=== PATIENT | female | born 1970 | race Caucasian/White ===

== ENCOUNTER 2023-01-29 12:54 | Outpatient (OUT) | payer OTHER, SELFPAY ==
--- NOTE | 2023-01-29 13:02 | XR_ITS ---
[place] [id number] Patient Name: AMALIA SHARMA MRN: [id number] date: 1970 Sex: F Assigned Patient Location: [facility] Current Patient Location: [facility] Accession/Order Number: [id number] Exam Date: 01/29/2023 13:08 Report Date: 01/29/2023 15:15 At the request of: RODOLFO REDDING Procedure: XR DEXA axial skeleton EXAMINATION: XR DEXA axial skeleton HISTORY: Osteoporosis COMPARISON: No relevant comparison available. TECHNIQUE: Dual-energy X-ray absorptiometry (DXA) was performed. FINDINGS: SPINE ANALYSIS: Average bone mineral density is 1.065 g/cm2. T-score (standard deviation relative to young adult mean): -1.0 . HIP ANALYSIS: Lowest bone mineral density is within the femoral neck, 0.938 g/cm2. T-score (standard deviation relative to young adult mean): -0.7 . IMPRESSION: [employer] Classification: Normal - Low Fracture Risk Electronically authenticated by: CANDACE LÓPEZ Date: 01/29/2023 15:15
== END 2023-01-29 12:55 ==
PROVIDERS: PCP Family Medicine; Visit Provider Obstetrics & Gynecology
DX: Z01.419 Encounter for gynecological examination (general) (routine) without abnormal findings (principal)
CPT/HCPCS: 77080

== ENCOUNTER 2023-02-06 15:47 | Outpatient (OUT) | payer OTHER, SELFPAY ==
[2023-02-06 17:23] LABS: Thyroid Stimulating Hormone 0.007 uIU/mL (0.358-3.740)
[2023-02-06 18:25] LABS: Free T4 1.16 ng/dL (0.76-1.46)
== END 2023-02-06 15:48 ==
PROVIDERS: PCP Family Medicine; Visit Provider Family Medicine
DX: K90.0 Celiac disease (principal); E03.9 Hypothyroidism, unspecified
CPT/HCPCS: 36415; 82784; 84439; 84443; 86231; 86258; 86364

== ENCOUNTER 2023-02-12 14:51 | Outpatient (OUT) | payer OTHER, SELFPAY ==
--- NOTE | 2023-02-12 14:59 | US_ITS ---
The [address] [address] Patient Name: AMALIA SHARMA MRN: [id number] date: 1970 Sex: F Assigned Patient Location: [place] Current Patient Location: [place] Accession/Order Number: [id number] Exam Date: 02/12/2023 15:10 Report Date: 02/12/2023 17:18 At the request of: ROJELIO LOYA Procedure: US thyroid EXAM: US thyroid HISTORY: Hypothyroidism E03.9 . Follow-up study. COMPARISON: 09/30/2019 TECHNIQUE: Multiple sonographic images of the thyroid gland were obtained, supplemented with Doppler. FINDINGS: The right lobe measures 4.5 x 1.7 x 1.4 cm. Heterogeneous echoes are noted throughout. A solid hypoechoic nodule is seen in the superior aspect of the right lobe measuring 1.1 x 0.9 x 0.4 cm. Additional very small nodules are suggested. The left lobe measures 3.8 x 1.3 x 1.2 cm. Heterogeneous echoes are noted throughout. In the inferior aspect of the left lobe is a solid hypoechoic nodule measuring 1.3 x 0.9 x 0.6 cm. In the mid aspect there is a solid hypoechoic nodule measuring 1.0 x 0.6 x 0.5 cm. Additional very small nodules are suggested. The isthmus measures 4 mm in thickness. No focal mass or abnormal fluid collection is seen surrounding the gland. IMPRESSION: The thyroid gland is not enlarged. There are multiple nodules present, with no significant interval change. The larger identified nodules described above are all TI RADS 4. Biopsy is not recommended at this time. A follow-up study in 12 months is recommended. Electronically authenticated by: TONY ALVAREZ Date: 02/12/2023 17:18
== END 2023-02-12 14:52 | disposition home or self-care (01) ==
LOC: US 14:52
PROVIDERS: PCP Family Medicine; Visit Provider Family Medicine
DX: E03.9 Hypothyroidism, unspecified (principal)
CPT/HCPCS: 76536

== ENCOUNTER 2023-02-16 11:32 | Outpatient (OUT) | payer OTHER, SELFPAY | END 2023-02-16 11:33 | disposition home or self-care (01) | LOC: LAB 11:33 | PROVIDERS: PCP Family Medicine; Visit Provider Family Medicine | DX: K90.0 Celiac disease (principal); E03.9 Hypothyroidism, unspecified | CPT/HCPCS: 36415; 81377; 82784; 86258; 86364 ==

== ENCOUNTER 2023-03-29 11:18 | Outpatient (OUT) | payer OTHER, SELFPAY ==
[2023-03-29 13:31] LABS: Free T4 0.85 ng/dL (0.76-1.46)
[2023-03-29 13:39] LABS: Thyroid Stimulating Hormone 1.451 uIU/mL (0.358-3.740)
== END 2023-03-29 11:19 | disposition home or self-care (01) ==
LOC: LAB 11:21
PROVIDERS: PCP Family Medicine; Visit Provider Family Medicine
DX: E06.9 Thyroiditis, unspecified (principal)
CPT/HCPCS: 36415; 84439; 84443

== ENCOUNTER 2023-07-27 13:26 | Outpatient (OUT) | payer OTHER, SELFPAY ==
[2023-07-27 14:34] LABS: Basophils Absolute Auto 0.1 10^3/uL (0.0-0.1); Basophils Percent Auto 0.7 % (0.2-2.0); Eosinophils Absolute Auto 0.1 10^3/uL (0.0-0.7); Eosinophils Percent Auto 1.9 % (0.9-7.0); Hemoglobin 13.8 g/dL (12.0-16.0); Immature Granulocytes Abs Auto 0.02 10^3/uL (0.00-0.03); Immature Granulocytes Pct Auto 0.3 % (0.0-0.5); Lymphocytes Absolute Auto 2.3 10^3/uL (1.2-3.8); Lymphocytes Percent Auto 31.6 % (20.5-60.0); Mean Corpuscular HGB Conc 33.7 g/dL (29.9-35.2); Mean Corpuscular Hemoglobin 29.2 pg (26.7-34.0); Mean Corpuscular Volume 86.9 fL (81.0-99.0); Mean Platelet Volume 8.9 fL (9.5-13.5); Monocytes Absolute Auto 0.5 10^3/uL (0.3-0.8); Monocytes Percent Auto 7.4 % (1.7-12.0); Neutrophils Absolute Auto 4.2 10^3/uL (1.4-6.5); Neutrophils Percent Auto 58.1 % (43.0-75.0); Platelet Count 323 10^3/uL (150-450); Red Blood Count 4.72 10^6/uL (4.20-5.40); Red Cell Distribution Width 12.1 % (11.0-15.0); White Blood Count 7.3 10^3/uL (4.0-11.0)
== END 2023-07-27 13:27 | disposition home or self-care (01) ==
LOC: PST 13:26
PROVIDERS: PCP Family Medicine; Visit Provider Otolaryngology
DX: Z01.812 Encounter for preprocedural laboratory examination (principal); H69.93 Unspecified Eustachian tube disorder, bilateral; J39.2 Other diseases of pharynx
CPT/HCPCS: 85025

== ENCOUNTER 2023-07-31 07:47 | Day surgery (SDC) | payer OTHER, SELFPAY ==
[2023-07-27 14:09] VITALS: BP 155/87; PULSE 75; RESP 18; TEMP 36.3; O2SAT 97; BMI 37.5
[2023-07-31] VITALS (9 sets, daily range): BP systolic 134–173; BP diastolic 75–102; PULSE 62–80; RESP 13–19; TEMP 36–36.4; O2SAT 90–96; BMI 37.1
--- NOTE | 2023-07-31 | OP_ITS ---
OPERATION DATE: 07/31/2023 PRIMARY CARE PHYSICIAN: Bev Woods M.D. SURGEON: Nicole Kaufman M.D. PREOPERATIVE DIAGNOSIS: Right eustachian tube dysfunction, recurrent right epistaxis and nasopharyngeal mass POSTOPERATIVE DIAGNOSIS: Right eustachian tube dysfunction, recurrent right epistaxis and nasopharyngeal mass PROCEDURE: Right myringotomy and tube with microdissection, placement of a modified [place]?s T-tube; right nasal endoscopy and cautery, and biopsy of the nasopharynx. ANESTHESIA: General endotracheal. COMPLICATIONS: None. FINDINGS: Right serous effusion, active right anterior septal bleeding and midline nasopharyngeal mass. INDICATIONS: This 53-year-old woman presented with a right otitis medial with effusion, unresponsive to aggressive medical management. 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 The morning of the patient?s procedure, she also reported that she had been having recurrent right side epistaxis and requested cautery be done if a bleeding site was identified. PROCEDURE: Patient identified in the holding area and taken back to the OR where she was placed in the supine position. After induction of general endotracheal anesthesia, the right ear was approached with the otomicroscope. An anterior radial myringotomy was performed and a modified [place]?s T-tube was folded, inserted through the myringotomy and opened in the middle ear using microdissection. Then, the right nose was approached with the 30 degree nasal endoscope. The bleeding site was identified. Bleeding was controlled with suction Bovie under direct endoscopic guidance. Then, Afrin soaked patties were placed in each side of the nose, and after waiting adequate time for decongestion, the left nose was approached with the nasal endoscope and an upbiting, 45 degree, ethmoid forcep was used to obtain a biopsy of a midline superior nasopharyngeal mass. Bleeding was controlled with suction Bovie. The patient was then awakened and taken to the recovery room in good condition. JUSTUS
[2023-07-31] MEDS: LACTATED RINGER'S SOLUTION 1,000 ML 50 ML IV (08:14)
[2023-07-31] MEDS: OXYMETAZOLINE HCL 0.05% NASAL SPRAY 30 SPRAY NS (09:31)
== END 2023-07-31 11:15 | disposition home or self-care (01) ==
PROVIDERS: PCP Family Medicine; Visit Provider Otolaryngology
PROC: (CPT 126; principal; 2023-07-31 08:50)
PROC: (CPT 126; 2023-07-31 08:50)
DX: H69.81 Other specified disorders of Eustachian tube, right ear (principal); J39.2 Other diseases of pharynx; R04.0 Epistaxis; H90.2 Conductive hearing loss, unspecified; E11.9 Type 2 diabetes mellitus without complications; I10 Essential (primary) hypertension; E66.9 Obesity, unspecified; Z87.442 Personal history of urinary calculi; Z68.37 Body mass index [BMI] 37.0-37.9, adult
CPT/HCPCS: 31237; 31238; 69436; 36415; 88305; 88312; 88341; 88342; J2704

== ENCOUNTER 2023-08-24 08:51 | Outpatient (OUT) | payer OTHER, SELFPAY ==
[2023-08-24 12:10] LABS: Cholesterol 219 mg/dL (<=200); Glucose 138 mg/dL (74-106); HDL Cholesterol 72 mg/dL (40-60); Triglycerides 83 mg/dL (<=150); VLDL CHOLESTEROL 16.6 mg/dL
== END 2023-08-24 08:52 | disposition home or self-care (01) ==
LOC: LAB 08:52
PROVIDERS: PCP Family Medicine; Visit Provider Family Medicine
DX: Z00.00 Encounter for general adult medical examination without abnormal findings (principal)
CPT/HCPCS: 36415; 80061; 82947

== ENCOUNTER 2024-09-02 07:35 | Outpatient (OUT) | payer OTHER, SELFPAY ==
--- OUTSIDE RECORDS SUMMARY | 2024-09-02 07:40 | XMS_ITS | CCD ---
Author Organization [facility] Care Team Providers Care Bulwark Carpenter Name Role Phone Bev Loya Unavailable Amina Thomas Unavailable MD Bev Loya Primary Care Provider Roby Nevarez Attending Provider [phone] SHALINI, DR BEV Aquino Primary Care Unavailable MILADIS ., DR REYNOLDS Admitting Unavailable MILADIS ., DR REYNOLDS Consulting Unavailable MILADIS ., DR REYNOLDS Attending Unavailable SHALINI, DR BEV Aquino Primary Care Unavailable SHALINI, DR BEV Aquino Consulting Unavailable SHALINI, DR BEV Aquino Attending Unavailable SHALINI, DR BEV Aquino Admitting Unavailable SHALINI, DR BEV Aquino Primary Care Unavailable SHALINI, DR BEV Aquino Consulting Unavailable SHALINI, DR BEV Aquino Attending Unavailable SHALINI, DR BEV Aquino Admitting Unavailable BEV LOYA Primary Care Physician Timmis, Nicole H Referring Unavailable Timmis, Nicole H Attending Unavailable Timmis, Nicole H Admitting Unavailable Timmis, Nicole H Referring Unavailable Timmis, Nicole H Attending Unavailable Timmis, Nicole H Admitting Unavailable Asaad, Imad Unavailable MD Bev Loya Primary Care Provider [phone] MD Johnathan More Attending Provider MD Bev Loya Primary Care Provider [phone] Self, Referral Attending Provider Unavailable Bev Loya Primary Care Unavailable Asaad, Imad Admitting Unavailable Asaad, Imad Attending Unavailable Bev Loya Primary Care Unavailable Self, Referral Admitting Unavailable Self, Referral Attending Unavailable Bev Loya MD Primary Care Provider TIMMIS, NICOLE H Attending Unavailable TIMMIS, NICOLE H Attending Unavailable NICOLE BLUM Attending Unavailable BEV LOYA Referring Unavailable NICOLE BLUM Attending Unavailable NICOLE BLUM Attending Unavailable Bev Loya MD Primary Care Provider Self, Referral Attending Provider Unavailable Allergies Allergy Classification Reported Allergen(s) Allergy Type Date of Onset Reaction(s) Facility (1 source) patient allergy list reviewed by nurse or physicia Propensity to adverse reactions 8 Comment:Done [place] Other (1 source) Allergies Reconciled Propensity to adverse reactions Unknown [place] Other Medications Current Medications Medication Drug Class(es) Dates Sig (Normalized) Sig (Original) acetylcysteine 500 mg oral capsule (7 sources) Antidote, Mucolytic, Antidote for Acetaminophen Overdose NAC 500 MG as directed Orally Active Calcium (13 sources) Phosphate Binder, Calcium Calcium 150 MG a s directed Orally Active Calcium + D 500-1000-40 MG-UNT-MCG (9 sources) Calcium + D 500-1000-40 MG-UNT-MCG as directed Orally Active calcium carbonate 1250 mg chewable tablet (1 source) Start: 09-01-19 25 take 1 tablet by mouth once daily Calcium Carbonate (Calcium 500) 500 mg calcium (1,250 mg) tablet,chewable Active 500 MG PO Daily September 01, 2024 12:00am calcium carbonate 1250 mg / cholecalciferol 1000 unt / vitamin k 0.4 mg chewable tablet (1 source) Vitamin D Calcium + D 500-1000-40 MG-UNT-MCG as directed Orally Active Zozlscy-Xlinjyeeh-Eftgzd n D (CALCIUM 1200+D3 PO) (6 sources) take 1 tablet by mouth once in the morning Foprrgi-Lifdsyile-Ww tamin D (CALCIUM 1200+D3 PO) Take 1 tablet by mouth in the morning. Active ferrous sulfate (6 sources) take 1 tablet by mouth in the morning Ferrous Sulfate (IRON PO) Take 1 tablet by mouth in the morning. Active fexofenadine hydrochloride 180 mg oral tablet (6 sources) Histamine-1 Receptor Antagonist Start: 09-01-19 25 take 1 tablet by mouth once daily Fexofenadine (Kerri Allergy) 180 mg tablet Active 180 MG PO Daily September 01, 2024 12:00am Start: 06-04-2024 fexofenadine ( Kerri Allergy) 180 MG tablet 06/04/2024 Active Fish Oils (20 sources) Start: 11-08-2020 take 500 mg by mouth once daily Fish Oil 500 mg, Oral, Daily, Refill(s) 0, Prophylaxis Start Date: 11/08/20 Status: Ordered omega-3 (Fish Oi l) 1200 MG capsule 1 capsule 1 (one) time each day at the same time. Active take 1 capsule by mouth once erin ly take 1 capsule by mouth once erin ly Fish Oil 1000 MG 1 capsule with a meal Orally Once a day for 30 day(s) Active Lactobacillus Combination No.9 (Adult 50 Plus Probiotic) 4 billion cell capsule (1 source) Start: 09-01-2024 take 4 capsules by mouth once daily Lactobacillus Combination No.9 (Adult 50 Plus Probiotic) 4 billion cell capsule Active 4000 MMU CELLS PO Daily September 01, 2024 12:00am administer with a meal levothyroxine sodium 0.025 mg oral tablet (20 sources) l-Thyrox ine Start: 02-17-2023 take 1 tablet by mouth once daily Levothyroxine 25 mcg tablet Active 25 MCG PO Daily July 17, 2023 12:00am Start: 02-12-2023 take 1 tablet by kaye th once daily in the morning Levothyroxine Sodium 25 MCG 1 tablet in the morning on an empty stomach Orally Once a day for 90 days Jan, Active Start: 11-30-2022 take 1 tablet by kaye th once daily in the morning Levothyroxine Sodium 75 MCG 1 tablet in the morning on an empty stomach Orally Once a day for 90 days Nov, Active take 1 tablet by kaye th every twenty-four hours Levothyroxine Sodium 88 MCG 1 tablet Orally Once a day Active Magnesium (13 sources) Magnesium Active melatonin 5 mg oral tablet (6 sources) melatonin 5 MG t ablet 1 (one) time each day at the same time. Active multivitamin (Theragran) tablet (6 sources) take 1 tablet by mouth in the morning multivitamin (Theragran) tablet Take 1 tablet by mouth in the morning. Active Multivitamin preparation (2 sources) Start: 07-17-2023 take 1 tablet by mouth once daily Multivitamin Active 1 TAB PO Daily July 17, 2023 1:00am Start: 07-17-2023 take 1 tablet by kaye th once daily Multivitamin Active 1 TAB PO Daily July 17, 2023 12:00am Multivitamin Tablet (1 source) Start: 07-17-2023 take 1 tablet by mouth once daily Multivitamin Tablet Active 1 TAB PO Daily July 17, 2023 12:00am Multivitamins (16 sources) Multivitamins as directed Orally Active ofloxacin 3 mg/ml otic solution (2 sources) Quinolone Antimicrobial Start: 07-08-2024 End: 07-13-2024 ofloxacin (Floxin) 0.3 % otic solution Indications: ETD (Eustachian tube dysfunction), bilateral Administer 4 drops into each ear in the morning and 4 drops before bedtime. Do all this for 5 days. 10 mL 07/08/2024 07/13/2024 Active [place] 2-Fip-Jmm-Fish Oil (Fish Oil) 100-160-1,000 mg capsule (1 source) Start: 09-01-2024 [place] 5-Upc-Rvq-Fish Oil (Fish Oil) 100-160-1,000 mg capsule Active CAP PO September 01, 2024 12:00am One A Day Women 50 Plus (3 sources) Start: 05-29-2011 take 1 tablet by mouth once daily One A Day Women 50 Plus 1 TABLET, Oral, Daily, Refill(s) 0, Prophylaxis Start Date: 05/29/11 Status: Ordered probiotic (16 sources) probiotic as dir ected Active Vitamin C 500 MG (13 sources) take 1 tablet by mouth once raya y take 1 tablet by mouth once raya y Vitamin C 500 MG 1 tablet Orally Once a day Active Completed/Discontinued Medications Medication Drug Class(es) Dates Sig (Normalized) Sig (Original) amLODIPine 5 mg oral tablet (13 sources) Dihydropyridine Calcium Channel [place] Start: 08-21-2023 End: 03-31-2024 take 1 tablet by mouth once daily Amlodipine 5 mg tablet Discontinued 5 MG PO Daily November 15, 2023 12:01pm March 31, 2024 10:32am Berberine Chloride 500 MG capsule (3 sources) End: 07-08-2024 take 1 capsule by mouth in the morning Berberine Chloride 500 MG capsule Take 1 capsule by mouth in the morning. 07/08/2024 Discontinued (Therapy completed) take 1 capsule by mouth in the m orning Berberine Chloride 500 MG capsule Take 1 capsule by mouth in the morning. Active cetirizine hydrochloride 10 mg oral tablet (13 sources) Histamine-1 Receptor Antagonist take 1 tablet by mouth every twenty-four hours Cetirizine HCl 10 MG 1 tablet Orally Once a day Not-Taking fluticasone propionate 0.05 mg/actuat metered dose nasal spray (4 sources) Corticosteroid Start: End: take 1 spray(s) nasal route once daily Fluticasone Propionate (Flonase Allergy Relief) 50 mcg/actuation spray,suspension Discontinued 1 SPRAY INTRANASAL Daily September 01, 2024 12:00am September 01, 2024 11:35am administer into each nostril Flonase Active hydrocortisone 10 mg/ml / neomycin 3.5 mg/ml / polymyxin b 73737 unt/ml otic suspension (16 sources) Aminoglycoside Antibacterial, Polymyxin-class Antibacterial, Corticosteroid Jwuqrdbx-Aclrlixwy-V C 3.5-64765-5 3 drops right ear Three times a day for 7 days Not-Taking/PRN losartan potassium 100 mg oral tablet (20 sources) Angiotensin 2 Receptor [place] Start: 2022 End: 2023 take 1 tablet by mouth at bedtime Losartan 100 mg tablet Discontinued 100 MG PO Bedtime July 17, 2023 12:00am March 31, 2024 10:32am Multivitamin With Iron tablet (1 source) Start: 2024 End: 2024 take 1 tablet by mouth once daily Multivitamin With Iron tablet Discontinued 1 TAB PO Daily September 01, 2024 12:00am September 01, 2024 11:35am Problems Active Problems Problem Classification Problem Date Documented Da te Episodic/Chronic Abdominal pain (8 sources) Abdominal pain; Translations: [Unspecified abdominal pain] Episodic Calculus of urinary tract (16 sources) Kidney stone; Translations: [Calculus of kidney] Episodic Deficiency and other anemia (2 sources) Anemia, unspecified; Translations: [ANEMIA UNSPECIFIED] Onset: 12-03-2022 Episodic Diabetes mellitus without complication (20 sources) Prediabetes; Translations: [Prediabetes] Onset: 02-22-2022 Episodic Disorders of lipid metabolism (18 sources) Hyperlipidemia; Translations: [Hyperlipidemia, unspecified] 09-01-2024 Chronic Essential hypertension (20 sources) Hypertensive disorder; Translations: [Essential (primary) hypertension] Onset: 06-27-2018 Chronic Genitourinary symptoms and ill-defined conditions (7 sources) Genitourinary symptoms; Translations: [Unspecified symptoms and signs involving the genitourinary system] Episodic Joint disorders and dislocations; trauma-related (9 sources) Chronic instability of right knee joint; Translations: [Derangement of right knee] Onset: 01-28-2023 10-28-2020 Chronic Nutritional deficiencies (20 sources) Vitamin D deficiency; Translations: [Vitamin D deficiency, unspecified] Onset: 04-08-2018 Chronic Other circulatory disease (8 sources) Elevated blood-pressure reading without diagnosis of hypertension; Translations: [Elevated blood-pressure reading, without diagnosis of hypertension] Onset: 04-12-2018 Episodic Other ear and sense organ disorders (6 sources) Conductive hearing loss, bilateral; Translations: [Conductive hearing loss, bilateral] Onset: 01-28-2023 01-28-2023 Chronic Other ear and sense organ disorders (6 sources) Left conductive hearing loss; Translations: [Conductive hearing loss, unilateral, left ear, with unrestricted hearing on the contralateral side] Onset: 01-28-2023 01-28-2023 Chronic Other ear and sense organ disorders (6 sources) Chronic left myringitis; Translations: [Chronic myringitis, left ear] Onset: 01-28-2023 03-26-2023 Chronic Other ear and sense organ disorders (1 source) Disorder of external ear; Translations: [Disorder of external ear, unspecified, unspecified ear] Onset: 04-26-2023 Episodic Other female genital disorders (10 sources) Abnormal uterine bleeding; Translations: [Abnormal uterine and vaginal bleeding, unspecified] 10-28-2020 Chronic Other gastrointestinal disorders (11 sources) Celiac disease; Translations: [Celiac disease] Chronic Other gastrointestinal disorders (1 source) Celiac disease Chronic Other non-traumatic joint disorders (6 sources) Derangement of left shoulder joint; Translations: [Other specific joint derangements of left shoulder, not elsewhere classified] Onset: 01-28-2023 01-28-2023 Chronic Other non-traumatic joint disorders (7 sources) Unstable knee; Translations: [Other instability, right knee] Episodic Other non-traumatic joint disorders (10 sources) Joint pain; Translations: [Pain in unspecified joint] 10-28-2020 Episodic Other non-traumatic joint disorders (7 sources) Arthralgia of the upper arm; Translations: [Pain in right elbow] Episodic Other non-traumatic joint disorders (3 sources) Pain in elbow 10-28-2020 Episodic Other nutritional; endocrine; and metabolic disorders (16 sources) Metabolic syndrome X; Translations: [Metabolic syndrome] Chronic Other nutritional; endocrine; and metabolic disorders (20 sources) Obesity; Translations: [Obesity, unspecified] Chronic Other nutritional; endocrine; and metabolic disorders (16 sources) Body mass index 30+ - obesity; Translations: [Body mass index (BMI) 35.0-35.9, adult] Chronic Other nutritional; endocrine; and metabolic disorders (1 source) Obese class I; Translations: [Body mass index 33.0-33.9, adult] Onset: 04-12-2018 Chronic Other nutritional; endocrine; and metabolic disorders (15 sources) Obese class II; Translations: [Body mass index (BMI) 35.0-35.9, adult] Onset: 12-05-2018 Chronic Other screening for suspected conditions (not mental disorders or infectious disease) (7 sources) Encounter for screening for malignant neoplasm of cervix; Translations: [Encounter for screening for malignant neoplasm of colon] Onset: 01-09-2023 Episodic Other upper respiratory infections (7 sources) Acute pharyngitis; Translations: [Acute pharyngitis, unspecified] Episodic Otitis media and related conditions (20 sources) Unspecified perforation of tympanic membrane, right ear; Translations: [Non-suppurative otitis media] Onset: 04-08-2018 Episodic Thyroid disorders (20 sources) Hypothyroidism; Translations: [Hypothyroidism, unspecified] Onset: 04-08-2018 Chronic Comment on above: Problem List clean-u p per request of Phys. EHR Cmte Unclassified (1 source) Encounter for screening for malignant neoplasm of colon; Translations: [Encounter for screening for malignant neoplasm of colon] Onset: 07-17-2023 Past or Other Problems Problem Classification Problem Date Documented Da te Episodic/Chronic Malaise and fatigue (1 source) Malaise and fatigue; Translations: [Other malaise and fatigue] Onset: 04-08-2018 Episodic Other ear and sense organ disorders (6 sources) Lump in ear canal; Translations: [Other specified disorders of right ear] Onset: 03-26-2023 03-26-2023 Episodic Other ear and sense organ disorders (6 sources) Otorrhea; Translations: [Otorrhea, right ear] Onset: 08-08-2023 08-08-2023 Episodic Other skin disorders (7 sources) Alopecia; Translations: [Nonscarring hair loss, unspecified] Onset: 04-08-2018 Episodic Other upper respiratory disease (6 sources) Mass of nasopharynx; Translations: [Other diseases of pharynx] Onset: 07-24-2023 07-24-2023 Episodic Other upper respiratory disease (6 sources) Epistaxis; Translations: [Epistaxis] Onset: 08-08-2023 08-08-2023 Episodic Results Test Name Value Interpretation Reference Range Facility MM screening mammo BI w/CADo n 06-06-2024 MM screening mammo BI w/CAD [facility] [place] [address] Mammography Report Signed Patient: Milana Miller MR#: [id number] 87 : 1970 Acct:[id number] Age/Sex: 54 / F ADM Date: 06/06/24 Loc: MD Room: Type: [facility] Attending Dr: Referral Self Copies to: Bev Loya MD SELF,REFERRAL Ordering Provider: SELF,REFERRAL Date of Service: 06/06/24 MM/MM screening mammo BI w/CAD: SCREENING CLINICAL DATA: Screening for malignancy. BILATERAL SCREENING MAMMOGRAMS - FULL FIELD DIGITAL WITH TOMOSYNTHESIS AND CAD Tomosynthesis craniocaudal and mediolateral oblique views of both breasts were obtained using low- dose digital technique. Comparison is made to prior studies from June 19, 2016 through November 21, 2022. This examination was reviewed with the aid of CAD. There are scattered fibroglandular densities. There are no developing masses, typically malignant calcifications or architectural distortion. There has been no significant interval change. MM/MM screening mammo BI w/CAD IMPRESSION: NO MAMMOGRAPHIC EVIDENCE OF MALIGNANCY. ROUTINE FOLLOW-UP IS RECOMMENDED IN ONE YEAR. RESULT CODE: 1 Negative DENSITY CODE: 2 (approximately 25-50% glandular) FOLLOW UP: 1YR The false-negative rate of mammography is approximately 10-percent. Management of a palpable abnormality must be based on clinical grounds. Patient was entered into a reminder system with a target due date for the next mammogram. Impression dictated by: Sudha Mendoza M.D.06/06/2024 2:22 PM Dictation Location: [facility] Transcribed By: PWS 06/06/24 142 Dictated By: Sudha Mendoza MD 06/06/24 141 Signed By: 06/06/24 142 Normal [facility] HCG ( test) IA.rapi d Ql (U)Ordered By: Johnathan More on 07-17-2023 HCG ( test) Ql (U) Negative [facility] HCG,Urineon 07-17-2023 Beta HCG ( test) Ql (U) Negative Normal [facility] Comment on above: Result Comment: PERF ORMED BY: [place] [address] PATHOLOGIST [employer] ATTENDANT JAY LENTZ M.D. Performed By: #### U HCG #### [address] 07-17-2023 L - -------- Specimen: [id number] Received: 07/17/23 Status: ZHANE Kimballlinda Num: [id number] Spec Type: Surgical Subm Dr: Johnathan More MD Tissues: A Duodenum - Biopsy (DUODENUM BX) B Colon Biopsy (ASC POLYP) C Colon Biopsy (SIGMOID POLYP) Procedures: HE/6, Gross/Micro L4/3 -------- Age/ Patient Sex Location Account Attending Physician -------- Milana Miller 53/F [id number] Johnathan More MD -------- SPEC NUM: [id number] RECD: 07/17/23 STATUS: ZHANE MOSS NUM: [id number] JENNY: 07/17/23- DR: Johnathan More MD ENTERED: 07/17/[address] [facility] [address]: YANIV TYPE: Surgical DEPT: S ORDERED: HE/6, Gross/Micro L4/3 ORDERED: HE/6, Gross/Micro L4/3 Pathological Diagnosis A. Duodenal biopsy: - Duodenal mucosa with some noted villous structures and only mild insignificant chronic inflammation in glandular stroma, and also with only occasional and overall still not significant lymphocytic exocytosis noted, otherwise also without villous blunting, or any overt features of gluten hypersensitivity observed B. Ascending colon polyp biopsy: - Benign serrated polyp without any obvious glandular dysplasia in examination C. Sigmoid polyp biopsy: - Small serrated hyperplastic polyp Clinical Information Screening, celiac Gross Description A. Received in formalin labeled with the patient's name, date of and duodenum biopsy celiac are two chi tissues measuring 0.1 cm and 0.3 x 0.2 x 0.2 cm. Entirely submitted in one cassette labeled A1. B. Received in formalin labeled with the patient's name, date of and ascending colon -------- Specimen: [id number] Received: 07/17/23 Status: ZAHNE Moss Num: [id number] Spec Type: Surgical Subm Dr: Johnathan More MD Tissues: A Duodenum - Biopsy (DUODENUM BX) B Colon Biopsy (ASC POLYP) C Colon Biopsy (SIGMOID POLYP) Procedures: HE/6, Gross/Micro L4/3 -------- Patient: Milana Miller [id number] (Continued) -------- Specimen: [id number] Received: 07/17/23 (Continued) Gross Description (Continued) Signed (signature on file) Renny Jang MD 07/18/23 1415 -------- Specimen: [id number] Received: 07/17/23 Status: ZHANE Moss Num: [id number] Spec Type: Surgical Subm Dr: Johnathan More MD Tissues: A Duodenum - Biopsy (DUODENUM BX) B Colon Biopsy (ASC POLYP) C Colon Biopsy (SIGMOID POLYP) Procedures: HE/6, Gross/Micro L4/3 -------- Patient: Milana Miller [id number] (Continued) -------- Specimen: [id number] Received: 07/17/23 (Continued) Gross Description (Continued) polyp is one chi tissue measuring 0.4 x 0.3 x 0.2 cm admixed with fecal material. Entirely submitted in one cassette labeled B1. C. Received in formalin labeled with the patient's name, date of and sigmoid polyp is one chi tissue measuring 0.2 cm. Entirely submitted in one cassette labeled C1. Microscopic Description A. Two H E slides reviewed. The microscopic examination confirms the diagnosis. B. Two H E slides reviewed. The microscopic examination confirms the diagnosis. C. Two H E slides reviewed. The microscopic examination confirms the diagnosis. CPT Codes 26975j0 -------- -------- Specimen: [id number] Received: 07/17/23 Status: ZHANE Moss Num: [id number] Spec Type: Surgical Subm Dr: Johnathan More MD Tissues: A Duodenum - Biopsy (DUODENUM BX) B Colon Biopsy (ASC POLYP) C Colon Biopsy (SIGMOID POLYP) Procedures: Armen GLASGOW/Víctor L4/3 -------- Patient: Milana Miller [id number] (Continued) -------- Signed (signature on file) Renny Jang MD 07/18/23 1415 [place] Postoperative Documentson Postoperative Documents [id number]# 1.00CD:127 [facility] Progress Note-Physicianon Progress Note-Physician Patient: MILANA MILLER Age: 52 years Sex: Female : 1970 Associated Diagnoses: None Author: MD Concepcion Ahmad F Postoperative Information Postoperative disposition: Postoperative disposition: To PACU. Optimetrix number: Optimetrix number [id number]. Anesthetic utilized: General. Health Status Allergies: Allergic Reactions (Selected) No Known Allergies Physical Examination VS/Measurements Pain Assessment: Controlled. General: Awake, Alert, Appropriate. Respiratory: Adequate air exchange. Cardiovascular: Stable, Normal peripheral perfusion. Neurological: Normal sensory function, Normal motor function. Assessment Anesthetic outcome No anesthetic complications noted. Adequate pain relief. able to void without difficulty, able to ambulate with assist, tolerating PO intake, no N/V. Review / Management Condition: Stable. Plan Transfer/Discharge: Transfer/Discharge Discharge when meets criteria ( To home ). [facility] Comment on above: Result Comment: Elec tronically Signed By: MD Concepcion Ahmad F\.br\Date and Time Signed: 05/01/23 08:40 EDT Progress Note-Physician Patient: MILANA MILLER Age: 52 years Sex: Female : 1970 Associated Diagnoses: None Author: MD Concepcion Ahmad F Preoperative Information Time patient last ate or drank:=== (npo 8 hours) Anesthesia history: Patient history: No prior anesthesia problems. Re-evaluation prior to induction: Completed, Initial evaluation reviewed. Review of Systems Respiratory: No shortness of breath. Cardiovascular: No chest pain. Hematology/Lymphatics : No bruising tendency, No bleeding tendency. Health Status Allergies: Allergic Reactions (All) No Known Allergies Current medications: (Selected) Documented Medications Documented Fish Oil: 500 mg, Oral, Daily, Refill(s) 0, Prophylaxis One A Day Women 50 Plus: 1 TABLET, Oral, Daily, Refill(s) 0, Prophylaxis levothyroxine 25 mcg (0.025 mg) Tab: 25 mcg = 1 tab(s), Oral, Daily, Refills(s) 0, Thyroid losartan 100 mg Tab: 100 mg = 1 tab(s), Oral, Daily, Refills(s) 0, High blood pressure Problem list: All Problems Abnormal uterine bleeding / SNOMED CT 1973106436 / Confirmed Chronic joint pain / SNOMED CT 61423251 / Confirmed Elevated fasting glucose / SNOMED CT 903293614 / Confirmed Benign hypertension / SNOMED CT 58380135 / Confirmed Adult hypothyroidism / SNOMED CT 76961655 / Confirmed Chronic instability of right knee / SNOMED CT 7852995174 / Confirmed Elbow pain, right / SNOMED CT 785878259 / Confirmed Thyroid nodule / SNOMED CT 425886280 / Confirmed Resolved: Chronic otitis media / SNOMED CT 75970026 Histories Past Medical History: Resolved Chronic otitis media (46315898): Resolved. Family History: Breast cancer Aunt Hypertension Father Kidney disease Father Prostate cancer Father Procedure history: Myringotomy and insertion of T tube ([id number]) on 04/26/2023 at 52 Years. Right External Auditory Canal Cyst Removal ([id number]) on 04/26/2023 at 52 Years. Colonoscopy (686299527). Myringotomy and insertion of tympanic ventilation tube ([id number]). Repair, tendon or muscle, upper arm or elbow, each tendon or muscle, primary or secondary (excludes rotator cuff) (23500). Social History Social & Psychosocial Habits Alcohol 12/20/2009 Risk Assessment: Denies Alcohol Use Substance Abuse 12/20/2009 Risk Assessment: Denies Substance Abuse Tobacco 12/20/2009 Risk Assessment: Denies Tobacco Use 05/12/2021 Tobacco Use: Never (less than 100 in l . Physical Examination Please see preop flow sheet Airway: Mallampati classification: II (soft palate, fauces, uvula visible). Respiratory: Lungs are clear to auscultation. Cardiovascular: Normal rate, Regular rhythm. Neurologic: Alert. Review / Management Results review Interpretation of Outside Results Chest x-ray results Radiology results ECG interpretation Condition Plan [place] [employer] (ASA) physical status classification: Class III. Anesthetic Preoperative Plan Anesthesia: General. . Anesthetic plan, risks, benefits, and alternatives discussed with the patient and/or family. Risks discussed: nausea, vomiting, headache, sore throat, dental injury, serious complications. Patient verbalized understanding. Communication: face to face with patient 5 minutes. [facility] Comment on above: Result Comment: Elec tronically Signed By: MD Jamey, Yinka Mahmood\.br\Date and Time Signed: 05/01/23 08:33 EDT Consent for Anesthesiaon Consent for Anesthesia [id number]# 1.00CD:127 [facility] Discharge Instructionson Discharge Instructions [id number]# 1.00CD:127 [facility] IntraOperative Documentson 0 04-27-2023 IntraOperative Documents [id number]# 1.00CD:127 [facility] IntraOperative Documents [id number]# 1.00CD:127 [facility] Main OR Intraoperative Recor don 04-27-2023 Main OR Intraoperative Record IntraOp Document Type FT Summary Primary Physician: Nicole Blum MD Finalized Date/Time: 04/27/23 12:54:47 Pt. Name: MILANA MILLER/Sex: 1970 Female Med Rec #: [id number] Physician: Nicole Blum MD Financial #: [id number] Pt. Type: A Room/Bed: [place] [address] Admit/Disch: 04/26/23 07:30:03 - 04/26/23 11:20:00 Institution: Case Times FT Entry 1 Patient Times In Room 04/26/23 09:22:00 Out Room 04/26/23 09:48:00 Procedure Times Start 04/26/23 09:29:00 Stop 04/26/23 09:41:00 Anesthesia Times Start 04/26/23 09:22:00 Stop 04/26/23 09:48:00 Last Modified By: Charity Gonzalez Ii 04/26/23 09:52:47 General Comments: 04/27/23 Chart opened to review and send charges [facility]FA Case Attendance FT Entry 1 Entry 2 Entry 3 Case Attendee Reggie MODI, Meagan Blum MD, Catalino Holm Role Performed REHABILITATION TECH Surgeon - Primary Loading Unit Operator - Primary Time In 04/26/23 09:22:00 04/26/23 09:28:00 04/26/23 09:22:00 Time Out 04/26/23 09:48:00 04/26/23 09:48:00 04/26/23 09:48:00 Procedure MYRINGOTOMY W/ MYRINGOTOMY W/ MYRINGOTOMY W/ INSERTION OF INSERTION OF INSERTION OF TUBES(Bilateral), CYST TUBES(Bilateral), CYST TUBES(Bilateral), CYST LESION REMOVAL(Right) LESION REMOVAL(Right) LESION REMOVAL(Right) Comments Dr. Concepcion anesthesia press room supervisor Last Modified By: Charity Gonzalez Ii, Alfons Ii F Letrondo, Alfons Ii F 04/26/23 09:53:00 04/26/23 09:53:00 04/26/23 09:53:00 Entry 4 Entry 5 Case Attendee Charity Gonzalez Ii, Adam A Role Performed Loading Unit Operator - Primary Scrub - Primary Time In 04/26/23 09:22:00 04/26/23 09:22:00 Time Out 04/26/23 09:48:00 04/26/23 09:48:00 Procedure MYRINGOTOMY W/ MYRINGOTOMY W/ INSERTION OF INSERTION OF TUBES(Bilateral), CYST TUBES(Bilateral), CYST LESION REMOVAL(Right) LESION REMOVAL(Right) Comments Last Modified By: Charity Gonzalez Ii, Alfons Ii F 04/26/23 09:53:00 04/26/23 09:53:16 Perioperative Protocols FT Pre-Care Text: Implements protective measures prior to operative or invasive procedure, confirms identity before the operative or invasive procedure, verifies operative procedure, surgical site, and laterality Entry 1 Procedure(s) MYRINGOTOMY W/ Patient Identity Birthday, ID Band INSERTION OF Verified (select at Check, Patient TUBES(Bilateral), CYST least 2): Participation LESION REMOVAL(Right) Consents / H and P Anesthesia Consent, Operative Site Present Verified HandP, Surgery/Procedure Marking Verified Consent Surgical Site Yes Laterality Verified Yes Verified Procedure Verified Yes Correct Patient Yes Position Verified Availability Equipment, Medication Prep Dry n/a Verified (If Applicable) PreOp Antibiotic No Time Out Meagan Paredes CRNA, Given Participants Shae JAVED, Ankit Aaron Terry T Time Out Complete 04/26/23 09:28:00 Outcomes Met? Yes Last Modified By: Charity Gonzalez Ii 04/26/23 11:08:43 Post-Care Text: The patient is free from signs and symptoms of injury caused by extraneous objects Allergy Information FT Pre-Care Text: Verifies allergies Entry 1 Allergies Reviewed? Yes Allergies Reviewed Self/Patient With Outcomes Met? Yes Last Modified By: Charity Gonzalez Ii 04/26/23 09:14:01 Post-Care Text: The patient received appropriate medication(s) safely administered during the perioperative period Surgical Procedures FT Entry 1 Entry 2 Procedure Description Procedure MYRINGOTOMY W/ CYST LESION REMOVAL INSERTION OF TUBES Modifiers Bilateral Right Surgeon Description LEFT MYRINGTOMY WITH T LEFT MYRINGTOMY WITH T TUBE AND RIGHT EXTERNAL TUBE AND RIGHT EXTERNAL AUDITORY CANAL LESION AUDITORY CANAL LESION REMOVAL REMOVAL Primary Procedure Yes No Primary Surgeon Nicole Blum MD, MD, Hilary H Start 04/26/23 09:29:00 04/26/23 09:29:00 Stop 04/26/23 09:41:00 04/26/23 09:41:00 Anesthesia Type General General Surgical Service ENT ENT Wound Class 2 - Clean-Contaminated 2 - Clean-Contaminated Last Modified By: Charity Gonzalez Ii, Alfons Ii F 04/26/23 09:53:40 04/26/23 09:54:17 General Case Data FT Pre-Care Text: Classifies surgical wound, implements aseptic technique, initiates traffic control Entry 1 Case Information OR OR 2 FT Case Level Level 2 Wound Class 2 - Clean-Contaminated Specialty ENT ASA Class 3 Preop Diagnosis EUSTACHIAN TUBE Postop Same As Preop Yes DYSFUNCTION Postop Diagnosis EUSTACHIAN TUBE Outcomes Met? Yes DYSFUNCTION Last Modified By: Bebe Fletcher CST 04/27/23 12:54:35 Post-Care Text: The patient is free from signs and symptoms of infection Skin Assessment (Pre Procedure) FT Pre-Care Text: Implements protective measures to prevent skin/ tissue injury due to thermal or mechanical sources Evaluates for signs and symptoms of physical injury to skin and tissue Entry 1 Skin Integrity Intact, [place], Warm, and Skin Abnormality (more content not included)... [facility] Physician Orderon 04-27-2023 Physician Order [id number]# 1.00CD:127 [facility] Preoperative Documentson Preoperative Documents [id number]# 1.00CD:127 [facility] B hCG Qualon 04-26-2023 Beta hCG Ql Negative [facility] Comment on above: Performed By: #### 2 [id number] ####[facility] [address] [place] [address] Consent for Treatmenton Consent for Treatment [id number]#1 .00CD:127 [facility] Discharge Instructionson Discharge Instructions MILANA MILLER :1970 Visit Date:04/26/2023 Inpatient Discharge Instructions Your Care Team Admitting Physician - Nicole Blum MD Referring Physician - Nicole Blum MD Reason for Your Visit EUSTACHIAN TUBE DYSFUNCTION Your Diagnosis ETD (eustachian tube dysfunction) Lesion of external ear canal Tests Performed Pathology Tissue Exam -- Results Pending -- Serum Qual Please visit your patient portal for your results or contact your primary care physician. This Is Your Medications List levothyroxine (levothyroxine 25 mcg (0.025 mg) Tab) losartan (losartan 100 mg Tab) multivitamin with minerals (One A Day Women 50 Plus) omega-3 polyunsaturated fatty acids (Fish Oil) Procedure History Colonoscopy, Myringotomy and insertion of tympanic ventilation tube, Repair, tendon or muscle, upper arm or elbow, each tendon or muscle, primary or secondary (excludes rotator cuff). What to do next Instructions From Your Doctor Event Name Event Result Discharge Instructions Freetext Keep ears dry Discharge Activity Expect mild pain, Expect minimal amount of drainage and/or bleeding, Activity as tolerated Discharge Diet(s) Regular Discharge Instructions Discharge Instructions New Follow Up Appointments after Discharge Follow Up with Nicole Blum When: Comments: One month Medications What How Much When Instructions Next Dose Unchanged levothyroxine (levothyroxine 25 mcg (0.025 mg) Tab) 1 Tablets By Mouth Every day Unchanged losartan (losartan 100 mg Tab) 1 Tablets By Mouth Every day Unchanged multivitamin with minerals (One A Day Women 50 Plus) 1 TABLET By Mouth Every day Unchanged omega-3 polyunsaturated fatty acids (Fish Oil) 500 Milligram By Mouth Every day Test Results No qualifying data available. Allergies No Known Allergies Problems Ongoing - Any problem that you are currently receiving treatment for. Abnormal uterine bleeding Adult hypothyroidism Benign hypertension Chronic instability of right knee Chronic joint pain Elbow pain, right Elevated fasting glucose Thyroid nodule Historical - Any problem that you are no longer receiving treatment for. Chronic otitis media Education Materials PE Tube Surgery, Adult, Care After The following information offers guidance on how to care for yourself after your procedure. Your health care provider may also give you more specific instructions. If you have problems or questions, contact your health care provider. What can I expect after the procedure? After the procedure, it is common to have: ? Slight discomfort or ear pain. ? A small amount of blood-tinged drainage from the ear. Follow these instructions at home: Medicines ? Take elxi-czq-bxgklgf and prescription medicines only as told by your health care provider. Finish all antibiotic medicine even if you start to feel better. ? Use your antibiotic drops as told by your health care provider. Do not stop using the antibiotic even if your condition improves. Activity ? Rest at home on the day of surgery. ? Ask your health care provider if you should use earplugs or another type of water protection when bathing or swimming. Some health care providers recommend keeping water out of the ears after this surgery. ? Return to your normal activities as told by your health care provider. Ask your health care provider what activities are safe for you. General instructions ? Most PE ear tubes fall out within 6 to 9 months, and the holes heal on their own. Ask your health care provider if your tubes need to be removed or if they will fall out on their own. ? Keep all follow-up visits. This is important. During follow-up visits, your health care provider will make sure that: ? The tubes are working. ? The tubes have not fallen out too soon. ? The tubes do not stay in longer than needed. Contact a health care provider if: ? You have a fever. ? You have fluid, pus, or blood coming from your ear. ? Your pain worsens. ? You have discharge that is yellow or green from your ear. ? You have a foul smell coming from the ear. ? You ear tubes fall out sooner than expected. Get help right away if: ? You have trouble breathing. ? You have bright red blood coming from your ear. Summary ? After this procedure, it is common to have ear pain. ? Take nouk-aae-ttsdque and prescription medicines only as told by your health care provider. ? Follow your health care provider's instructions for home care. Ask your health care provider if you should use earplugs or another type of water protection when bathing or swimming. ? Keep all follow-up visits. Your health care provider will need to make sure that the tubes are working, have not fallen out too soon, and do not stay in longer than needed. This information is not intended to replace advice g (more content not included)... [facility] Comment on above: Result Comment: Elec tronically Signed By: Danelle Moran I\.br\Date and Time Signed: 04/26/23 10:37 EDT H&P Updateon 04-26-2023 H&P Update [id number]# 1.00CD:127 [facility] Inpatient Patient Summaryon 04-26-2023 Inpatient Patient Summary [place] [id number] [facility] Clinical Discharge Instructions PERSON INFORMATION Name: MILANA MILLER [facility]#:[id number] PHYSICIANS Admitting Physician: Nicole Blum MD Attending Physician: Nicole Blum MD PCP: BEV LOYA MD Discharge Diagnosis: ETD (eustachian tube dysfunction); Lesion of external ear canal Comment: PATIENT EDUCATION INFORMATION Instructions: Medication Leaflets: Follow up: With: Address: When: Nicole Blum Comments: One month MEDICATION LIST Medications to Continue with No Changes Other Medications levothyroxine (levothyroxine 25 mcg (0.025 mg) Tab) 1 Tablets By Mouth every day. losartan (losartan 100 mg Tab) 1 Tablets By Mouth every day. multivitamin with minerals (One A Day Women 50 Plus) 1 TABLET By Mouth every day. omega-3 polyunsaturated fatty acids (Fish Oil) 500 Milligram By Mouth every day. Comment: [facility] Main OR PACU I [facility] Main OR PACU I Record PACU Phase I Docum ent Type FT Summary Primary Physician: Nicole Blum MD Finalized Date/Time: 04/26/23 10:25:21 Pt. Name: MILANA MILLER/Sex: 1970 Female Med Rec #: [id number] Physician: Nicole Blum MD Financial #: [id number] Pt. Type: A Room/Bed: [place] [address] Admit/Disch: 04/26/23 07:30:03 - Institution: Case Times PACU I FT Pre-Care Text: Identifies barriers to communication and implements measures to provide psychological support Develops individualized plan of care, and ensures continuity of care Maintains patient's dignity and privacy, and maintains patient confidentiality Identifies and reports philosophical, cultural, and spiritual beliefs and values Identifies individual values and wishes concerning care Implements aseptic technique, and administers prescribed antibiotic therapy and immunizing agents as ordered Evaluates postoperative tissue perfusion Implements thermoregulation measures, and monitors body temperature Evaluates postoperative respiratory status Evaluates postoperative cardiac status Evaluates postoperative neurological status Assesses pain control, collaborated in initiating patient-controlled analgesia and implements alternative methods of pain control Verifies allergies, administers prescribed medications and solutions, evaluates response to medications Entry 1 In PACU I 04/26/23 09:50:00 Discharge from PACU 04/26/23 10:20:00 I Outcomes Met? Yes Last Modified By: SITA BAUER RN 04/26/23 10:24:35 Post-Care Text: The patient demonstrates knowledge of the expected response to the operative or invasive procedure The patient's care is consistent with the individualized perioperative plan of care The patient's right to privacy is maintained The patient's value system, lifestyle, ethnicity, and culture are considered, respected, and incorporated into the perioperative plan of care The patient participates in decisions affecting his or her perioperative plan of care The patient is free from signs and symptoms of infection The patient has wound/tissue perfusion consistent with or improved from baseline levels established preoperatively The patient is at or returning to normothermia at the conclusion of the immediate postoperative period The patient's respiratory function is consistent with or improved from baseline levels established preoperatively The patient's cardiovascular status is consistent with or improved from baseline levels established preoperatively The patient's cardiovascular status is consistent with or improved from baseline levels established preoperatively The patient demonstrates and/or reports adequate pain control throughout the perioperative period The patient received appropriate medication(s), safely administered during the perioperative period Acuity Level PACU I FT Entry 1 Start Time 04/26/23 09:50:00 Stop Time 04/26/23 10:20:00 Acuity Level Acuity Level I Last Modified By: SITA BAUER RN 04/26/23 10:24:46 Finalized By: SITA BAUER RN Document Signatures Signed By: SITA BAUER RN 04/26/23 10:25 [facility] Main OR PACU II [facility] Main OR PACU II Record PACU Phase II Document Type FT Summary Primary Physician: Nicole Blum MD Finalized Date/Time: 04/26/23 11:28:53 Pt. Name: MILANA MILLER/Sex: 1970 Female Med Rec #: [id number] Physician: Nicole Blum MD Financial #: [id number] Pt. Type: A Room/Bed: [facility]/ Admit/Disch: 04/26/23 07:30:03 - Institution: Case Times PACU II FT Pre-Care Text: Identifies barriers to communication and implements measures to provide psychological support and determines knowledge level Develops individualized plan of care, and ensures continuity of care Maintains patient's dignity and privacy, and maintains patient confidentiality Identifies and reports philosophical, cultural, and spiritual beliefs and values Identifies individual values and wishes concerning care administers prescribed antibiotic therapy and immunizing agents as ordered, Evaluates postoperative tissue perfusion Implements thermoregulation measures, and monitors body temperature Evaluates postoperative respiratory status Evaluates postoperative cardiac status Evaluates postoperative neurological status Assesses pain control, collaborated in initiating patient-controlled analgesia and implements alternative methods of pain control Verifies allergies, administers prescribed medications and solutions, evaluates response to medications Entry 1 In PACU II 04/26/23 10:20:00 Discharge from PACU 04/26/23 11:20:00 II Outcomes Met? Yes Last Modified By: Danelle Moran I 04/26/23 11:28:47 Post-Care Text: The patient demonstrates knowledge of the expected response to the operative or invasive procedure The patient's care is consistent with the individualized perioperative plan of care The patient's right to privacy is maintained The patient's value system, lifestyle, ethnicity, and culture are considered, respected, and incorporated into the perioperative plan of care The patient participates in decisions affecting his or her perioperative plan of care. The patient is free from signs and symptoms of infection The patient has wound/tissue perfusion consistent with or improved from baseline levels established preoperatively The patient is at or returning to normothermia at the conclusion of the immediate postoperative period The patient's respiratory function is consistent with or improved from baseline levels established preoperatively The patient's cardiovascular status is consistent with or improved from baseline levels established preoperatively The patient's neurological status is consistent with or improved from baseline levels established preoperatively The patient demonstrates and/or reports adequate pain control throughout the perioperative period The patient received appropriate medication(s), safely administered during the perioperative period Finalized By: Danelle Moran I Document Signatures Signed By: Danelle Moran I 04/26/23 11:28 [facility] Main OR Preoperative Recordo n 04-26-2023 Main OR Preoperative Record PreOp Document Type FT Summary Primary Physician: Nicole Blum MD Finalized Date/Time: 04/26/23 09:27:27 Pt. Name: MILANA MILLER/Sex: 1970 Female Med Rec #: [id number] Physician: Nicole Blum MD Financial #: [id number] Pt. Type: A Room/Bed: Admit/Disch: 04/26/23 07:30:03 - Institution: Case Times PreOp FT Pre-Care Text: Verifies consent for planned procedure, identifies individual values and wishes concerning care, includes family members in perioperative teaching Entry 1 Patient Times. In Pre Surgery 04/26/23 07:35:00 Out Pre Surgery 04/26/23 09:20:00 Outcomes Met? Yes Last Modified By: Charity Gonzalez Ii 04/26/23 09:27:24 Post-Care Text: The patient participates in decisions affecting his or her perioperative plan of care Finalized By: Charity Gonzalez Ii Document Signatures Signed By: Charity Gonzalez Ii 04/26/23 09:27 [facility] Monitor [facility] 04-26-2023 Monitor Record [id number]# 1.00CD:127 [facility] Monitor Record [id number]# 1.00CD:127 [facility] Operative Reporton Operative Report SURGERY DATE: 04/26/2023 PREOPERATIVE DIAGNOSIS: Left eustachian tube dysfunction and right external auditory canal lesion POSTOPERATIVE DIAGNOSIS: Left eustachian tube dysfunction and right external auditory canal lesion OPERATION: Removal of right external auditory canal lesion and left myringotomy and tube with microdissection placement of a T tube ANESTHESIA: General LMA COMPLICATIONS: None FINDINGS: Cyst of the posterolateral external auditory canal consistent with a dermoid versus sebaceous cyst and left serous effusion. INDICATIONS: This 52-year-old woman has a lifelong history of chronic eustachian tube dysfunction and dependence on middle ear ventilation. She also was recently noted in the office to have a cyst of the posterolateral external auditory canal. PROCEDURE: The patient identified in the Holding Area and taken back to the Operating Room where she was placed in a supine position. After the induction of general anesthesia, the right ear was approached with the otomicroscope. A flap knife and weapon were used to marsupialize the superior and posterior portions of the patient's cyst and then a Bellucci Scissor was used to remove the remainder of the cyst. The cyst contents were cleaned and antibiotic ointment was placed in the excision site. Attention was then turned to the left ear. The ear was approached with the otomicroscope. An anterior radial myringotomy was performed and a modified Costa T tube was folded and inserted in the middle ear using microdissection. The patient was then awakened and taken to the Recovery Room in good condition. Nicole Blum Jr., M.D. Dictated: 04/26/2023 [id number] Transcribed: 04/26/2023 cc:Bev Loya M.D. [facility] Comment on above: Result Comment: Elec tronically Signed By: Shae JAVED, Nicole Mendez\.br\Date and Time Signed: 04/26/23 14:58 EDT Outpatient Surgery Discharge Instructionon 04-26-2023 Outpatient Surgery Discharge Instruction [place] [id number] Patient Discharge Instructions PERSON INFORMATION Name: MILANA MILLER Date of : 1970 Current Date: 04/26/2023 10:05:45 PHYSICIANS Admitting Physician: Nicole Blum MD Discharge Diagnosis: ETD (eustachian tube dysfunction); Lesion of external ear canal MILANA MILLER has been given the following list of follow-up instructions, prescriptions, and patient education materials: PATIENT FOLLOW-UP INFORMATION Diet: Regular Discharge Activity: Expect mild pain, Expect minimal amount of drainage and/or bleeding, Activity as tolerated Additional Instructions: Keep ears dry IF UNABLE TO CONTACT YOUR PHYSICIAN AND YOU FEEL IT IS AN EMERGENCY, GO TO THE NEAREST EMERGENCY ROOM OR CALL 911 I, MILANA MILLER, have received the attached patient education materials/instruction s and have verbalized understanding: May we do a follow up call? Yes No I was present when discharge instructions were given Patient Signature Date Clinican/Nurse Signature Date Follow up: With: Address: When: Nicole Blum Comments: One month Pharmacy Information: You may receive a survey from Maddie Landrum asking you to rate your care experience. Your feedback is important and will help us understand what we do well and how we can improve the quality of care we provide to you, your loved ones and our community. It?s an honor to serve you. Thank you for choosing [facility] HERE ARE THE MEDICATION CHANGES THAT OCCURRED DURING YOUR HOSPITAL STAY Medications to Continue with No Changes Other Medications levothyroxine (levothyroxine 25 mcg (0.025 mg) Tab) 1 Tablets By Mouth every day. losartan (losartan 100 mg Tab) 1 Tablets By Mouth every day. multivitamin with minerals (One A Day Women 50 Plus) 1 TABLET By Mouth every day. omega-3 polyunsaturated fatty acids (Fish Oil) 500 Milligram By Mouth every day. PATIENT EDUCATION INFORMATION Instructions: Medication Leaflets: [facility] Patient Education - Texton 0 04-26-2023 Patient Education - Text ENT PE Tube Surgery, Adult, Care After The following information offers guidance on how to care for yourself after your procedure. Your health care provider may also give you more specific instructions. If you have problems or questions, contact your health care provider. What can I expect after the procedure? After the procedure, it is common to have: ? Slight discomfort or ear pain. ? A small amount of blood-tinged drainage from the ear. Follow these instructions at home: Medicines ? Take jlop-dpv-zdmenop and prescription medicines only as told by your health care provider. Finish all antibiotic medicine even if you start to feel better. ? Use your antibiotic drops as told by your health care provider. Do not stop using the antibiotic even if your condition improves. Activity ? Rest at home on the day of surgery. ? Ask your health care provider if you should use earplugs or another type of water protection when bathing or swimming. Some health care providers recommend keeping water out of the ears after this surgery. ? Return to your normal activities as told by your health care provider. Ask your health care provider what activities are safe for you. General instructions ? Most PE ear tubes fall out within 6 to 9 months, and the holes heal on their own. Ask your health care provider if your tubes need to be removed or if they will fall out on their own. ? Keep all follow-up visits. This is important. During follow-up visits, your health care provider will make sure that: ? The tubes are working. ? The tubes have not fallen out too soon. ? The tubes do not stay in longer than needed. Contact a health care provider if: ? You have a fever. ? You have fluid, pus, or blood coming from your ear. ? Your pain worsens. ? You have discharge that is yellow or green from your ear. ? You have a foul smell coming from the ear. ? You ear tubes fall out sooner than expected. Get help right away if: ? You have trouble breathing. ? You have bright red blood coming from your ear. Summary ? After this procedure, it is common to have ear pain. ? Take ednr-mnu-lyqosdr and prescription medicines only as told by your health care provider. ? Follow your health care provider's instructions for home care. Ask your health care provider if you should use earplugs or another type of water protection when bathing or swimming. ? Keep all follow-up visits. Your health care provider will need to make sure that the tubes are working, have not fallen out too soon, and do not stay in longer than needed. This information is not intended to replace advice given to you by your health care provider. Make sure you discuss any questions you have with your health care provider. Document Revised: 04/03/2022 Document Reviewed: 04/03/2022 [employer] Patient Education ? 2022 [employer] Normal [facility] SEROLOGYOrdered By: Yudi Hernandez on 04-26-2023 Beta hCG Ql Negative (04/26/23 8:06 AM) Normal [facility] Man Sero Consent for Procedure/Surger yon 04-20-2023 Consent for Procedure/Surgery [id number]:127 Normal [facility] Auto Diffon 04-19-2023 Basophils/100 WBC (Bld) 0.6 % Normal 0.0-2.0 [facility] Comment on above: Order Comment: Order Added by Discern Expert. Performed By: #### 2 [id number], [id number] ####[address] [address] Basophils/Leukocytes Auto (Bld) [Pure # fraction] 0.0 E9/L Normal 0.0-0.2 [facility] Comment on above: Order Comment: Order Added by Discern Expert. Performed By: #### 2 [id number], [id number] ####[address] [address] Eosinophils/100 WBC (Bld) 2.0 % Normal 0.0-8.0 [facility] Comment on above: Order Comment: Order Added by Discern Expert. Performed By: #### 2 138537, [id number] ####[address] [address] Eosinophils/Leukocyte s Auto (Bld) [Pure # fraction] 0.2 E9/L Normal 0.0-0.5 [facility] Comment on above: Order Comment: Order Added by Discern Expert. Performed By: #### 2 140057, [id number] ####[address] [address] Lymphocytes/100 WBC (Bld) 26.9 % Normal 14.0-50.0 [facility] Comment on above: Order Comment: Order Added by Discern Expert. Performed By: #### 2 817157, [id number] ####[address] [address] Lymphocytes/Leukocyte s Auto (Bld) [Pure # fraction] 2.1 E9/L Normal 1.0-4.0 [facility] Comment on above: Order Comment: Order Added by Discern Expert. Performed By: #### 2 152401, [id number] ####[address] [address] Monocytes/100 WBC (Bld) 6.9 % Normal 4.0-14.0 [facility] Comment on above: Order Comment: Order Added by Discern Expert. Performed By: #### 2 960977, [id number] ####[address] [address] Monocytes/Leukocytes Auto (Bld) [Pure # fraction] 0.5 E9/L Normal 0.2-1.0 [facility] Comment on above: Order Comment: Order Added by Discern Expert. Performed By: #### 2 367639, [id number] ####[address] [address] Neutrophils/100 WBC (Bld) 63.6 % Normal 36.0-75.0 [facility] Comment on above: Order Comment: Order Added by Discern Expert. Performed By: #### 2 315662, [id number] ####[address] [address] Neutrophils/Leukocyte s Auto (Bld) [Pure # fraction] 5.1 E9/L Normal 2.0-7.5 [facility] Comment on above: Order Comment: Order Added by Discern Expert. Performed By: #### 2 112231, [id number] ####[address] [address] BUNon 04-19-2023 Urea nitrogen [Mass/Vol] 18 mg/dL Normal 5-21 [facility] Comment on above: Performed By: #### 2 549961, 1150337, 6665345, [id number], [id number] ####[address] [address] CBC w/ Auto Diffon Erythrocyte distribution width (RBC) [Ratio] 13.7 % Normal 10.9-14.2 [facility] Comment on above: Performed By: #### 2 875929, 8505370 ####[address] [address] [place] [address] Hematocrit (Bld) [Volume fraction] 39.7 % Normal 34.0-46.0 [facility] Comment on above: Performed By: #### 2 600288, [id number] ####[address] [address] Hemoglobin (Bld) [Mass/Vol] 13.7 g/dL Normal 12.0-16.0 [facility] Comment on above: Performed By: #### 2 120367, 4977208 ####[address] [address] MCH (RBC) [Entitic mass] 29.4 pg Normal 27.0-34.0 [facility] Comment on above: Performed By: #### 2 428205, 9171001 ####[address] [address] MCHC (RBC) [Mass/Vol] 34.4 g/dL Normal 31.4-36.0 [facility] Comment on above: Performed By: #### 2 456034, 8148015 ####[address] [address] MCV (RBC) [Entitic vol] 85.5 fL Normal 80.0-100.0 [facility] Comment on above: Performed By: #### 2 064333, 1787663 ####[address] [address] Platelet mean volume (Bld) [Entitic vol] 7.2 fL Normal 6.4-10.8 [facility] Comment on above: Performed By: #### 2 776671, 6760436 ####[address] [address] Platelets (Bld) [#/Vol] 354.0 E9/L Normal 150.0-500.0 [facility] Comment on above: Performed By: #### 2 987307, 7023484 ####[address] [address] RBC (Bld) [#/Vol] 4.6 E12/L Normal 4.3-5.9 [facility] Comment on above: Performed By: #### 2 902459, 5407895 ####[facility] [address] [place] [address] WBC corrected for nucl RBC Auto (Bld) [#/Vol] 8.0 E9/L Normal 4.0-11.0 [facility] Comment on above: Performed By: #### 2 508391, 7652405 ####[facility] [address] [place] [address] CHEMISTRYOrdered By: SYSTEM SYSTEM on 04-19-2023 Anion gap [Moles/Vol] 9 mmol/L Normal 6 - 16 mEq/L [facility] Remisol Chloride [Moles/Vol] 107 mmol/L Normal 101 - 1 11 mmol/L [facility] Remisol CO2 [Moles/Vol] 29 mmol/L Normal 21 - 31 mmol/L [facility] Remisol Creatinine [Mass/Vol] 0.8 mg/dL Normal 0.5 - 1.3 mg/dL [facility] Remisol GFR/1.73 sq M.predicted among non-blacks MDRD (S/P/Bld) [Vol rate/Area] 89 mL/min/1.73 m2 Normal >=59mL/min/1. 73 m2 [facility] Chem S Glucose [Mass/Vol] 93 mg/dL Normal 55 - 199 mg/dL [facility] Remisol Potassium [Moles/Vol] 3.8 mmol/L Normal 3.5 - 5.3 mmol/L [facility] Remisol Sodium [Moles/Vol] 141 mmol/L Normal 135 - 145 mmol/L [facility] Remisol Urea nitrogen [Mass/Vol] 18 mg/dL Normal 5 - 21 mg/dL [facility] Remisol Consent for Treatmenton 03-22 Consent for Treatment [id number] .[id number]:127 Normal [facility] Creatinineon 04-19-2023 Creatinine [Mass/Vol] 0.8 mg/dL Normal 0.5-1.3 [facility] Comment on above: Performed By: #### 2 482996, 8690107, 3952563, [id number], 9805474 ####[facility] [address] [place] [address] Glucoseon 04-19-2023 Glucose [Mass/Vol] 93 mg/dL Normal 55-199 [facility] Comment on above: Performed By: #### 2 765279, 4214248, 3953543, [id number], 6159819 ####[facility] [address] [place] [address] HEMATOLOGYOrdered By: SYSTEM SYSTEM on 04-19-2023 Basophils/100 WBC (Bld) 0.6 % Normal 0.0 - 2.0 % [facility] Basophils/Leukocytes Auto (Bld) [Pure # fraction] 0.0 E9/L Normal 0.0 - 0.2 E9/L [facility] Eosinophils/100 WBC (Bld) 2.0 % Normal 0.0 - 8.0 % [facility] Eosinophils/Leukocyte s Auto (Bld) [Pure # fraction] 0.2 E9/L Normal 0.0 - 0.5 E9/L [facility] Lymphocytes/100 WBC (Bld) 26.9 % Normal 14.0 - 50.0 % [facility] Lymphocytes/Leukocyte s Auto (Bld) [Pure # fraction] 2.1 E9/L Normal 1.0 - 4.0 E9/L [facility] Monocytes/100 WBC (Bld) 6.9 % Normal 4.0 - 14.0 % [facility] Monocytes/Leukocytes Auto (Bld) [Pure # fraction] 0.5 E9/L Normal 0.2 - 1.0 E9/L [facility] Neutrophils/100 WBC (Bld) 63.6 % Normal 36.0 - 75.0 % [facility] Neutrophils/Leukocyte s Auto (Bld) [Pure # fraction] 5.1 E9/L Normal 2.0 - 7.5 E9/L [facility] HEMATOLOGYOrdered By: Thuy Chan on 04-19-2023 Erythrocyte distribution width (RBC) [Ratio] 13.7 % Normal 10.9 - 14.2 % [facility] Hematocrit (Bld) [Volume fraction] 39.7 % Normal 34.0 - 46.0 % [facility] Hemoglobin (Bld) [Mass/Vol] 13.7 g/dL Normal 12.0 - 16.0 gm/dL [facility] MCH (RBC) [Entitic mass] 29.4 pg Normal 27.0 - 34.0 pg [facility] MCHC (RBC) [Mass/Vol] 34.4 g/dL Normal 31.4 - 36.0 gm/dL [facility] MCV (RBC) [Entitic vol] 85.5 fL Normal 80.0 - 100.0 fL [facility] Platelet mean volume (Bld) [Entitic vol] 7.2 fL Normal 6.4 - 10.8 fL [facility] Platelets (Bld) [#/Vol] 354.0 E9/L Normal 150.0 - 500.0 E9/L [facility] RBC (Bld) [#/Vol] 4.6 E12/L Normal 4.3 - 5.9 E12/L [facility] WBC corrected for nucl RBC Auto (Bld) [#/Vol] 8.0 E9/L Normal 4.0 - 11.0 E9/L [facility] Lyteson 04-19-2023 Anion gap [Moles/Vol] 9 mmol/L Normal 6-16 [facility] Comment on above: Performed By: #### 2 421797, 0542414, 9900549, 48735017, 3548855 ####[facility] [address] [place] [address] Chloride [Moles/Vol] 107 mmol/L Normal 101-111 [facility] Comment on above: Performed By: #### 2 016558, 8156827, 1193748, 26596902, 5412167 ####[facility] [address] [place] [address] CO2 [Moles/Vol] 29 mmol/L Normal 21-31 [facility] Comment on above: Performed By: #### 2 945942, 5239343, 1862260, 85743622, 0698074 ####[facility] [address] [place] [address] Potassium [Moles/Vol] 3.8 mmol/L Normal 3.5-5.3 [facility] Comment on above: Performed By: #### 2 374746, 3917643, 9127276, 51266081, 0935297 ####[facility] [address] [place] [address] Sodium [Moles/Vol] 141 mmol/L Normal 135-145 [facility] Comment on above: Performed By: #### 2 928533, 7495307, 4398223, 03872475, 8881628 ####[facility] [address] [place] [address] XR Chest 2 Viewson 3 XR Chest 2 Views Exam Date/Time: 04/19/2023 15:02 EDT Reason for Exam: P.A.T. Report IMPRESSION: NO EVIDENCE OF ACTIVE CHEST DISEASE. CLINICAL HISTORY: P.A.T.. COMMENT: The heart is within normal limits in size. The mediastinum is unremarkable. The lungs appear clear. No infiltration nor pleural effusion is evident. Ordering Provider: Concepcion Ahmad FINAL REPORT Dictated: 04/19/2023 3:50 pm Emmett Aguiar M.D. Signed (Electronic Signature): 04/19/2023 3:50 pm Signed by: Emmett Aguiar M.D. Transcribed by: LALO Technologist: THERON Technical Comments Radiation Dose: Ka,r in mGy = na DAP = na Normal [facility] eGFRon 04-19-2023 GFR/1.73 sq M.predicted among non-blacks MDRD (S/P/Bld) [Vol rate/Area] 89 mL/min/1.73 m2 Normal >=59 [facility] Comment on above: Order Comment: Order added by Discern Expert. Result Comment: Veterans' Counselor enedelia kidney disease could be indicated at eGFR's of less than 60 mL/min/1.73m2. Kidney failure is indicated at less than 15 mL/min/1.73m2. Performed By: #### 2 727699, 2570638, 1763894, [id number], 9397409 ####[facility] [address] [place] [address] PAP ACOG PANEL 2: 30 to 65on 01-17-2023 Age Gdln ACOG Testing 30-65 Normal [facility] Comment on above: Performed By: #### 4 [id number] #### [facility] [address] [address] [address] Jamel Jang CELIAC ANTIBODIES PROFILEon 11-27-2022 Endomysial Antibody IgA Negative Normal Negative [facility] Comment on above: Performed By: #### F T4 #### [facility] [address] [address] [address] Jamel Jang Immunoglobulin A, Qn, Serum 217 mg/dL Normal 87-352 [facility] Comment on above: Performed By: #### F T4 #### [facility] [address] [address] [address] Jamel Jang t-Transglutaminase (tTG) IgG 6 U/mL Critically high 0-5 [facility] Comment on above: Result Comment: Nega tive 0 - 5 Weak Positive 6 - 9 Positive >9 Performed By: #### F T4 #### [facility] [address] [address] [address] Jamel Jang Deamidated Gliadin Abs, IgA 7 units Normal 0-19 [facility] Comment on above: Result Comment: Nega tive 0 - 19 Weak Positive 20 - 30 Moderate to Strong Positive >30 Performed By: #### F T4 #### [facility] [address] [address] [address] Jamel Jang Deamidated Gliadin Abs, IgG 9 units Normal 0-19 [facility] Comment on above: Result Comment: Nega tive 0 - 19 Weak Positive 20 - 30 Moderate to Strong Positive >30 Performed By: #### F T4 #### [facility] [address] [address] [address] Jamel Jang t-Transglutaminase (tTG) IgA <2 Normal 0-3 [facility] Comment on above: Result Comment: Nega tive 0 - 3 Weak Positive 4 - 10 Positive >10 . Tissue Transglutaminase (tTG) has been identified as the endomysial antigen. Studies have demonstr- ated that endomysial IgA antibodies have over 99% specificity for gluten sensitive enteropathy. Performed By: #### F T4 #### [facility] [address] [place] [address] Dr. Jamel Jang THYROID ANTIBODIESon 023 Thyroglobulin Antibody <1.0 Normal 0.0-0.9 [facility] Comment on above: Result Comment: Thyr oglobulin Antibody measured by [facility] Methodology Performed By: #### F T4 #### [facility] [address] [place] [address] Dr. Jamel Jang Thyroid Peroxidase (TPO) Ab 105 IU/mL Critically high 0-34 [facility] Comment on above: Performed By: #### F T4 #### [facility] [address] [place] [address] Dr. Jamel Jang VIT D 1 25 DIHYDROXYon 11-27 Calcitriol(1,25 di-OH Vit D) 77.1 pg/mL Normal 24.8-81.5 [facility] Comment on above: Performed By: #### V [id number] #### [facility] [address] [place] [address] Dr. Jamel Jang CORTISOLon 11-25-2022 Cortisol 14.0 ug/dL Normal [facility] Comment on above: Result Comment: Gil isol AM 6.2 - 19.4 Cortisol PM 2.3 - 11.9 Performed By: #### C ORTISO #### [facility] [address] [place] [address] Dr. Jamel Jang INSULINon 11-25-2022 Insulin 9.4 uIU/mL Normal 2.6-24.9 [facility] Comment on above: Performed By: #### I NSULIN #### [facility] [address] [place] [address] Dr. Jamel Jang CBC AUTO DIFFon 11-24-2022 BASO # 0.0 103/ul Normal 0.0-0.1 [facility] Comment on above: Performed By: #### C BC #### [facility] [address] [place] [address] Dr. Jamel Jang Basophils/100 WBC (Bld) 0.4 % Normal 0.2-2.0 [facility] Comment on above: Performed By: #### C BC #### [facility] [address] [place] [address] Dr. Jamel Jang EO # 0.3 103/ul Normal 0.0-0.7 [facility] Comment on above: Performed By: #### C BC #### [facility] [address] [place] [address] Dr. Jamel Jang Eosinophils/100 WBC (Bld) 5.7 % Normal 0.9-7.0 [facility] Comment on above: Performed By: #### C BC #### [facility] [address] [place] [address] Dr. Jamel Jang Erythrocyte distribution width (RBC) [Ratio] 12.4 % Normal 11.0-15.0 [facility] Comment on above: Performed By: #### C BC #### [facility] [address] [place] [address] Dr. Jamel Jang Hematocrit (Bld) [Volume fraction] 38.6 % Normal 36.0-48.0 [facility] Comment on above: Performed By: #### C BC #### [facility] [address] [place] [address] Dr. Jamel Jang Hemoglobin (Bld) [Mass/Vol] 13.0 g/dL Normal 12.0-16.0 [facility] Comment on above: Performed By: #### C BC #### [facility] [address] [place] [address] Dr. Jamel Jang IG # 0.00 10e3/ul Normal 0.00-0.03 [facility] Comment on above: Performed By: #### C BC #### [facility] [address] [place] [address] Dr. Jamel Jang IG % 0.0 % Normal 0.0-0.5 [facility] Comment on above: Performed By: #### C BC #### [facility] [address] [place] [address] Dr. Jamel Jang LYMPH # 2.0 103/ul Normal 1.2-3.8 [facility] Comment on above: Performed By: #### C BC #### [facility] [address] [place] [address] Dr. Jamel Jang Lymphocytes/100 WBC (Bld) 35.9 % Normal 20.5-60.0 [facility] Comment on above: Performed By: #### C BC #### [facility] [address] [place] [address] Dr. Jamel Jang MANUAL DIFF REQ NO Normal [facility] Comment on above: Performed By: #### C BC #### [facility] [address] [place] [address] Dr. Jamel Jang MCH (RBC) [Entitic mass] 28.1 pg Normal 26.7-34.0 [facility] Comment on above: Performed By: #### C BC #### [facility] [address] [place] [address] Dr. Jamel Jang MCHC (RBC) [Mass/Vol] 33.7 g/dL Normal 29.9-35.2 [facility] Comment on above: Performed By: #### C BC #### [facility] [address] [place] [address] Dr. Jamel Jang MCV (RBC) [Entitic vol] 83.4 fL Normal 81.0-99.0 [facility] Comment on above: Performed By: #### C BC #### [facility] [address] [place] [address] Dr. Jamel Jang MONO # 0.6 103/ul Normal 0.3-0.8 [facility] Comment on above: Performed By: #### C BC #### [facility] [address] [place] [address] Dr. Jamel Jang Monocytes/100 WBC (Bld) 10.2 % Normal 1.7-12.0 [facility] Comment on above: Performed By: #### C BC #### [facility] [address] [place] [address] Dr. Jamel Jang NEUT # 2.7 103/ul Normal 1.4-6.5 [facility] Comment on above: Performed By: #### C BC #### [facility] [address] [place] [address] Dr. Jamel Jang Neutrophils/100 WBC (Bld) 47.8 % Normal 43.0-75.0 [facility] Comment on above: Performed By: #### C BC #### [facility] [address] [place] [address] Dr. Jamel Jang Platelet mean volume (Bld) [Entitic vol] 8.9 fL Critically low 9.5-13.5 [facility] Comment on above: Performed By: #### C BC #### [facility] [address] [place] [address] Dr. Jamel Jang PLT 314 103/ul Normal 150-450 [facility] Comment on above: Performed By: #### C BC #### [facility] [address] [place] [address] Dr. Jamel Jang RBC 4.63 106/ul Normal 4.20-5.40 [facility] Comment on above: Performed By: #### C BC #### [facility] [address] [place] [address] Dr. Jamel Jang WBC 5.6 103/ul Normal 4.0-11.0 [facility] Comment on above: Performed By: #### C BC #### [facility] [address] [place] [address] Dr. Jamel Jang FERRITINon 11-24-2022 Ferritin [Mass/Vol] 39.0 ng/mL Normal 8.0-252.0 [facility] Comment on above: Performed By: #### F T4 #### [facility] [address] [place] [address] Dr. Jamel Jang FREE T3on 11-24-2022 FREE T3 3.76 pg/mlL Normal 2.18-3.98 [facility] Comment on above: Performed By: #### T SH, LIPID, CMP, FT3 #### [facility] [address] [address] [address] Jamel Jang FREE T4on 11-24-2022 Free T4 [Mass/Vol] 1.46 ng/dL Normal 0.76-1.46 [facility] Comment on above: Performed By: #### F T4 #### [facility] [address] [address] [address] Jamel Jang GLYCOHEMOGLOBIN A1Con 2022 ADA RECOMMENDATION SEE BELOW Normal [facility] Comment on above: Result Comment: ADA RECOMMENDED LIMIT 4.0 - 6.0 ADA THERAPEUTIC TARGET < 7.0 ACTION SUGGESTED > 7.0 Performed By: #### F T4 #### [facility] [address] [address] [address] Jamel Jang Glucose [Mass/Vol] 117 mg/dL Normal [facility] Comment on above: Performed By: #### F T4 #### [facility] [address] [address] [address] Jamel Jang HbA1c (Bld) [Mass fraction] 5.7 % Normal 4.5-6.2 [facility] Comment on above: Performed By: #### F T4 #### [facility] [address] [address] [address] Jamel Jang IRON AND TIBCon 11-24-2022 % SATURATION 20.7 % Normal [facility] Comment on above: Performed By: #### F T4 #### [facility] [address] [address] [address] Jamel Jang Iron [Mass/Vol] 57.0 ug/dL Normal 50.0-170.0 [facility] Comment on above: Performed By: #### F T4 #### [facility] [address] [address] [address] Jamel Jang TIBC DIRECT 275.0 ug/dL Normal 250.0-450.0 [facility] Comment on above: Performed By: #### F T4 #### [facility] [address] [place] [address] Dr. Jamel Jang LIPID PROFILEon 11-24-2022 CHOL-HDL RATIO NORM SEE BELOW Normal [facility] Comment on above: Result Comment: 3.3 - 4.4 LOW RISK 4.4 - 7.1 AVERAGE RISK 7.1 - 11.0 MODERATE RISK >11.0 HIGH RISK Performed By: #### T SH, LIPID, CMP, FT3 #### [facility] [address] [address] [address] Jamel Jang Cholesterol [Mass/Vol] 153 mg/dL Normal <=200 [facility] Comment on above: Performed By: #### T SH, LIPID, CMP, FT3 #### [facility] [address] [address] [address] Jamel Jang Cholesterol in HDL [Mass/Vol] 49 mg/dL Normal 40-60 [facility] Comment on above: Performed By: #### T SH, LIPID, CMP, FT3 #### [facility] [address] [address] [address] Jamel Jang Cholesterol in LDL [Mass/Vol] 89.2 mg/dL Normal [facility] Comment on above: Performed By: #### T SH, LIPID, CMP, FT3 #### [facility] [address] [address] [address] Jamel Jang Cholesterol.total/Cho lesterol in HDL [Mass ratio] 3.1 {ratio} Normal [facility] Comment on above: Performed By: #### T SH, LIPID, CMP, FT3 #### [facility] [address] [address] [address] Jamel Jang HDL NORMAL > or = 60 mg/dl - LO W CARDIOVASCULAR RISK <40 mg/dl - HIGH CARDIOVASCULAR RISK Normal [facility] Comment on above: Performed By: #### T SH, LIPID, CMP, FT3 #### [facility] Laboratory [address] [address] [address] Jamel Jang LDL CALC NORMAL SEE BELOW Normal [facility] Comment on above: Result Comment: <100 mg/dl OPTIMAL 100 - 129 mg/dl NEAR OR ABOVE OPTIMAL 130 - 159 mg/dl BORDERLINE HIGH 160 - 189 mg/dl HIGH >190 mg/dl VERY HIGH Performed By: #### T SH, LIPID, CMP, FT3 #### [facility] [address] [address] [address] Jamel Jnag Triglyceride [Mass/Vol] 74 mg/dL Normal <=150 [facility] Comment on above: Performed By: #### T SH, LIPID, CMP, FT3 #### [facility] [address] [address] [address] Jamel Jang VLDL CALC 14.8 mg/dL Normal [facility] Comment on above: Performed By: #### T SH, LIPID, CMP, FT3 #### [facility] [address] [address] [address] Jamel Jang PROF 14(COMP METB)on 023 Albumin [Mass/Vol] 3.5 g/dL Normal 3.4-5.0 [facility] Comment on above: Performed By: #### T SH, LIPID, CMP, FT3 #### [facility] [address] [address] [address] Jamel Jang Albumin/Globulin [Mass ratio] 1.0 {ratio} Normal [facility] Comment on above: Performed By: #### T SH, LIPID, CMP, FT3 #### [facility] [address] [address] [address] Jamel Jang ALP [Catalytic activity/Vol] 85 U/L Normal 46-116 [facility] Comment on above: Performed By: #### T SH, LIPID, CMP, FT3 #### [facility] [address] [address] [address] Jamel Jang ALT [Catalytic activity/Vol] 37 U/L Normal 14-59 [facility] Comment on above: Performed By: #### T SH, LIPID, CMP, FT3 #### [facility] [address] [address] [address] Jamel Jang Anion gap [Moles/Vol] 12.4 mmol/L Normal [facility] Comment on above: Performed By: #### T SH, LIPID, CMP, FT3 #### [facility] [address] [address] [address] Jamel Jang AST [Catalytic activity/Vol] 20 U/L Normal 15-37 [facility] Comment on above: Performed By: #### T SH, LIPID, CMP, FT3 #### [facility] [address] [address] [address] Jamel Jang Bilirubin [Mass/Vol] 0.4 mg/dL Normal 0.2-1.0 [facility] Comment on above: Performed By: #### T SH, LIPID, CMP, FT3 #### [facility] [address] [place] [address] Dr. Jamel Jang Calcium [Mass/Vol] 9.2 mg/dL Normal 8.5-10.1 [facility] Comment on above: Performed By: #### T SH, LIPID, CMP, FT3 #### [facility] [address] [place] [address] Dr. Jamel Jang Chloride [Moles/Vol] 105 mmol/L Normal 98-107 [facility] Comment on above: Performed By: #### T SH, LIPID, CMP, FT3 #### [facility] [address] [place] [address] Dr. Jamel Jang CO2 [Moles/Vol] 28.0 mmol/L Normal 21.0-32.0 [facility] Comment on above: Performed By: #### T SH, LIPID, CMP, FT3 #### [facility] [address] [place] [address] Dr. Jamel Jang Creatinine [Mass/Vol] 0.56 mg/dL Normal 0.55-1.02 [facility] Comment on above: Performed By: #### T SH, LIPID, CMP, FT3 #### [facility] [address] [place] [address] Dr. Jamel Jang EGFR-AF AUSTRIAN >60 Normal >=60 [facility] Comment on above: Performed By: #### T SH, LIPID, CMP, FT3 #### [facility] [address] [place] [address] Dr. Jamel Jang EGFR-NON AF AUSTRIAN >60 Normal >=60 [facility] Comment on above: Performed By: #### T SH, LIPID, CMP, FT3 #### [facility] [address] [place] [address] Dr. Jamel Jang Globulin (S) [Mass/Vol] 3.5 g/dL Normal [facility] Comment on above: Performed By: #### T SH, LIPID, CMP, FT3 #### [facility] [address] [place] [address] Dr. Jamel Jang Glucose [Mass/Vol] 114 mg/dL Critically high 74-106 [facility] Comment on above: Performed By: #### T SH, LIPID, CMP, FT3 #### [facility] [address] [place] [address] Dr. Jamel Jang Potassium [Moles/Vol] 3.4 mmol/L Critically low 3.5-5.1 [facility] Comment on above: Performed By: #### T SH, LIPID, CMP, FT3 #### [facility] [address] [place] [address] Dr. Jamel Jang Protein [Mass/Vol] 7.0 g/dL Normal 6.4-8.2 [facility] Comment on above: Performed By: #### T SH, LIPID, CMP, FT3 #### [facility] [address] [place] [address] Dr. Jamel Jang Sodium [Moles/Vol] 142 mmol/L Normal 136-145 [facility] Comment on above: Performed By: #### T SH, LIPID, CMP, FT3 #### [facility] [address] [place] [address] Dr. Jamel Jang Urea nitrogen [Mass/Vol] 23.0 mg/dL Critically high 7.0-18.0 [facility] Comment on above: Performed By: #### T SH, LIPID, CMP, FT3 #### [facility] [address] [place] [address] Dr. Jamel Jang Urea nitrogen/Creatinine [Mass ratio] 41.1 mg/mg Normal [facility] Comment on above: Performed By: #### T SH, LIPID, CMP, FT3 #### [facility] [address] [place] [address] Dr. Jamel Jang TSHon 11-24-2022 TSH Qn m[IU]/L Critically low 0.358-3.740 [facility] Comment on above: Performed By: #### T SH, LIPID, CMP, FT3 #### [facility] [address] [place] [address] Dr. Jamel Jang VITAMIN B12on 11-24-2022 Cobalamin (Vitamin B12) [Mass/Vol] 132.0 pg/mL Critically low 193.0-986.0 [facility] Comment on above: Performed By: #### F T4 #### [facility] [address] [place] [address] Dr. Jamel Jang FREE T4on 02-22-2022 Free T4 [Mass/Vol] 1.14 ng/dL Normal 0.76-1.46 [facility] Comment on above: Performed By: #### F T4 #### [facility] [address] [place] [address] Dr. Jamel Jang GLYCOHEMOGLOBIN A1Con 2021 ADA RECOMMENDATION SEE BELOW Normal [facility] Comment on above: Result Comment: ADA RECOMMENDED LIMIT 4.0 - 6.0 ADA THERAPEUTIC TARGET < 7.0 ACTION SUGGESTED > 7.0 Performed By: #### F T4 #### [facility] [address] [place] [address] Dr. Jamel Jang Glucose [Mass/Vol] 120 mg/dL Normal [facility] Comment on above: Performed By: #### F T4 #### [facility] [address] [place] [address] Dr. Jamel Jang HbA1c (Bld) [Mass fraction] 5.8 % Normal 4.5-6.2 [facility] Comment on above: Performed By: #### F T4 #### [facility] [address] [place] [address] Dr. Jamel Jang PROF CHEM 8 (BAS METB)on Anion gap [Moles/Vol] 10.8 mmol/L Normal [facility] Comment on above: Performed By: #### F T4 #### [facility] [address] [place] [address] Dr. Jamel Jang Calcium [Mass/Vol] 9.3 mg/dL Normal 8.5-10.1 [facility] Comment on above: Performed By: #### F T4 #### [facility] [address] [place] [address] Dr. Jamel Jang Chloride [Moles/Vol] 106 mmol/L Normal 98-107 [facility] Comment on above: Performed By: #### F T4 #### [facility] [address] [address] [address] Jamel Jang CO2 [Moles/Vol] 30.3 mmol/L Normal 21.0-32.0 [facility] Comment on above: Performed By: #### F T4 #### [facility] [address] [place] [address] Dr. Jamel Jang Creatinine [Mass/Vol] 0.77 mg/dL Normal 0.55-1.02 [facility] Comment on above: Performed By: #### F T4 #### [facility] [address] [place] [address] Dr. Jamel Jang EGFR-AF AUSTRIAN >60 Normal >=60 [facility] Comment on above: Performed By: #### F T4 #### [facility] [address] [place] [address] Dr. Jamel Jang EGFR-NON AF AUSTRIAN >60 Normal >=60 [facility] Comment on above: Performed By: #### F T4 #### [facility] [address] [place] [address] Dr. Jamel Jang Glucose [Mass/Vol] 119 mg/dL Critically high 74-106 [facility] Comment on above: Performed By: #### F T4 #### [facility] [address] [place] [address] Dr. Jamel Jang Potassium [Moles/Vol] 4.1 mmol/L Normal 3.5-5.1 [facility] Comment on above: Performed By: #### F T4 #### [facility] [address] [place] [address] Dr. Jamel Jang Sodium [Moles/Vol] 143 mmol/L Normal 136-145 [facility] Comment on above: Performed By: #### F T4 #### [facility] [address] [address] [address] Jamel Jang Urea nitrogen [Mass/Vol] 19.0 mg/dL Critically high 7.0-18.0 [facility] Comment on above: Performed By: #### F T4 #### [facility] [address] [address] [address] Jamel Jang Urea nitrogen/Creatinine [Mass ratio] 24.7 mg/mg Normal [facility] Comment on above: Performed By: #### F T4 #### [facility] [address] [place] [address] Dr. Jamel Jang TSHon 02-22-2022 TSH 1.391 uIU/mL Normal 0.358-3.740 [facility] Comment on above: Performed By: #### F T4 #### [facility] [address] [place] [address] Dr. Jamel Jang MRI Shoulder w/o Lefton 06-0 MRI Shoulder w/o Left HISTORY: Anterior and posterior left shoulder pain. Limited range of motion. TECHNIQUE: Routine non-contrast MRI of the shoulder , left side COMPARISON: Radiographs 12/21/2021. RESULT: Rotator Cuff Tendons: Mild to moderate tendinosis involving supraspinatus with small areas of interstitial tearing of the distal fibers, without full-thickness tear. Mild tendinosis involving infraspinatus, without tear. Mild tendinosis involving subscapularis, without tear. Teres minor appears intact. Reactive cystic changes at the footplate. Long Head Biceps Tendon: Intact with appropriate location. Muscle: Muscle bulk and signal intensity are within normal limits. Labrum: Fraying/tearing especially superiorly. Bones and Marrow: No evidence of fracture or bone marrow replacing process. Glenohumeral Joint: No distinct full-thickness chondral defect. Small joint effusion. Thickening of the joint capsule with increased signal, associated with adhesive capsulitis. Acromioclavicular Joint: Mild degenerative changes. Other: No other significant abnormality. IMPRESSION: Rotator cuff tendinosis with areas of interstitial tearing involving distal supraspinatus, without full-thickness tear. Findings associated with adhesive capsulitis. Report reported and signed by Kendall Smith on 01/19/2022 1129 Normal [facility] MRI Elbow w/o Righton 2020 MRI Elbow w/o Right HISTORY: Posterior and lateral right elbow pain radiating up and down the arm. Concern for tennis elbow. TECHNIQUE: Routine MRI of the right elbow COMPARISON: None. RESULT: LIGAMENTS: The ulnar collateral ligament and the lateral collateral ligament complex appear to be intact. TENDONS: Mild to moderate tendinosis involving the common extensor tendons without tear. Mild tendinosis involving the common flexor tendons without tear. Biceps tendon, brachialis tendon, and triceps tendons appear intact. CARTILAGE: The articular cartilage of the radiocapitellar compartment, ulnohumeral compartment and proximal radioulnar joint appears to be preserved. MUSCLE: Muscle bulk and signal intensity is within normal limits. JOINT FLUID AND SYNOVIUM: Physiologic quantity of joint fluid. BONE MARROW: No evidence of fracture or bone marrow replacing process. NERVES: The ulnar nerve demonstrates normal position, size and signal intensity. OTHER: Small amount of subcutaneous edema medially and laterally. IMPRESSION: Mild to moderate common extensor tendinosis without tear. Mild common flexor tendinosis without tear. Report reported and signed by Kendall Smith on 08/02/2021 1338 Normal [facility] Vital Signs Date Time Vital Sign Value Performing Clinician Facility 09-01-2024 [id number] Body height 157.48 cm Bev Loya MD Work Phone: [facility] 09-01-2024 11:31-0500 Body mass index (BMI) [Ratio] 39.4 kg/m2 Bev Loya MD Work Phone: [facility] 09-01-2024 11:31-0500 Body weight 97.97 kg Bev Loya MD Work Phone: [facility] 09-01-2024 11:31-0500 Diastolic blood pressure 77 mm[Hg] Bev Loya MD Work Phone: [facility] 09-01-2024 11:31-0500 Heart rate 64 /min Bev Loya MD Work Phone: [facility] 09-01-2024 11:31-0500 Systolic blood pressure 112 mm[Hg] Bev Loya MD Work Phone: [facility] 07-23-2024 14:43-0500 Body height 157.5 cm Nicole Blum MD Work Phone: [facility] 07-23-2024 14:43-0500 Body mass index (BMI) [Ratio] 39.14 kg/m2 Nicole Blum MD Work Phone: [facility] 07-23-2024 14:43-0500 Body weight 97.07 kg Nicole Blum MD Work Phone: [facility] 07-23-2024 14:43-0500 Diastolic blood pressure 82 mm[Hg] Nicole Blum MD Work Phone: [facility] 07-23-2024 14:43-0500 Systolic blood pressure 124 mm[Hg] Nicole Blum MD Work Phone: [facility] 07-08-2024 14:08-0500 Body height 157.5 cm Nicole Blum MD Work Phone: [facility] 07-08-2024 14:08-0500 Body mass index (BMI) [Ratio] 39.14 kg/m2 Nicole Blum MD Work Phone: [facility] 07-08-2024 14:08-0500 Body weight 97.07 kg Nicole Blum MD Work Phone: [facility] 07-08-2024 14:08-0500 Diastolic blood pressure 79 mm[Hg] Nicole Blum MD Work Phone: [facility] 07-08-2024 14:08-0500 Systolic blood pressure 141 mm[Hg] Nicole Blum MD Work Phone: [facility] 08-21-2023 11:00-0500 Body height 157.48 cm Bev Loya Other [facility] Other 08-21-2023 11:00-0500 Body mass index (BMI) [Ratio] 37.49 kg/m2 Bev Loya Other [facility] Other 08-21-2023 11:00-0500 Body weight 92.99 kg Bev Loya Other [facility] Other 08-21-2023 11:00-0500 Diastolic blood pressure 93 mm[Hg] Bev Loya Other [facility] Other 08-21-2023 11:00-0500 Systolic blood pressure 146 mm[Hg] Bev Loya Other [facility] Other 07-17-2023 12:17-0500 Diastolic blood pressure 75 mm[Hg] MD Bev Loya Work Phone: [facility] 07-17-2023 12:17-0500 Heart rate 80 /min MD Bev Loya Work Phone: [facility] 07-17-2023 12:17-0500 Respiratory rate 16 /min MD Bev Loya Work Phone: [facility] 07-17-2023 12:17-0500 SaO2% (BldA) [Mass fraction] 97 % MD Bev Loya Work Phone: [facility] 07-17-2023 12:17-0500 Systolic blood pressure 127 mm[Hg] MD Bev Loya Work Phone: [facility] 07-17-2023 09:52-0500 Body height 157.48 cm MD Bev Loya Work Phone: [facility] 07-17-2023 09:52-0500 Body weight 90.71 kg MD Bev Loya Work Phone: [facility] 06-11-2023 13:00-0400 Body height 157.48 cm Imad Asaad Other [facility] [employer] Other 06-11-2023 13:00-0400 Body mass index (BMI) [Ratio] 36.76 kg/m2 Imad Asaad Other [facility] Other 06-11-2023 13:00-0400 Body weight 91.17 kg Imad Asaad Other [facility] Other 06-11-2023 13:00-0400 Diastolic blood pressure 78 mm[Hg] Imad Asaad Other [facility] Other 06-11-2023 13:00-0400 Systolic blood pressure 123 mm[Hg] Imad Asaad Other [facility] Other 04-26-2023 11:10-0400 Heart rate 51 /min Nicole Timmis [facility] 04-26-2023 11:10-0400 SaO2% (BldA) [Mass fraction] 96 % Nicole Timmis [facility] 04-26-2023 11:10-0400 Diastolic blood pressure 81 mm[Hg] Nicole Timmis [facility] 04-26-2023 11:10-0400 Mean blood pressure 95 mm[Hg] Nicole Timmis [facility] 04-26-2023 11:10-0400 Systolic blood pressure 123 mm[Hg] Nicole Timmis [facility] 04-26-2023 11:10-0400 Body temperature 97.52 [degF] Nicole Timmis [facility] 04-26-2023 10:24-0400 Heart rate 48 /min Nicole Timmis [facility] 04-26-2023 10:24-0400 SaO2% (BldA) [Mass fraction] 98 % Nicole Timmis [facility] 04-26-2023 10:23-0400 Diastolic blood pressure 80 mm[Hg] Nicole Timmis [facility] 04-26-2023 10:23-0400 Mean blood pressure 98 mm[Hg] Nicole Timmis [facility] 04-26-2023 10:23-0400 Systolic blood pressure 132 mm[Hg] Nicole Timmis [facility] 04-26-2023 10:21-0400 Body temperature 97.34 [degF] Nicole Timmis [facility] 04-26-2023 10:15-0400 Body temperature 97.52 [degF] Nicole Timmis [facility] 04-26-2023 10:15-0400 Diastolic blood pressure 71 mm[Hg] Nicole Timmis [facility] 04-26-2023 10:15-0400 Heart rate 56 /min Nicole Timmis [facility] 04-26-2023 10:15-0400 Mean blood pressure 84 mm[Hg] Nicole Timmis [facility] 04-26-2023 10:15-0400 Respiratory rate 16 /min Nicole Timmis [facility] 04-26-2023 10:15-0400 SaO2% (BldA) [Mass fraction] 96 % Nicole Timmis [facility] 04-26-2023 10:15-0400 Systolic blood pressure 111 mm[Hg] Nicole Timmis [facility] 04-26-2023 10:05-0400 Mean blood pressure 83 mm[Hg] Nicole Timmis [facility] 04-26-2023 10:05-0400 Respiratory rate 12 /min Nicole Timmis [facility] 04-26-2023 10:00-0400 Mean blood pressure 88 mm[Hg] Nicole Timmis [facility] 04-26-2023 10:00-0400 Respiratory rate 11 /min Nicole Timmis [facility] 04-26-2023 09:50-0400 Body temperature 98.06 [degF] Nicole Timmis [facility] 04-26-2023 09:45-0400 Respiratory rate 13 /min Nicole Timmis [facility] 04-26-2023 09:40-0400 Respiratory rate 13 /min Nicole Timmis [facility] 04-26-2023 09:35-0400 Respiratory rate 13 /min Nicole Timmis [facility] 04-26-2023 07:45-0400 Blood Pressure Location Nicole Timmis [facility] 04-26-2023 07:45-0400 Mean blood pressure 103 mm[Hg] Nicole Timmis [facility] 04-26-2023 07:43-0400 Blood Pressure Location Nicole Timmis [facility] 04-19-2023 14:39-0400 Diastolic blood pressure 88 mm[Hg] Nicole Timmis [facility] 04-19-2023 14:39-0400 Heart rate 73 /min Nicole Timmis [facility] 04-19-2023 14:39-0400 Mean blood pressure 109 mm[Hg] Nicole Timmis [facility] 04-19-2023 14:39-0400 Systolic blood pressure 152 mm[Hg] Nicole Timmis [facility] 04-19-2023 14:39-0400 Heart rate 71 /min Nicole Timmis [facility] 04-19-2023 14:39-0400 SaO2% (BldA) [Mass fraction] 98 % Nicoel Timmis [facility] 04-19-2023 14:39-0400 Diastolic blood pressure 97 mm[Hg] Nicole Timmis [facility] 04-19-2023 14:39-0400 Mean blood pressure 112 mm[Hg] Nicole Timmis [facility] 04-19-2023 14:39-0400 Systolic blood pressure 141 mm[Hg] Nicole Timmis [facility] 04-19-2023 14:39-0400 Body temperature 97.88 [degF] Nicole Timmis [facility] 04-19-2023 14:39-0400 Respiratory rate 15 /min Nicole Timmis [facility] 04-10-2023 14:15-0400 Body height 157.48 cm Bev Loya Other [facility] Other 04-10-2023 14:15-0400 Body mass index (BMI) [Ratio] 35.66 kg/m2 Bev Loya Other [facility] Other 04-10-2023 14:15-0400 Body weight 88.45 kg Bev Loya Other [facility] Other 04-10-2023 14:15-0400 Diastolic blood pressure 88 mm[Hg] Bev Loya Other [facility] Other 04-10-2023 14:15-0400 Systolic blood pressure 124 mm[Hg] Bev Loya Other [facility] Other 02-12-2023 09:45-0400 Body height 157.48 cm Bev Loya Other [facility] Other 02-12-2023 09:45-0400 Body mass index (BMI) [Ratio] 16.83 kg/m2 Bev Loya Other [facility] Other 02-12-2023 09:45-0400 Body weight 41.73 kg Bev Loya Other [facility] Other 02-12-2023 09:45-0400 Diastolic blood pressure 90 mm[Hg] Bev Loya Other [facility] Other 02-12-2023 09:45-0400 Systolic blood pressure 131 mm[Hg] Bev Loya Other [facility] Other 11-23-2022 10:45-0400 Body height 157.48 cm Bev Loya Other [facility] Other 11-23-2022 10:45-0400 Body mass index (BMI) [Ratio] 34.93 kg/m2 Bev Loya Other [facility] Other 11-23-2022 10:45-0400 Body weight 86.64 kg Bev Loya Other [facility] Other 11-23-2022 10:45-0400 Diastolic blood pressure 88 mm[Hg] Bev Loya Other [facility] Other 11-23-2022 10:45-0400 SaO2% (BldA) [Mass fraction] 99 % Bev Loya Other [facility] Other 11-23-2022 10:45-0400 Systolic blood pressure 142 mm[Hg] Bev Loya Other [facility] Other 10-06-2022 11:15-0500 Body height 157.48 cm Amina Thomas Other [facility] Other 10-06-2022 11:15-0500 Body mass index (BMI) [Ratio] 36.58 kg/m2 Amina Haynesmond Other [facility] Other 10-06-2022 11:15-0500 Body temperature 97.3 [degF] Amina Haynesmond Other [facility] Other 10-06-2022 11:15-0500 Body weight 90.72 kg Amina Haynesmond Other [facility] Other 10-06-2022 11:15-0500 Respiratory rate 18 /min Amina Martha Other [facility] Other 10-06-2022 11:15-0500 SaO2% (BldA) [Mass fraction] 99 % Amina Martha Other [facility] Other Encounters Encounter Date Encounter Type Care Provider Facility Start: 09-01-2024 Patient encounter status Bev Loya MD Work Phone: [facility] Start: 09-01-2024 End: 09-01-2024 ambulatory Bev Loya MD Work Phone: [facility] Work Phone: Start: 09-01-2024 End: 09-01-2024 Encounter for general adult medical examination without abnormal findings Bev Loya MD Work Phone: [facility] Start: 09-01-2024 End: 09-01-2024 Patient encounter procedure Bev Loya MD Work Phone: [facility] Work Phone: Start: 07-23-2024 End: 07-23-2024 Office outpatient visit 15 minutes Nicole Blum MD Work Phone: [facility] Comment on above: ETD (Eustachian tube dysfunction), bilateral (Primary Dx) Start: 07-23-2024 End: 07-23-2024 Bamboo flowsheet Nicole Blum MD Work Phone: [facility] Start: 07-23-2024 End: 07-23-2024 Bamboo flowscheyenne Blum MD Work Phone: [facility] Start: 07-08-2024 End: 07-08-2024 Office outpatient visit 15 minutes Nicole Blum MD Work Phone: [facility] Comment on above: ETD (Eustachian tube dysfunction), bilateral (Primary Dx) Start: 07-08-2024 End: 07-08-2024 ambulatory NICOLE BLUM Not Available Start: 07-08-2024 End: 07-08-2024 Bamboo flowscheyenne Blum MD Work Phone: [facility] Start: 07-08-2024 End: 07-08-2024 Bamboo flowscheyenne Blum MD Work Phone: [facility] Start: 06-06-2024 End: 06-06-2024 Patient encounter procedure MD Bev Loya Work Phone: [facility] Work Phone: Start: 06-06-2024 End: 06-06-2024 ambulatory MD Bev Loya Work Phone: [facility] Work Phone: Start: 09-17-2023 End: 09-17-2023 ambulatory NICOLE H TIMMIS Not Available Start: 08-29-2023 End: 08-29-2023 ambulatory NICOLE H TIMMIS Not Available Start: 08-21-2023 End: 08-21-2023 ambulatory Bev Loya Other [employer] Other Start: 08-21-2023 Encounter for genera l adult medical examination without abnormal findings Bev Loya [facility] Start: 08-21-2023 Office outpatient vi sit 15 minutes Bev Loya [facility] Start: 08-08-2023 End: 08-08-2023 ambulatory NICOLE H TIMMIS Not Available Start: 07-24-2023 End: 07-24-2023 ambulatory NICOLE H TIMMIS Not Available Start: 07-17-2023 End: 07-17-2023 Admission to same day surgery center MD Bev Loya Work Phone: [facility] Work Phone: Start: 07-17-2023 End: 07-17-2023 ambulatory MD Bev Loya Work Phone: [facility] Work Phone: Start: 06-12-2023 End: 06-12-2023 ambulatory Imad Asaad Other [employer] Other Start: 06-12-2023 Telephone encounter Imad Asaad [employer] Start: 06-11-2023 End: 06-11-2023 ambulatory Imad Asaad Other [employer] Other Start: 06-11-2023 Office outpatient ne w 45 minutes Imad Asaad [facility] Start: 05-07-2023 End: 05-07-2023 ambulatory Bev Loya Other [employer] Other Start: 05-07-2023 Telephone encounter Bev Loya [facility] Start: 05-02-2023 End: 05-02-2023 ambulatory Robynmargarita Paigemargarita Other [employer] Other Start: 05-02-2023 Telephone encounter Imad Royalad [employer] Start: 04-26-2023 End: 04-26-2023 ambulatory Nicole Balesmis Facility:[facility] Start: 04-26-2023 End: 04-26-2023 Admission to same day surgery center Nicole Blum [facility] Start: 04-19-2023 End: 04-20-2023 ambulatory Nicole Mendez Timmis Facility:[facility] Start: 04-19-2023 End: 04-19-2023 Patient encounter procedure Nicole Blum [facility] Start: 04-18-2023 End: 04-20-2023 Pre-admission assessment Nicole Moreloss [facility] Start: 04-10-2023 End: 04-10-2023 ambulatory Bev Loya Other [employer] Other Start: 04-10-2023 Office outpatient vi sit 15 minutes Bev Loya [facility] Start: 03-26-2023 End: 03-26-2023 ambulatory Bev Loya Other [employer] Other Start: 03-26-2023 Telephone encounter Bev Loya [facility] Start: 02-22-2023 End: 02-22-2023 ambulatory Bev Loya Other [employer] Other Start: 02-22-2023 Telephone encounter Bev Loya [facility] Start: 02-15-2023 End: 02-15-2023 ambulatory Bev Loya Other [employer] Other Start: 02-15-2023 Telephone encounter Bev Loya [facility] Start: 02-12-2023 End: 02-12-2023 ambulatory Bev Loya Other [employer] Other Start: 02-12-2023 Office outpatient vi sit 15 minutes Bev Loya [facility] Start: 02-08-2023 End: 02-08-2023 ambulatory Bev Loya Other [employer] Other Start: 02-08-2023 Telephone encounter Bev Loya [facility] Start: 01-09-2023 End: 01-09-[address] BEV LOYA Facility:[facility] Start: 12-03-2022 Encounter for genera l adult medical examination without abnormal findings DR BEV LOYA [facility] Start: 11-28-2022 End: 11-28-2022 ambulatory Bev Loya Other [employer] Other Start: 11-28-2022 Telephone encounter Bev Loya [facility] Start: 11-27-2022 End: 11-27-2022 ambulatory Bev Loya Other [employer] Other Start: 11-27-2022 Telephone encounter Bev Loya [facility] Start: 11-24-2022 End: 11-25-[address] BEV LOYA Facility:[facility] Start: 11-24-2022 End: 11-25-2022 Encounter for general adult medical examination without abnormal findings DR BEV LOYA Facility:[facility] Start: 11-23-2022 End: 11-23-2022 ambulatory Bev Loya Other [employer] Other Start: 11-23-2022 Encounter for genera l adult medical examination without abnormal findings Bev Loya [facility] Start: 11-23-2022 Periodic preventive med est patient 40-64yrs Bev Loya [facility] Start: 11-21-2022 End: 11-21-2022 ambulatory MD Bev Loya Work Phone: [facility] Work Phone: Start: 11-21-2022 End: 11-21-2022 Patient encounter procedure MD Bev Loya Work Phone: [facility] Work Phone: Start: 10-06-2022 End: 10-06-2022 ambulatory Amina Thomas Other [employer] Other Start: 10-06-2022 Office outpatient vi sit 15 minutes Amina Thomas [facility] Start: 09-27-2022 End: 09-27-2022 ambulatory Bev Loya Other [employer] Other Start: 09-27-2022 Telephone encounter Bev Loya [facility] Start: 02-28-2022 Gynecological examination normal Bev Loya Other [employer] Other Start: 02-22-2022 End: 02-23-[address] BEV LOYA Facility: Start: 11-30-2021 Adult health examination Bev Loya Other [employer] Other Procedures Date Procedure Procedure Detail Performing Clinician Start: 06-06-2024 Screening mammography of bilateral breasts MD Bev Loya Work Phone: Start: 07-17-2023 Esophagogastroduodenoscopy MD Bev garcia Work Phone: Start: 04-26-2023 Myringotomy and insertion of T tube Anai ry [facility] Start: 04-26-2023 Removal of sebaceous cyst Nicole Timmis Start: 11-21-2022 End: 11-21-2022 Screening mammography of bilateral breasts MD Bev Loya Work Phone: Colonoscopy Nicole Blum Myringotomy and inse rtion of tympanic ventilation tube Nicole Blum Repair tendon/muscle upper arm/elbow ea Nicole Blum Screening for malign ant neoplasm of breast Bev Shalini Other Screening for malign ant neoplasm of breast Bev Loya Other Plan of Treatment Date Care Activity Detail Author Start: 07-23-2024 End: 07-23-2024 Patient encounter procedure [facility] Comment on above: Arrived Start: 07-08-2024 End: 07-08-2024 Patient encounter procedure 07/08/2024 2:20 PM EST Office Visit [facility] [address] [facility] [address] [place] [id number] Nicole Blum MD [address] [facility] [address] [place] [address] Arrived [facility] Comment on above: Arrived Start: 04-20-2024 Influenza vaccination Influenza Vacc ine (#1) [facility] Start: 11-22-2023 Screening for malign ant neoplasm of breast Mammogram [facility] Start: 07-17-2023 [facility] Start: 2000 Screening for malign ant neoplasm of cervix [facility] Start: 1991 Screening for malign ant neoplasm of cervix Pap Smear [facility] Start: 1970 Screening for malign ant neoplasm of colon [facility] Comprehensive metabo lic 2000 panel - Serum or Plasma [facility] Immunizations Immunization Date Immunization Notes Care Provider Fa cility 07-22-2024 influenza virus vaccine, unspecified formulation Nicole Blum MD Work Phone: [facility] 06-22-2023 influenza virus vaccine, unspecified formulation Nicole Blum MD Work Phone: [facility] 11-25-2020 COVID-19 mRNADanis (Pfizer) MD Bev Loya Work Phone: [facility] 11-04-2020 COVID-19 mRNADanis (Pfizer) MD Bev Loya Work Phone: [facility] 05-31-2020 influenza virus vaccine, unspecified formulation Nicole Blum [facility] 06-03-2018 influenza virus vaccine, split virus (incl. purified surface antigen) Bev Loya Other [facility] [employer] Other 06-03-2018 influenza virus vaccine, unspecified formulation MD Bev Loya Work Phone: [facility] 06-05-2017 influenza virus vaccine, split virus (incl. purified surface antigen) Bev Loya Other [employer] [facility] [employer] Other 06-05-2017 influenza virus vaccine, unspecified formulation MD Bev Loya Work Phone: [facility] 06-18-2014 influenza, injectabl e, quadrivalent, contains preservative Bev Loya Other [facility] [employer] Other 06-18-2014 influenza, injectabl e, quadrivalent, preservative free MD Bev Loya Work Phone: [facility] 05-20-2012 influenza virus vaccine, unspecified formulation MD Bev Loya Work Phone: [facility] 05-20-2012 influenza virus vaccine, split virus (incl. purified surface antigen) Bev Loya Other [employer] Other 06-10-1999 pneumococcal polysaccharide vaccine, 23 valent Nicole Blum MD Work Phone: [facility] Work Phone: Payers Date Payer Category Payer [facility] Care O (unspecified) [id number] 2024 Private Health Insurance [id number] 2023 Self-pay [id number] 1970 Unknown [id number]. [id number] 1970 Unknown [id number] [id number]. 2.593 1970 Unknown [id number] [id number]. 2.593 1970 Unknown [id number] [id number]. 2.727 1970 Unknown [id number] [id number]. 2.727 1970 Unknown [id number] 2.16.840.1.371987.3.579. 2.1259 1970 Unknown [id number] [id number]. 2.1259 1970 Unknown [id number] [id number]. 2.1259 1970 Unknown [id number] [id number]. 2.1259 1970 Unknown [id number] [id number]. 2.1259 1959 Unknown [id number] Private Health Insurance [facility] [id number] Unknown [id number] [id number]. 2.531 Unknown [id number] [id number]. 2.531 Social History Date Type Detail Facility Start: 09-17-2023 End: 07-23-2024 Sex Assigned At [facility] Start: 1970 Sex Assigned At Female F [facility] Start: 05-12-2021 End: 07-17-2023 Tobacco smoking status Never smoked tobacco (finding) [facility] Start: 03-26-2023 Tobacco use and exposure Smokeless tobacco non-user [facility] Start: 09-17-2023 End: 07-23-2024 Alcoholic beverage intake Ex-drinker (finding) [facility] Start: 09-17-2023 End: 07-23-2024 History of Social function [facility] Start: 01-04-2023 Alcohol Comment Caffeine intak e: 1-2 cups per day [facility] Start: 05-29-2023 Gender identity Identifies as female gender (finding) [facility] Start: 05-29-2023 Sexual orientation Heterosexual (fin ding) [facility] Start: 09-01-2024 Sex Female (finding) [facility] NEGATED: Highlighted row [facility] Goals Date Patient Goal Desired Activity /State Functional Status Date Assessment Result Facility 04-19-2023 Functional Status No [facility] Clinical Notes 05-20-2013 to 07-23-2024 Nicole Blum MD - 07/23/2024 2:40 PM ESTHibrock Blum MD - 07/08/2024 2:20 PM EST Note Date & Type Note Facility 07-23-2024 History of Presen t illness Narrative Subjective Patient ID: Milana Miller is a 54 y.o. female who presents for Ear Problem (Ear debridement) Family History Problem Relation Name Age of Onset COPD Mother Prostate cancer Father Kaz Torma Hypertension Father Kaz Torma Asthma Sibling Stroke Maternal Grandfather Tom Dankovich Throat cancer Paternal Grandfather Active Ambulatory Problems Diagnosis Date Noted Perforation of right tympanic membrane 01/28/2023 Conductive hearing loss, bilateral 01/28/2023 Conductive hearing loss of left ear 01/28/2023 Chronic myringitis, left 01/28/2023 Internal derangement of left shoulder 01/28/2023 Internal derangement of right knee 01/28/2023 ETD (Eustachian tube dysfunction), left 03/26/2023 Mass of right ear canal 03/26/2023 ETD (Eustachian tube dysfunction), bilateral 07/24/2023 Nasopharyngeal mass 07/24/2023 Chronic otorrhea of right ear 08/08/2023 Recurrent epistaxis 08/08/2023 Resolved Ambulatory Problems Diagnosis Date Noted No Resolved Ambulatory Problems Past Medical History: Diagnosis Date Allergic rhinitis Childhood Arthritis Cholesteatoma of attic of left ear Chronic myringitis of left ear Diabetes ([facility]) Disease of thyroid gland ([facility]) 2016 Hypertension ([facility]) Kidney stone Nosebleed Obesity Past Surgical History: Procedure Laterality Date ADENOIDECTOMY ELBOW DEBRIDEMENT 08/31/2021 release and debridement of the extensor carpi radialis rt elbow Dr. Higuera MYRINGOTOMY W/ TUBES Bilateral multiple times MYRINGOTOMY W/ TUBES 06/26/2017 Left MT MYRINGOTOMY W/ TUBES Left 09/24/2018 [facility] OSSICULAR RECONSTRUCTION Left OTHER SURGICAL HISTORY 04/26/2023 LT MT, RT r/o lesion, [facility] OTHER SURGICAL HISTORY 07/31/2023 bx RT nasal mass, [facility] TYMPANOPLASTY TYMPANOSTOMY TUBE PLACEMENT No Known Allergies Current Outpatient Medications on File Prior to Visit Medication Sig Dispense Refill amLODIPine (Norvasc) 5 MG tablet Take 5 mg by mouth in the morning. Aqugqpd-Qmkajotta-Ahnsyyq D (CALCIUM 1200+D3 PO) Take 1 tablet by mouth in the morning. Ferrous Sulfate (IRON PO) Take 1 tablet by mouth in the morning. fexofenadine (Kerri Allergy) 180 MG tablet levothyroxine (Synthroid, Levoxyl) 25 MCG tablet Take 25 mcg by mouth in the morning. Take before meals. losartan (Cozaar) 100 MG tablet Take 100 mg by mouth in the morning. melatonin 5 MG tablet 1 (one) time each day at the same time. multivitamin (Theragran) tablet Take 1 tablet by mouth in the morning. omega-3 (Fish Oil) 1200 MG capsule 1 capsule 1 (one) time each day at the same time. No current facility-administered medications on file prior to visit. Objective Last Recorded Vitals Vitals: 07/23/24 1443 BP: 124/82 ENT Physical Exam Constitutional Appearance: patient appears well-developed, well-nourished and well-groomed, Communication/Voice: communication appropriate for developmental age; vocal quality normal; Ear Ear comments: Sammy softened crusts debrided. Tubes IP&P Assessment/Plan Diagnoses and all orders for this visit: ETD (Eustachian tube dysfunction), bilateral Tubes debrided and look good documented in this encounter [facility] 07-08-2024 History of Presen t illness Narrative Subjective Patient ID: Milana Miller is a 54 y.o. female who presents for Ear Problem (1 year tube check. BMT 04/26/23) Pt notes some crakling in ears Family History Problem Relation Name Age of Onset COPD Mother Prostate cancer Father Kaz Torma Hypertension Father Kaz Torma Asthma Sibling Stroke Maternal Grandfather Tom Dankovich Throat cancer Paternal Grandfather Active Ambulatory Problems Diagnosis Date Noted Perforation of right tympanic membrane 01/28/2023 Conductive hearing loss, bilateral 01/28/2023 Conductive hearing loss of left ear 01/28/2023 Chronic myringitis, left 01/28/2023 Internal derangement of left shoulder 01/28/2023 Internal derangement of right knee 01/28/2023 ETD (Eustachian tube dysfunction), left 03/26/2023 Mass of right ear canal 03/26/2023 ETD (Eustachian tube dysfunction), bilateral 07/24/2023 Nasopharyngeal mass 07/24/2023 Chronic otorrhea of right ear 08/08/2023 Recurrent epistaxis 08/08/2023 Resolved Ambulatory Problems Diagnosis Date Noted No Resolved Ambulatory Problems Past Medical History: Diagnosis Date Allergic rhinitis Childhood Arthritis Cholesteatoma of attic of left ear Chronic myringitis of left ear Diabetes (CMS/HCC) Disease of thyroid gland (CMS/HCC) 2016 Hypertension (CMS/HCC) Kidney stone Nosebleed Obesity Past Surgical History: Procedure Laterality Date ADENOIDECTOMY ELBOW DEBRIDEMENT 08/31/2021 release and debridement of the extensor carpi radialis rt elbow Dr. Higuera MYRINGOTOMY W/ TUBES Bilateral multiple times MYRINGOTOMY W/ TUBES 06/26/2017 Left MT MYRINGOTOMY W/ TUBES Left 09/24/2018 [facility] OSSICULAR RECONSTRUCTION Left OTHER SURGICAL HISTORY 04/26/2023 LT MT, RT r/o lesion, [facility] OTHER SURGICAL HISTORY 07/31/2023 bx RT nasal mass, [facility] TYMPANOPLASTY TYMPANOSTOMY TUBE PLACEMENT No Known Allergies Current Outpatient Medications on File Prior to Visit Medication Sig Dispense Refill amLODIPine (Norvasc) 5 MG tablet Take 5 mg by mouth in the morning. Ssposay-Iwawsthzc-Stjffnu D (CALCIUM 1200+D3 PO) Take 1 tablet by mouth in the morning. Ferrous Sulfate (IRON PO) Take 1 tablet by mouth in the morning. fexofenadine (Kerri Allergy) 180 MG tablet levothyroxine (Synthroid, Levoxyl) 25 MCG tablet Take 25 mcg by mouth in the morning. Take before meals. losartan (Cozaar) 100 MG tablet Take 100 mg by mouth in the morning. melatonin 5 MG tablet 1 (one) time each day at the same time. multivitamin (Theragran) tablet Take 1 tablet by mouth in the morning. omega-3 (Fish Oil) 1200 MG capsule 1 capsule 1 (one) time each day at the same time. [DISCONTINUED] Berberine Chloride 500 MG capsule Take 1 capsule by mouth in the morning. No current facility-administered medications on file prior to visit. Objective Last Recorded Vitals Vitals: 07/08/24 1408 BP: 141/79 ENT Physical Exam Ear Ear comments: Sammy crusted tubes Assessment/Plan Diagnoses and all orders for this visit: ETD (Eustachian tube dysfunction), bilateral Floxin to soften crusts around tubes and F/U to debride documented in this encounter [facility] 08-21-2023 Evaluation note Encounter Date Diagnosis Assessment Notes Aug, Encounter for wellness examination (ICD-10 - Z00.00) Today was not a wellness, but she needs labs for paperwork for her insurance. Aug, Hypertension (ICD-10 - I10) Continue losartan, add norvasc. Call w bp readings 2-3 weeks. [employer] [facility] Encounter Date Diagnosis Assessment Notes Treatment Notes Treatment Clinical Notes May, Celiac disease (ICD-10 - K90.0) Patient is to have an EGD to test for celiac disease scheduled today, prep instructions given today, Risks and benefits of procedure explained to patient; patient verbalizes understanding. May, Screening for colon cancer (ICD-10 - Z12.11) [employer] Other 09-18-2023 Evaluation note* Encounter Date Diagnosis Assessment Notes Treatment Notes Treatment Clinical Notes Apr, Hypothyroid (ICD-10 - E03.9) [facility] Other 09-07-2023 Hospital Discharge instructions Patient Education 04/26/2023 10:35:43 PE Tube Surgery, Adult, Care After PE Tube Surgery, Adult, Care After The following information offers guidance on how to care for yourself after your procedure. Your health care provider may also give you more specific instructions. If you have problems or questions, contact your health care provider. What can I expect after the procedure? After the procedure, it is common to have: Slight discomfort or ear pain. A small amount of blood-tinged drainage from the ear. Follow these instructions at home: Medicines Take nnop-jsh-tjrgwgx and prescription medicines only as told by your health care provider. Finish all antibiotic medicine even if you start to feel better. Use your antibiotic drops as told by your health care provider. Do not stop using the antibiotic even if your condition improves. Activity Rest at home on the day of surgery. Ask your health care provider if you should use earplugs or another type of water protection when bathing or swimming. Some health care providers recommend keeping water out of the ears after this surgery. Return to your normal activities as told by your health care provider. Ask your health care provider what activities are safe for you. General instructions Most PE ear tubes fall out within 6 to 9 months, and the holes heal on their own. Ask your health care provider if your tubes need to be removed or if they will fall out on their own. Keep all follow-up visits. This is important. During follow-up visits, your health care provider will make sure that: ?The tubes are working. ?The tubes have not fallen out too soon. ?The tubes do not stay in longer than needed. Contact a health care provider if: You have a fever. You have fluid, pus, or blood coming from your ear. Your pain worsens. You have discharge that is yellow or green from your ear. You have a foul smell coming from the ear. You ear tubes fall out sooner than expected. Get help right away if: You have trouble breathing. You have bright red blood coming from your ear. Summary After this procedure, it is common to have ear pain. Take hbrw-zuq-wnheite and prescription medicines only as told by your health care provider. Follow your health care provider's instructions for home care. Ask your health care provider if youshould use earplugs or another type of water protection when bathing or swimming. Keep all follow-up visits. Your health care provider will need to make sure that the tubes are working, have not fallen out too soon, and do not stay in longer than needed. This information is not intended to replace advice given to you by your health care provider. Make sure you discuss any questions you have with your health care provider. Document Revised: 04/03/2022 Document Reviewed: 04/03/2022 [employer] Patient Education 2022 [employer]. 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 She would like to be tested further for celiac. Had intial Ig's checked earlier this year. Referral placed. Mar, Screening for colon cancer (ICD-10 - Z12.11) [employer] Other 08-07-2023 Evaluation note* Encounter Date Diagnosis Assessment Notes Treatment Notes Treatment Clinical Notes Mar, Thyroiditis (ICD-10 - E06.9) [employer] Other 07-06-2023 Evaluation note* Encounter Date Diagnosis Assessment Notes Treatment Notes Treatment Clinical Notes Feb, Hypothyroid (ICD-10 - E03.9) [employer] Other 06-26-2023 Evaluation note* Encounter Date Diagnosis Assessment Notes Treatment Notes Treatment Clinical Notes Jan, Hypothyroid (ICD-10 - E03.9) Decrease dose. Discussed symptoms of hyperthyroidism. Call if no improvment in sx and repeat labs in 6-8 weeks. [employer] Other 04-06-2023 Evaluation note* Encounter Date Diagnosis Assessment Notes Treatment Notes Treatment Clinical Notes Nov, Wellness examination (ICD-10 - Z00.00) Discussed weight loss, diet/exercise and healthy lifestyle. Labs were placed and instructed to be fasting, will need to be completed prior to next apt. Nov, Hypothyroid (ICD-10 - E03.9) Chronic problem - labs indicated decreasing dose. Nov, Vitamin D deficiency (ICD-10 - E55.9) Pt interested in level. Has been on supplements in the past. Nov, Hypertension (ICD-10 - I10) Stable on present dose - chronic problem Nov, Elevated glucose level (ICD-10 - R73.09) Borderline through the past few years. Check level. Nov, Anemia, unspecified type (ICD-10 - D64.9) Borderline low in past - will check CBC presently. [employer] Other 02-17-2023 Evaluation note* Encounter Date Diagnosis Assessment Notes Treatment Notes Treatment Clinical Notes Sep, Perforation of right tympanic membrane (ICD-10 - H72.91) Ruptured eardrum material was printed Drink plenty fluids, get plenty of rest. Use eardrops as prescribed. Follow-up with Dr. Blum as scheduled next week. Avoid getting water in your ear is much as possible. Take Tylenol or Motrin as needed for aches pains or fevers. [employer] Other 10-01-2013 History general Narrative - Reported* Type Description Date Medical History Chickenpox Medical History Mammogram 05/2013 Medical History Pap/Pelvic exam summer francia Nunez Medical History Hypothyroidism Medical History hypertension Medical History kidney stones Surgical History 6-8 sets of tubes pl aced in bilateral ears over the years Surgical History ear surgery Hospitalization History see above [employer] Other 10-01-2013 History general Narrative - Reported* Type Description Date Medical History Chickenpox Medical History Mammogram 05/2013 Medical History Pap/Pelvic exam summer w ith Medical History Hypothyroidism Medical History hypertension Medical History kidney stones Surgical History 6-8 sets of tubes pl aced in bilateral ears over the years Surgical History ear surgery Surgical History COLONOSCOPY 2006 Hospitalization History see above [facility] Other 10-01-2013 History general Narrative - Reported* Type Description Date Medical History Chickenpox Medical History Mammogram 05/2013 Medical History Pap/Pelvic exam summer w ith Medical History Hypothyroidism Medical History hypertension Medical History kidney stones Surgical History 6-[address] aced in bilateral ears over the years Surgical History ear surgery Surgical History COLONOSCOPY 2006 Surgical History Bilateral tubes in ears & 2022 Hospitalization History see above [facility] Other Evaluation + Plan note Future Appointments Appointment Date:04/26/2023 01:30:00 PM Scheduled Provider: Location:[facility] App[facility] Information[facility] [employer] [employer] Other Evaluation noteNo assessment information available [facility] Work Phone: Evaluation note* Diagnosis ETD (Eustachian tube dysfunction), bilateral- [facility] Diagnosis ETD (Eustachian tube dysfunction), bilateral- [facility] Diagnosis Onset Date Resolution Status Admit Date Essential (primary) hypertension acu te September 01, 2024 11:22am Hyperlipidemia acute September 012024 11:22am Hypothyroidism acute September 012024 11:22am Wellness examination acute [place] hari 2024 11:22am [facility] Work Phone: History and physical note Author [facility] July 17, 2023 11:17am Note Date/Time July 17, 2023 11:17am [facility] [address] [place] [address] Gastroenterology H&P Signed Patient: Milana Miller MR#: [id number] : 1970 Acct:[id number] Age/Sex: 53 / F Adm Date: 3 Loc: Room: Type: [facility] Attending Dr: Johnathan More MD Copies to: MD Bev Ziegler MD~ Date of Service: 07/17/2023 HISTORY & PHYSICAL: Patient's history with special attention to the cardiovascular, pulmonary systems and the current problem was reviewed with the patient immediately prior to the procedure. Present medications and doses reviewed in the EMR. Allergies and pertinent laboratory tests were also reviewedat this time in the EMR. The physical examination, as below, was then performed. Indication, assessment and HPI: 53-year-old female with elevated IgM transglutaminase antibodies and dyspepsia here for EGD with duodenal biopsies toassess for celiac disease and for colonoscopy for colon cancer screening Family history of GI malignancy? No PHYSICAL EXAMINATION Mouth and Pharynx : Moist mucus membranes, normal dentition Cardiac: Regular rate, regular rhythm Pulmonary: Clear to auscultation bilaterally, no wheezing Neurological: Alert and oriented x3, no focal deficits noted Abdomen: Abdomen soft, non-tender REVIEW OF SYSTEMS Constitutional: Denies malaise, fevers Cardiovascular: Denies chest pain, palpitations Respiratory: Denies shortness of breath, wheezing Gastrointestinal: Per HPI Genitourinary: Denies dysuria, polyuria Musculoskeletal: Denies joint swelling, joint stiffness Neurological: Denies numbness, tingling Integumentary: Denies rashes, skin lesions Endocrine: Denies fatigue, weight loss Written informed consent obtained from the patient. Risks (including but not limited to perforation, infection, bloating, bleeding, need for emergent surgeryand loss of life), benefits and alternatives explained and questions answered. The patient verbalized understanding. Based on history patient is an appropriate candidate for the procedure. Johnathan More M.D. Documented By: Johnathan More MD 07/17/23 111 Signed By: <Electronically signed by Johnathan More MD> 07/17/23 [facility] Work Phone: [facility] Narrative No data available for this section [facility] Discharge instructions No data available for this section [facility] Discharge instructions Additional Instructions DISCHARGE INSTRUCTIONS FOR UPPER ENDOSCOPY WHAT TO EXPECT: - You may feel full, gassy or cramping after your procedure. In some cases, this may be from a few hours to a day. Walking may help relieve the discomfort. - Your throat may feel sore today from the scope that the doctor passed through your throat to visualize your stomach. Take a throat lozenge or suck on ice to ease the discomfort. - You may notice some streaks of blood in your sputum if the doctor has taken a biopsy. - You should begin to recover from anesthesia within 1 hour of the procedure, however may feel groggy for the next 24 hours. DO's AND DON'Ts: - Call your doctor right away if you have a hard abdomen, severe pain, vomiting or if you cough up large amounts of blood. - Call your doctor if you develop any rashes, hives or difficulty breathing. - If you take 81 mg aspirin for your heart it is safe to resume this medication. - If you take other blood thinner medications your doctor will instruct you when these can safely be resumed. - Do NOT drive for 24 hours. - Do NOT operate machinery such as power tools, lawn mowers, snow blowers, sewing machines, etc. for 24 hours. - Avoid alcoholic beverages and drugs for allergies, nerves, or sleep. - Do NOT stay alone. Do NOT leave your child unattended. - Do NOT make important personal or business decisions or sign any legal documents. - Eat solid foods and drink liquids in smaller amounts than usual until normal appetite returns. If you should experience an upset stomach, liquids high in sugar content (soda, Hao-Aid, non-acid juices) are recommended. - Do NOT smoke. - Do take it easy today. You need not stay in bed, but avoid strenuous activities such as jogging or working out. DISCHARGE INSTRUCTIONS FOR COLONOSCOPY WHAT TO EXPECT: - You may feel full, gassy or cramping after your procedure. In some cases, this may be from a few hours to a day. Walking may help relieve the discomfort. - If you have polyp(s) removed you may note some minor bloody discharge after your first bowel movements. - You should begin to recover from anesthesia within 1 hour of the procedure, however may feel groggy for the next 24 hours. DO's AND DON'Ts: - Call your doctor right away if you have a hard abdomen, sever pain, are passing lots of bright red blood or clots. - Call your doctor if you develop any rashes, hives or difficulty breathing. - Let your doctor know if you have not had a bowel movement by 3 days after your procedure. - If you take 81 mg aspirin for your heart it is safe to resume this medication. - If you take other blood thinner medications your doctor will instruct you when these can safely be resumed. - Do NOT drive for 24 hours. - Do NOT operate machinery such as power tools, [employer] mowers, snow blowers, sewing machines, etc. for 24 hours. - Avoid alcoholic beverages and drugs for allergies, nerves, or sleep. - Do NOT stay alone. Do NOT leave your child unattended. - Do NOT make important personal or business decisions or sign any legal documents. - Eat solid foods and drink liquids in smaller amounts than usual until normal appetite returns. If you should experience an upset stomach, liquids high in sugar content (soda, Hao-Aid, non-acid juices) are recommended. - You can resume normal activities tomorrow. FOLLOW UP & RECOMMENDATIONS: -Notify the doctor if you have any problems. -Repeat colonoscopy based on polyps pathology -Follow up pathology -Follow up in the office as scheduled - Office number [phone]. [facility] Work Phone: Progress note No data available for this section [facility] Summary Purpose Family History Relationship Condition Age at Onset Recorded Date/T moe Not Specified Chronic obstructive pulmonary disease Un known father Hypertension Unknown Malignant neoplasm of prostate Unknown Relationship Condition Age at Onset Recorded Date/T moe mother Chronic obstructive pulmonary disease Unk nown father Hypertension Unknown Malignant neoplasm of prostate Unknown Malignant neoplasm Unknown grandparent Unknown History of stroke Unknown grandparent Malignant neoplasm Unknown Malignant neoplasm of throat Unknown Unknown grandparent History of stroke Unknown mother Unknown Chronic obstructive pulmonary disease Unk nown Advance Directives Advance Directive Response Recorded Date/ Time Advance Directives No April 2:10pm Advance Directive Response Recorded Date/ Time Advance Directives No April 1:10pm Chief Complaint and Reason for Visit Chief Complaint Screening Chief Complaint Screening, Celiac Di sease Chief Complaint Admit Date Screening June 06, 2024 1 0:37am Wellness/Med refill September 01, 2024 1 1:22am Reason for Visit Admit Date Essential (primary) hypertension September 01, 2024 11:22am Hyperlipidemia September 01, 2024 1 1:22am Hypothyroidism September 01, 2024 1 1:22am Wellness examination September 01, 2024 11:22am Reason for Referral Reason ?celiac disease. has never had a colonoscopy for screening. Diagnosis 1 Generalized abdomina l pain (R10.84) Referral Organization [facility] Referring Provider First Name Bev Referring Provider Last Name Shalini Referring Provider Specialty Family Medi cine Referred Organization [facility] Gastroenterolo gy Referred Address [address] [place] [phone] Referred Provider Specialty Gastroentero logy Referral Priority Routine Additional Source Comments INFORMATION SOURCE (unrecogn ized section and content) DATE CREATED AUTHOR 01/20/2022 [facility] dical Specialist DATE CREATED AUTHOR AUTHOR'S ORGANIZ ATION 01/26/2023 [facility] DATE CREATED AUTHOR AUTHOR'S ORGANIZ ATION 05/02/2023 [facility] DATE CREATED AUTHOR AUTHOR'S ORGANIZ ATION 06/12/2024 [facility] DATE CREATED AUTHOR AUTHOR'S ORGANIZ ATION 07/11/2024 [facility] dical Specialists EPIC REASON FOR VISIT (unrecogniz ed section and content) Reason Comments Ear Problem 1 year tube check. B MT 04/26/23 Reason Comments Ear Problem Ear debridement Care Teams (unrecognized sec tion and content) Team Status: Active Member Role Status Dates Bev Loya MD Primary Care Provider Active Team Status: Inactive Member Role Status Dates Bev Loya MD Primary Care Provider Active Roby Nevarez Attending Provider Active Team Status: Inactive Member Role Status Dates Bev Loya MD Primary Care Provider Active Johnathan More MD Attending Provider Active Team Status: Inactive Member Role Status Dates Bev Loya MD Primary Care Provider Active Start: June 06, 2024 End: June 06, 2024 Referral Self Attending Provider Active Start: O ctober 2023 End: June 06, 2024 [facility] Relationship Specialty Start Date End Date Bev Loya MD [address] [facility] [place] [id number] PCP - General Family Medicine 01/09/23 [employer] 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 Relationship Specialty Start Date End Date Bev Loya MD [address] [facility] [place] [phone] PCP - General Family Medicine 01/09/23 [employer]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 Relationship Specialty Start Date End Date Bev Loya MD [address] [facility] [place] [phone] PCP - General Family Medicine 01/09/23 [employer] 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 This clinical summary was aggregated from multiple sources. Caution should be exercised in using it in the provision of clinical care. This summary normalizes information from multiple sources, and as a consequence, information in this document may materially change the coding, format and clinical context of patient data. In addition, data may be omitted in some cases. CLINICAL DECISIONS SHOULD BE BASED ON THE PRIMARY CLINICAL RECORDS. [employer] [facility]. provides no warranty or guarantee of the accuracy or completeness of information in this document.
[2024-09-02 07:59] LABS: Basophils Absolute Auto 0.1 10^3/uL (0.0-0.1); Basophils Percent Auto 0.7 % (0.2-2.0); Eosinophils Absolute Auto 0.3 10^3/uL (0.0-0.7); Eosinophils Percent Auto 3.6 % (0.9-7.0); Hematocrit 42.8 % (36.0-48.0); Hemoglobin 14.5 g/dL (12.0-16.0); Immature Granulocytes Abs Auto 0.01 10^3/uL (0.00-0.03); Immature Granulocytes Pct Auto 0.1 % (0.0-0.5); Lymphocytes Absolute Auto 2.3 10^3/uL (1.2-3.8); Lymphocytes Percent Auto 30.2 % (20.5-60.0); Mean Corpuscular HGB Conc 33.9 g/dL (29.9-35.2); Mean Corpuscular Hemoglobin 29.6 pg (26.7-34.0); Mean Corpuscular Volume 87.3 fL (81.0-99.0); Mean Platelet Volume 8.7 fL (9.5-13.5); Monocytes Absolute Auto 0.5 10^3/uL (0.3-0.8); Monocytes Percent Auto 6.8 % (1.7-12.0); Neutrophils Absolute Auto 4.4 10^3/uL (1.4-6.5); Neutrophils Percent Auto 58.6 % (43.0-75.0); Platelet Count 317 10^3/uL (150-450); Red Cell Distribution Width 11.9 % (11.0-15.0); White Blood Count 7.5 10^3/uL (4.0-11.0)
[2024-09-02 08:11] LABS: Creatinine Urine Random 195.09 mg/dL (20.00-300.00); Microalbumin Urine Random <1.3 mg/dL (<=30.0)
[2024-09-02 08:24] LABS: Alanine Aminotransferase 54 U/L (14-59); Albumin Globulin Ratio 1.1; Albumin Level 3.9 g/dL (3.4-5.0); Alkaline Phosphatase 96 U/L (46-116); Anion Gap 12.4; Aspartate Amino Transferase 19 U/L (15-37); Bilirubin Total 0.5 mg/dL (0.2-1.0); Carbon Dioxide 30.4 mmol/L (21.0-32.0); Chloride 104 mmol/L (98-107); Chol HDL Ratio 2.8; Cholesterol 184 mg/dL (<=200); Estimated GFR (African America >60 (>=60 mL/min/1.73m^2); Estimated GFR (Non-African Ame >60 (>=60 mL/min/1.73m^2); Globulin 3.4 g/dL; Glucose 141 mg/dL (74-106); HDL Cholesterol 65 mg/dL (40-60); Potassium 3.8 mmol/L (3.5-5.1); Sodium 143 mmol/L (136-145); Thyroid Stimulating Hormone 4.828 uIU/mL (0.358-3.740); Total Protein 7.3 g/dL (6.4-8.2); Triglycerides 72 mg/dL (<=150); VLDL CHOLESTEROL 14.4 mg/dL
[2024-09-02 08:45] LABS: Free T4 0.94 ng/dL (0.76-1.46)
== END 2024-09-02 07:36 | disposition home or self-care (01) ==
LOC: LAB 07:37
PROVIDERS: PCP Family Medicine; Visit Provider Family Medicine
DX: Z00.00 Encounter for general adult medical examination without abnormal findings (principal); E03.9 Hypothyroidism, unspecified; I10 Essential (primary) hypertension; E78.5 Hyperlipidemia, unspecified; R73.09 Other abnormal glucose
CPT/HCPCS: 36415; 80053; 80061; 82043; 82570; 83036; 84439; 84443; 85025

== ENCOUNTER 2024-09-16 10:30 | Outpatient (OUT) | payer OTHER, SELFPAY | END 2024-09-16 10:31 | disposition home or self-care (01) | LOC: SLEEP 09-17 10:18 | PROVIDERS: PCP Family Medicine; Visit Provider Family Medicine | DX: G47.33 Obstructive sleep apnea (adult) (pediatric) (principal) | CPT/HCPCS: 95806 ==

== ENCOUNTER 2024-10-20 08:11 | Outpatient (OUT) | payer OTHER, SELFPAY ==
[2024-10-20 08:45] LABS: Estimated Average Glucose 148 mg/dL; Glycohemoglobin A1C 6.8 % (4.5-6.2)
[2024-10-20 09:04] LABS: Alanine Aminotransferase 62 U/L (14-59); Albumin Globulin Ratio 1.2; Albumin Level 3.9 g/dL (3.4-5.0); Alkaline Phosphatase 97 U/L (46-116); Anion Gap 10.1; Aspartate Amino Transferase 22 U/L (15-37); BUN Creatinine Ratio 18.4; Bilirubin Total 0.7 mg/dL (0.2-1.0); Calcium 9.3 mg/dL (8.5-10.1); Carbon Dioxide 30.8 mmol/L (21.0-32.0); Chloride 104 mmol/L (98-107); Chol HDL Ratio 2.8; Cholesterol 191 mg/dL (<=200); Estimated GFR (African America >60 (>=60 mL/min/1.73m^2); Estimated GFR (Non-African Ame >60 (>=60 mL/min/1.73m^2); Globulin 3.3 g/dL; Glucose 152 mg/dL (74-106); HDL Cholesterol 69 mg/dL (40-60); Potassium 3.9 mmol/L (3.5-5.1); Sodium 141 mmol/L (136-145); Thyroid Stimulating Hormone 4.722 uIU/mL (0.358-3.740); Total Protein 7.2 g/dL (6.4-8.2); Triglycerides 86 mg/dL (<=150); VLDL CHOLESTEROL 17.2 mg/dL
== END 2024-10-20 08:12 | disposition home or self-care (01) ==
LOC: LAB 08:14
PROVIDERS: PCP Family Medicine; Visit Provider Family Medicine
DX: Z00.00 Encounter for general adult medical examination without abnormal findings (principal); E03.9 Hypothyroidism, unspecified; I10 Essential (primary) hypertension; E78.5 Hyperlipidemia, unspecified; R73.09 Other abnormal glucose
CPT/HCPCS: 36415; 80053; 80061; 83036; 84443

== ENCOUNTER 2024-12-04 08:39 | Outpatient (OUT) | payer OTHER, SELFPAY ==
--- OUTSIDE RECORDS SUMMARY | 2024-12-04 09:00 | XMS_ITS | CCD ---
Author Organization [facility] Care Team Providers Care Rand Sewer Name Role Phone Rojleio Loya Unavailable Amina Thomas Unavailable MD Rojelio Loya Primary Care Provider Roby Nevarez Attending Provider SHALINI, DR ROJELIO Aquino Primary Care Unavailable MILADIS ., DR REYNOLDS Admitting Unavailable MILADIS ., DR REYNOLDS Consulting Unavailable MILADIS ., DR REYNOLDS Attending Unavailable SHALINI, DR ROJELIO Aquino Primary Care Unavailable SHALINI, DR ROJELIO Aquino Consulting Unavailable SHALINI, DR ROJELIO Aquino Attending Unavailable SHALINI, DR ROJELIO Aquino Admitting Unavailable SHALINI, DR ROJELIO Aquino Primary Care Unavailable SHALINI, DR ROJELIO Aquino Consulting Unavailable SHALINI, DR ROJELIO Aquino Attending Unavailable SHALINI, DR ROJELIO Aquino Admitting Unavailable ROJELIO LOYA Primary Care Physician Timmis, Shameka H Referring Unavailable Timmis, Shameka H Attending Unavailable Timmis, Shameka H Admitting Unavailable Timmis, Shameka H Referring Unavailable Timmis, Shameka H Attending Unavailable Timmis, Shameka H Admitting Unavailable Asaad, Imad Unavailable MD Rojelio Loya Primary Care Provider MD Johnathan More Attending Provider [phone] MD Rojelio Loya Primary Care Provider Self, Referral Attending Provider Unavailable Rojelio Loya Primary Care Unavailable Asaad, Imad Admitting Unavailable Asaad, Imad Attending Unavailable Rojelio Loya Primary Care Unavailable Self, Referral Admitting Unavailable Self, Referral Attending Unavailable Rojelio Loya MD Primary Care Provider [phone] Rojelio Loya MD Primary Care Provider Self, Referral Attending Provider Unavailable Rojelio Loya MD Primary Care Provider SHAMEKA BLUM Attending Unavailable SHAMEKA BLUM Attending Unavailable SHAMEKA BLUM Attending Unavailable SHAMEKA BLUM Attending Unavailable Allergies Allergy Classification Reported Allergen(s) Allergy Type Date of Onset Reaction(s) Facility (1 source) patient allergy list reviewed by nurse or physicia Propensity to adverse reactions 8 Comment:Done [facility] Other (1 source) Allergies Reconciled Propensity to adverse reactions Unknown [facility] Other Medications Current Medications Medication Drug Class(es) [...] Active calcium carbonate 1250 mg chewable tablet (3 sources) Start: 09-01-2024 take 1 tablet by mouth once daily Calcium Carbonate (Calcium 500) 500 mg calcium (1,250 mg) tablet,chewable Active 500 MG PO Daily September 01, 2024 1:00am calcium carbonate 1250 mg / cholecalciferol 1000 unt / vitamin k 0.4 mg chewable tablet (1 source) Vitamin D Calcium + D 500-1000-40 MG-UNT-MCG as directed Orally Active Qicrism-Knlgtwraf-Ousjaif D (CALCIUM 1200+D3 PO) (12 sources) take 1 tablet by mouth once daily Efsdtfy-Cxucrebno-Amz arora D (CALCIUM 1200+D3 PO) Take 1 tablet by mouth Daily Active take 1 tablet by kaye th once in the morning Sbrkisl-Ltwsdracx-Epfhayl D (CALCIUM 120 0+D3 PO) Take 1 tablet by mouth in the morning. Active ciprofloxacin 3 mg/ml / dexamethasone 1 mg/ml otic suspension (4 sources) Corticosteroid, Quinolone Antimicrobial Start: 11-14-2024 End: 12-02-2024 ciprofloxacin-dexAMETHasone (CiproDEX) otic suspension INSTILL 4 DROPS INTO RIGHT EAR TWICE DAILY IN THE MORNING AND BEFORE BEDTIME FOR 10 DAYS 11/14/2024 12/02/2024 Discontinued (Therapy completed) Start: 11-14-2024 End: 11-24-2024 ciprofloxacin-dexAMETHasone (CiproDEX) otic suspension Indications: Chronic otorrhea of right ear Administer 4 drops into the right ear in the morning and 4 drops before bedtime. Do all this for 10 days. 7.5 mL 11/14/2024 11/24/2024 Active ferrous sulfate (12 sources) take 1 tablet by mouth in the morning Ferrous Sulfate (IRON PO) Take 1 tablet by mouth in the morning. Active fexofenadine hydrochloride 180 mg oral tablet (14 sources) Histamine-1 Receptor Antagonist Start: fexofenadine (Kerri Allergy) 180 MG tablet 06/04/2024 Active Fish Oils (20 sources) Start: 1 take 500 mg by mouth once daily Fish Oil 500 mg, Oral, Daily, Refill(s) 0, Prophylaxis Start Date: 11/08/20 Status: Ordered omega-3 (Fish Oi l) 1200 MG capsule 1 capsule 1 (one) time each day at the same time Active omega-3 (Fish Oi l) 1200 MG capsule 1 capsule 1 (one) time each day at the same time. Active take 1 capsule by mouth once erin ly take 1 capsule by mouth once erin ly Fish Oil 1000 MG 1 capsule with a meal Orally Once a day for 30 day(s) Active hemaplex (1 source) Start: 11-24-2024 take 85 mg by mouth once hemaplex Active 0 PO Once November 24, 2024 12:00am 85 mg orally once; Inulin (1 source) Start: 11-24-2024 Inulin (Fiber Gummies) 1.7 gram tablet,chewable Active GM PO November 24, 2024 12:00am Lactobacillus Combination No.9 (Adult 50 Plus Probiotic) 4 billion cell capsule (3 sources) Start: 09-01-2024 take 4 capsules by mouth once daily Lactobacillus Combination No.9 (Adult 50 Plus Probiotic) 4 billion cell capsule Active 4000 MMU CELLS PO Daily September 01, 2024 1:00am administer with a meal Start: 09-01-2024 take 4 capsules by m outh once daily Lactobacillus Combination No.9 (Adult 50 Plus Probiotic) 4 billion cell capsule Active 4000 MMU CELLS PO Daily September 01, 2024 12:00am administer with a meal levoFLOXacin 500 mg oral tablet (2 sources) Quinolone Antimicrobial Start: 11-14-2024 End: 11-24-2024 take 1 tablet by mouth once daily levoFLOXacin (Levaquin) 500 MG tablet Indications: Chronic otorrhea of right ear Take 1 tablet (500 mg) by mouth Daily for 10 days 10 tablet 11/14/2024 11/24/2024 Active levothyroxine sodium 0.075 mg oral tablet (20 sources) l-Thyroxine Start: 10-20-2024 take 1 tablet by mouth once daily Levothyroxine 75 mcg tablet Active 75 MCG PO Daily October 20, 2024 4:23pm Start: 09-05-2024 End: 10-20-2024 take 1 tablet by mouth once daily Levothyroxine 50 mcg tablet Discontinued 50 MCG PO Daily September 05, 2024 2:13pm October 20, 2024 4:23pm Start: 02-17-2023 End: 09-05-2024 take 1 tablet by mouth before mealtime levothyroxine (Synthroid, Levoxyl) 25 MCG tablet Take 25 mcg by mouth in the morning. Take before meals. 02/17/2023 Active Start: 02-12-2023 take 1 tablet by kaye [...] day Active Magnesium (13 sources) Magnesium Active Magnesium Glycinate 100 mg magnesium capsule (1 source) Start: 11-24-2024 take 1 tablet by mouth once daily Magnesium Glycinate 100 mg magnesium capsule Active 0 PO .COMPLEX November 24, 2024 12:00am 500 mg orally; 1 tablet daily melatonin 5 mg oral tablet (12 sources) melatonin 5 MG t ablet 1 (one) time each day at the same time Active Modonaldoro 2.5 MG/0.5ML solution auto-injector (2 sources) Start: 11-25-2024 inject 2.5 mg by subcutaneous injection every week Mounjaro 2.5 MG/0.5ML solution auto-injector INJECT 2.5 MG (0.5 ML) SUBCUTANEOUSLY EVERY WEEK 11/25/2024 Active multivitamin (Theragran) tablet (12 sources) take 1 tablet by mouth once daily multivitamin (Theragran) tablet Take 1 tablet by mouth Daily Active take 1 tablet by mouth in the mo rning multivitamin (Theragran) tablet Take 1 tablet by mouth in the morning. Active Multivitamin preparation (2 sources) Start: 07-17-2023 take 1 tablet by mouth once daily Multivitamin Active 1 TAB PO Daily July 17, 2023 1:00am Start: 07-17-2023 take 1 tablet by kaye th once daily Multivitamin Active 1 TAB PO Daily July 17, 2023 12:00am Multivitamin Tablet (3 sources) Start: 07-17-2023 take 1 tablet by mouth once daily Multivitamin Tablet Active 1 TAB PO Daily July 17, 2023 1:00am Start: 07-17-2023 take 1 tablet by kaye th once daily Multivitamin Tablet Active 1 TAB [...] 5 days. 10 mL 07/08/2024 07/13/2024 Active [place] 3-Paa-Tuc-Fish Oil (Fish Oil) 100-160-1,000 mg capsule (3 sources) Start: 09-01-2024 [place] 3-Dha-Ep a-Fish Oil (Fish Oil) 100-160-1,000 mg capsule Active CAP PO September 01, 2024 1:00am Start: 09-01-2024 [place] 3-Dha-Ep a-Fish Oil (Fish Oil) 100-160-1,000 mg capsule Active CAP PO September 01, 2024 12:00am One A Day Women 50 Plus (3 sources) Start: 05-29-2011 take 1 tablet by mouth once daily One A Day Women 50 Plus 1 TABLET, Oral, Daily, Refill(s) 0, Prophylaxis Start Date: 05/29/11 Status: Ordered probiotic (16 sources) probiotic as dir ected Active Tirzepatide (1 source) Start: 11-24-2024 Tirzepatide (M kasiaalexandrajami) 2.5 mg/0.5 mL pen injector Active 2.5 MG SUBCUT every week 2 November 24, 2024 12:00am Turmeric extract (5 sources) Turmeric 400 MG capsule Take by mouth Active turmeric, shari, black pepper (1 source) Start: 11-24-2024 turmeric, ging er, black pepper Active 0 .ROUTE .COMPLEX November 24, 2024 12:00am 1 tablet/ TID; Vitamin C 500 MG (13 sources) take 1 tablet by mouth once daily take 1 tablet by mouth once raya y Vitamin C 500 MG 1 tablet Orally Once a day Active Completed/Discontinued Medications Medication Drug Class(es) Dates Sig (Normalized) Sig (Original) amLODIPine 5 mg oral tablet (20 sources) Dihydropyridine Calcium Channel Soledad Start: 08-21-2023 End: 09-05-2024 take 1 tablet by mouth once daily Amlodipine 5 mg tablet Discontinued 5 MG PO Daily November 15, 2023 1:01pm March 31, 2024 11:32am Berberine Chloride 500 MG capsule (3 sources) [...] propionate 0.05 mg/actuat metered dose nasal spray (6 sources) Corticosteroid Start: End: take 1 spray(s) nasal route once daily Fluticasone Propionate (Flonase Allergy Relief) 50 mcg/actuation spray,suspension Discontinued 1 SPRAY INTRANASAL Daily September 01, 2024 1:00am September 01, 2024 12:35pm administer into each nostril Flonase Active hydrocortisone 10 mg/ml / neomycin 3.5 mg/ml / polymyxin b [id number] unt/ml otic suspension (16 sources) Aminoglycoside Antibacterial, Polymyxin-class Antibacterial, Corticosteroid Qbgjzlcg-Ikkxxezbe-V C [id number] 3 drops right ear Three times a day for 7 days Not-Taking/PRN losartan potassium 100 mg oral tablet (20 sources) Angiotensin 2 Receptor Soledad Start: 2022 End: 2024 take 1 tablet by mouth at bedtime Losartan 100 mg tablet Discontinued 100 MG PO Bedtime July 17, 2023 1:00am March 31, 2024 11:32am Multivitamin With Iron tablet (3 sources) Start: 2024 End: 2024 take 1 tablet by mouth once daily Multivitamin With Iron tablet Discontinued 1 TAB PO Daily September 01, 2024 1:00am September 01, 2024 12:35pm Start: 09-01-2024 End: 09-01-2024 take 1 tablet by mouth once daily Multivitamin With Iron tablet Discontinued 1 TAB PO Daily September 01, 2024 12:00am September 01, 2024 11:35am Problems Active Problems Problem Classification Problem Date Documented Da te Episodic/Chronic Abdominal pain (8 sources) Abdominal pain; Translations: [Unspecified abdominal pain] Episodic Calculus of urinary tract (16 sources) Kidney stone; Translations: [Calculus of kidney] Episodic Complications of surgical procedures or medical care (1 source) Disorder of tendon repair; Translations: [Other intraoperative and postprocedural complications and disorders of the musculoskeletal system] 11-24-2024 Episodic Deficiency and other anemia (2 sources) Anemia, unspecified; Translations: [ANEMIA UNSPECIFIED] Onset: 12-03-2022 Episodic Diabetes mellitus with complications (2 sources) Hyperglycemia due to type 2 diabetes mellitus; Translations: [Type 2 diabetes mellitus with hyperglycemia] 10-20-2024 Chronic Diabetes mellitus without complication (20 sources) Prediabetes; Translations: [Prediabetes] Onset: 02-22-2022 Episodic Disorders of lipid metabolism (20 sources) Hyperlipidemia; Translations: [Hyperlipidemia, unspecified] 09-01-2024 Chronic Essential hypertension (20 sources) Hypertensive disorder; Translations: [Essential (primary) hypertension] Onset: 06-27-2018 Chronic Genitourinary symptoms and ill-defined conditions (7 sources) Genitourinary symptoms; Translations: [Unspecified symptoms and signs involving the genitourinary system] Episodic Joint disorders and dislocations; trauma-related (20 sources) Chronic instability of right knee joint; Translations: [Derangement of right knee] Onset: 01-28-2023 10-28-2020 Chronic Nutritional deficiencies (20 sources) Vitamin D deficiency; Translations: [Vitamin D deficiency, unspecified] Onset: 04-08-2018 Chronic Other circulatory disease (8 sources) Elevated blood-pressure reading without diagnosis of hypertension; Translations: [Elevated blood-pressure reading, without diagnosis of hypertension] Onset: 04-12-2018 Episodic Other ear and sense organ disorders (12 sources) Conductive hearing loss, bilateral; Translations: [Conductive hearing loss, bilateral] Onset: 01-28-2023 01-28-2023 Chronic Other ear and sense organ disorders (12 sources) Left conductive hearing loss; Translations: [Conductive hearing loss, unilateral, left ear, with unrestricted hearing on the contralateral side] Onset: 01-28-2023 01-28-2023 Chronic Other ear and sense organ disorders (12 sources) Chronic left myringitis; Translations: [Chronic myringitis, left ear] Onset: 01-28-2023 03-26-2023 Chronic Other ear and sense organ disorders (1 source) Disorder of external ear; Translations: [Disorder of external ear, unspecified, unspecified ear] Onset: 04-26-2023 Episodic Other ear and sense organ disorders (16 sources) Otorrhea; Translations: [Otorrhea, right ear] Onset: 08-08-2023 08-08-2023 Episodic Other female genital disorders (15 sources) Abnormal uterine bleeding; Translations: [Abnormal uterine and vaginal bleeding, unspecified] Onset: 11-14-2024 10-28-2020 Chronic Other gastrointestinal disorders (11 sources) Celiac disease; Translations: [Celiac disease] Chronic Other gastrointestinal disorders (1 source) Celiac disease Chronic Other lower respiratory disease (2 sources) Snoring; Translations: [Snoring] 09-01-2024 Episodic Other lower respiratory disease (2 sources) Snoring; Translations: [Other respiratory abnormalities] 09-01-2024 Episodic Other non-traumatic joint disorders (12 sources) Derangement of left shoulder joint; Translations: [Other specific joint derangements of left shoulder, not elsewhere classified] Onset: 01-28-2023 01-28-2023 Chronic Other non-traumatic joint disorders (7 sources) Unstable knee; Translations: [Other instability, right knee] Episodic Other non-traumatic joint disorders (15 sources) Joint pain; Translations: [Pain in unspecified joint] Onset: 11-14-2024 10-28-2020 Episodic Other non-traumatic joint disorders (7 sources) Arthralgia of the upper arm; Translations: [Pain in right elbow] Episodic Other non-traumatic joint disorders (8 sources) Pain in elbow; Translations: [Pain in unspecified elbow] Onset: 11-14-2024 10-28-2020 Episodic Other nutritional; endocrine; and metabolic disorders (16 sources) Metabolic syndrome X; Translations: [Metabolic syndrome] Chronic Other nutritional; endocrine; and metabolic disorders (20 sources) Obesity; Translations: [Obesity, unspecified] 09-01-2024 Chronic Other nutritional; endocrine; and metabolic disorders [...] Translations: [Non-suppurative otitis media] Onset: 04-08-2018 Episodic Residual codes; unclassified (1 source) Obstructive sleep apnea syndrome; Translations: [Obstructive sleep apnea (adult) (pediatric)] 11-24-2024 Chronic Thyroid disorders (20 sources) Hypothyroidism; Translations: [Hypothyroidism, [...] Episodic Other ear and sense organ disorders (12 sources) Lump in ear canal; Translations: [Other specified disorders of right ear] Onset: 03-26-2023 03-26-2023 Episodic Other skin disorders (7 sources) Alopecia; Translations: [Nonscarring hair loss, unspecified] Onset: 04-08-2018 Episodic Other upper respiratory disease (12 sources) Mass of nasopharynx; Translations: [Other diseases of pharynx] Onset: 07-24-2023 07-24-2023 Episodic Other upper respiratory disease (12 sources) Epistaxis; Translations: [Epistaxis] Onset: 08-08-2023 08-08-2023 Episodic Results Test Name Value Interpretation Reference Range Facility Cholesterol in LDL Calc [Mas s/Vol]on 10-20-2024 Cholesterol in LDL [Mass/Vol] Cholesterol in LDL [Mass/volume] in Serum or Plasma by calculation [facility] Comment on above: <100 mg/dl [id number] 0-129 mg/dl NEAR OR ABOVE [id number] mg/dl BORDERLINE [id number] mg/dl HIGH>190 mg/dl VERY HIGH Cholesterol in VLDL Calc [Ma ss/Vol]on 10-20-2024 Cholesterol in VLDL [Mass/Vol] Cholesterol in VLDL [Mass/volume] in Serum or Plasma by calculation [facility] Estimated glomerular filtrat ion rate (GFR) non- Americanon 10-20-2024 GFR/1.73 sq M.predicted among non-blacks MDRD (S/P/Bld) [Vol rate/Area] Estimated glomerular filtration rate (GFR) non- >=60 mL/min/1.73m 2 [facility] Globulin Calc (S) [Mass/Vol] on 10-20-2024 Globulin (S) [Mass/Vol] Serum globulin measurement by calculation (mass/volume) [facility] Glucose mean value [Mass/vol ume] in Blood Estimated from glycated hemoglobinon 10-20-2024 Average glucose Estimated from glycated hemoglobin (Bld) [Mass/Vol] Glucose mean value [Mass/volume] in Blood Estimated from glycated hemoglobin [facility] Hemoglobin A1c percentageon 10-20-2024 HbA1c (Bld) [Mass fraction] Hemoglobin A1c percentage High 4.5-6.2 [facility] Comment on above: ADA RECOMMENDED LIMI T 4.0 - 6.0ADA THERAPEUTIC TARGET < 7.0ACTION SUGGESTED> 7.0 Laboratory - Chemistry and C hemistry - challengeon 10-20-2024 Albumin [Mass/Vol] 3.9 g/dL 3.4-5.0 [facility] ALP [Catalytic activity/Vol] 97 U/L 46-116 [facility] ALT [Catalytic activity/Vol] 62 U/L High 14-59 [facility] AST [Catalytic activity/Vol] 22 U/L 15-37 [facility] Bilirubin [Mass/Vol] 0.7 mg/dL 0.2-1.0 [facility] Calcium [Mass/Vol] 9.3 mg/dL 8.5-10.1 [facility] Chloride [Moles/Vol] 104 mmol/L 98-107 [facility] Cholesterol [Mass/Vol] 191 mg/dL <=200 [facility] Cholesterol in HDL [Mass/Vol] 69 mg/dL High 40-60 [facility] Comment on above: > or =60 mg/dl - LOW CARDIOVASCULAR RISK<40 mg/dl - HIGH CARDIOVASCULAR RISK CO2 [Moles/Vol] 30.8 mmol/L 21.0-32.0 [facility] Creatinine [Mass/Vol] 0.76 mg/dL 0.55-1.02 [facility] GFR/1.73 sq M.predicted MDRD (S/P/Bld) [Vol rate/Area] mL/min/{1.73_m2} >=60 mL/min/1.73m 2 [facility] Glucose [Mass/Vol] 152 mg/dL High 74-106 [facility] Potassium [Moles/Vol] 3.9 mmol/L 3.5-5.1 [facility] Protein [Mass/Vol] 7.2 g/dL 6.4-8.2 [facility] Sodium [Moles/Vol] 141 mmol/L 136-145 [facility] Triglyceride [Mass/Vol] 86 mg/dL <=150 [facility] TSH Qn 4.722 m[IU]/L High 0.358-3.740 [facility] Urea nitrogen [Mass/Vol] 14.0 mg/dL 7.0-18.0 [facility] Urea nitrogen/Creatinine [Mass ratio] 18.4 mg/mg [facility] Serum or plasma albumin/glob ulin mass ratioon 10-20-2024 Albumin/Globulin [Mass ratio] Serum or plasma albumin/globulin mass ratio [facility] Serum or plasma anion gap de terminationon 10-20-2024 Anion gap [Moles/Vol] Serum or plasma an ion gap determination [facility] Serum or plasma total choles terol/high density lipoprotein (HDL) cholesterol mass tho 10-20-2024 Cholesterol.total/Cho lesterol in HDL [Mass ratio] Serum or plasma total cholesterol/high density lipoprotein (HDL) cholesterol mass rat [facility] Comment on above: 3.3 - 4.4 LOW RISK4. 4 - 7.1 AVERAGE RISK7.1 - 11.0 MODERATE RISK>11.0 HIGH RISK Basophils Auto (Bld) [#/Vol] on 09-02-2024 Basophils (Bld) [#/Vol] Automated basophil count 0.0-0.1 [facility] Basophils/100 WBC Auto (Bld) on 09-02-2024 Basophils/100 WBC (Bld) Automated basophil % 0.2-2.0 [facility] Cholesterol in LDL Calc [Mas s/Vol]on 09-02-2024 Cholesterol in LDL [Mass/Vol] Cholesterol in LDL [Mass/volume] in Serum or Plasma by calculation [facility] Comment on above: <100 mg/dl [id number] 0-129 mg/dl NEAR OR ABOVE [id number] mg/dl BORDERLINE [id number] mg/dl HIGH>190 mg/dl VERY HIGH Cholesterol in VLDL Calc [Ma ss/Vol]on 09-02-2024 Cholesterol in VLDL [Mass/Vol] Cholesterol in VLDL [Mass/volume] in Serum or Plasma by calculation [facility] Eosinophils/100 WBC Auto (Bl d)on 09-02-2024 Eosinophils/100 WBC (Bld) Automated eosinophil % 0.9-7.0 [facility] Erythrocyte distribution wid th Auto (RBC) [Ratio]on 09-02-2024 Erythrocyte distribution width (RBC) [Ratio] Erythrocyte distribution width [Ratio] by Automated count 11.0-15.0 [facility] Estimated glomerular filtrat ion rate (GFR) non- Americanon 09-02-2024 GFR/1.73 sq M.predicted among non-blacks MDRD (S/P/Bld) [Vol rate/Area] Estimated glomerular filtration rate (GFR) non- >=60 mL/min/1.73m 2 [facility] Globulin Calc (S) [Mass/Vol] on 09-02-2024 Globulin (S) [Mass/Vol] Serum globulin measurement by calculation (mass/volume) [facility] Hematocrit Auto (Bld) [Volum e fraction]on 09-02-2024 Hematocrit (Bld) [Volume fraction] Hematocrit [Volume Fraction] of Blood by Automated count 36.0-48.0 [facility] Hemoglobin [Mass/volume] in Bloodon 09-02-2024 Hemoglobin (Bld) [Mass/Vol] Hemoglobin [Mass/volume] in Blood 12.0-16.0 [facility] Laboratory - Chemistry and C hemistry - challengeon 09-02-2024 Albumin [Mass/Vol] 3.9 g/dL 3.4-5.0 [facility] ALP [Catalytic activity/Vol] 96 U/L 46-116 [facility] ALT [Catalytic activity/Vol] 54 U/L 14-59 [facility] AST [Catalytic activity/Vol] 19 U/L 15-37 [facility] Bilirubin [Mass/Vol] 0.5 mg/dL 0.2-1.0 [facility] Calcium [Mass/Vol] 9.0 mg/dL 8.5-10.1 [facility] Chloride [Moles/Vol] 104 mmol/L 98-107 [facility] Cholesterol [Mass/Vol] 184 mg/dL <=200 [facility] Cholesterol in HDL [Mass/Vol] 65 mg/dL High 40-60 [facility] Comment on above: > or =60 mg/dl - LOW CARDIOVASCULAR RISK<40 mg/dl - HIGH CARDIOVASCULAR RISK CO2 [Moles/Vol] 30.4 mmol/L 21.0-32.0 [facility] Creatinine [Mass/Vol] 0.75 mg/dL 0.55-1.02 [facility] Free T4 [Mass/Vol] 0.94 ng/dL 0.76-1.46 [facility] GFR/1.73 sq M.predicted MDRD (S/P/Bld) [Vol rate/Area] mL/min/{1.73_m2} >=60 mL/min/1.73m 2 [facility] Glucose [Mass/Vol] 141 mg/dL High 74-106 [facility] Potassium [Moles/Vol] 3.8 mmol/L 3.5-5.1 [facility] Protein [Mass/Vol] 7.3 g/dL 6.4-8.2 [facility] Sodium [Moles/Vol] 143 mmol/L 136-145 [facility] Triglyceride [Mass/Vol] 72 mg/dL <=150 [facility] TSH Qn 4.828 m[IU]/L High 0.358-3.740 [facility] Urea nitrogen [Mass/Vol] 15.0 mg/dL 7.0-18.0 [facility] Urea nitrogen/Creatinine [Mass ratio] 20.0 mg/mg [facility] Laboratory - Hematology and Cell countson 09-02-2024 Immature granulocytes/100 WBC (Bld) 0.1 % 0.0-0.5 [facility] Leukocytes [#/volume] correc didier for nucleated erythrocytes in Blood by Automated counon 09-02-2024 WBC corrected for nucl RBC Auto (Bld) [#/Vol] Leukocytes [#/volume] corrected for nucleated erythrocytes in Blood by Automated coun 4.0-11.0 [facility] Lymphocytes Auto (Bld) [#/Vo l]on 09-02-2024 Lymphocytes (Bld) [#/Vol] Lymphocytes [#/volume] in Blood by Automated count 1.2-3.8 [facility] Lymphocytes/100 WBC Auto (Bl d)on 09-02-2024 Lymphocytes/100 WBC (Bld) Lymphocytes/100 leukocytes in Blood by Automated count 20.5-60.0 [facility] MCH Auto (RBC) [Entitic mass ]on 09-02-2024 MCH (RBC) [Entitic mass] MCH [Entitic mass] by Automated count 26.7-34.0 [facility] MCHC Auto (RBC) [Mass/Vol]on 09-02-2024 MCHC (RBC) [Mass/Vol] MCHC [Mass/volume] by Automated count 29.9-35.2 [facility] MCV Auto (RBC) [Entitic vol] on 09-02-2024 MCV (RBC) [Entitic vol] MCV [Entitic volume] by Automated count 81.0-99.0 [facility] Microalbumin [Mass/volume] i n Urineon 09-02-2024 Albumin DL <= 20 mg/L (U) [Mass/Vol] Microalbumin [Mass/volume] in Urine <=30.0 [facility] Monocytes Auto (Bld) [#/Vol] on 09-02-2024 Monocytes (Bld) [#/Vol] Automated blood monocyte count 0.3-0.8 [facility] Monocytes/100 WBC Auto (Bld) on 09-02-2024 Monocytes/100 WBC (Bld) Automated monocyte % 1.7-12.0 [facility] Neutrophils Auto (Bld) [#/Vo l]on 09-02-2024 Neutrophils (Bld) [#/Vol] Neutrophils [#/volume] in Blood by Automated count 1.4-6.5 [facility] Neutrophils/100 WBC Auto (Bl d)on 09-02-2024 Neutrophils/100 WBC (Bld) Automated neutrophil % 43.0-75.0 [facility] No Panel Informationon 09-02 Eosinophils # (Auto) 0.3 10 3/uL 0.0-0.7 [facility] Immature Granulocyte # (Auto) 0.01 10 3/uL 0.00-0.03 [facility] Urine Random Creatinine 195.09 mg/dL 20.00-300.00 [facility] Platelet mean volume Auto (B ld) [Entitic vol]on 09-02-2024 Platelet mean volume (Bld) [Entitic vol] Platelet mean volume [Entitic volume] in Blood by Automated count Low 9.5-13.5 [facility] Platelets Auto (Bld) [#/Vol] on 09-02-2024 Platelets (Bld) [#/Vol] Platelets [#/volume] in Blood by Automated count 150-450 [facility] RBC Auto (Bld) [#/Vol]on RBC (Bld) [#/Vol] Erythrocytes [#/volume] in Blood by Automated count 4.20-5.40 [facility] Serum or plasma albumin/glob ulin mass ratioon 09-02-2024 Albumin/Globulin [Mass ratio] Serum or plasma albumin/globulin mass ratio [facility] Serum or plasma anion gap de terminationon 09-02-2024 Anion gap [Moles/Vol] Serum or plasma an ion gap determination [facility] Serum or plasma total choles terol/high density lipoprotein (HDL) cholesterol mass tho 09-02-2024 Cholesterol.total/Cho lesterol in HDL [Mass ratio] Serum or plasma total cholesterol/high density lipoprotein (HDL) cholesterol mass rat [facility] Comment on above: 3.3 - 4.4 LOW RISK4. 4 - 7.1 AVERAGE RISK7.1 - 11.0 MODERATE RISK>11.0 HIGH RISK MM screening mammo BI w/CADo n 06-06-2024 MM screening mammo BI w/CAD [facility] [place] [address] Mammography Report Signed Patient: Milana Miller MR#: [id number] : 1970 Acct:[id number] Age/Sex: 54 / F ADM Date: 06/06/24 Loc: [place] [facility]: Referral Self Copies to: Rojelio Loya MD SELF,REFERRAL Ordering Provider: SELF,REFERRAL Date [...] Sudha Mendoza M.D.06/06/2024 2:22 PM Dictation Location: [facility] Transcribed By: [facility] 06/06/24 1422 Dictated By: Sudha Mendoza MD 06/06/24 1419 Signed By: 06/06/24 1422 Normal [facility] HCG ( test) IA.rapi d Ql (U)Ordered By: Johnathan More on 07-17-2023 HCG ( test) Ql (U) Negative [facility] HCG,Urineon 07-17-2023 Beta HCG ( test) Ql (U) Negative Normal [facility] Comment on above: Result Comment: PERF ORMED BY: [place] [address] PATHOLOGIST AIR TRAFFIC SUPERVISOR JAY LENTZ M.D. Performed By: #### U HCG #### [address] [place] 07-17-2023 L - -------- Specimen: [id number] Received: 07/17/23 Status: ZHANE Moss Num: [id number] Spec Type: Surgical Subm Dr: Johnathan More MD Tissues: A Duodenum - Biopsy (DUODENUM BX) B Colon Biopsy (ASC POLYP) C Colon Biopsy (SIGMOID POLYP) Procedures: HE/6, Gross/Micro L4/3 -------- Age/ Patient Sex Location Account Attending Physician -------- Milana Miller 53/F [id number] Johnathan More MD -------- SPEC NUM: [id number] RECD: 07/17/23-1210 STATUS: ZHANE MOSS NUM: [id number] JENNY: 07/17/23- SUBM DR: Johnathan More MD ENTERED: 07/17/[address] [facility] [address]: SPEC TYPE: Surgical DEPT: S ORDERED: HE/6, Gross/Micro [...] date of and ascending colon -------- Specimen: [id number] Received: 07/17/23 Status: ZHANE Moss Num: [id number] Spec Type: Surgical Subm Dr: Johnathan More MD Tissues: A Duodenum - Biopsy (DUODENUM BX) B Colon Biopsy (ASC POLYP) C Colon Biopsy (SIGMOID POLYP) Procedures: HE/6, Gross/Micro L4/3 -------- Patient: Milana Miller [id number] (Continued) -------- Specimen: [id number] Received: 07/17/23 (Continued) Gross Description (Continued) Signed (signature on file) Renny Jang MD 07/18/23 1415 -------- Specimen: [id number] Received: 07/17/23 Status: ZHANE Moss Num: [id number] Spec Type: Surgical Subm Dr: Johnathan More MD Tissues: A Duodenum - Biopsy (DUODENUM BX) B Colon Biopsy (ASC POLYP) C Colon Biopsy (SIGMOID POLYP) Procedures: SEAN/Armen Ferrara/Víctor L4/3 -------- Patient: Milana Miller [id number] (Continued) -------- Specimen: [id number] Received: 07/17/23 (Continued) Gross Description (Continued) polyp [...] microscopic examination confirms the diagnosis. CPT Codes 19955k4 -------- -------- Specimen: [id number] Received: 07/17/23 Status: ZHANE Ias Num: [id number] Spec Type: Surgical Subm Dr: Johnathan More MD Tissues: A Duodenum - Biopsy (DUODENUM BX) B Colon Biopsy (ASC POLYP) C Colon Biopsy (SIGMOID POLYP) Procedures: HE/6, Gross/Micro L4/3 -------- Patient: Milana Miller [id number] (Continued) -------- Signed (signature on file) Nitish-Jorge Jang MD 07/18/23 1415 Normal [facility] Postoperative Documentson Postoperative Documents [id number]# 1.00CD:127 Normal [facility] Progress Note-Physicianon Progress Note-Physician Patient: MILANA MILLER Age: 52 years Sex: Female : 1970 Associated Diagnoses: None Author: MD Jamey, Yinka Mahmood Postoperative Information Postoperative disposition: Postoperative disposition: To PACU. Optimetrix number: Optimetrix number [id number]. Anesthetic utilized: General. Health Status Allergies: Allergic [...] meets criteria ( To home ). Normal [facility] Comment on above: Result Comment: Elec tronically Signed By: MD Concepcion Ahmad F\.br\Date and Time Signed: 05/01/23 08:40 EDT Progress Note-Physician Patient: MILANA MILLER Age: 52 years Sex: Female : 1970 Associated Diagnoses: None Author: MD Jamey, Yinka Mahmood Preoperative Information Time patient last ate or [...] Problems Abnormal uterine bleeding / SNOMED CT 2697664449 / Confirmed Chronic joint pain / SNOMED CT 52054801 / Confirmed Elevated fasting glucose / SNOMED CT 489118866 / Confirmed Benign hypertension / SNOMED CT 25030204 / Confirmed Adult hypothyroidism / SNOMED CT 62619151 / Confirmed Chronic instability of right knee / SNOMED CT 7462189973 / Confirmed Elbow pain, right / SNOMED CT 481915737 / Confirmed Thyroid nodule / SNOMED CT 728851761 / Confirmed Resolved: Chronic otitis media / SNOMED CT 11000082 Histories Past Medical History: Resolved Chronic otitis media (16488154): Resolved. Family History: Breast cancer Aunt Hypertension Father Kidney disease Father Prostate cancer Father Procedure history: Myringotomy and insertion of T tube (466203122) on 04/26/2023 at 52 Years. Right External Auditory Canal Cyst Removal (745244165) on 04/26/2023 at 52 Years. Colonoscopy (731851305). Myringotomy and insertion of tympanic ventilation tube (2523765300). Repair, tendon or muscle, upper arm or elbow, each tendon or muscle, primary or secondary (excludes rotator cuff) (54184). Social History Social & Psychosocial Habits Alcohol [...] results Radiology results ECG interpretation Condition Plan [place] [employer] Anesthesiologists (ASA) physical status classification: Class III. Anesthetic Preoperative Plan Anesthesia: General. . Anesthetic plan, risks, benefits, and alternatives discussed with the patient and/or family. Risks discussed: nausea, vomiting, headache, sore throat, dental injury, serious complications. Patient verbalized understanding. Communication: face to face with patient 5 minutes. [facility] Comment on above: Result Comment: Elec tronically Signed By: MD Jamey, Yinka Mahmood\.br\Date and Time Signed: 05/01/23 08:33 EDT Consent for Anesthesiaon Consent for Anesthesia [id number]# 1.00CD:127 [facility] Discharge Instructionson Discharge Instructions [id number]# 1.00CD:127 [facility] IntraOperative Documentson 0 04-27-2023 IntraOperative Documents [id number]# 1.00CD:127 [facility] IntraOperative Documents [id number]# 1.00CD:127 [facility] Main OR Intraoperative Recor don 04-27-2023 Main OR Intraoperative Record IntraOp Document Type FT Summary Primary Physician: Shameka Blum MD Finalized Date/Time: 04/27/23 12:54:47 Pt. Name: MILANA MILLER Navi Quezada/Sex: 1970 Female Med Rec #: [id number] Physician: Shameka Blum MD Financial #: [id number] Pt. Type: A Room/Bed: [facility] Admit/Disch: 04/26/23 07:30:03 - 04/26/23 11:20:00 Institution: [...] Meagan Blum MD, Catalino Holm Role Performed ANTENNA INSTALLER Surgeon - Primary Sub Plant Manager - Primary Time In 04/26/23 09:22:00 04/26/23 09:28:00 04/26/23 09:22:00 Time Out 04/26/23 09:48:00 04/26/23 09:48:00 04/26/23 09:48:00 Procedure MYRINGOTOMY W/ MYRINGOTOMY W/ MYRINGOTOMY W/ INSERTION OF INSERTION OF INSERTION OF TUBES(Bilateral), CYST TUBES(Bilateral), CYST TUBES(Bilateral), CYST LESION REMOVAL(Right) LESION REMOVAL(Right) LESION REMOVAL(Right) Comments Dr. Concepcion anesthesia motor vehicles supervisor Last Modified By: Charity Gonzalez Ii, Alfons Ii F Letrondo, Alfons Ii F 04/26/23 09:53:00 04/26/23 09:53:00 04/26/23 09:53:00 Entry 4 Entry 5 Case Attendee Charity Gonzalez Ii, Adam A Role Performed Sub Plant Manager - Primary Scrub - Primary Time In [...] Meagan Paredes CRNA, Given Participants Shae JAVED, nAkit Aaron Terry T Time Out Complete 04/26/23 [...] REMOVAL Primary Procedure Yes No Primary Surgeon Shae JAVED, Shameka Cullen MD Start 04/26/23 09:29:00 04/26/23 09:29:00 Stop 04/26/23 [...] and tissue Entry 1 Skin Integrity Intact, [place], Warm, and Skin Abnormality (more content not included)... Normal [facility] Physician Orderon 04-27-2023 Physician Order [id number]# 1.00CD:127 [facility] Preoperative Documentson Preoperative Documents [id number]# 1.00CD:127 [facility] B hCG Qualon 04-26-2023 Beta hCG Ql Negative [facility] Comment on above: Performed By: #### 2 [id number] ####[facility] [address] [place] [address] Consent for Treatmenton Consent for Treatment [id number]#1 .00CD:127 [facility] Discharge Instructionson Discharge Instructions MILANA MILLER :1970 Visit Date:04/26/2023 Inpatient Discharge Instructions Your Care Team Admitting Physician - Shae JAVED, Shameka Mendez Referring Physician - Shameka Blum MD Reason for Your Visit EUSTACHIAN [...] Up Appointments after Discharge Follow Up with Shameka Blum When: Comments: One month Medications What [...] these instructions at home: Medicines ? Take xmvp-gdg-cbjgbkq and prescription medicines only as told by [...] common to have ear pain. ? Take feju-dic-ncklrvh and prescription medicines only as told by [...] advice g (more content not included)... Normal [facility] Comment on above: Result Comment: Elec tronically Signed By: Danelle Moran I\.br\Date and Time Signed: 04/26/23 10:37 EDT H&P Updateon 04-26-2023 H&P Update [id number]# 1.00CD:127 Normal [facility] Inpatient Patient Summaryon 04-26-2023 Inpatient Patient Summary [place] [id number] [facility] Clinical Discharge Instructions PERSON INFORMATION Name: MILANA MILLER PHYSICIANS Admitting Physician: Shameka Blum MD Attending Physician: Shameka Blum MD PCP: ROJELIO LOYA MD Discharge Diagnosis: ETD (eustachian tube dysfunction); Lesion of external ear canal Comment: PATIENT EDUCATION INFORMATION Instructions: Medication Leaflets: Follow up: With: Address: When: Shameka Blum Comments: One month MEDICATION LIST Medications [...] 500 Milligram By Mouth every day. Comment: Normal [facility] Main OR PACU I Recordon Main OR PACU I Record PACU Phase I Docum ent Type FT Summary Primary Physician: Shameka Blum MD Finalized Date/Time: 04/26/23 10:25:21 Pt. Name: MILANA MILLER Navi Quezada/Sex: 1970 Female Med Rec #: [id number] Physician: Shameka Blum MD Financial #: [id number] Pt. Type: A Room/Bed: [facility]/ Admit/Disch: 04/26/23 07:30:03 - Institution: Case Times [...] I Outcomes Met? Yes Last Modified By: SIAT BAUER RN 04/26/23 10:24:35 Post-Care Text: The [...] By: SITA BAUER RN 04/26/23 10:25 Normal [facility] Main OR PACU II [facility] Main OR PACU II Record PACU Phase II Document Type FT Summary Primary Physician: Shameka Blum MD Finalized Date/Time: 04/26/23 11:28:53 Pt. Name: MILANA MILLER Pilar/Sex: 1970 Female Med Rec #: [id number] Physician: Shameka Blmu MD Financial #: [id number] Pt. Type: A Room/Bed: [facility] Admit/Disch: 04/26/23 07:30:03 - Institution: Case Times [...] By: Danelle Moran I 04/26/23 11:28 Normal [facility] Main OR Preoperative Recordo n 04-26-2023 Main OR Preoperative Record PreOp Document Type FT Summary Primary Physician: Shameka Blum MD Finalized Date/Time: 04/26/23 09:27:27 Pt. Name: MILANA MILLER Navi Quezada/Sex: 1970 Female Med Rec #: [id number] Physician: Shameka Blum MD Financial #: [id number] Pt. Type: A Room/Bed: [facility] Admit/Disch: 04/26/23 07:30:03 - Institution: Case Times [...] By: Charity Gonzalez Ii 04/26/23 09:27 Normal [facility] Monitor Recordon 04-26-2023 Monitor Record [id number]# 1.00CD:127 Normal [facility] Monitor Record [id number]# 1.00CD:127 Normal [facility] Operative Reporton Operative Report SURGERY DATE: [...] to the Recovery Room in good condition. Shameka Blum Jr., M.D. Dictated: 04/26/2023 [id number] Transcribed: 04/26/2023 cc:Rojelio Loya M.D. [facility] Comment on above: Result Comment: Elec tronically Signed By: Shameak Blum MD\.br\Date and Time Signed: 04/26/23 14:58 EDT Outpatient Surgery Discharge Instructionon 04-26-2023 Outpatient Surgery Discharge Instruction [place] [id number] Patient Discharge Instructions PERSON INFORMATION Name: MILANA MILLER Date of : 1970 Current Date: 04/26/2023 10:05:45 PHYSICIANS Admitting Physician: Shameka Blum MD Discharge Diagnosis: ETD (eustachian tube [...] Signature Date Follow up: With: Address: When: Shameka Blum Comments: One month Pharmacy Information: You may receive a survey from Maddie Landrum asking you to rate your care experience. Your feedback is important and will help us understand what we do well and how we can improve the quality of care we provide to you, your loved ones and our community. It?s an honor to serve you. Thank you for choosing [facility] HERE ARE THE MEDICATION CHANGES THAT OCCURRED [...] day. PATIENT EDUCATION INFORMATION Instructions: Medication Leaflets: Tiffany [facility] Patient Education - Texton 0 04-26-2023 [...] these instructions at home: Medicines ? Take dcyl-buj-imsuqhd and prescription medicines only as told by [...] common to have ear pain. ? Take xkek-gmq-ejfabbl and prescription medicines only as told by [...] provider. Document Revised: 04/03/2022 Document Reviewed: 04/03/2022 [email or web address] Patient Education ? 2022 [employer] Normal [facility] SEROLOGYOrdered By: Yudi Hernandez on 04-26-2023 Beta hCG Ql Negative (04/26/23 8:06 AM) Normal [facility] Man Sero Consent for Procedure/Surger yon 04-20-2023 Consent for Procedure/Surgery [id number]#1 .00CD:127 Normal [facility] Auto Diffon 04-19-2023 Basophils/100 WBC (Bld) 0.6 % Normal 0.0-2.0 [facility] Comment on above: Order Comment: Order Added by Discern Expert. Performed By: #### 2 125058, [id number] ####[facility] [address] [place] [address] Basophils/Leukocytes Auto (Bld) [Pure # fraction] 0.0 E9/L Normal 0.0-0.2 [facility] Comment on above: Order Comment: Order Added by Erick Expert. Performed By: #### 2 019583, 2253425 ####[facility] [address] [place] [address] Eosinophils/100 WBC (Bld) 2.0 % Normal 0.0-8.0 [facility] Comment on above: Order Comment: Order Added by Erick Expert. Performed By: #### 2 108895, 9548112 ####[facility] [address] [place] [address] Eosinophils/Leukocyte s Auto (Bld) [Pure # fraction] 0.2 E9/L Normal 0.0-0.5 [facility] Comment on above: Order Comment: Order Added by Discern Expert. Performed By: #### 2 744414, 2138532 ####[facility] [address] [place] [address] Lymphocytes/100 WBC (Bld) 26.9 % Normal 14.0-50.0 [facility] Comment on above: Order Comment: Order Added by Discern Expert. Performed By: #### 2 139300, 4323851 ####[address] [address] Lymphocytes/Leukocyte s Auto (Bld) [Pure # fraction] 2.1 E9/L Normal 1.0-4.0 [facility] Comment on above: Order Comment: Order Added by Erick Expert. Performed By: #### 2 463268, 1905172 ####[address] [address] Monocytes/100 WBC (Bld) 6.9 % Normal 4.0-14.0 [facility] Comment on above: Order Comment: Order Added by Erick Expert. Performed By: #### 2 058997, 5600078 ####[address] [address] Monocytes/Leukocytes Auto (Bld) [Pure # fraction] 0.5 E9/L Normal 0.2-1.0 [facility] Comment on above: Order Comment: Order Added by Discern Expert. Performed By: #### 2 311371, 3273949 ####[address] [address] Neutrophils/100 WBC (Bld) 63.6 % Normal 36.0-75.0 [facility] Comment on above: Order Comment: Order Added by Erick Expert. Performed By: #### 2 855809, 4628428 ####[address] [address] Neutrophils/Leukocyte s Auto (Bld) [Pure # fraction] 5.1 E9/L Normal 2.0-7.5 [facility] Comment on above: Order Comment: Order Added by Discern Expert. Performed By: #### 2 162167, 6314053 ####[facility] [address] [place] [address] BUNon 04-19-2023 Urea nitrogen [Mass/Vol] 18 mg/dL Normal 5-21 [facility] Comment on above: Performed By: #### 2 167285, 3367078, 1183951, 19690948, 6674982 ####[place] [address] [place] [address] CBC w/ Auto Diffon Erythrocyte distribution width (RBC) [Ratio] 13.7 % Normal 10.9-14.2 [facility] Comment on above: Performed By: #### 2 479846, 1102605 ####[address] [address] Hematocrit (Bld) [Volume fraction] 39.7 % Normal 34.0-46.0 [facility] Comment on above: Performed By: #### 2 046047, 1724129 ####[address] [address] Hemoglobin (Bld) [Mass/Vol] 13.7 g/dL Normal 12.0-16.0 [facility] Comment on above: Performed By: #### 2 092467, 7588302 ####[address] [address] MCH (RBC) [Entitic mass] 29.4 pg Normal 27.0-34.0 [facility] Comment on above: Performed By: #### 2 142849, 9728851 ####[address] [address] MCHC (RBC) [Mass/Vol] 34.4 g/dL Normal 31.4-36.0 [facility] Comment on above: Performed By: #### 2 645970, 0649803 ####[address] [address] MCV (RBC) [Entitic vol] 85.5 fL Normal 80.0-100.0 [facility] Comment on above: Performed By: #### 2 499591, 5469220 ####[facility] [address] [place] [address] Platelet mean volume (Bld) [Entitic vol] 7.2 fL Normal 6.4-10.8 [facility] Comment on above: Performed By: #### 2 835398, 4854180 ####[facility] [address] [place] [address] Platelets (Bld) [#/Vol] 354.0 E9/L Normal 150.0-500.0 [facility] Comment on above: Performed By: #### 2 768572, 6244750 ####[facility] [address] [place] [address] RBC (Bld) [#/Vol] 4.6 E12/L Normal 4.3-5.9 [facility] Comment on above: Performed By: #### 2 052118, 5136402 ####[facility] [address] [place] [address] WBC corrected for nucl RBC Auto (Bld) [#/Vol] 8.0 E9/L Normal 4.0-11.0 [facility] Comment on above: Performed By: #### 2 733128, 3996015 ####[facility] [address] [place] [address] CHEMISTRYOrdered By: SYSTEM SYSTEM on 04-19-2023 Anion gap [Moles/Vol] 9 mmol/L Normal 6 - 16 mEq/L [facility] Remisol Chloride [Moles/Vol] 107 mmol/L Normal 101 - 1 11 mmol/L [facility] Remisol CO2 [Moles/Vol] 29 mmol/L Normal 21 - 31 mmol/L FT Remisol Creatinine [Mass/Vol] 0.8 mg/dL Normal 0.5 - 1.3 mg/dL FT Remisol GFR/1.73 sq M.predicted among non-blacks MDRD (S/P/Bld) [Vol rate/Area] 89 mL/min/1.73 m2 Normal >=59mL/min/1. 73 m2 [facility] Chem S Glucose [Mass/Vol] 93 mg/dL Normal 55 - 199 mg/dL [facility] Remisol Potassium [Moles/Vol] 3.8 mmol/L Normal 3.5 - 5.3 mmol/L [facility] Remisol Sodium [Moles/Vol] 141 mmol/L Normal 135 - 145 mmol/L [facility] Remisol Urea nitrogen [Mass/Vol] 18 mg/dL Normal 5 - 21 mg/dL [facility] Remisol Consent for Treatmenton 03-22 Consent for Treatment [id number]#1 .00CD:127 Normal [facility] Creatinineon 04-19-2023 Creatinine [Mass/Vol] 0.8 mg/dL Normal 0.5-1.3 [facility] Comment on above: Performed By: #### 2 934511, 6040071, 9502236, 25680976, 4328332 ####[facility] [address] [place] [address] Glucoseon 04-19-2023 Glucose [Mass/Vol] 93 mg/dL Normal 55-199 [facility] Comment on above: Performed By: #### 2 121491, 3227925, 6515198, 36937680, 4215247 ####[facility] [address] [place] [address] HEMATOLOGYOrdered By: SYSTEM SYSTEM on 04-19-2023 Basophils/100 WBC (Bld) 0.6 % Normal 0.0 - 2.0 % [facility] HemeAutoSS Basophils/Leukocytes Auto (Bld) [Pure # fraction] 0.0 E9/L Normal 0.0 - 0.2 E9/L FT HemeAutoSS Eosinophils/100 WBC (Bld) 2.0 % Normal 0.0 - 8.0 % [facility] HemeAutoSS Eosinophils/Leukocyte s Auto (Bld) [Pure # fraction] 0.2 E9/L Normal 0.0 - 0.5 E9/L [facility] HemeAutoSS Lymphocytes/100 WBC (Bld) 26.9 % Normal [...] 5.1 E9/L Normal 2.0 - 7.5 E9/L FT HemeAutoSS HEMATOLOGYOrdered By: Thuy Chan on 04-19-2023 Erythrocyte distribution width (RBC) [Ratio] 13.7 % Normal 10.9 - 14.2 % FT HemeAutoSS Hematocrit (Bld) [Volume fraction] 39.7 % Normal 34.0 - 46.0 % [facility] HemeAutoSS Hemoglobin (Bld) [Mass/Vol] 13.7 g/dL Normal 12.0 - 16.0 gm/dL FT HemeAutoSS MCH (RBC) [Entitic mass] 29.4 pg Normal 27.0 - 34.0 pg [facility] HemeAutoSS MCHC (RBC) [Mass/Vol] 34.4 g/dL Normal 31.4 - 36.0 gm/dL [facility] HemeAutoSS MCV (RBC) [Entitic vol] 85.5 fL Normal 80.0 - 100.0 fL [facility] HemeAutoSS Platelet mean volume (Bld) [Entitic vol] 7.2 fL Normal 6.4 - 10.8 fL [facility] HemeAutoSS Platelets (Bld) [#/Vol] 354.0 E9/L Normal 150.0 - 500.0 E9/L [facility] HemeAutoSS RBC (Bld) [#/Vol] 4.6 E12/L Normal 4.3 - 5.9 E12/L FT HemeAutoSS WBC corrected for nucl RBC Auto (Bld) [#/Vol] 8.0 E9/L Normal 4.0 - 11.0 E9/L FT HemeAutoSS Lyteson 04-19-2023 Anion gap [Moles/Vol] 9 mmol/L Normal 6-16 [facility] Comment on above: Performed By: #### 2 151515, 0867460, 6912651, 37573040, 9165627 ####[facility] [address] [place] [address] Chloride [Moles/Vol] 107 mmol/L Normal 101-111 [facility] Comment on above: Performed By: #### 2 442583, 2995335, 8939085, 34174532, 8623461 ####[facility] [address] [place] [address] CO2 [Moles/Vol] 29 mmol/L Normal 21-31 [facility] Comment on above: Performed By: #### 2 224298, 8638854, 7536018, 08740995, 4561627 ####[facility] [address] [place] [address] Potassium [Moles/Vol] 3.8 mmol/L Normal 3.5-5.3 [facility] Comment on above: Performed By: #### 2 536990, 3562154, 0192939, 00060352, 3865496 ####[facility] [address] [place] [address] Sodium [Moles/Vol] 141 mmol/L Normal 135-145 [facility] Comment on above: Performed By: #### 2 119142, 2747940, 5849718, 48441551, 2449007 ####[facility] [address] [place] [address] XR Chest 2 Viewson 3 XR Chest [...] mGy = na DAP = na Normal [facility] eGFRon 04-19-2023 GFR/1.73 sq M.predicted among non-blacks MDRD (S/P/Bld) [Vol rate/Area] 89 mL/min/1.73 m2 Normal >=59 [facility] Comment on above: Order Comment: Order added by Discern Expert. Result Comment: Lead Web Application Developer enedelia kidney disease could be indicated at eGFR's of less than 60 mL/min/1.73m2. Kidney failure is indicated at less than 15 mL/min/1.73m2. Performed By: #### 2 026157, 2124797, [id number], [id number], [id number] ####[facility] [address] [id number] PAP ACOG PANEL 2: 30 to 65on 01-17-2023 Age Gdln ACOG Testing 30-65 Normal [facility] Comment on above: Performed By: #### [id number] #### [facility] [address] [place] [address] Dr. Jamel Jang CELIAC ANTIBODIES PROFILEon 11-27-2022 Endomysial Antibody IgA Negative Normal Negative [facility] Comment on above: Performed By: #### F T4 #### [facility] [address] [address] [address] Jamel Jang Immunoglobulin A, Qn, Serum 217 mg/dL Normal 87-352 [facility] Comment on above: Performed By: #### F T4 #### [facility] [address] [address] [address] Jamel Jang t-Transglutaminase (tTG) IgG 6 U/mL Critically high 0-5 [facility] Comment on above: Result Comment: Nega tive 0 - 5 Weak Positive 6 - 9 Positive >9 Performed By: #### F T4 #### [facility] [address] [place] [address] Dr. Jamel Jang Deamidated Gliadin Abs, IgA 7 units Normal 0-19 [facility] Comment on above: Result Comment: Nega tive 0 - 19 Weak Positive 20 - 30 Moderate to Strong Positive >30 Performed By: #### F T4 #### [facility] [address] [place] [address] Dr. Jamel Jang Deamidated Gliadin Abs, IgG 9 units Normal 0-19 [facility] Comment on above: Result Comment: Nega tive 0 - 19 Weak Positive 20 - 30 Moderate to Strong Positive >30 Performed By: #### F T4 #### [facility] [address] [place] [address] Dr. Jamel Jang t-Transglutaminase (tTG) IgA <2 Normal 0-3 [facility] Comment on above: Result Comment: Nega tive 0 - 3 Weak Positive 4 - 10 Positive >10 . Tissue Transglutaminase (tTG) has been identified as the endomysial antigen. Studies have demonstr- ated that endomysial IgA antibodies have over 99% specificity for gluten sensitive enteropathy. Performed By: #### F T4 #### [facility] [address] [place] [address] Dr. Jamel Jang THYROID ANTIBODIESon 023 Thyroglobulin Antibody <1.0 Normal 0.0-0.9 [facility] Comment on above: Result Comment: Thyr oglobulin Antibody measured by [employer] Performed By: #### F T4 #### [facility] [address] [place] [address] Dr. Jamel Jang Thyroid Peroxidase (TPO) Ab 105 IU/mL Critically high 0-34 [facility] Comment on above: Performed By: #### F T4 #### [facility] [address] [place] [address] Dr. Jamel Jang VIT D 1 25 DIHYDROXYon 11-27 Calcitriol(1,25 di-OH Vit D) 77.1 pg/mL Normal 24.8-81.5 [facility] Comment on above: Performed By: #### V [id number] #### [facility] [address] [place] [address] Dr. Jamel Jang CORTISOLon 11-25-2022 Cortisol 14.0 ug/dL Normal [facility] Comment on above: Result Comment: Gil isol AM 6.2 - 19.4 Cortisol PM 2.3 - 11.9 Performed By: #### C ORTISO #### [facility] [address] [place] [address] Dr. Jamel Jang INSULINon 11-25-2022 Insulin 9.4 uIU/mL Normal 2.6-24.9 [facility] Comment on above: Performed By: #### I NSULIN #### [facility] [address] [place] [address] Dr. Jamel Jang CBC AUTO DIFFon 11-24-2022 BASO # 0.0 103/ul Normal 0.0-0.1 [facility] Comment on above: Performed By: #### C BC #### [facility] [address] [place] [address] Dr. Jamel Jang Basophils/100 WBC (Bld) 0.4 % Normal 0.2-2.0 [facility] Comment on above: Performed By: #### C BC #### [facility] [address] [place] [address] Dr. Jamel Jang EO # 0.3 103/ul Normal 0.0-0.7 [facility] Comment on above: Performed By: #### C BC #### [facility] [address] [place] [address] Dr. Jamel Jang Eosinophils/100 WBC (Bld) 5.7 % Normal 0.9-7.0 [facility] Comment on above: Performed By: #### C BC #### [facility] [address] [place] [address] Dr. Jamel Jang Erythrocyte distribution width (RBC) [Ratio] 12.4 % Normal 11.0-15.0 [facility] Comment on above: Performed By: #### C BC #### [facility] [address] [place] [address] Dr. Jamel Jang Hematocrit (Bld) [Volume fraction] 38.6 % Normal 36.0-48.0 [facility] Comment on above: Performed By: #### C BC #### [facility] [address] [address] [address] Jamel Jang Hemoglobin (Bld) [Mass/Vol] 13.0 g/dL Normal 12.0-16.0 [facility] Comment on above: Performed By: #### C BC #### [facility] [address] [place] [address] Dr. Jaeml Jang IG # 0.00 10e3/ul Normal 0.00-0.03 [facility] Comment on above: Performed By: #### C BC #### [facility] [address] [place] [address] Dr. Jamel Jang IG % 0.0 % Normal 0.0-0.5 [facility] Comment on above: Performed By: #### C BC #### [facility] [address] [place] [address] Dr. Jamel Jang LYMPH # 2.0 103/ul Normal 1.2-3.8 [facility] Comment on above: Performed By: #### C BC #### [facility] [address] [place] [address] Dr. Jamel Jang Lymphocytes/100 WBC (Bld) 35.9 % Normal 20.5-60.0 [facility] Comment on above: Performed By: #### C BC #### [facility] [address] [place] [address] Dr. Jamel Jang MANUAL DIFF REQ NO Normal [facility] Comment on above: Performed By: #### C BC #### [facility] [address] [place] [address] Dr. Jamel Jang MCH (RBC) [Entitic mass] 28.1 pg Normal 26.7-34.0 [facility] Comment on above: Performed By: #### C BC #### [facility] [address] [place] [address] Dr. Jamel Jang MCHC (RBC) [Mass/Vol] 33.7 g/dL Normal 29.9-35.2 [facility] Comment on above: Performed By: #### C BC #### [facility] [address] [address] [address] Jamel Jang MCV (RBC) [Entitic vol] 83.4 fL Normal 81.0-99.0 [facility] Comment on above: Performed By: #### C BC #### [facility] [address] [address] [address] Jamel Jang MONO # 0.6 103/ul Normal 0.3-0.8 [facility] Comment on above: Performed By: #### C BC #### [facility] [address] [address] [address] Jamel Jang Monocytes/100 WBC (Bld) 10.2 % Normal 1.7-12.0 [facility] Comment on above: Performed By: #### C BC #### [facility] [address] [place] [address] Dr. Jamel Jang NEUT # 2.7 103/ul Normal 1.4-6.5 [facility] Comment on above: Performed By: #### C BC #### [facility] [address] [place] [address] Dr. Jamel Jang Neutrophils/100 WBC (Bld) 47.8 % Normal 43.0-75.0 [facility] Comment on above: Performed By: #### C BC #### [facility] [address] [place] [address] Dr. Jamel Jang Platelet mean volume (Bld) [Entitic vol] 8.9 fL Critically low 9.5-13.5 [facility] Comment on above: Performed By: #### C BC #### [facility] [address] [place] [address] Dr. Jamel Jang PLT 314 103/ul Normal 150-450 [facility] Comment on above: Performed By: #### C BC #### [facility] [address] [place] [address] Dr. Jamel Jang RBC 4.63 106/ul Normal 4.20-5.40 [facility] Comment on above: Performed By: #### C BC #### [facility] [address] [place] [address] Dr. Jamel Jang WBC 5.6 103/ul Normal 4.0-11.0 [facility] Comment on above: Performed By: #### C BC #### [facility] [address] [place] [address] Dr. Jamel Jang FERRITINon 11-24-2022 Ferritin [Mass/Vol] 39.0 ng/mL Normal 8.0-252.0 [facility] Comment on above: Performed By: #### F T4 #### [facility] [address] [place] [address] Dr. Jamel Jang FREE T3on 11-24-2022 FREE T3 3.76 pg/mlL Normal 2.18-3.98 [facility] Comment on above: Performed By: #### T SH, LIPID, CMP, FT3 #### [facility] [address] [place] [address] Dr. Jamel Jang FREE T4on 11-24-2022 Free T4 [Mass/Vol] 1.46 ng/dL Normal 0.76-1.46 [facility] Comment on above: Performed By: #### F T4 #### [facility] [address] [place] [address] Dr. Jamel Jang GLYCOHEMOGLOBIN A1Con 2022 ADA RECOMMENDATION SEE BELOW Normal [facility] Comment on above: Result Comment: ADA RECOMMENDED LIMIT 4.0 - 6.0 ADA THERAPEUTIC TARGET < 7.0 ACTION SUGGESTED > 7.0 Performed By: #### F T4 #### [facility] [address] [place] [address] Dr. Jamel Jang Glucose [Mass/Vol] 117 mg/dL Normal [facility] Comment on above: Performed By: #### F T4 #### [facility] [address] [place] [address] Dr. Jamel Jang HbA1c (Bld) [Mass fraction] 5.7 % Normal 4.5-6.2 [facility] Comment on above: Performed By: #### F T4 #### [facility] [address] [place] [address] Dr. Jamel Jang IRON AND TIBCon 11-24-2022 % SATURATION 20.7 % Normal [facility] Comment on above: Performed By: #### F T4 #### [facility] [address] [address] [address] Jamel Jang Iron [Mass/Vol] 57.0 ug/dL Normal 50.0-170.0 [facility] Comment on above: Performed By: #### F T4 #### [facility] [address] [address] [address] Jamel Jang TIBC DIRECT 275.0 ug/dL Normal 250.0-450.0 [facility] Comment on above: Performed By: #### F T4 #### [facility] [address] [address] [address] Jamel Jang LIPID PROFILEon 11-24-2022 CHOL-HDL RATIO NORM SEE BELOW Normal [facility] Comment on above: Result Comment: 3.3 - 4.4 LOW RISK 4.4 - 7.1 AVERAGE RISK 7.1 - 11.0 MODERATE RISK >11.0 HIGH RISK Performed By: #### T SH, LIPID, CMP, FT3 #### [facility] [address] [address] [address] Jamel Jang Cholesterol [Mass/Vol] 153 mg/dL Normal <=200 [facility] Comment on above: Performed By: #### T SH, LIPID, CMP, FT3 #### [facility] [address] [address] [address] Jamel Jang Cholesterol in HDL [Mass/Vol] 49 mg/dL Normal 40-60 [facility] Comment on above: Performed By: #### T SH, LIPID, CMP, FT3 #### [facility] [address] [address] [address] Jamel Jang Cholesterol in LDL [Mass/Vol] 89.2 mg/dL Normal [facility] Comment on above: Performed By: #### T SH, LIPID, CMP, FT3 #### [facility] [address] [address] [address] Jamel Jang Cholesterol.total/Cho lesterol in HDL [Mass ratio] 3.1 {ratio} Normal [facility] Comment on above: Performed By: #### T SH, LIPID, CMP, FT3 #### [facility] [address] [address] [address] Jamel Jang HDL NORMAL > or = 60 mg/dl - LO W CARDIOVASCULAR RISK <40 mg/dl - HIGH CARDIOVASCULAR RISK Normal [facility] Comment on above: Performed By: #### T SH, LIPID, CMP, FT3 #### [facility] [address] [address] [address] Jamel Jang LDL CALC NORMAL SEE BELOW Normal [facility] Comment on above: Result Comment: <100 mg/dl OPTIMAL 100 - 129 mg/dl NEAR OR ABOVE OPTIMAL 130 - 159 mg/dl BORDERLINE HIGH 160 - 189 mg/dl HIGH >190 mg/dl VERY HIGH Performed By: #### T SH, LIPID, CMP, FT3 #### [facility] [address] [address] [address] Jamel Jang Triglyceride [Mass/Vol] 74 mg/dL Normal <=150 [facility] Comment on above: Performed By: #### T SH, LIPID, CMP, FT3 #### [facility] [address] [address] [address] Jamel Jang VLDL CALC 14.8 mg/dL Normal [facility] Comment on above: Performed By: #### T SH, LIPID, CMP, FT3 #### [facility] [address] [address] [address] Jamel Jang PROF 14(COMP METB)on 023 Albumin [Mass/Vol] 3.5 g/dL Normal 3.4-5.0 [facility] Comment on above: Performed By: #### T SH, LIPID, CMP, FT3 #### [facility] [address] [place] [address] Dr. Jamel Jang Albumin/Globulin [Mass ratio] 1.0 {ratio} Normal [facility] Comment on above: Performed By: #### T SH, LIPID, CMP, FT3 #### [facility] [address] [place] [address] Dr. Jamel Jang ALP [Catalytic activity/Vol] 85 U/L Normal 46-116 [facility] Comment on above: Performed By: #### T SH, LIPID, CMP, FT3 #### [facility] [address] [address] [address] Jamel Jang ALT [Catalytic activity/Vol] 37 U/L Normal 14-59 [facility] Comment on above: Performed By: #### T SH, LIPID, CMP, FT3 #### [facility] [address] [place] [address] Dr. Jamel Jang Anion gap [Moles/Vol] 12.4 mmol/L Normal [facility] Comment on above: Performed By: #### T SH, LIPID, CMP, FT3 #### [facility] [address] [place] [address] Dr. Jamel Jang AST [Catalytic activity/Vol] 20 U/L Normal 15-37 [facility] Comment on above: Performed By: #### T SH, LIPID, CMP, FT3 #### [facility] [address] [place] [address] Dr. Jamel Jang Bilirubin [Mass/Vol] 0.4 mg/dL Normal 0.2-1.0 [facility] Comment on above: Performed By: #### T SH, LIPID, CMP, FT3 #### [facility] [address] [place] [address] Dr. Jamel Jang Calcium [Mass/Vol] 9.2 mg/dL Normal 8.5-10.1 [facility] Comment on above: Performed By: #### T SH, LIPID, CMP, FT3 #### [facility] [address] [place] [address] Dr. Jamel Jang Chloride [Moles/Vol] 105 mmol/L Normal 98-107 [facility] Comment on above: Performed By: #### T SH, LIPID, CMP, FT3 #### [facility] [address] [place] [address] Dr. Jamel Jang CO2 [Moles/Vol] 28.0 mmol/L Normal 21.0-32.0 [facility] Comment on above: Performed By: #### T SH, LIPID, CMP, FT3 #### [facility] [address] [place] [address] Dr. Jamel Jang Creatinine [Mass/Vol] 0.56 mg/dL Normal 0.55-1.02 [facility] Comment on above: Performed By: #### T SH, LIPID, CMP, FT3 #### [facility] [address] [place] [address] Dr. Jamel Jang EGFR-AF LUXEMBOURGER >60 Normal >=60 [facility] Comment on above: Performed By: #### T SH, LIPID, CMP, FT3 #### [facility] [address] [place] [address] Dr. Jamel Jang EGFR-NON AF LUXEMBOURGER >60 Normal >=60 [facility] Comment on above: Performed By: #### T SH, LIPID, CMP, FT3 #### [facility] [address] [place] [address] Dr. Jamel Jang Globulin (S) [Mass/Vol] 3.5 g/dL Normal [facility] Comment on above: Performed By: #### T SH, LIPID, CMP, FT3 #### [facility] [address] [place] [address] Dr. Jamel Jang Glucose [Mass/Vol] 114 mg/dL Critically high 74-106 [facility] Comment on above: Performed By: #### T SH, LIPID, CMP, FT3 #### [facility] [address] [place] [address] Dr. Jamel Jang Potassium [Moles/Vol] 3.4 mmol/L Critically low 3.5-5.1 [facility] Comment on above: Performed By: #### T SH, LIPID, CMP, FT3 #### [facility] [address] [place] [address] Dr. Jamel Jang Protein [Mass/Vol] 7.0 g/dL Normal 6.4-8.2 [facility] Comment on above: Performed By: #### T SH, LIPID, CMP, FT3 #### [facility] [address] [place] [address] Dr. Jamel Jang Sodium [Moles/Vol] 142 mmol/L Normal 136-145 [facility] Comment on above: Performed By: #### T SH, LIPID, CMP, FT3 #### [facility] [address] [place] [address] Dr. Jamel Jang Urea nitrogen [Mass/Vol] 23.0 mg/dL Critically high 7.0-18.0 [facility] Comment on above: Performed By: #### T SH, LIPID, CMP, FT3 #### [facility] [address] [place] [address] Dr. Jamel Jang Urea nitrogen/Creatinine [Mass ratio] 41.1 mg/mg Normal [facility] Comment on above: Performed By: #### T SH, LIPID, CMP, FT3 #### [facility] [address] [place] [address] Dr. Jamel Jang TSHon 11-24-2022 TSH Qn m[IU]/L Critically low 0.358-3.740 [facility] Comment on above: Performed By: #### T SH, LIPID, CMP, FT3 #### [facility] [address] [place] [address] Dr. Jamel Jang VITAMIN B12on 11-24-2022 Cobalamin (Vitamin B12) [Mass/Vol] 132.0 pg/mL Critically low 193.0-986.0 [facility] Comment on above: Performed By: #### F T4 #### [facility] [address] [place] [address] Dr. Jamel Jang FREE T4on 02-22-2022 Free T4 [Mass/Vol] 1.14 ng/dL Normal 0.76-1.46 [facility] Comment on above: Performed By: #### F T4 #### [facility] [address] [place] [address] Dr. Jamel Jang GLYCOHEMOGLOBIN A1Con 2021 ADA RECOMMENDATION SEE BELOW Normal [facility] Comment on above: Result Comment: ADA RECOMMENDED LIMIT 4.0 - 6.0 ADA THERAPEUTIC TARGET < 7.0 ACTION SUGGESTED > 7.0 Performed By: #### F T4 #### [facility] [address] [address] [address] Jamel Jang Glucose [Mass/Vol] 120 mg/dL Normal [facility] Comment on above: Performed By: #### F T4 #### [facility] [address] [address] [address] Jaeml Jang HbA1c (Bld) [Mass fraction] 5.8 % Normal 4.5-6.2 [facility] Comment on above: Performed By: #### F T4 #### [facility] [address] [place] [address] Dr. Jamel Jang PROF CHEM 8 (BAS METB)on Anion gap [Moles/Vol] 10.8 mmol/L Normal [facility] Comment on above: Performed By: #### F T4 #### [facility] [address] [place] [address] Dr. Jamel Jang Calcium [Mass/Vol] 9.3 mg/dL Normal 8.5-10.1 [facility] Comment on above: Performed By: #### F T4 #### [facility] [address] [place] [address] Dr. Jamel Jang Chloride [Moles/Vol] 106 mmol/L Normal 98-107 [facility] Comment on above: Performed By: #### F T4 #### [facility] [address] [place] [address] Dr. Jamel Jang CO2 [Moles/Vol] 30.3 mmol/L Normal 21.0-32.0 [facility] Comment on above: Performed By: #### F T4 #### [facility] [address] [place] [address] Dr. Jamel Jang Creatinine [Mass/Vol] 0.77 mg/dL Normal 0.55-1.02 [facility] Comment on above: Performed By: #### F T4 #### [facility] [address] [place] [address] Dr. Jamel Jang EGFR-AF LUXEMBOURGER >60 Normal >=60 [facility] Comment on above: Performed By: #### F T4 #### [facility] [address] [address] [address] Jamel Jang EGFR-NON AF LUXEMBOURGER >60 Normal >=60 [facility] Comment on above: Performed By: #### F T4 #### [facility] [address] [address] [address] Jamel Jang Glucose [Mass/Vol] 119 mg/dL Critically high 74-106 [facility] Comment on above: Performed By: #### F T4 #### [facility] [address] [address] [address] Jamel Jang Potassium [Moles/Vol] 4.1 mmol/L Normal 3.5-5.1 [facility] Comment on above: Performed By: #### F T4 #### [facility] [address] [address] [address] Jamel Jnag Sodium [Moles/Vol] 143 mmol/L Normal 136-145 [facility] Comment on above: Performed By: #### F T4 #### [facility] [address] [address] [address] Jamel Jang Urea nitrogen [Mass/Vol] 19.0 mg/dL Critically high 7.0-18.0 [facility] Comment on above: Performed By: #### F T4 #### [facility] [address] [address] [address] Jamel Jang Urea nitrogen/Creatinine [Mass ratio] 24.7 mg/mg Normal [facility] Comment on above: Performed By: #### F T4 #### [facility] [address] [address] [address] Jamel Jang TSHon 02-22-2022 TSH 1.391 uIU/mL Normal 0.358-3.740 [facility] Comment on above: Performed By: #### F T4 #### [facility] [address] [address] [address] Jamel Jang MRI Shoulder w/o Lefton [...] by Kendall Smith on 01/19/2022 1129 Normal [facility] MRI Elbow w/o Righton 2020 MRI Elbow [...] by Kendall Smith on 08/02/2021 1338 Normal [place] [facility] [employer] Vital Signs Date Time Vital Sign Value Performing Clinician Facility 12-02-2024 10:25-0400 Body height 157.5 cm Shameka Blum MD Work Phone: [facility] 12-02-2024 10:25-0400 Body mass index (BMI) [Ratio] 40.06 kg/m2 Shameka Blum MD Work Phone: [facility] 12-02-2024 10:25-0400 Body weight 99.34 kg Shameka Blum MD Work Phone: [facility] 12-02-2024 10:25-0400 Diastolic blood pressure 84 mm[Hg] Shameka Blum MD Work Phone: [facility] 12-02-2024 10:25-0400 Heart rate 67 /min Shameka Blum MD Work Phone: [facility] 12-02-2024 10:25-0400 Systolic blood pressure 160 mm[Hg] Shameka Blum MD Work Phone: [facility] 11-24-2024 13:02-0400 Body height 156.[address] [facility] 11-24-2024 13:02-0400 Body mass index (BMI) [Ratio] 40.2 kg/m2 [facility] 11-24-2024 13:02-0400 Body weight 98.[address] [facility] 11-24-2024 13:02-0400 Diastolic blood pressure 92 mm[Hg] [facility] 11-24-2024 13:02-0400 Heart rate 95 /min [facility] 11-24-2024 13:02-0400 Respiratory rate 18 /min [facility] 11-24-2024 13:02-0400 SaO2% (BldA) [Mass fraction] 97 % [facility] 11-24-2024 13:02-0400 Systolic blood pressure 154 mm[Hg] [facility] 11-14-2024 09:55-0400 Body height 157.5 cm Shameka Blum MD Work Phone: [facility] 11-14-2024 09:55-0400 Body mass index (BMI) [Ratio] 40.06 kg/m2 Shameka Blum MD Work Phone: [facility] 11-14-2024 09:55-0400 Body weight 99.34 kg Shameka Blum MD Work Phone: [facility] 11-14-2024 09:55-0400 Diastolic blood pressure 81 mm[Hg] Shameka Blum MD Work Phone: [facility] 11-14-2024 09:55-0400 Heart rate 61 /min Shameka Blum MD Work Phone: [facility] 11-14-2024 09:55-0400 Systolic blood pressure 136 mm[Hg] Shameka Blum MD Work Phone: [facility] 09-01-2024 11:31-0500 Body height 157.48 cm Rojelio Loya MD Work Phone: [facility] 09-01-2024 11:31-0500 Body mass index (BMI) [Ratio] 39.4 kg/m2 Rojelio Loya MD Work Phone: [facility] 09-01-2024 11:31-0500 Body weight 97.97 kg Rojelio Loya MD Work Phone: [facility] 09-01-2024 11:31-0500 Diastolic blood pressure 77 mm[Hg] Rojelio Loya MD Work Phone: [facility] 09-01-2024 11:31-0500 Heart rate 64 /min Rojelio Loya MD Work Phone: [facility] 09-01-2024 11:31-0500 Systolic blood pressure 112 mm[Hg] Rojelio Loya MD Work Phone: [facility] 07-23-2024 14:43-0500 Body height 157.5 cm Shameka Blum MD Work Phone: [facility] 07-23-2024 14:43-0500 Body mass index (BMI) [Ratio] 39.14 kg/m2 Shameka Blum MD Work Phone: [facility] 07-23-2024 14:43-0500 Body weight 97.07 kg Shameka Blum MD Work Phone: [facility] 07-23-2024 14:43-0500 Diastolic blood pressure 82 mm[Hg] Shameka Blum MD Work Phone: [facility] 07-23-2024 14:43-0500 Systolic blood pressure 124 mm[Hg] Shameka Blum MD Work Phone: [facility] 07-08-2024 14:08-0500 Body height 157.5 cm Shameka Blum MD Work Phone: [facility] 07-08-2024 14:08-0500 Body mass index (BMI) [Ratio] 39.14 kg/m2 Shameka Blum MD Work Phone: [facility] 07-08-2024 14:08-0500 Body weight 97.07 kg Shameka Blum MD Work Phone: [facility] 07-08-2024 14:08-0500 Diastolic blood pressure 79 mm[Hg] Shameka Blum MD Work Phone: [facility] 07-08-2024 14:08-0500 Systolic blood pressure 141 mm[Hg] Shameka Blum MD Work Phone: [facility] 08-21-2023 11:00-0500 Body height 157.48 cm Rojelio Loya Other [employer] Other 08-21-2023 11:00-0500 Body mass index (BMI) [Ratio] 37.49 kg/m2 Rojelio Loya Other [employer] Other 08-21-2023 11:00-0500 Body weight 92.99 kg Rojelio Loya Other [employer] Other 08-21-2023 11:00-0500 Diastolic blood pressure 93 mm[Hg] Rojelio Loya Other [facility] [email or web address] Other 08-21-2023 11:00-0500 Systolic blood pressure 146 mm[Hg] Rojelio Loya Other [facility] [email or web address] Other 07-17-2023 12:17-0500 Diastolic blood pressure 75 mm[Hg] MD Rojelio Loya Work Phone: [facility] 07-17-2023 12:17-0500 Heart rate 80 /min MD Rojelio Loya Work Phone: [facility] 07-17-2023 12:17-0500 Respiratory rate 16 /min MD Rojelio Loya Work Phone: [facility] 07-17-2023 12:17-0500 SaO2% (BldA) [Mass fraction] 97 % MD Rojelio Loya Work Phone: [facility] 07-17-2023 12:17-0500 Systolic blood pressure 127 mm[Hg] MD Rojelio Loya Work Phone: [facility] 07-17-2023 09:52-0500 Body height 157.48 cm MD Rojelio Loya Work Phone: [facility] 07-17-2023 09:52-0500 Body weight 90.71 kg MD Rojelio Loya Work Phone: [facility] 06-11-2023 13:00-0400 Body height 157.48 cm Imad Asaad Other [facility] [email or web address] Other 06-11-2023 13:00-0400 Body mass index (BMI) [Ratio] 36.76 kg/m2 Imad Asaad Other [employer] [facility] [email or web address] Other 06-11-2023 13:00-0400 Body weight 91.17 kg Imad Asaad Other [employer] [facility] [email or web address] Other 06-11-2023 13:00-0400 Diastolic blood pressure 78 mm[Hg] Imad Asaad Other [facility] [email or web address] Other 06-11-2023 13:00-0400 Systolic blood pressure 123 mm[Hg] Imad Asaad Other [facility] [email or web address] Other 04-26-2023 11:10-0400 Heart rate 51 /min Shameka Timmis [facility] 04-26-2023 11:10-0400 SaO2% (BldA) [Mass fraction] 96 % Shameka Timmis [facility] 04-26-2023 11:10-0400 Diastolic blood pressure 81 mm[Hg] Shameka Timmis [facility] 04-26-2023 11:10-0400 Mean blood pressure 95 mm[Hg] Shameka Timmis [facility] 04-26-2023 11:10-0400 Systolic blood pressure 123 mm[Hg] Shameka Timmis [facility] 04-26-2023 11:10-0400 Body temperature 97.52 [degF] Shameka Timmis [facility] 04-26-2023 10:24-0400 Heart rate 48 /min Shameka Timmis [facility] 04-26-2023 10:24-0400 SaO2% (BldA) [Mass fraction] 98 % Shameka Timmis [facility] 04-26-2023 10:23-0400 Diastolic blood pressure 80 mm[Hg] Shameka Timmis [facility] 04-26-2023 10:23-0400 Mean blood pressure 98 mm[Hg] Shameka Timmis [facility] 04-26-2023 10:23-0400 Systolic blood pressure 132 mm[Hg] Shameka Timmis [facility] 04-26-2023 10:21-0400 Body temperature 97.34 [degF] Shameka Timmis [facility] 04-26-2023 10:15-0400 Body temperature 97.52 [degF] Shameka Timmis [facility] 04-26-2023 10:15-0400 Diastolic blood pressure 71 mm[Hg] Shameka Timmis [facility] 04-26-2023 10:15-0400 Heart rate 56 /min Shameka Timmis [facility] 04-26-2023 10:15-0400 Mean blood pressure 84 mm[Hg] Shameka Timmis [facility] 04-26-2023 10:15-0400 Respiratory rate 16 /min Shameka Timmis [facility] 04-26-2023 10:15-0400 SaO2% (BldA) [Mass fraction] 96 % Shameka Timmis [facility] 04-26-2023 10:15-0400 Systolic blood pressure 111 mm[Hg] Shameka Timmis [facility] 04-26-2023 10:05-0400 Mean blood pressure 83 mm[Hg] Shameka Timmis [facility] 04-26-2023 10:05-0400 Respiratory rate 12 /min Shameka Timmis [facility] 04-26-2023 10:00-0400 Mean blood pressure 88 mm[Hg] Shameka Timmis [facility] 04-26-2023 10:00-0400 Respiratory rate 11 /min Shameka Timmis [facility] 04-26-2023 09:50-0400 Body temperature 98.06 [degF] Shameka Timmis [facility] 04-26-2023 09:45-0400 Respiratory rate 13 /min Shameka Timmis [facility] 04-26-2023 09:40-0400 Respiratory rate 13 /min Shameka Timmis [facility] 04-26-2023 09:35-0400 Respiratory rate 13 /min Shameka Timmis [facility] 04-26-2023 07:45-0400 Blood Pressure Location Shameka Timmis [facility] 04-26-2023 07:45-0400 Mean blood pressure 103 mm[Hg] Shameka Timmis [facility] 04-26-2023 07:43-0400 Blood Pressure Location Shameka Timmis [facility] 04-19-2023 14:39-0400 Diastolic blood pressure 88 mm[Hg] Shameka Timmis [facility] 04-19-2023 14:39-0400 Heart rate 73 /min Shameka Timmis [facility] 04-19-2023 14:39-0400 Mean blood pressure 109 mm[Hg] Shameka Timmis [facility] 04-19-2023 14:39-0400 Systolic blood pressure 152 mm[Hg] Shameka Timmis [facility] 04-19-2023 14:39-0400 Heart rate 71 /min Shameka Timmis [facility] 04-19-2023 14:39-0400 SaO2% (BldA) [Mass fraction] 98 % Shameka Timmis [facility] 04-19-2023 14:39-0400 Diastolic blood pressure 97 mm[Hg] Shameka Timmis [facility] 04-19-2023 14:39-0400 Mean blood pressure 112 mm[Hg] Shameka Timmis [facility] 04-19-2023 14:39-0400 Systolic blood pressure 141 mm[Hg] Shameka Timmis [facility] 04-19-2023 14:39-0400 Body temperature 97.88 [degF] Shameka Northmis [facility] 04-19-2023 14:39-0400 Respiratory rate 15 /min Shameka Moreloss [facility] 04-10-2023 14:15-0400 Body height 157.48 cm Rojelio Loya Other [employer] Other 04-10-2023 14:15-0400 Body mass index (BMI) [Ratio] 35.66 kg/m2 Rojelio Loya Other [employer] Other 04-10-2023 14:15-0400 Body weight 88.45 kg Rojelio Loya Other [employer] Other 04-10-2023 14:15-0400 Diastolic blood pressure 88 mm[Hg] Rojelio Loya Other [employer] Other 04-10-2023 14:15-0400 Systolic blood pressure 124 mm[Hg] Rojelio Loya Other [employer] Other 02-12-2023 09:45-0400 Body height 157.48 cm Rojelio Loya Other [employer] Other 02-12-2023 09:45-0400 Body mass index (BMI) [Ratio] 16.83 kg/m2 Rojelio Loya Other [employer] Other 02-12-2023 09:45-0400 Body weight 41.73 kg Rojelio Loya Other [employer] Other 02-12-2023 09:45-0400 Diastolic blood pressure 90 mm[Hg] Rojelio Loya Other [employer] Other 02-12-2023 09:45-0400 Systolic blood pressure 131 mm[Hg] Rojelio Loya Other [employer] Other 11-23-2022 10:45-0400 Body height 157.48 cm Rojelio Loya Other [employer] Other 11-23-2022 10:45-0400 Body mass index (BMI) [Ratio] 34.93 kg/m2 Rojelio Loya Other [employer] Other 11-23-2022 10:45-0400 Body weight 86.64 kg Rojelio Loya Other [employer] Other 11-23-2022 10:45-0400 Diastolic blood pressure 88 mm[Hg] Rojelio Loya Other [employer] Other 11-23-2022 10:45-0400 SaO2% (BldA) [Mass fraction] 99 % Rojelio Loya Other [employer] Other 11-23-2022 10:45-0400 Systolic blood pressure 142 mm[Hg] Rojelio Loya Other [employer] Other 10-06-2022 11:15-0500 Body height 157.48 cm Amina Thomas Other [employer] Other 10-06-2022 11:15-0500 Body mass index (BMI) [Ratio] 36.58 kg/m2 Amina Thomas Other [employer] Other 10-06-2022 11:15-0500 Body temperature 97.3 [degF] Amina Thomas Other [employer] Other 10-06-2022 11:15-0500 Body weight 90.72 kg Amina Thomas Other [employer] Other 10-06-2022 11:15-0500 Respiratory rate 18 /min Amina Thomas Other [employer] Other 10-06-2022 11:15-0500 SaO2% (BldA) [Mass fraction] 99 % Amina Thomas Other [employer] Other Encounters Encounter Date Encounter Type Care Provider Facility Start: 12-02-2024 End: 12-02-2024 Kylie Blum MD Work Phone: [facility] Start: 12-02-2024 End: 12-02-2024 Kylie Blum MD Work Phone: [facility] Start: 12-02-2024 End: 12-02-2024 Office outpatient visit 10 minutes Shameka Blum MD Work Phone: [facility] Comment on above: ETD (Eustachian tube dysfunction), bilateral (Primary Dx); Chronic otorrhea of right ear Start: 12-02-2024 End: 12-02-2024 ambulatory SHAMEKA NORTHMIS Not Available Start: 11-24-2024 End: 11-24-2024 ambulatory [facility] Work Phone: Start: 11-24-2024 End: 11-24-2024 Patient encounter procedure [facility] Work Phone: Start: 11-14-2024 End: 11-14-2024 [facility] flow[facility]yenne [facility] Start: 11-14-2024 End: 11-14-2024 Bamgenny [facility] Start: 11-14-2024 End: 11-14-2024 Office outpatient visit 25 minutes Shameka Blum MD Work Phone: [facility] Comment on above: Chronic otorrhea of right ear (Primary Dx) Start: 11-14-2024 End: 11-14-2024 ambulatory SHAMEKA NORTHMIS Not Available Start: 11-12-2024 End: 11-12-2024 ambulatory [facility] Work Phone: Start: 11-12-2024 End: 11-12-2024 Patient encounter procedure [facility] Work Phone: Start: 10-20-2024 Non-patient / Non-visit [facility] Work Phone: Start: 09-02-2024 Non-patient / Non-visit [facility] Work Phone: Start: 09-01-2024 Patient encounter status Rojelio Loya MD Work Phone: [facility] Start: 09-01-2024 End: 09-01-2024 ambulatory Rojelio Loya MD Work Phone: [facility] Work Phone: Start: 09-01-2024 End: 09-01-2024 Encounter for general adult medical examination without abnormal findings Rojelio Loya MD Work Phone: [facility] Start: 09-01-2024 End: 09-01-2024 Patient encounter procedure Rojelio Loya MD Work Phone: [facility] Work Phone: Start: 07-23-2024 End: 07-23-2024 Office outpatient visit 15 minutes Shameka Blum MD Work Phone: [facility] Comment on above: ETD (Eustachian tube dysfunction), bilateral (Primary Dx) Start: 07-23-2024 End: 07-23-2024 ambulatory SHAMEKA H TIMMIS Not Available Start: 07-23-2024 End: 07-23-2024 Bamboo flowscheyenne Blum MD Work Phone: [facility] Start: 07-23-2024 End: 07-23-2024 Bamboo flowscheyenne Blum MD Work Phone: [facility] Start: 07-08-2024 End: 07-08-2024 Office outpatient visit 15 minutes Shameka Blum MD Work Phone: [facility] Comment on above: ETD (Eustachian tube dysfunction), bilateral (Primary Dx) Start: 07-08-2024 End: 07-08-2024 ambulatory SHAMEKA H TIMMIS Not Available Start: 07-08-2024 End: 07-08-2024 Bamboo flowscheyenne Blum MD Work Phone: [facility] Start: 07-08-2024 End: 07-08-2024 Bamboo flowscheyenne Blum MD Work Phone: [facility] Start: 06-06-2024 End: 06-06-2024 Patient encounter procedure MD Rojelio Loya Work Phone: [facility] Work Phone: Start: 06-06-2024 End: 06-06-2024 ambulatory MD Rojelio Loya Work Phone: [facility] Work Phone: Start: 08-21-2023 End: 08-21-2023 ambulatory Rojelio Loya Other [employer] Other Start: 08-21-2023 Encounter for genera l adult medical examination without abnormal findings Rojeloi Loya [facility] Start: 08-21-2023 Office outpatient vi sit 15 minutes Rojelio Loya [facility] Start: 07-17-2023 End: 07-17-2023 Admission to same day surgery center MD Rojelio Loya Work Phone: [facility] Work Phone: Start: 07-17-2023 End: 07-17-2023 ambulatory MD Rojelio Loya Work Phone: [facility] Work Phone: Start: 06-12-2023 End: 06-12-2023 ambulatory Imad Asaad Other [employer] Other Start: 06-12-2023 Telephone encounter Imad Asaad [employer] [facility] Start: 06-11-2023 End: 06-11-2023 ambulatory Imad Asaad Other [employer] Other Start: 06-11-2023 Office outpatient ne w 45 minutes Imad Asaad [facility] Start: 05-07-2023 End: 05-07-2023 ambulatory Rojelio Loya Other [employer] Other Start: 05-07-2023 Telephone encounter Rojelio Loya [facility] Start: 05-02-2023 End: 05-02-2023 ambulatory Imad Asaad Other [employer] Other Start: 05-02-2023 Telephone encounter Imad Asaad [employer] [facility] Start: 04-26-2023 End: 04-26-2023 ambulatory Shameka Blum Facility:[facility] Start: 04-26-2023 End: 04-26-2023 Admission to same day surgery center Shameka Blum [facility] Start: 04-19-2023 End: 04-20-2023 ambulatory Shameka Blum Facility:[facility] Start: 04-19-2023 End: 04-19-2023 Patient encounter procedure Shameka Blum [facility] Start: 04-18-2023 End: 04-20-2023 Pre-admission assessment Shameka Blum [facility] Start: 04-10-2023 End: 04-10-2023 ambulatory Rojelio Loya Other [employer] Other Start: 04-10-2023 Office outpatient vi sit 15 minutes Rojelio Loya [facility] Start: 03-26-2023 End: 03-26-2023 ambulatory Rojelio Loya Other [employer] Other Start: 03-26-2023 Telephone encounter Rojelio Loya [facility] Start: 02-22-2023 End: 02-22-2023 ambulatory Rojelio Loya Other [employer] Other Start: 02-22-2023 Telephone encounter Rojelio Loya [facility] Start: 02-15-2023 End: 02-15-2023 ambulatory Rojelio Loya Other [employer] Other Start: 02-15-2023 Telephone encounter Rojelio Loya [facility] Start: 02-12-2023 End: 02-12-2023 ambulatory Rojelio Loya Other [employer] Other Start: 02-12-2023 Office outpatient vi sit 15 minutes Rojelio Loya [facility] Start: 02-08-2023 End: 02-08-2023 ambulatory Rojelio Loya Other [employer] Other Start: 02-08-2023 Telephone encounter Rojelio Loya [facility] Start: 01-09-2023 End: 01-09-[address] ROJELIO LOYA Facility:[facility] Start: 12-03-2022 Encounter for genera l adult medical examination without abnormal findings DR ROJELIO LOYA [facility] Start: 11-28-2022 End: 11-28-2022 ambulatory Rojelio Loya Other [employer] Other Start: 11-28-2022 Telephone encounter Rojelio Loya [facility] Start: 11-27-2022 End: 11-27-2022 ambulatory Rojelio Loya Other [employer] Other Start: 11-27-2022 Telephone encounter Rojelio Loya [facility] Start: 11-24-2022 End: 11-25-[address] ROJELIO LOYA Facility:[facility] Start: 11-24-2022 End: 11-25-2022 Encounter for general adult medical examination without abnormal findings DR ROJELIO OLYA Facility:[facility] Start: 11-23-2022 End: 11-23-2022 ambulatory Rojelio Loya Other [employer] Other Start: 11-23-2022 Encounter for genera l adult medical examination without abnormal findings Rojelio Loya [facility] Start: 11-23-2022 Periodic preventive med est patient 40-64yrs Rojelio Loya [facility] Start: 11-21-2022 End: 11-21-2022 ambulatory MD Rojelio Loya Work Phone: [facility] Work Phone: Start: 11-21-2022 End: 11-21-2022 Patient encounter procedure MD Rojelio Loya Work Phone: [facility] Work Phone: Start: 10-06-2022 End: 10-06-2022 ambulatory Amina Thomas Other [employer] Other Start: 10-06-2022 Office outpatient vi sit 15 minutes Amina Thomas [facility] [place] Start: 09-27-2022 End: 09-27-2022 ambulatory Rojelio Loya Other [employer] Other Start: 09-27-2022 Telephone encounter Rojelio Loya [facility] Start: 02-28-2022 Gynecological examination normal Rojelio Loya Other [employer] Other Start: 02-22-2022 End: 02-23-[address] ROJELIO LOYA Facility: Start: 11-30-2021 Adult health examination Rojelio Loya Other [employer] Other Procedures Date Procedure Procedure Detail Performing Clinician Start: 06-06-2024 Screening mammography of bilateral breasts MD Rojelio Loya Work Phone: Start: 07-17-2023 Esophagogastroduodenoscopy MD Rojelio garcia Work Phone: Start: 04-26-2023 Myringotomy and insertion of T tube Anai ry Timmis Start: 04-26-2023 Removal of sebaceous cyst Shameka Timmis Start: 11-21-2022 End: 11-21-2022 Screening mammography of bilateral breasts MD Rojelio Loya Work Phone: Colonoscopy Shameka Timmis Myringotomy and inse rtion of tympanic ventilation tube Shameka Timmis Repair tendon/muscle upper arm/elbow ea Shameka Timmis Screening for malign ant neoplasm of breast Rojelio Loya Other Screening for malign ant neoplasm of breast Rojelio Loya Other Plan of Treatment Date Care Activity Detail Author Start: 12-02-2024 End: 12-02-2024 Patient encounter procedure [facility] Comment on above: Arrived Start: 11-14-2024 End: 11-14-2024 Patient encounter procedure 11/14/2024 10:00 AM EDT Office Visit [facility] [address] [place] [address] [facility] [place] [id number] Shameka Blum MD [address] [place] [address] Arrived [facility] Comment on above: Arrived Start: 07-23-2024 End: 07-23-2024 Patient encounter procedure [facility] Comment on above: Arrived Start: 07-08-2024 End: 07-08-2024 Patient encounter procedure 07/08/2024 2:20 PM EST Office Visit [facility] [address] [place] [address] Shameka Blum MD [address] [place] [address] Arrived [facility] Comment on above: Arrived Start: 04-20-2024 Influenza vaccination Influenza Vacc ine (#1) [facility] Start: 11-22-2023 Screening for malign ant neoplasm of breast Mammogram [facility] Start: 07-17-2023 [facility] Start: 2000 Screening for malign ant neoplasm of cervix [facility] Start: 1991 Screening for malign ant neoplasm of cervix Pap Smear [facility] Start: 1970 Screening for malign ant neoplasm of colon [facility] Comprehensive metabo lic 2000 panel - Serum or Plasma [facility] Immunizations Immunization Date Immunization Notes Care Provider Fa cility 07-22-2024 influenza virus vaccine, unspecified formulation Shameka Blum MD Work Phone: [facility] 11-03-2023 influenza virus vaccine, unspecified formulation Shameka Blum MD Work Phone: [facility] 11-25-2020 COVID-19 mRNA Comirnatroosevelt (Pfizer) MD Rojelio Loya Work Phone: [facility] 11-04-2020 COVID-19 mRNA, Comirnatroosevelt (Pfizer) MD Rojelio Loya Work Phone: [facility] 05-31-2020 influenza virus vaccine, unspecified formulation Shameka Blum [facility] 06-03-2018 influenza virus vaccine, split virus (incl. purified surface antigen) Rojelio Loya Other [facility] [email or web address] Other 06-03-2018 influenza virus vaccine, unspecified formulation MD Rojelio Loya Work Phone: [facility] 06-05-2017 influenza virus vaccine, split virus (incl. purified surface antigen) Rojelio Loya Other [facility] [email or web address] Other 06-05-2017 influenza virus vaccine, unspecified formulation MD Rojelio Loya Work Phone: [facility] 06-18-2014 influenza, injectabl e, quadrivalent, contains preservative Rojelio Loya Other [facility] [email or web address] Other 06-18-2014 influenza, injectabl e, quadrivalent, preservative free MD Rojelio Loya Work Phone: [facility] 05-20-2012 influenza virus vaccine, unspecified formulation MD Rojelio Loya Work Phone: [facility] 05-20-2012 influenza virus vaccine, split virus (incl. purified surface antigen) Rojelio Loya Other [facility] [email or web address] Other 06-10-1999 pneumococcal polysaccharide vaccine, 23 valent Shameka Blum MD Work Phone: [facility] Work Phone: Payers Date Payer Category Payer Managed Care HMO (unspecified) [id number] 2024 Private Health Insurance [id number] 2023 Self-pay [id number] 1970 Unknown [id number]. [id number] 1970 Unknown [id number] [id number]. [id number] 1970 Unknown [id number] [id number]. 2.593 1970 Unknown [id number] [id number]. 2.727 1970 Unknown [id number] [id number]. 2.727 1970 Unknown [id number] [id number]. 2.1259 1970 Unknown [id number] [id number]. 2.1259 1970 Unknown [id number] [id number]. 2.1259 1970 Unknown [id number] [id number]. 2.1259 1959 Unknown [id number] Private Health Insurance [facility] [id number] Unknown [id number] [id number] Unknown [id number]. 2.531 Social History Date Type Detail Facility Start: 09-17-2023 End: 12-02-2024 Sex Assigned At [facility] Start: 1970 Sex Assigned At Female [facility] Start: 05-12-2021 End: 03-26-2023 Tobacco smoking status Never smoked tobacco (finding) [facility] Start: 03-26-2023 Tobacco use and exposure Smokeless tobacco non-user [facility] Start: 09-17-2023 End: 12-02-2024 Alcoholic beverage intake Ex-drinker (finding) [facility] Start: 09-17-2023 End: 12-02-2024 History of Social function [facility] Start: 01-04-2023 Alcohol Comment Caffeine intak e: 1-2 cups per day [facility] Start: 05-29-2023 Gender identity Identifies as female gender (finding) [facility] Healthcare Start: 05-29-2023 Sexual orientation Heterosexual (fin ding) [facility] Start: 09-01-2024 End: 11-24-2024 Sex Female (finding) [facility] NEGATED: Highlighted row [facility] Goals Date Patient Goal Desired Activity /State Functional Status Date Assessment Result Facility 04-19-2023 Functional Status No [facility] Clinical Notes 05-20-2013 to 12-02-2024 Shameka Blum MD - 12/02/2024 10:30 AM EDT Note Date & Type Note Facility 12-02-2024 History of Presen t illness Narrative Subjective Patient ID: Milana Miller is a 54 y.o. female who presents for Ear Problem (2 week check ears) Family History Problem Relation Name Age of Onset COPD Mother Prostate cancer Father Kaz Torma Hypertension Father Kaz Torma Cancer Father Kaz Torma Asthma Sibling Stroke Maternal [...] of right ear 08/08/2023 Recurrent epistaxis 08/08/2023 Abnormal uterine bleeding 11/14/2024 Arthralgia 11/14/2024 Benign hypertension (CMS/HCC) 11/14/2024 Chronic instability of right knee 11/14/2024 Elbow pain 11/14/2024 Hyperglycemia 11/14/2024 Hypothyroidism (CMS/HCC) 11/14/2024 Thyroid nodule (CMS/HCC) 11/14/2024 Resolved Ambulatory Problems Diagnosis Date Noted No [...] MG tablet Take 5 mg by mouth Daily Pfndntp-Oquoszgli-Pxhrqmd D (CALCIUM 1200+D3 PO) Take 1 tablet by mouth Daily Ferrous Sulfate (IRON PO) Take 1 tablet by mouth in the morning. fexofenadine (Kerri Allergy) 180 MG tablet levothyroxine (Synthroid, Levoxyl) 25 MCG tablet Take 25 mcg by mouth in the morning. Take before meals. losartan (Cozaar) 100 MG tablet Take 100 mg by mouth Daily melatonin 5 MG tablet 1 (one) time each day at the same time Mounjaro 2.5 MG/0.5ML solution auto-injector INJECT 2.5 MG (0.5 ML) SUBCUTANEOUSLY EVERY WEEK multivitamin (Theragran) tablet Take 1 tablet by mouth Daily omega-3 (Fish Oil) 1200 MG capsule 1 capsule 1 (one) time each day at the same time Turmeric 400 MG capsule Take by mouth [DISCONTINUED] ciprofloxacin-dexAMETHasone (CiproDEX) otic suspension INSTILL 4 DROPS INTO RIGHT EAR TWICE DAILY IN THE MORNING AND BEFORE BEDTIME FOR 10 DAYS No current facility-administered medications on file prior to visit. Objective Last Recorded Vitals Vitals: 12/02/24 1025 BP: 160/84 Pulse: 67 ENT Physical Exam Constitutional Appearance: patient appears well-developed and well-nourished, patient is cooperative; Ear Ear comments: Sammy TIP&P, dry Assessment/Plan Diagnoses and all orders for this visit: ETD (Eustachian tube dysfunction), bilateral Chronic otorrhea of right ear Otorrhea resolved. Tubes look good documented in this encounter [facility] 11-24-2024 Evaluation note Authored November 24, 2024 1:42 pm Assessment: Highest weight: 217.0 lbs Start weight: 216.3 lbs. Starting Date: 11-24-2024. 1. Abnormal weight gain 2. Obesity-the patient will treat with long-term lifestyle changes of improved nutrition, increased exercise and activity, stress reduction, adequate sleep and behavioral modification versus short-term dieting. [ ] 3. [ ] 4. [ ] 5. [ ] 6. [ ] 7. [ ] 8. [ ] 9. [ ] 10. [ ] 11. [ ] Follow up with me in 6 weeks. New labs needed: [TSH, cholesterol profile, and CMP] The patient was instructed to consider logging all foods and caloric beverages. I highly recommended minimizing or stopping caloric beverages including alcohol. The importance of preplanning, shopping at the edge of the store, decreasing unhealthy food cues and environmental control stressed. I recommend packing snacks and meals when out of the home. Remove trigger/unhealthy foods if possible from the home. No macronutrient is completely restricted. We discussed the addictive nature and unhealthy biological changes that occur with ultra processed food. We discussed the brain and peripheral biological changes with obesity that make it a chronic disease. Importance of cooking most food items from scratch discussed. No skipping any meals. Avoid added sugar, refined starches, and added fats. I highly recommended preference for whole foods/real foods. Foods from the farm, not from the factory. The plate method discussed and handout given. Lean unprocessed protein with each meal and each snack to help control appetite, decrease cravings and lessen muscle loss with weight loss advised. Consider use of a protein shake or protein bar instead of missing a meal. The patient will try to get at least 5 or more servings of low carbohydrate veggies/salads daily. Recommend regular follow-up with our registered dietitian. Benefits of regular exercise including cardio and resistance training discussed and recommended as appropriate for the patient. Slowly increase activity. Our exercise program was recommended with our layer out/obesity exercise group. Handout given. Our free weekly group support/food triggers program was highly recommended to help with long-term behavioral change and support. Handout given. The patient must start healthy behavioral changes. The patient was instructed on good sleep hygiene and on the importance of adequate sleep. Circadian rhythm and the importance of mealtime discussed. I recommended stress reduction. Medication addition and subtraction options discussed. Risks and benefits of prescribed meds discussed. Initial zxzg-mz-xsme interview/evaluation. The patient was counseled in detail on the options for weight loss in an individual setting. [ ] minutes was spent caring for the patient, counseling/educating patient on the options for the treatment of obesity and related healthcare issues. The program's treatment goals were reviewed with the patient. Each aspect of the program was discussed with the patient. [facility] Work Phone: [phone]) 133-342503-28-2025 History of Present illness Narrative* Shameka Blum MD - 11/14/2024 10:00 AM EDT Subjective Patient ID: Milana Miller is a 54 y.o. female who presents for Ear Problem (Ear pain/drainage ) RT otorrhea since flying Family History Problem Relation Name Age of Onset COPD Mother Prostate cancer Father Kaz Echeverria Hypertension Father Kaz Torgael Asthma Sibling Stroke Maternal Grandfather Tom Dankovich [...] of right ear 08/08/2023 Recurrent epistaxis 08/08/2023 Abnormal uterine bleeding 11/14/2024 Arthralgia 11/14/2024 Benign hypertension (CMS/HCC) 11/14/2024 Chronic instability of right knee 11/14/2024 Elbow pain 11/14/2024 Hyperglycemia 11/14/2024 Hypothyroidism (CMS/HCC) 11/14/2024 Thyroid nodule (CMS/HCC) 11/14/2024 Resolved Ambulatory Problems Diagnosis Date Noted No [...] 5 mg by mouth in the morning. Pyqaulp-Zdcsqnzst-Jtfblgc D (CALCIUM 1200+D3 PO) Take 1 tablet [...] time each day at the same time. Turmeric 400 MG capsule Take by mouth No current facility-administered medications on file prior to visit. Objective Last Recorded Vitals Vitals: 11/14/24 0955 BP: 136/81 Pulse: 61 ENT Physical Exam Ear Ear comments: Sammy TIP&P. Active RT otorrhea Assessment/Plan Diagnoses and all orders for this visit: Chronic otorrhea of right ear - levoFLOXacin (Levaquin) 500 MG tablet; Take 1 tablet (500 mg) by mouth Daily for 10 days - ciprofloxacin-dexAMETHasone (CiproDEX) otic suspension; Administer 4 drops into the right ear in the morning and 4 drops before bedtime. Do all this for 10 days. Active left optorrhea. Tx with levaquin and ciprodex. [id number] Evaluation note* Diagnosis Onset Date Resolution Status Admit Date Class 2 obesity with body ma ss index (BMI) of 39.0 to 39.9 in adult acute September 01 11:22am Essential (primary) hypertension acu te September 01, 2024 11:22am Hyperlipidemia acute September 012024 11:22am Hypothyroidism acute September 012024 11:22am Snoring acute September 01, 2024 11:22am Wellness examination acute Herson hari 2024 11:22am [facility] Work Phone: 1(257) 958-813912-04-2024 History of Present illness Narrative* Shameka Blum MD - 07/23/2024 2:40 PM EST Subjective Patient ID: Milana Miller is a 54 y.o. female who presents for Ear Problem (Ear debridement) Family History Problem Relation Name Age of Onset COPD Mother Prostate cancer Father Kaz Echeverria Hypertension Father Kaz Echeverria Asthma Sibling Stroke Maternal Grandfather Tom Delgado Throat cancer Paternal Grandfather Active Ambulatory Problems [...] ear Chronic myringitis of left ear Diabetes ([facility]) Disease of thyroid gland ([facility]) 2016 Hypertension ([facility]) Kidney stone Nosebleed Obesity Past [...] 5 mg by mouth in the morning. Ownyald-Cjvuaagsz-Nvpvefi D (CALCIUM 1200+D3 PO) Take 1 tablet [...] debrided and look good documented in [facility] [id number] History of Present illness Narrative* Shameka Blum MD - 07/08/2024 2:20 PM EST Subjective Patient ID: Milana Miller is a 54 y.o. female who presents for Ear Problem (1 year tube check. BMT04/26/23) Pt notes some crakling in ears Family History Problem Relation Name Age of Onset COPD Mother Prostate cancer Father Kaz Echeverria Hypertension Father Kaz Echeverria Asthma Sibling Stroke Maternal Grandfather [facility] Throat cancer Paternal Grandfather Active Ambulatory Problems [...] ear Chronic myringitis of left ear Diabetes ([facility]) Disease of thyroid gland ([facility]) 2016 Hypertension ([facility]) Kidney stone Nosebleed Obesity Past [...] 5 mg by mouth in the morning. Dnipvmf-Tirtepvhx-Auzjfwu D (CALCIUM 1200+D3 PO) Take 1 tablet [...] and F/U to debride documented in this encounterBarn[facility] [id number] Evaluation note* Encounter Date Diagnosis Assessment Notes Treatment Notes Treatment Clinical Notes Aug, Encounter for wellness examination (ICD-10 - Z00.00) Today was not a wellness, but she needs labs for paperwork for her insurance. Aug, Hypertension (ICD-10 - I10) Continue losartan, add norvasc. Call w bp readings 2-3 weeks. [facility] Encounter Date Diagnosis Assessment Notes Treatment Notes Treatment Clinical Notes May, Celiac disease (ICD-10 - K90.0) Patient is to have an EGD to test for celiac disease scheduled today, prep instructions given today, Risks and benefits of procedure explained to patient; patient verbalizes understanding. May, Screening for colon cancer (ICD-10 - Z12.11) [facility] Other 09-18-2023 Evaluation note* Encounter Date Diagnosis Assessment Notes Treatment Notes Treatment Clinical Notes Apr, Hypothyroid (ICD-10 - E03.9) [facility] 09-07-2023 Hospital Discharge instructions Patient Education [...] Follow these instructions at home: Medicines Take wikf-bfu-jetwvne and prescription medicines only as told by [...] is common to have ear pain. Take vqzc-ojp-ggyyzuf and prescription medicines only as told by [...] provider. Document Revised: 04/03/2022 Document Reviewed: 04/03/2022 [employer] Patient Education 2022 [employer]. 04/26/2023 10:35:29 Post Op Patient Instructions - FT(CUSTOM) Follow Up Care 04/18/2023 09:29:44 With:Shameka Blum Address:Unknown When: Unknown Comments:One month [facility]09-01-2023 Note [id number]:127[facility] 04-10-2023 Evaluation note* Encounter Date Diagnosis Assessment Notes Treatment Notes Treatment Clinical Notes Mar, Generalized abdominal pain (ICD-10 - R10.84) Reviewed notes from her interpreter and translator. She would like to be tested further for celiac. Had intial Ig's checked earlier this year. Referral placed. Mar, Screening for colon cancer (ICD-10 - Z12.11) [facility] 08-07-2023 Evaluation note* Encounter Date Diagnosis Assessment Notes Treatment Notes Treatment Clinical Notes Mar, Thyroiditis (ICD-10 - E06.9) [facility] 07-06-2023 Evaluation note* Encounter Date Diagnosis Assessment Notes Treatment Notes Treatment Clinical Notes Feb, Hypothyroid (ICD-10 - E03.9) [facility] 06-26-2023 Evaluation note* Encounter Date Diagnosis Assessment Notes Treatment Notes Treatment Clinical Notes Jan, Hypothyroid (ICD-10 - E03.9) Decrease dose. Discussed symptoms of hyperthyroidism. Call if no improvment in sx and repeat labs in 6-8 weeks. [facility] Other 04-06-2023 Evaluation note* Encounter Date Diagnosis [...] in past - will check CBC presently. [facility] Other 02-17-2023 Evaluation note* Encounter Date Diagnosis [...] as needed for aches pains or fevers. [facility] Other 10-01-2013 History general Narrative - Reported* Type Description Date Medical History Chickenpox Medical History Mammogram 05/2013 Medical History Pap/Pelvic exam summer w ith Medical History Hypothyroidism Medical History hypertension Medical History kidney stones Surgical History 6-[address] aced in bilateral ears over the years Surgical History ear surgery Hospitalization History see above [facility] 10-01-2013 History general Narrative - Reported* Type Description Date Medical History Chickenpox Medical History Mammogram 05/2013 Medical History Pap/Pelvic exam summer w ith Medical History Hypothyroidism Medical History hypertension Medical History kidney stones Surgical History 6-[address] aced in bilateral ears over the years Surgical History ear surgery Surgical History COLONOSCOPY 2006 Hospitalization History see above [facility] Other 10-01-2013 History general Narrative - Reported* Type Description Date Medical History Chickenpox Medical History Mammogram 05/2013 Medical History Pap/Pelvic exam summer w ith Medical History Hypothyroidism Medical History hypertension Medical History kidney stones Surgical History 6-[address] tubes [address] aced in bilateral ears over the years Surgical History ear surgery Surgical History COLONOSCOPY 2006 Surgical History Bilateral tubes in ears & 12 2022 Hospitalization History see above [facility] Other Evaluation + Plan note Future Appointments Appointment Date:04/26/2023 01:30:00 PM Scheduled Provider: Location:[facility] Services Appointment Type:[facility] noteNo InformationNort wishkicker Other Evaluation noteNo assessment information available [facility] Work Phone: Evaluation note* Diagnosis ETD (Eustachian [...] Wellness examination acute Herson hari 2024 11:22am [facility] Work Phone: Evaluation note* Diagnosis Chronic otorrhea of right ear- Primary documented in this encounter [facility]* Diagnosis ETD (Eustachian tube dysfunction), bilateral- Primary Chronic otorrhea of right ear documented in this encounter [facility] HealthcareHistory and physical note Author Johnathan More [facility] July 17, 2023 11:17am Note Date/Time July 17, 2023 11:17am [facility] [address] [place] [address] Gastroenterology H&P Signed Patient: Milana Miller MR#: [id number] : 1970 Acct:[id number] Age/Sex: 53 / F Adm Date: 3 Loc: Room: Type: [facility] Attending Dr: Johnathan More MD Copies to: MD Rojelio Ziegler MD~ Date of Service: 07/17/2023 HISTORY [...] M.D. Documented By: Johnathan More MD 07/17/23 1116 Signed By: <Electronically signed by Johnathan More MD> 07/17/23 1117 [facility] Work Phone: Hospital course Narrative No data available for this section [facility] Discharge instructions No data available for this section [facility] Discharge instructions Additional Instructions DISCHARGE INSTRUCTIONS FOR [...] NOT operate machinery such as power tools, [employer] mowers, [employer] blowers, sewing machines, etc. for 24 hours. [...] the office as scheduled - Office number [phone]. [facility] Work Phone: Progress note No data available for this section [facility] Summary Purpose Family History No Family History Records Found Relationship Condition Age at Onset Recorded Date/T [...] Unknown Chronic obstructive pulmonary disease Unk nown Relationship Condition Age at Onset Recorded Date/T moe mother Chronic obstructive pulmonary disease Unk nown father Hypertension Unknown Malignant neoplasm of prostate Unknown Malignant neoplasm Unknown Malignant neoplasm of colon Unknown grandparent Unknown History of stroke Unknown grandparent Malignant neoplasm Unknown Malignant neoplasm of throat Unknown Unknown grandparent History of stroke Unknown mother Unknown Chronic obstructive pulmonary disease Unk nown sister Asthma Unknown Advance Directives No Advanced Directives Records Found Advance Directive Response Recorded Date/ Time Advance [...] 1:22am Wellness examination September 01, 2024 11:22am Chief Complaint Admit Date Wellness/Med refill September 01, 2024 1 1:22am Reason for Visit Admit Date Class 2 obesity with body ma ss index (BMI) of 39.0 to 39.9 in adult September 01, 2024 11:22am Essential (primary) hypertension September 01, 2024 11:22am Hyperlipidemia September 01, 2024 1 1:22am Hypothyroidism September 01, 2024 1 1:22am Snoring September 01, 2024 1 1:22am Wellness examination September 01, 2024 11:22am Reason for Referral Reason ?celiac disease. has never had a colonoscopy for screening. Diagnosis 1 Generalized abdomina l pain (R10.84) Referral Organization [facility] Referring Provider First Name Rojelio Referring Provider Last Name Shalini Referring Provider Specialty Family Medi cine Referred Organization [facility] Gastroenterolo gy Referred Address [address] [facility],[address],[address] Referred Provider Specialty Gastroentero logy Referral Priority Routine Additional Source Comments INFORMATION SOURCE (unrecogn ized section and content) DATE CREATED AUTHOR 01/20/2022 [facility] dical Specialist DATE CREATED AUTHOR AUTHOR'S ORGANIZ ATION 01/26/2023 [facility] DATE CREATED AUTHOR AUTHOR'S ORGANIZ ATION 05/02/2023 [facility] DATE CREATED AUTHOR AUTHOR'S ORGANIZ ATION 06/12/2024 [facility] DATE CREATED AUTHOR AUTHOR'S ORGANIZ ATION 12/03/2024 [facility] dical Specialists EPIC REASON FOR VISIT (unrecogniz ed section and content) Reason Comments Ear Problem 1 year tube check. B MT 04/26/23 Reason Comments Ear Problem Ear debridement Reason Comments Ear Problem Ear pain/drainage Reason Comments Ear Problem 2 week check ears Care Teams (unrecognized sec tion and content) Team Status: Active Member Role Status Dates Rojelio Loya MD Primary Care Provider Active Team Status: Inactive Member Role Status Dates Rojelio Loya MD Primary Care Provider Active Roby Nevarez Attending Provider Active Team Status: Inactive Member Role Status Dates Rojelio Loya MD Primary Care Provider Active Johnathan More MD Attending Provider Active Team Status: Inactive Member Role Status Dates Rojelio Loya MD Primary Care Provider Active Start: June 06, 2024 End: June 06, 2024 Referral Self Attending Provider Active Start: O ctober 2023 End: June 06, 2024 Rand Sewer Relationship Specialty Start Date End Date Rojelio Loya MD [address] [facility] [place] [address] PCP - General Family Medicine 01/09/23 Rand Sewer Relationship Specialty Start Date End Date Rojelio Loya MD [address] [facility] [place] [phone] PCP - General Family Medicine 01/09/23 Rand Sewer Relationship Specialty Start Date End Date Rojelio Loya MD [address] [facility] [place] [address] PCP - General Family Medicine 01/09/23 Rand Sewer Relationship Specialty Start Date End Date Rojelio Loya MD [address] [facility] [place] [address] PCP - General Family Medicine 01/09/23 Team Status: Inactive Member Role Status Dates Rojelio Loya MD Primary Care Provide r, Attending Provider Active Start: September 01, 2024 End: September 01, 2024 Team Status: Active Member Role Status Dates Rojelio Loya MD Primary Care Provide r, Attending Provider Active Start: September 02, 2024 Team Status: Active Member Role Status Dates Rojelio Loya MD Primary Care Provide r, Attending Provider Active Start: October 20, 2024 Team Status: Inactive Member Role Status Dates Rojelio Loya MD Primary Care Provider Active Start: November 12, 2024 End: November 12, 2024 Elva Alvarado RN Attending Provider Active Start: November 12, 2024 End: November 12, 2024 Rand Sewer Relationship Specialty Start Date End Date Rojelio Loya MD [address] [facility] [place] [phone] PCP - General Family Medicine 01/09/23 Team Status: Inactive Member Role Status Dates Rojelio Loya MD Primary Care Provider Active Start: November 24, 2024 End: November 24, 2024 Rene Lazcano MD Attending Provider Active Start: November 24, 2024 End: November 24, 2024 Rand Sewer Relationship Specialty Start Date End Date Rojelio Loya MD [address] [facility] [place] [phone] PCP - General Family Medicine 12/02/24 Rand Sewer Relationship Specialty Start Date End Date Rojelio Loya MD [address] [place] [phone] PCP - General Family Medicine 12/02/24 Goals (unrecognized section and content) Goals may [...] BE BASED ON THE PRIMARY CLINICAL RECORDS. [facility]. provides no warranty or guarantee of the accuracy or completeness of information in this document.
[2024-12-04 11:11] LABS: Free T4 1.45 ng/dL (0.76-1.46)
== END 2024-12-04 08:40 | disposition home or self-care (01) ==
LOC: LAB 08:43
PROVIDERS: PCP Family Medicine; Visit Provider Family Medicine
DX: E06.3 Autoimmune thyroiditis (principal)
CPT/HCPCS: 36415; 84439; 84443

== ENCOUNTER 2025-04-22 08:45 | Outpatient (OUT) | payer OTHER, SELFPAY ==
--- OUTSIDE RECORDS SUMMARY | 2025-04-22 08:57 | XMS_ITS | CCD ---
Author Organization [facility] Care Team Providers Care Excellence Manager Name Role Phone Rojelio Loya Unavailable Amina Thomas Unavailable MD Rojelio [...] Admitting Unavailable ROJELIO LOYA Primary Care Physician [phone] Timmis, Shameka H Referring Unavailable Timmis, Shameka H Attending Unavailable Timmis, Shameka H Admitting Unavailable Timmis, Shameka H Referring Unavailable Timmis, Shameka H Attending Unavailable Timmis, Shameka H Admitting Unavailable Asaad, Imad Unavailable MD Rojelio Loya Primary Care Provider MD Johnathan More Attending Provider MD Rojelio Loya Primary Care Provider [phone] Self, Referral Attending Provider Unavailable Rojelio Loya Primary Care Unavailable Asaad, Imad Admitting Unavailable Asaad, Imad Attending Unavailable Rojelio Loya Primary Care Unavailable Self, Referral Admitting Unavailable Self, Referral Attending Unavailable Rojelio Loya MD Primary Care Provider Rojelio Loya MD Primary Care Provider [phone] Self, Referral Attending Provider Unavailable Rojelio Loya MD Primary Care Provider [phone] Rojelio Loya MD Primary Care Provider Rojelio Loya MD Attending Provider Parul Lyn RD Attending Provider Unavailable Rene Lazcano MD Attending Provider Rojelio Loya MD Primary Care Provider TIMMIS, SHAMEKA H Attending Unavailable TIMMIS, SHAMEKA H Attending Unavailable TIMMIS, SHAMEKA H Attending Unavailable TIMMIS, SHAMEKA H Attending Unavailable TIMMIS, SHAMEKA H Attending Unavailable Rojelio Loya MD Primary Care Provider Markel Yang RD Attending Provider Unavailable Rojelio Loya MD Primary Care Provider Rene Lazcano MD Attending Provider [phone] Allergies Allergy Classification Reported Allergen(s) Allergy Type Date of Onset Reaction(s) Facility (1 source) patient allergy list reviewed by nurse or physicia Propensity to adverse reactions 8 Comment:Done Point Blank Range Other (1 source) Allergies Reconciled Propensity to adverse reactions Unknown Point Blank Range Other Medications Current Medications Medication Drug Class(es) [...] Active calcium carbonate 1250 mg chewable tablet (7 sources) Start: 09-01-2024 take 1 tablet by mouth once daily Calcium Carbonate (Calcium 500) 500 mg calcium (1,250 mg) tablet,chewable Active 500 MG PO Daily September 01, 2024 1:00am Complies with drug therapy calcium carbonate 1250 mg / cholecalciferol 1000 unt / vitamin k 0.4 mg chewable tablet (1 source) Vitamin D Calcium + D 500-1000-40 MG-UNT-MCG as directed Orally Active Dshihqq-Qcntyzolw-Mdkkgca D (CALCIUM 1200+D3 PO) (15 sources) take 1 tablet by mouth once daily Ampzpnr-Soibandju-Kak arora D (CALCIUM 1200+D3 PO) Take 1 tablet by mouth Daily Active take 1 tablet by kaye th once in the morning Zjacxdj-Dtntummuq-Esejxxb D (CALCIUM 120 0+D3 PO) Take 1 tablet by mouth in the morning. Active ciprofloxacin 3 mg/ml / dexamethasone 1 mg/ml otic suspension (6 sources) Corticosteroid, Quinolone Antimicrobial Start: 03-06-2025 End: 03-11-2025 ciprofloxacin-dexAMETHasone (CiproDEX) otic suspension Indications: Chronic myringitis, left Administer 4 drops into the left ear in the morning and 4 drops before bedtime. Do all this for 5 days. 7.5 mL 03/06/2025 03/11/2025 Active Start: 11-14-2024 End: 12-02-2024 ciprofloxacin-dexAMETHasone (CiproDEX) otic [...] 7.5 mL 11/14/2024 11/24/2024 Active ferrous sulfate (15 sources) take 1 tablet by mouth in the morning Ferrous Sulfate (IRON PO) Take 1 tablet by mouth in the morning. Active fexofenadine hydrochloride 180 mg oral tablet (20 sources) Histamine-1 Receptor Antagonist Start: 4 take 1 tablet by mouth once daily Fexofenadine (Kerri Allergy) 180 mg tablet Active 180 MG PO Daily September 01, 2024 1:00am Complies with drug therapy Fish Oils (20 sources) Start: 1 take [...] a day for 30 day(s) Active hemaplex (5 sources) Start: 11-24-2024 take 85 mg by mouth once Start: 11-24-2024 take 85 mg by mouth once hemap azalia Active 0 PO Once November 24, 2024 12:00am 85 mg orally once; Complies with drug therapy Start: 11-24-2024 take 85 mg by mouth once hemap azalia Active 0 PO Once November 24, 2024 12:00am 85 mg orally once; Inulin (5 sources) Start: 11-24-2024 Start: 11-24-2024 Inulin (Fiber Gummies) 1.7 gram tablet,chewable Active GM PO November 24, 2024 12:00am Complies with drug therapy Start: 11-24-2024 Inulin (Fiber Gummies) 1.7 gram tablet,chewable Active GM PO November 24, 2024 12:00am Lactobacillus Combination No .9 (Adult 50 Plus Probiotic) 4 billion cell capsule (7 sources) Start: 09-01-2024 take 4 capsules by m outh once daily Start: 09-01-2024 take 4 capsules by m outh once daily Lactobacillus Combination No.9 (Adult 50 Plus Probiotic) 4 billion cell capsule Active 4000 MMU CELLS PO Daily September 01, 2024 1:00am administer with a meal Complies with drug therapy Start: 09-01-2024 take 4 capsules by m [...] 10 tablet 11/14/2024 11/24/2024 Active levothyroxine sodium 0.1 mg oral tablet (20 sources) l-Thyroxine Start: 12-11-2024 End: 04-13-2025 take 1 tablet by mouth once daily Levothyroxine 100 mcg tablet Active 100 MCG PO Daily April 13, 2025 2:29pm Complies with drug therapy Start: 10-20-2024 End: 12-11-2024 take 1 tablet by mouth once daily Levothyroxine 75 mcg tablet Discontinued 75 MCG PO Daily October 20, 2024 4:23pm December 11, 2024 1:56pm Start: 09-05-2024 End: 10-20-2024 take 1 tablet by mouth once daily Levothyroxine 50 mcg tablet Discontinued 50 MCG PO Daily September 05, 2024 2:13pm October 20, 2024 4:23pm Start: 02-17-2023 End: 09-05-2024 take 1 tablet by mouth once daily Levothyroxine 25 mcg tablet Discontinued 25 MCG PO Daily July 17, 2023 1:00am September 05, 2024 2:14pm Start: 02-12-2023 take 1 tablet by kaye [...] Active Magnesium Glycinate 100 mg magnesium capsule (5 sources) Start: 11-24-2024 take 1 tablet by kaye th once daily Start: 11-24-2024 take 1 tablet by kaye th once daily Magnesium Glycinate 100 mg magnesium capsule Active 0 PO .COMPLEX November 24, 2024 12:00am 500 mg orally; 1 tablet daily Complies with drug therapy Start: 11-24-2024 take 1 tablet by kaye th once daily Magnesium Glycinate 100 mg magnesium capsule Active 0 PO .COMPLEX November 24, 2024 12:00am 500 mg orally; 1 tablet daily melatonin 5 mg oral tablet (15 sources) melatonin 5 MG t ablet 1 (one) time each day at the same time Active Mounjaro 2.5 MG/0.5ML solution auto-injector (5 sources) Start: 11-25-2024 inject 2.5 mg by subcutaneous injection every week Mounjaro 2.5 MG/0.5ML solution auto-injector INJECT 2.5 MG (0.5 ML) SUBCUTANEOUSLY EVERY WEEK 11/25/2024 Active multivitamin (Theragran) tablet (15 sources) take 1 tablet by kaye th once daily multivitamin (Theragran) tablet Take 1 [...] Daily July 17, 2023 12:00am Multivitamin Tablet (7 sources) Start: 07-17-2023 take 1 tablet by mouth once da alma Start: 07-17-2023 take 1 tablet by kaye th once daily Multivitamin Tablet Active 1 TAB PO Daily July 17, 2023 1:00am Complies with drug therapy Start: 07-17-2023 take 1 tablet by kaye [...] 5 days. 10 mL 07/08/2024 07/13/2024 Active [place] 5-Wqy-Jwl-Fish Oil (Fish Oil) 100-160-1,000 mg capsule (7 sources) Start: 09-01-2024 Start: 09-01-2024 [place] 3-Dha-Ep a-Fish Oil (Fish Oil) 100-160-1,000 mg capsule Active CAP PO September 01, 2024 1:00am Complies with drug therapy Start: 09-01-2024 [place] 3-Dha-Ep a-Fish Oil (Fish Oil) 100-160-1,000 mg capsule Active CAP PO September 01, 2024 1:00am Start: 09-01-2024 [place] 3-Dha-Ep a-Fish Oil (Fish Oil) 100-160-1,000 mg capsule Active CAP PO September 01, 2024 12:00am One A Day Women 50 Plus (3 sources) Start: 05-29-2011 take 1 tablet by mouth once daily One A Day Women 50 Plus 1 TABLET, Oral, Daily, Refill(s) 0, Prophylaxis Start Date: 05/29/11 Status: Ordered probiotic (16 sources) probiotic as dir ected Active Tirzepatide (4 sources) Start: 04-21-2025 Tirzepatide 7. 5 mg/0.5 mL pen injector Active 7.5 MG SUBCUT every week 2 April 21, 2025 9:12am Complies with drug therapy Start: 04-14-2025 End: 04-21-2025 Tirzepatide 7.5 mg/0.5 mL pe n injector Discontinued 7.5 MG SUBCUT every week 2 April 14, 2025 3:08pm April 21, 2025 9:26am Start: 03-24-2025 End: 04-14-2025 Tirzepatide 7.5 mg/0.5 mL pe n injector Discontinued 7.5 MG SUBCUT every week 2 March 24, 2025 8:19am April 14, 2025 3:08pm Start: 03-24-2025 Turmeric extract (8 sources) Turmeric 400 MG capsule Take by mouth Active Vitamin C 500 MG (13 sources) take 1 tablet by kaye th once daily take 1 tablet by mouth once raya y Vitamin C 500 MG 1 tablet Orally Once a day Active Completed/Discontinued Medications Medication Drug Class(es) Dates Sig (Normalized) Sig (Original) amLODIPine 5 mg oral tablet (20 sources) Dihydropyridine Calcium Channel [place] Start: 08-21-2023 End: 09-05-2024 take 1 tablet by mouth once daily Amlodipine 5 mg tablet Discontinued 5 MG PO Daily 90 November 15, 2023 1:01pm March 31, 2024 [...] propionate 0.05 mg/actuat metered dose nasal spray (10 sources) Corticosteroid Start: End: take 1 spray(s) nasal route once daily Fluticasone Propionate (Flonase Allergy Relief) 50 mcg/actuation spray,suspension Discontinued 1 SPRAY INTRANASAL Daily September 01, 2024 1:00am September 01, 2024 12:35pm administer into each nostril Flonase Active hydrocortisone 10 mg/ml / neomycin 3.5 mg/ml / polymyxin b [id number] unt/ml otic suspension (16 sources) Aminoglycoside Antibacterial, Polymyxin-class Antibacterial, Corticosteroid Mdnftcxh-Wozeldlmf-P C 3.5-69940-3 3 drops right ear Three times a day for 7 days Not-Taking/PRN losartan potassium 100 mg oral tablet (20 sources) Angiotensin 2 Receptor [place] Start: 2022 End: 2024 take 1 tablet by mouth at bedtime Losartan 100 mg tablet Discontinued 100 MG PO Bedtime July 17, 2023 1:00am March 31, 2024 11:32am Multivitamin With Iron tablet (7 sources) Start: 2024 End: 2024 take 1 tablet by mouth once daily Multivitamin With Iron tablet Discontinued 1 TAB PO Daily September 01, 2024 1:00am September 01, 2024 12:35pm Start: 09-01-2024 End: 09-01-2024 take 1 tablet by mouth once daily Multivitamin With Iron tablet Discontinued 1 TAB PO Daily September 01, 2024 12:00am September 01, 2024 11:35am Tirzepatide (5 sources) Start: 11-24-2024 End: 12-11-2024 Tirzepatide (Mounjaro) 2.5 m g/0.5 mL pen injector Discontinued 2.5 MG SUBCUT every week 2 November 24, 2024 12:00am December 11, 2024 9:51am Start: 11-24-2024 Tirzepatide (M ounjaro) 2.5 mg/0.5 mL pen injector Active 2.5 MG SUBCUT every week 2 November 24, 2024 12:00am Tirzepatide (9 sources) Start: 02-23-2025 End: 03-24-2025 Tirzepatide 5 mg/0.5 mL pen injector Discontinued 5 MG SUBCUT every week 2 February 23, 2025 10:16am March 24, 2025 8:19am Start: 02-23-2025 Tirzepatide 5 mg/0.5 mL pen injector Active 5 MG SUBCUT every week 2 February 23, 2025 10:16am Complies with drug therapy Start: 01-06-2025 End: 02-23-2025 Tirzepatide 5 mg/0.5 mL pen injector Discontinued 5 MG SUBCUT every week 2 January 06, 2025 2:58pm February 23, 2025 10:16am Start: 12-11-2024 End: 01-06-2025 Tirzepatide 5 mg/0.5 mL pen injector Discontinued 5 MG SUBCUT every week 2 December 11, 2024 9:51am January 06, 2025 2:59pm turmeric, shari, black pepp er (5 sources) Start: 11-24-2024 End: 04-21-2025 turmeric, shari, black pepp er Discontinued 0 .ROUTE .COMPLEX November 24, 2024 12:00am April 21, 2025 8:55am 1 tablet/ TID; Start: 11-24-2024 Start: 11-24-2024 turmeric, ging er, black pepper Active 0 .ROUTE .COMPLEX November 24, 2024 12:00am 1 tablet/ TID; Complies with drug therapy Start: 11-24-2024 turmeric, ging er, black pepper Active 0 .ROUTE .COMPLEX November 24, 2024 12:00am 1 tablet/ TID; Problems Active Problems Problem Classification Problem Date Documented Da te Episodic/Chronic Abdominal pain (8 sources) Abdominal pain; Translations: [Unspecified abdominal pain] Episodic Calculus of urinary tract (16 sources) Kidney stone; Translations: [Calculus of kidney] Episodic Complications of surgical procedures or medical care (5 sources) Disorder of tendon repair; Translations: [Other intraoperative and postprocedural complications and disorders of the musculoskeletal system] 11-24-2024 Episodic Deficiency and other anemia (2 sources) Anemia, unspecified; Translations: [ANEMIA UNSPECIFIED] Onset: 12-03-2022 Episodic Diabetes mellitus with complications (12 sources) Hyperglycemia due to type 2 diabetes [...] Episodic Other ear and sense organ disorders (15 sources) Conductive hearing loss, bilateral; Translations: [Conductive hearing loss, bilateral] Onset: 01-28-2023 01-28-2023 Chronic Other ear and sense organ disorders (15 sources) Left conductive hearing loss; Translations: [Conductive hearing loss, unilateral, left ear, with unrestricted hearing on the contralateral side] Onset: 01-28-2023 01-28-2023 Chronic Other ear and sense organ disorders (17 sources) Chronic left myringitis; Translations: [Chronic myringitis, left ear] Onset: 01-28-2023 03-26-2023 Chronic Other ear and sense organ disorders (1 source) Disorder of external ear; Translations: [Disorder of external ear, unspecified, unspecified ear] Onset: 04-26-2023 Episodic Other female genital disorders (18 sources) Abnormal uterine bleeding; Translations: [Abnormal uterine and vaginal bleeding, unspecified] Onset: 11-14-2024 10-28-2020 Chronic Other gastrointestinal disorders (11 sources) Celiac disease; Translations: [Celiac disease] Chronic Other gastrointestinal disorders (1 source) Celiac disease Chronic Other liver diseases (2 sources) Steatosis of liver; Translations: [Fatty (change of) liver, not elsewhere classified] 04-21-2025 Chronic Other lower respiratory disease (6 sources) Snoring; Translations: [Snoring] 09-01-2024 Episodic Other lower respiratory disease (2 sources) Snoring; Translations: [Other respiratory abnormalities] 09-01-2024 Episodic Other non-traumatic joint disorders (15 sources) Derangement of left shoulder joint; Translations: [Other specific joint derangements of left shoulder, not elsewhere classified] Onset: 01-28-2023 01-28-2023 Chronic Other non-traumatic joint disorders (7 sources) Unstable knee; Translations: [Other instability, right knee] Episodic Other non-traumatic joint disorders (7 sources) Arthralgia of the upper arm; Translations: [Pain in right elbow] Episodic Other nutritional; endocrine; and metabolic disorders (16 sources) Metabolic syndrome X; Translations: [Metabolic syndrome] Chronic Other nutritional; endocrine; and metabolic disorders (20 sources) Obesity; Translations: [Obesity, unspecified] 09-01-2024 Chronic Other nutritional; endocrine; and metabolic disorders (16 sources) Body mass index 30+ - obesity; Translations: [Body mass index (BMI) 35.0-35.9, adult] Chronic Other nutritional; endocrine; and metabolic disorders (3 sources) Obese class I; Translations: [Body mass index 33.0-33.9, adult] Onset: 04-12-2018 04-21-2025 Chronic Other nutritional; endocrine; and metabolic disorders (20 sources) Obese class II; Translations: [Body mass index (BMI) 35.0-35.9, adult] Onset: 12-05-2018 02-23-2025 Chronic Other screening for suspected conditions (not [...] media] Onset: 04-08-2018 Episodic Residual codes; unclassified (10 sources) Obstructive sleep apnea syndrome; Translations: [Obstructive sleep apnea (adult) (pediatric)] 11-24-2024 Chronic Residual codes; unclassified (1 source) Obstructive sleep apnea (adult) (pediatric); Translations: [Obstructive sleep apnea (adult)(pediatric)] 11-24-2024 Chronic Thyroid disorders (20 sources) Hypothyroidism; [...] Episodic Other ear and sense organ disorders (15 sources) Lump in ear canal; Translations: [Other specified disorders of right ear] Onset: 03-26-2023 03-26-2023 Episodic Other ear and sense organ disorders (19 sources) Otorrhea; Translations: [Otorrhea, right ear] Onset: 08-08-2023 08-08-2023 Episodic Other non-traumatic joint disorders (18 sources) Joint pain; Translations: [Pain in unspecified joint] Onset: 11-14-2024 10-28-2020 Episodic Other non-traumatic joint disorders (11 sources) Pain in elbow; Translations: [Pain in unspecified elbow] Onset: 11-14-2024 10-28-2020 Episodic Other skin disorders (7 sources) Alopecia; Translations: [Nonscarring hair loss, unspecified] Onset: 04-08-2018 Episodic Other upper respiratory disease (15 sources) Mass of nasopharynx; Translations: [Other diseases of pharynx] Onset: 07-24-2023 07-24-2023 Episodic Other upper respiratory disease (15 sources) Epistaxis; Translations: [Epistaxis] Onset: 08-08-2023 08-08-2023 Episodic Results Test Name Value Interpretation Reference Range Facility Laboratory - Chemistry and C hemistry - challengeon 12-04-2024 Free T4 [Mass/Vol] 1.45 ng/dL 0.76-1.46 [facility] TSH Qn 2.410 m[IU]/L 0.358-3.740 [facility] Cholesterol in LDL Calc [Mas s/Vol]on 10-20-2024 Cholesterol in LDL [Mass/Vol] Cholesterol in LDL [Mass/volume] in Serum or Plasma by calculation [facility] Comment on above: <100 mg/dl [id number] 0-129 mg/dl NEAR OR ABOVE [id number] mg/dl BORDERLINE [id number] mg/dl HIGH>190 mg/dl VERY HIGH Cholesterol in VLDL Calc [Ma ss/Vol]on 10-20-2024 Cholesterol in VLDL [Mass/Vol] Cholesterol in VLDL [Mass/volume] in Serum or Plasma by calculation [facility] Estimated glomerular filtrat ion rate (GFR) non- Americanon 10-20-2024 GFR/1.73 sq M.predicted among non-blacks MDRD (S/P/Bld) [Vol rate/Area] Estimated glomerular filtration rate (GFR) non- >=60 mL/min/1.73m 2 [facility] Globulin Calc (S) [Mass/Vol] on 10-20-2024 Globulin (S) [Mass/Vol] Serum globulin measurement by calculation (mass/volume) [facility] Glucose mean value [Mass/vol ume] in Blood Estimated from glycated hemoglobinon 10-20-2024 Average glucose Estimated from glycated hemoglobin (Bld) [Mass/Vol] Glucose mean value [Mass/volume] in Blood Estimated from glycated hemoglobin [facility] Hemoglobin A1c percentageon 10-20-2024 HbA1c (Bld) [Mass fraction] Hemoglobin A1c percentage High 4.5-6.2 [facility] Comment on above: ADA RECOMMENDED LIMI T 4.0 - 6.0ADA THERAPEUTIC TARGET < 7.0ACTION SUGGESTED> 7.0 Laboratory - Chemistry and C hemistry - challengeon 10-20-2024 Albumin [Mass/Vol] 3.9 g/dL 3.4-5.0 [facility] ALP [Catalytic activity/Vol] 97 U/L 46-116 [facility] ALT [Catalytic activity/Vol] 62 U/L High 14-59 [facility] AST [Catalytic activity/Vol] 22 U/L 15-37 [facility] Bilirubin [Mass/Vol] 0.7 mg/dL 0.2-1.0 [facility] Calcium [Mass/Vol] 9.3 mg/dL 8.5-10.1 [facility] Chloride [Moles/Vol] 104 mmol/L 98-107 [facility] Cholesterol [Mass/Vol] 191 mg/dL <=200 [facility] Cholesterol in HDL [Mass/Vol] 69 mg/dL High 40-60 [facility] Comment on above: > or =60 mg/dl - LOW CARDIOVASCULAR RISK<40 mg/dl - HIGH CARDIOVASCULAR RISK CO2 [Moles/Vol] 30.8 mmol/L 21.0-32.0 [facility] Creatinine [Mass/Vol] 0.76 mg/dL 0.55-1.02 [facility] GFR/1.73 sq M.predicted MDRD (S/P/Bld) [Vol rate/Area] mL/min/{1.73_m2} >=60 mL/min/1.73m 2 [facility] Glucose [Mass/Vol] 152 mg/dL High 74-106 [facility] Potassium [Moles/Vol] 3.9 mmol/L 3.5-5.1 [facility] Protein [Mass/Vol] 7.2 g/dL 6.4-8.2 [facility] Sodium [Moles/Vol] 141 mmol/L 136-145 [facility] Triglyceride [Mass/Vol] 86 mg/dL <=150 [facility] TSH Qn 4.722 m[IU]/L High 0.358-3.740 [facility] Urea nitrogen [Mass/Vol] 14.0 mg/dL 7.0-18.0 [facility] Urea nitrogen/Creatinine [Mass ratio] 18.4 mg/mg [facility] Serum or plasma albumin/glob ulin mass ratioon 10-20-2024 Albumin/Globulin [Mass ratio] Serum or plasma albumin/globulin mass ratio [facility] Serum or plasma anion gap de terminationon 10-20-2024 Anion gap [Moles/Vol] Serum or plasma an ion gap determination [facility] Serum or plasma total choles terol/high density lipoprotein (HDL) cholesterol mass tho 10-20-2024 Cholesterol.total/Cho lesterol in HDL [Mass ratio] Serum or plasma total cholesterol/high density lipoprotein (HDL) cholesterol mass rat [facility] Comment on above: 3.3 - 4.4 LOW RISK4. 4 - 7.1 AVERAGE RISK7.1 - 11.0 MODERATE RISK>11.0 HIGH RISK Basophils Auto (Bld) [#/Vol] on 09-02-2024 Basophils (Bld) [#/Vol] Automated basophil count 0.0-0.1 [facility] Basophils/100 WBC Auto (Bld) on 09-02-2024 Basophils/100 WBC (Bld) Automated basophil % 0.2-2.0 [facility] Cholesterol in LDL Calc [Mas s/Vol]on 09-02-2024 Cholesterol in LDL [Mass/Vol] Cholesterol in LDL [Mass/volume] in Serum or Plasma by calculation [facility] Comment on above: <100 mg/dl [id number] 0-129 mg/dl NEAR OR ABOVE [id number] mg/dl BORDERLINE [id number] mg/dl HIGH>190 mg/dl VERY HIGH Cholesterol in VLDL Calc [Ma ss/Vol]on 09-02-2024 Cholesterol in VLDL [Mass/Vol] Cholesterol in VLDL [Mass/volume] in Serum or Plasma by calculation [facility] Eosinophils/100 WBC Auto (Bl d)on 09-02-2024 Eosinophils/100 WBC (Bld) Automated eosinophil % 0.9-7.0 [facility] Erythrocyte distribution wid th Auto (RBC) [Ratio]on 09-02-2024 Erythrocyte distribution width (RBC) [Ratio] Erythrocyte distribution width [Ratio] by Automated count 11.0-15.0 [facility] Estimated glomerular filtrat ion rate (GFR) non- Americanon 09-02-2024 GFR/1.73 sq M.predicted among non-blacks MDRD (S/P/Bld) [Vol rate/Area] Estimated glomerular filtration rate (GFR) non- >=60 mL/min/1.73m 2 [facility] Globulin Calc (S) [Mass/Vol] on 09-02-2024 Globulin (S) [Mass/Vol] Serum globulin measurement by calculation (mass/volume) [facility] Hematocrit Auto (Bld) [Volum e fraction]on 09-02-2024 Hematocrit (Bld) [Volume fraction] Hematocrit [Volume Fraction] of Blood by Automated count 36.0-48.0 [facility] Hemoglobin [Mass/volume] in Bloodon 09-02-2024 Hemoglobin (Bld) [Mass/Vol] Hemoglobin [Mass/volume] in Blood 12.0-16.0 [facility] Laboratory - Chemistry and C hemistry - challengeon 09-02-2024 Albumin [Mass/Vol] 3.9 g/dL 3.4-5.0 [facility] ALP [Catalytic activity/Vol] 96 U/L 46-116 [facility] ALT [Catalytic activity/Vol] 54 U/L 14-59 [facility] AST [Catalytic activity/Vol] 19 U/L 15-37 [facility] Bilirubin [Mass/Vol] 0.5 mg/dL 0.2-1.0 [facility] Calcium [Mass/Vol] 9.0 mg/dL 8.5-10.1 [facility] Chloride [Moles/Vol] 104 mmol/L 98-107 [facility] Cholesterol [Mass/Vol] 184 mg/dL <=200 [facility] Cholesterol in HDL [Mass/Vol] 65 mg/dL High 40-60 [facility] Comment on above: > or =60 mg/dl - LOW CARDIOVASCULAR RISK<40 mg/dl - HIGH CARDIOVASCULAR RISK CO2 [Moles/Vol] 30.4 mmol/L 21.0-32.0 [facility] Creatinine [Mass/Vol] 0.75 mg/dL 0.55-1.02 [facility] Free T4 [Mass/Vol] 0.94 ng/dL 0.76-1.46 [facility] GFR/1.73 sq M.predicted MDRD (S/P/Bld) [Vol rate/Area] mL/min/{1.73_m2} >=60 mL/min/1.73m 2 [facility] Glucose [Mass/Vol] 141 mg/dL High 74-106 [facility] Potassium [Moles/Vol] 3.8 mmol/L 3.5-5.1 [facility] Protein [Mass/Vol] 7.3 g/dL 6.4-8.2 [facility] Sodium [Moles/Vol] 143 mmol/L 136-145 [facility] Triglyceride [Mass/Vol] 72 mg/dL <=150 [facility] TSH Qn 4.828 m[IU]/L High 0.358-3.740 [facility] Urea nitrogen [Mass/Vol] 15.0 mg/dL 7.0-18.0 [facility] Urea nitrogen/Creatinine [Mass ratio] 20.0 mg/mg [facility] Laboratory - Hematology and Cell countson 09-02-2024 Immature granulocytes/100 WBC (Bld) 0.1 % 0.0-0.5 [facility] Leukocytes [#/volume] correc didier for nucleated erythrocytes in Blood by Automated counon 09-02-2024 WBC corrected for nucl RBC Auto (Bld) [#/Vol] Leukocytes [#/volume] corrected for nucleated erythrocytes in Blood by Automated coun 4.0-11.0 [facility] Lymphocytes Auto (Bld) [#/Vo l]on 09-02-2024 Lymphocytes (Bld) [#/Vol] Lymphocytes [#/volume] in Blood by Automated count 1.2-3.8 [facility] [facility] Lymphocytes/100 WBC Auto (Bl d)on 09-02-2024 Lymphocytes/100 WBC (Bld) Lymphocytes/100 leukocytes in Blood by Automated count 20.5-60.0 [facility] MCH Auto (RBC) [Entitic mass ]on 09-02-2024 MCH (RBC) [Entitic mass] MCH [Entitic mass] by Automated count 26.7-34.0 [facility] MCHC Auto (RBC) [Mass/Vol]on 09-02-2024 MCHC (RBC) [Mass/Vol] MCHC [Mass/volume] by Automated count 29.9-35.2 [facility] MCV Auto (RBC) [Entitic vol] on 09-02-2024 MCV (RBC) [Entitic vol] MCV [Entitic volume] by Automated count 81.0-99.0 [facility] Microalbumin [Mass/volume] i n Urineon 09-02-2024 Albumin DL <= 20 mg/L (U) [Mass/Vol] Microalbumin [Mass/volume] in Urine <=30.0 [facility] Monocytes Auto (Bld) [#/Vol] on 09-02-2024 Monocytes (Bld) [#/Vol] Automated blood monocyte count 0.3-0.8 [facility] Monocytes/100 WBC Auto (Bld) on 09-02-2024 Monocytes/100 WBC (Bld) Automated monocyte % 1.7-12.0 [facility] Neutrophils Auto (Bld) [#/Vo l]on 09-02-2024 Neutrophils (Bld) [#/Vol] Neutrophils [#/volume] in Blood by Automated count 1.4-6.5 [facility] Neutrophils/100 WBC Auto (Bl d)on 09-02-2024 Neutrophils/100 WBC (Bld) Automated neutrophil % 43.0-75.0 [facility] No Panel Informationon 09-02 Eosinophils # (Auto) 0.3 10 3/uL 0.0-0.7 [facility] Immature Granulocyte # (Auto) 0.01 10 3/uL 0.00-0.03 [facility] Urine Random Creatinine 195.09 mg/dL 20.00-300.00 [facility] Platelet mean volume Auto (B ld) [Entitic vol]on 09-02-2024 Platelet mean volume (Bld) [Entitic vol] Platelet mean volume [Entitic volume] in Blood by Automated count Low 9.5-13.5 [facility] Platelets Auto (Bld) [#/Vol] on 09-02-2024 Platelets (Bld) [#/Vol] Platelets [#/volume] in Blood by Automated count 150-450 [facility] RBC Auto (Bld) [#/Vol]on RBC (Bld) [#/Vol] Erythrocytes [#/volume] in Blood by Automated count 4.20-5.40 [facility] Serum or plasma albumin/glob ulin mass ratioon 09-02-2024 Albumin/Globulin [Mass ratio] Serum or plasma albumin/globulin mass ratio [facility] Serum or plasma anion gap de terminationon 09-02-2024 Anion gap [Moles/Vol] Serum or plasma an ion gap determination [facility] Serum or plasma total choles terol/high density lipoprotein (HDL) cholesterol mass tho 09-02-2024 Cholesterol.total/Cho lesterol in HDL [Mass ratio] Serum or plasma total cholesterol/high density lipoprotein (HDL) cholesterol mass rat [facility] Comment on above: 3.3 - 4.4 LOW RISK4. 4 - 7.1 AVERAGE RISK7.1 - 11.0 MODERATE RISK>11.0 HIGH RISK MM screening mammo BI w/CADo n 06-06-2024 MM screening mammo BI w/CAD [facility] [place] [address] Mammography Report Signed Patient: Milana Miller MR#: [id number] 87 : 1970 Acct:[id number] Age/Sex: 54 / F ADM Date: 06/06/24 Loc: [place] Room: Type: [facility] Attending Dr: Referral Self Copies to: Rojelio [...] Sudha Mendoza M.D.06/06/2024 2:22 PM Dictation Location: [facility] Transcribed By: GEO 06/06/24 1422 Dictated By: Sudha Mendoza MD 06/06/24 1419 Signed By: 06/06/24 1422 Normal [facility] HCG ( test) IA.rapi d Ql (U)Ordered By: Johnathan More on 07-17-2023 HCG ( test) Ql (U) Negative [facility] HCG,Urineon 07-17-2023 Beta HCG ( test) Ql (U) Negative Normal [facility] Comment on above: Result Comment: PERF ORMED BY: [place] [address] PATHOLOGIST BUSINESS SERVICES COORDINATOR JAY LENTZ M.D. Performed By: #### U HCG #### [address] 07-17-2023 L - -------- Specimen: [id number] Received: 07/17/23 Status: ZHANE Moss Num: [id number] Spec Type: Surgical Subm Dr: Johnathan More MD Tissues: A Duodenum - Biopsy (DUODENUM BX) B Colon Biopsy (ASC POLYP) C Colon Biopsy (SIGMOID POLYP) Procedures: HE/6, Gross/Micro L4/3 -------- Age/ Patient Sex Location Account Attending Physician -------- Milana Miller 53/F [id number] Johnathan More MD -------- SPEC NUM: [id number] RECD: 07/17/23 STATUS: ZHANE MOSS NUM: [id number] JENNY: 07/17/23- SUBM DR: Johnathan More MD ENTERED: 07/17/[address]: SPEC TYPE: Surgical DEPT: S ORDERED: [...] date of and ascending colon -------- Specimen: [id number] Received: 07/17/23 Status: ZHANE Moss Num: [id number] Spec Type: Surgical Subm Dr: Johnathan More MD Tissues: A Duodenum - Biopsy (DUODENUM BX) B Colon Biopsy (ASC POLYP) C Colon Biopsy (SIGMOID POLYP) Procedures: SEAN/Josias, Gross/Micro L4/3 -------- Patient: Milana Miller [id number] (Continued) -------- Specimen: [id number] Received: 07/17/23 (Continued) Gross Description (Continued) Signed (signature on file) Renny Jang MD 07/18/23 1415 -------- Specimen: [id number] Received: 07/17/23 Status: ZHANE Moss Num: [id number] Spec Type: Surgical Subm Dr: Johnathan More MD Tissues: A Duodenum - Biopsy (DUODENUM BX) B Colon Biopsy (ASC POLYP) C Colon Biopsy (SIGMOID POLYP) Procedures: HE/Josias, Gross/Micro L4/3 -------- Patient: Milana Miller [id number] (Continued) -------- Specimen: [id number] Received: 07/17/23 (Continued) Gross Description (Continued) polyp is one chi tissue measuring 0.4 x 0.3 x 0.2 cm admixed with fecal material. Entirely submitted in one cassette labeled B1. C. Received in formalin labeled with the patient's name, date of and sigmoid polyp is one hci tissue measuring 0.2 cm. Entirely submitted in one cassette labeled C1. Microscopic Description A. Two H E slides reviewed. The microscopic examination confirms the diagnosis. B. Two H E slides reviewed. The microscopic examination confirms the diagnosis. C. Two H E slides reviewed. The microscopic examination confirms the diagnosis. CPT Codes 70006h4 -------- -------- Specimen: [id number] Received: 07/17/23 Status: ZHANE Kimballlinda Num: [id number] Spec Type: Surgical Subm Dr: Johnathan More MD Tissues: A Duodenum - Biopsy (DUODENUM BX) B Colon Biopsy (ASC POLYP) C Colon Biopsy (SIGMOID POLYP) Procedures: HE/6, Gross/Micro L4/3 -------- Patient: Milana Miller [id number] ([facility]) -------- Signed (signature on file) Renny Jang MD 07/18/23 1415 Normal [facility] Postoperative Documentson Postoperative Documents [id number]# 1.00CD:127 Normal [facility] Progress Note-Physicianon Progress Note-Physician Patient: MILANA MILLER Age: 52 years Sex: Female : 1970 Associated Diagnoses: None Author: MD Concepcion Ahmad F Postoperative Information Postoperative disposition: Postoperative disposition: To PACU. Optimetrix number: Optimetrix number [id number]. Anesthetic utilized: General. Health Status Allergies: Allergic [...] meets criteria ( To home ). Normal [facility] Comment on above: Result Comment: [...] Problems Abnormal uterine bleeding / SNOMED CT 7875918794 / Confirmed Chronic joint pain / SNOMED CT 08886655 / Confirmed Elevated fasting glucose / SNOMED CT 125420176 / Confirmed Benign hypertension / SNOMED CT 64545101 / Confirmed Adult hypothyroidism / SNOMED CT 75900586 / Confirmed Chronic instability of right knee / SNOMED CT 7851305197 / Confirmed Elbow pain, right / SNOMED CT 438678955 / Confirmed Thyroid nodule / SNOMED CT 879499478 / Confirmed Resolved: Chronic otitis media / SNOMED CT 51517001 Histories Past Medical History: Resolved Chronic otitis media (09704711): Resolved. Family History: Breast cancer Aunt Hypertension Father Kidney disease Father Prostate cancer Father Procedure history: Myringotomy and insertion of T tube (482430743) on 04/26/2023 at 52 Years. Right External Auditory Canal Cyst Removal (950969011) on 04/26/2023 at 52 Years. Colonoscopy (120297013). Myringotomy and insertion of tympanic ventilation tube (2372832395). Repair, tendon or muscle, upper arm or elbow, each tendon or muscle, primary or secondary (excludes rotator cuff) (08795). Social History Social & Psychosocial Habits Alcohol [...] results Radiology results ECG interpretation Condition Plan [place] [employer] (ASA) physical status classification: Class III. Anesthetic Preoperative Plan Anesthesia: General. . Anesthetic plan, risks, benefits, and alternatives discussed with the patient and/or family. Risks discussed: nausea, vomiting, headache, sore throat, dental injury, serious complications. Patient verbalized understanding. Communication: face to face with patient 5 minutes. [facility] Comment on above: Result Comment: Elec tronically Signed By: MD Jamey, Yinka Mahmood\.br\Date and Time Signed: 05/01/23 08:33 EDT Consent for Anesthesiaon Consent for Anesthesia [id number]# 1.00CD:127 [facility] Discharge Instructionson Discharge Instructions [id number]# 1.00CD:127 [facility] IntraOperative Documentson 0 04-27-2023 IntraOperative Documents [id number]# 1.00CD:127 [facility] IntraOperative Documents [id number]# 1.00CD:127 [facility] Main OR Intraoperative Recor don 04-27-2023 Main OR Intraoperative Record IntraOp Document Type FT Summary Primary Physician: Shameka Blum MD Finalized Date/Time: 04/27/23 12:54:47 Pt. Name: MILANA MILLER/Sex: 1970 Female Med Rec #: [id number] Physician: Shameka Blum MD Financial #: [id number] Pt. Type: A Room/Bed: Admit/Disch: 04/26/23 07:30:03 - 04/26/23 11:20:00 Institution: [...] Meagan Blum MD, Catalino Holm Role Performed COMPOSITION MOLDER Surgeon - Primary Automotive Consultant - Primary Time In 04/26/23 09:22:00 04/26/23 09:28:00 04/26/23 09:22:00 Time Out 04/26/23 09:48:00 04/26/23 09:48:00 04/26/23 09:48:00 Procedure MYRINGOTOMY W/ MYRINGOTOMY W/ MYRINGOTOMY W/ INSERTION OF INSERTION OF INSERTION OF TUBES(Bilateral), CYST TUBES(Bilateral), CYST TUBES(Bilateral), CYST LESION REMOVAL(Right) LESION REMOVAL(Right) LESION REMOVAL(Right) Comments Dr. Concepcion anesthesia supervisor scrap preparation Last Modified By: Charity Gonzalez Ii, Alfons Ii F Letrondo, Alfons Ii F 04/26/23 09:53:00 04/26/23 09:53:00 04/26/23 09:53:00 Entry 4 Entry 5 Case Attendee Charity Gonzalez Ii, Adam A Role Performed Automotive Consultant - Primary Scrub - Primary Time In [...] Outcomes Met? Yes Last Modified By: Charity Gonzaelz Ii 04/26/23 09:14:01 Post-Care Text: The patient [...] Yes No Primary Surgeon Shae JAVED, Shameka Blum MD, Shameka Mendez Start 04/26/23 09:29:00 04/26/23 09:29:00 Stop 04/26/23 [...] and tissue Entry 1 Skin Integrity Intact, [place], Warm, and Skin Abnormality (more content not included)... Normal [facility] Physician Orderon 04-27-2023 Physician Order [id number]# 1.00CD:127 Normal [facility] Preoperative Documentson Preoperative Documents [id number]# 1.00CD:127 Normal [facility] B hCG Qualon 04-26-2023 Beta hCG Ql Negative [facility] Comment on above: Performed By: #### 2 [id number] ####[facility] [address] [place] [address] Consent for Treatmenton Consent for Treatment [id number]#1 .00CD:127 [facility] Discharge Instructionson Discharge Instructions MILANA MILLER :1970 Visit Date:04/26/2023 Inpatient Discharge Instructions Your Care Team Admitting Physician - Shameka Blum MD Referring Physician - Shameka Blum MD Reason [...] these instructions at home: Medicines ? Take bdfm-xin-nknodua and prescription medicines only as told by [...] common to have ear pain. ? Take ohch-iwr-laqqbeg and prescription medicines only as told by [...] advice g (more content not included)... Normal [facility] Comment on above: Result Comment: Elec tronically Signed By: Danelle Moran I\.marylin\Date and Time Signed: 04/26/23 10:37 EDT H&P Updateon 04-26-2023 H&P Update [id number]# 1.00CD:127 Normal [facility] Inpatient Patient Summaryon 04-26-2023 Inpatient Patient Summary [address] [place] [address] [facility] Clinical Discharge Instructions PERSON INFORMATION Name: MILANA [...] Milligram By Mouth every day. Comment: Normal [facility] Main OR PACU I Recordon Main OR PACU I Record PACU Phase I Docum ent Type FT Summary Primary Physician: Shameka Blum MD Finalized Date/Time: 04/26/23 10:25:21 Pt. Name: MILANA MILLER Navi KeysB./Sex: 1970 Female Med Rec #: [id number] Physician: Shameka Blum MD Financial #: [id number] Pt. Type: A Room/Bed: [place] [address] Admit/Disch: 04/26/23 07:30:03 - Institution: Case Times [...] By: SITA BAUER RN 04/26/23 10:25 Normal [facility] Main OR PACU II Recordon Main OR PACU II Record PACU Phase II Document Type FT Summary Primary Physician: Shameka Blum MD Finalized Date/Time: 04/26/23 11:28:53 Pt. Name: MILANA MILLER/Sex: 1970 Female Med Rec #: [id number] Physician: Shameka Blum MD Financial #: [id number] Pt. Type: A Room/Bed: Admit/Disch: 04/26/23 07:30:03 [...] By: Danelle Moran I 04/26/23 11:28 Normal [facility] Main OR Preoperative Recordo n 04-26-2023 Main OR Preoperative Record PreOp Document Type FT Summary Primary Physician: Shameka Blum MD Finalized Date/Time: 04/26/23 09:27:27 Pt. Name: MILANA MILLER Navi Quezada/Sex: 1970 Female Med Rec #: [id number] Physician: Shameka Blum MD Financial #: [id number] Pt. Type: A Room/Bed: [place] [address] Admit/Disch: 04/26/23 07:30:03 - Institution: Case Times [...] By: Charity Gonzalez Ii 04/26/23 09:27 Normal [facility] Monitor Recordon 04-26-2023 Monitor Record [id number]# 1.00CD:127 Normal [facility] Monitor Record [id number]# 1.00CD:127 Normal [facility] Operative Reporton Operative Report SURGERY [...] condition. Shameka Blum Jr., M.D. Dictated: 04/26/2023 [id number] Transcribed: 04/26/2023 cc:Rojelio Loya M.D. [facility] Comment on above: Result Comment: Elec tronically Signed By: Shameka Blum MD\.br\Date and Time Signed: 04/26/23 14:58 EDT Outpatient Surgery Discharge Instructionon 04-26-2023 Outpatient Surgery Discharge Instruction [place] [id number] Patient Discharge Instructions PERSON INFORMATION Name: MILLER MILANA R Date of : 1970 Current Date: 04/26/2023 [...] THE NEAREST EMERGENCY ROOM OR CALL 911 ZACHARY Deluca LISA R, have received the attached patient education materials/instruction s and have verbalized understanding: May we do a follow up call? Yes No I was present when discharge instructions were given Patient Signature Date Clinican/Nurse Signature Date Follow up: With: Address: When: Shameka Blum Comments: One month Pharmacy Information: You may receive a survey from [employer] asking you to rate your care experience. Your feedback is important and will help us understand what we do well and how we can improve the quality of care we provide to you, your loved ones and our community. It?s an honor to serve you. Thank you for choosing [facility] HERE ARE THE MEDICATION CHANGES THAT OCCURRED [...] day. PATIENT EDUCATION INFORMATION Instructions: Medication Leaflets: [facility] Patient Education - Texton 0 04-26-2023 Patient [...] these instructions at home: Medicines ? Take jqou-mnk-zbpemsx and prescription medicines only as told by [...] common to have ear pain. ? Take rvad-mgw-shttoif and prescription medicines only as told by [...] provider. Document Revised: 04/03/2022 Document Reviewed: 04/03/2022 Elsevier Patient Education ? 2022 [employer] Normal [facility] SEROLOGYOrdered By: Yudi Hernandez on 04-26-2023 Beta hCG Ql Negative (04/26/23 8:06 AM) Normal [facility] Man Sero Consent for Procedure/Surger yon 04-20-2023 Consent for Procedure/Surgery [id number]#1 .00CD:127 Normal [facility] Auto Diffon 04-19-2023 Basophils/100 WBC (Bld) 0.6 % Normal 0.0-2.0 [facility] Comment on above: Order Comment: Order Added by Discern Expert. Performed By: #### 2 542920, [id number] ####[facility] [address] [place] [address] Basophils/Leukocytes Auto (Bld) [Pure # fraction] 0.0 E9/L Normal 0.0-0.2 [facility] Comment on above: Order Comment: Order Added by Discern Expert. Performed By: #### 2 280638, [id number] ####[facility] [address] [place] [address] Eosinophils/100 WBC (Bld) 2.0 % Normal 0.0-8.0 [facility] Comment on above: Order Comment: Order Added by Discern Expert. Performed By: #### 2 276918, [id number] ####[facility] [address] [place] [address] Eosinophils/Leukocyte s Auto (Bld) [Pure # fraction] 0.2 E9/L Normal 0.0-0.5 [facility] Comment on above: Order Comment: Order Added by Discern Expert. Performed By: #### 2 734341, 5553556 ####[facility] [address] [place] [address] Lymphocytes/100 WBC (Bld) 26.9 % Normal 14.0-50.0 [facility] Comment on above: Order Comment: Order Added by Discern Expert. Performed By: #### 2 898509, 4989990 ####[address] [address] Lymphocytes/Leukocyte s Auto (Bld) [Pure # fraction] 2.1 E9/L Normal 1.0-4.0 [facility] Comment on above: Order Comment: Order Added by Discern Expert. Performed By: #### 2 922231, 6389056 ####[address] [address] Monocytes/100 WBC (Bld) 6.9 % Normal 4.0-14.0 [facility] Comment on above: Order Comment: Order Added by Discern Expert. Performed By: #### 2 727046, 9646225 ####[address] [address] Monocytes/Leukocytes Auto (Bld) [Pure # fraction] 0.5 E9/L Normal 0.2-1.0 [facility] Comment on above: Order Comment: Order Added by Discern Expert. Performed By: #### 2 344290, 0223662 ####[address] [address] Neutrophils/100 WBC (Bld) 63.6 % Normal 36.0-75.0 [facility] Comment on above: Order Comment: Order Added by Discern Expert. Performed By: #### 2 335917, 7172485 ####[address] [address] Neutrophils/Leukocyte s Auto (Bld) [Pure # fraction] 5.1 E9/L Normal 2.0-7.5 [facility] Comment on above: Order Comment: Order Added by Erick Expert. Performed By: #### 2 025001, 3063145 ####[address] [address] BUNon 04-19-2023 Urea nitrogen [Mass/Vol] 18 mg/dL Normal 5-21 [facility] Comment on above: Performed By: #### 2 001773, 8888722, 6696663, 89771484, 5542284 ####[facility] [address] [place] [address] CBC w/ Auto Diffon Erythrocyte distribution width (RBC) [Ratio] 13.7 % Normal 10.9-14.2 [facility] Comment on above: Performed By: #### 2 028159, 6467984 ####[address] [address] Hematocrit (Bld) [Volume fraction] 39.7 % Normal 34.0-46.0 [facility] Comment on above: Performed By: #### 2 930522, 8359903 ####[address] [address] Hemoglobin (Bld) [Mass/Vol] 13.7 g/dL Normal 12.0-16.0 [facility] Comment on above: Performed By: #### 2 598202, 5273741 ####[address] [address] MCH (RBC) [Entitic mass] 29.4 pg Normal 27.0-34.0 [facility] Comment on above: Performed By: #### 2 806298, 2490056 ####[address] [address] MCHC (RBC) [Mass/Vol] 34.4 g/dL Normal 31.4-36.0 [facility] Comment on above: Performed By: #### 2 417149, 9615317 ####[address] [address] MCV (RBC) [Entitic vol] 85.5 fL Normal 80.0-100.0 [facility] Comment on above: Performed By: #### 2 066500, 5457366 ####[address] [address] Platelet mean volume (Bld) [Entitic vol] 7.2 fL Normal 6.4-10.8 [facility] Comment on above: Performed By: #### 2 988167, 4416558 ####[facility] [address] [place] [address] Platelets (Bld) [#/Vol] 354.0 E9/L Normal 150.0-500.0 [facility] Comment on above: Performed By: #### 2 859840, 7617288 ####[facility] [address] [place] [address] RBC (Bld) [#/Vol] 4.6 E12/L Normal 4.3-5.9 [facility] Comment on above: Performed By: #### 2 775220, 3693847 ####[facility] [address] [place] [address] WBC corrected for nucl RBC Auto (Bld) [#/Vol] 8.0 E9/L Normal 4.0-11.0 [facility] Comment on above: Performed By: #### 2 718514, 7137270 ####[facility] [address] [place] [address] CHEMISTRYOrdered By: SYSTEM SYSTEM on 04-19-2023 Anion gap [Moles/Vol] 9 mmol/L Normal 6 - 16 mEq/L [facility] Remisol Chloride [Moles/Vol] 107 mmol/L Normal 101 - 1 11 mmol/L [facility] Remisol CO2 [Moles/Vol] 29 mmol/L Normal 21 - 31 mmol/L [facility] Remisol Creatinine [Mass/Vol] 0.8 mg/dL Normal 0.5 - 1.3 mg/dL [facility] Remisol GFR/1.73 sq M.predicted among non-blacks MDRD (S/P/Bld) [Vol rate/Area] 89 mL/min/1.73 m2 Normal >=59mL/min/1. 73 m2 [facility] Chem S Glucose [Mass/Vol] 93 mg/dL Normal 55 - 199 mg/dL [facility] Remisol Potassium [Moles/Vol] 3.8 mmol/L Normal 3.5 - 5.3 mmol/L [facility] Remisol Sodium [Moles/Vol] 141 mmol/L Normal 135 - 145 mmol/L [facility] Remisol Urea nitrogen [Mass/Vol] 18 mg/dL Normal 5 - 21 mg/dL [facility] Remisol Consent for Treatmenton 03-22 Consent for Treatment [id number]#1 .00CD:127 Normal [facility] Creatinineon 04-19-2023 Creatinine [Mass/Vol] 0.8 mg/dL Normal 0.5-1.3 [facility] Comment on above: Performed By: #### 2 624858, 1504753, 0248406, 60883552, 9445587 ####[facility] [address] [place] [address] Glucoseon 04-19-2023 Glucose [Mass/Vol] 93 mg/dL Normal 55-199 [facility] Comment on above: Performed By: #### 2 361078, 9117883, 1448701, 30759900, 4179100 ####[facility] [address] [place] [address] HEMATOLOGYOrdered By: SYSTEM SYSTEM on 04-19-2023 Basophils/100 WBC (Bld) 0.6 % Normal 0.0 - 2.0 % [facility] HemeAutoSS Basophils/Leukocytes Auto (Bld) [Pure # fraction] 0.0 E9/L Normal 0.0 - 0.2 E9/L FT [facility]eAuto[facility] Eosinophils/100 WBC (Bld) 2.0 % Normal 0.0 - 8.0 % FT [facility]eAutoSS Eosinophils/Leukocyte s Auto (Bld) [Pure # fraction] 0.2 E9/L Normal 0.0 - 0.5 E9/L [facility] HemeAutoSS Lymphocytes/100 WBC (Bld) 26.9 % Normal 14.0 - 50.0 % [facility] HemeAutoSS Lymphocytes/Leukocyte s Auto (Bld) [Pure # fraction] 2.1 E9/L Normal 1.0 - 4.0 E9/L [facility] HemeAutoSS Monocytes/100 WBC (Bld) 6.9 % Normal 4.0 - 14.0 % [facility] HemeAutoSS Monocytes/Leukocytes Auto (Bld) [Pure # fraction] [...] 13.7 g/dL Normal 12.0 - 16.0 gm/dL [facility] HemeAutoSS MCH (RBC) [Entitic mass] 29.4 pg [...] 4.6 E12/L Normal 4.3 - 5.9 E12/L [facility] HemeAutoSS WBC corrected for nucl RBC Auto (Bld) [#/Vol] 8.0 E9/L Normal 4.0 - 11.0 E9/L [facility] HemeAutoSS Lyteson 04-19-2023 Anion gap [Moles/Vol] 9 mmol/L Normal 6-16 [facility] Comment on above: Performed By: #### 2 603883, 9413150, 8472809, 59822330, 9584612 ####[facility] [address] [place] [address] Chloride [Moles/Vol] 107 mmol/L Normal 101-111 [facility] Comment on above: Performed By: #### 2 772911, 1235616, 8665869, 39790738, 9177880 ####[facility] [address] [place] [address] CO2 [Moles/Vol] 29 mmol/L Normal 21-31 [facility] Comment on above: Performed By: #### 2 239695, 8736319, 2114200, 31378495, 2044556 ####[facility] [address] [place] [address] Potassium [Moles/Vol] 3.8 mmol/L Normal 3.5-5.3 [facility] Comment on above: Performed By: #### 2 604706, 6497730, 2032417, 44293186, 4861569 ####[facility] [address] [place] [address] Sodium [Moles/Vol] 141 mmol/L Normal 135-145 [facility] Comment on above: Performed By: #### 2 [id number], [id number], [id number], [id number], [id number] ####[facility] [id number] [place] [address] XR Chest 2 Viewson 3 XR Chest [...] LALO Technologist: THERON Technical Comments Radiation Dose: navi Rai in mGy = na DAP = na Normal [facility] eGFRon 04-19-2023 GFR/1.73 sq M.predicted among non-blacks MDRD (S/P/Bld) [Vol rate/Area] 89 mL/min/1.73 m2 Normal >=59 [facility] Comment on above: Order Comment: Order added by Discern Expert. Result Comment: Major Assembly Inspector enedelia kidney disease could be indicated at eGFR's of less than 60 mL/min/1.73m2. Kidney failure is indicated at less than 15 mL/min/1.73m2. Performed By: #### 2 [id number], [id number], [id number], [id number], [id number] ####[facility] [id number] [place] [address] PAP ACOG PANEL 2: 30 to 65on 01-17-2023 Age Gdln ACOG Testing 30-65 Normal [facility] Comment on above: Performed By: #### 4 [id number] #### [facility] [address] [place] [address] Dr. Jamel Jang CELIAC ANTIBODIES PROFILEon 11-27-2022 Endomysial Antibody IgA Negative Normal Negative [facility] Comment on above: Performed By: #### F T4 #### [facility] [address] [place] [address] Dr. Jamel Jang Immunoglobulin A, Qn, Serum 217 mg/dL Normal 87-352 [facility] Comment on above: Performed By: #### F T4 #### [facility] [address] [place] [address] Dr. Jamel Jang t-Transglutaminase (tTG) IgG 6 U/mL Critically high 0-5 [facility] Comment on above: Result Comment: Nega tive 0 - 5 Weak Positive 6 - 9 Positive >9 Performed By: #### F T4 #### [facility] [address] [place] [address] Dr. Jamel Jang Deamidated Gliadin Abs, IgA 7 units Normal 0-19 [facility] Comment on above: Result Comment: Nega tive 0 - 19 Weak Positive 20 - 30 Moderate to Strong Positive >30 Performed By: #### F T4 #### [facility] [address] [place] [address] Dr. Jamel Jang Deamidated Gliadin Abs, IgG 9 units Normal 0-19 [facility] Comment on above: Result Comment: Nega tive 0 - 19 Weak Positive 20 - 30 Moderate to Strong Positive >30 Performed By: #### F T4 #### [facility] [address] [place] [address] Dr. Jamel Jang t-Transglutaminase (tTG) IgA <2 Normal 0-[address] [facility] Comment on above: Result Comment: Nega tive 0 - 3 Weak Positive 4 - 10 Positive >10 . Tissue Transglutaminase (tTG) has been identified as the endomysial antigen. Studies have demonstr- ated that endomysial IgA antibodies have over 99% specificity for gluten sensitive enteropathy. Performed By: #### F T4 #### [facility] [address] [place] [address] Dr. Jamel Jang THYROID ANTIBODIESon 023 Thyroglobulin Antibody <1.0 Normal 0.0-0.9 [facility] Comment on above: Result Comment: Thyr oglobulin Antibody measured by kwiry Methodology Performed By: #### F T4 #### [facility] [address] [place] [address] Dr. Jamel Jang Thyroid Peroxidase (TPO) Ab 105 IU/mL Critically high 0-[address] [facility] Comment on above: Performed By: #### F T4 #### [facility] [address] [place] [address] Dr. Jamel Jang VIT D 1 25 DIHYDROXYon 11-27 Calcitriol(1,25 di-OH Vit D) 77.1 pg/mL Normal 24.8-81.[address] [facility] Comment on above: Performed By: #### V [id number] #### [facility] [address] [place] [address] Dr. Jamel Jang CORTISOLon 11-25-2022 Cortisol 14.0 ug/dL Normal [facility] Comment on above: Result Comment: Gil isol AM 6.2 - 19.4 Cortisol PM 2.3 - 11.9 Performed By: #### C ORTISO #### [facility] [address] [place] [address] Dr. Jamel Jang INSULINon 11-25-2022 Insulin 9.4 uIU/mL Normal 2.6-24.9 [facility] Comment on above: Performed By: #### I NSULIN #### [facility] [address] [place] [address] Dr. Jamel Jang CBC AUTO DIFFon 11-24-2022 BASO # 0.0 103/ul Normal 0.0-0.1 [facility] Comment on above: Performed By: #### C BC #### [facility] [address] [place] [address] Dr. Jamel Jang Basophils/100 WBC (Bld) 0.4 % Normal 0.2-2.0 [facility] Comment on above: Performed By: #### C BC #### [facility] [address] [place] [address] Dr. Jamel Jang EO # 0.3 103/ul Normal 0.0-0.7 [facility] Comment on above: Performed By: #### C BC #### [facility] [address] [place] [address] Dr. Jamel Jang Eosinophils/100 WBC (Bld) 5.7 % Normal 0.9-7.0 [facility] Comment on above: Performed By: #### C BC #### [facility] [address] [place] [address] Dr. Jamel Jang Erythrocyte distribution width (RBC) [Ratio] 12.4 % Normal 11.0-15.0 [facility] Comment on above: Performed By: #### C BC #### [facility] [address] [place] [address] Dr. Jamel Jang Hematocrit (Bld) [Volume fraction] 38.6 % Normal 36.0-48.0 [facility] Comment on above: Performed By: #### C BC #### [facility] [address] [place] [address] Dr. Jamel Jang Hemoglobin (Bld) [Mass/Vol] 13.0 g/dL Normal 12.0-16.0 [facility] Comment on above: Performed By: #### C BC #### [facility] [address] [place] [address] Dr. Jamel Jang IG # 0.00 10e3/ul Normal 0.00-0.03 [facility] Comment on above: Performed By: #### C BC #### [facility] [address] [place] [address] Dr. Jamel Jang IG % 0.0 % Normal 0.0-0.5 [facility] Comment on above: Performed By: #### C BC #### [facility] [address] [place] [address] Dr. Jamel Jang LYMPH # 2.0 103/ul Normal 1.2-3.8 [facility] Comment on above: Performed By: #### C BC #### [facility] [address] [place] [address] Dr. Jamel Jang Lymphocytes/100 WBC (Bld) 35.9 % Normal 20.5-60.0 [facility] Comment on above: Performed By: #### C BC #### [facility] [address] [place] [address] Dr. Jamel Jang MANUAL DIFF REQ NO Normal [facility] Comment on above: Performed By: #### C BC #### [facility] [address] [place] [address] Dr. Jamel Jang MCH (RBC) [Entitic mass] 28.1 pg Normal 26.7-34.0 [facility] Comment on above: Performed By: #### C BC #### [facility] [address] [place] [address] Dr. Jamel Jang MCHC (RBC) [Mass/Vol] 33.7 g/dL Normal 29.9-35.2 [facility] Comment on above: Performed By: #### C BC #### [facility] [address] [place] [address] Dr. Jamel Jang MCV (RBC) [Entitic vol] 83.4 fL Normal 81.0-99.0 [facility] Comment on above: Performed By: #### C BC #### [facility] [address] [place] [address] Dr. Jamel Jang MONO # 0.6 103/ul Normal 0.3-0.8 [facility] Comment on above: Performed By: #### C BC #### [facility] [address] [place] [address] Dr. Jamel Jang Monocytes/100 WBC (Bld) 10.2 % Normal 1.7-12.0 [facility] Comment on above: Performed By: #### C BC #### [facility] [address] [place] [address] Dr. Jamel Jang NEUT # 2.7 103/ul Normal 1.4-6.5 [facility] Comment on above: Performed By: #### C BC #### [facility] [address] [place] [address] Dr. Jamel Jang Neutrophils/100 WBC (Bld) 47.8 % Normal 43.0-75.0 [facility] Comment on above: Performed By: #### C BC #### [facility] [address] [place] [address] Dr. Jamel Jang Platelet mean volume (Bld) [Entitic vol] 8.9 fL Critically low 9.5-13.5 [facility] Comment on above: Performed By: #### C BC #### [facility] [address] [place] [address] Dr. Jamel Jang PLT 314 103/ul Normal 150-[address] [facility] Comment on above: Performed By: #### C BC #### [facility] [address] [place] [address] Dr. Jamel Jang RBC 4.63 106/ul Normal 4.20-5.[address] [facility] Comment on above: Performed By: #### C BC #### [facility] [address] [place] [address] Dr. Jamel Jang WBC 5.6 103/ul Normal 4.0-11.[address] [facility] Comment on above: Performed By: #### C BC #### [facility] [address] [place] [address] Dr. Jamel Jang FERRITINon 11-24-2022 Ferritin [Mass/Vol] 39.0 ng/mL Normal 8.0-252.0 [facility] Comment on above: Performed By: #### F T4 #### [facility] [address] [address] [address] Jamel Jang FREE T3on 11-24-2022 FREE T3 3.76 pg/mlL Normal 2.18-3.[address] [facility] Comment on above: Performed By: #### T SH, LIPID, CMP, FT3 #### [facility] [address] [address] [address] Jamel Jang FREE T4on 11-24-2022 Free T4 [Mass/Vol] 1.46 ng/dL Normal 0.76-1.46 [facility] Comment on above: Performed By: #### F T4 #### [facility] [address] [place] [address] Dr. Jamel Jang GLYCOHEMOGLOBIN A1Con 2022 ADA RECOMMENDATION SEE BELOW Normal [facility] Comment on above: Result Comment: ADA RECOMMENDED LIMIT 4.0 - 6.0 ADA THERAPEUTIC TARGET < 7.0 ACTION SUGGESTED > 7.0 Performed By: #### F T4 #### [facility] [address] [place] [address] Dr. Jamel Jang Glucose [Mass/Vol] 117 mg/dL Normal [facility] Comment on above: Performed By: #### F T4 #### [facility] [address] [address] [address] Jamel Jang HbA1c (Bld) [Mass fraction] 5.7 % Normal 4.5-6.[address] [facility] Comment on above: Performed By: #### F T4 #### [facility] [address] [place] [address] Dr. Jamel Jang IRON AND TIBCon 11-24-2022 % SATURATION 20.7 % Normal [facility] Comment on above: Performed By: #### F T4 #### [facility] [address] [place] [address] Dr. Jamel Jang Iron [Mass/Vol] 57.0 ug/dL Normal 50.0-170.0 [facility] Comment on above: Performed By: #### F T4 #### [facility] [address] [address] [address] aJmel Jang TIBC DIRECT 275.0 ug/dL Normal 250.0-450.0 [facility] Comment on above: Performed By: #### F T4 #### [facility] [address] [address] [address] Jamel Jang LIPID PROFILEon 11-24-2022 CHOL-HDL RATIO NORM SEE BELOW Normal [facility] Comment on above: Result Comment: 3.3 - 4.4 LOW RISK 4.4 - 7.1 AVERAGE RISK 7.1 - 11.0 MODERATE RISK >11.0 HIGH RISK Performed By: #### T SH, LIPID, CMP, FT3 #### [facility] [address] [address] [address] Jamel Jang Cholesterol [Mass/Vol] 153 mg/dL Normal <=200 [facility] Comment on above: Performed By: #### T SH, LIPID, CMP, FT3 #### [facility] [address] [address] [address] Jamel Jang Cholesterol in HDL [Mass/Vol] 49 mg/dL Normal 40-60 [facility] Comment on above: Performed By: #### T SH, LIPID, CMP, FT3 #### [facility] [address] [address] [address] Jamel Jang Cholesterol in LDL [Mass/Vol] 89.2 mg/dL Normal [facility] Comment on above: Performed By: #### T SH, LIPID, CMP, FT3 #### [facility] [address] [address] [address] Jamel Jang Cholesterol.total/Cho lesterol in HDL [Mass ratio] 3.1 {ratio} Normal [facility] Comment on above: Performed By: #### T SH, LIPID, CMP, FT3 #### [facility] [address] [address] [address] Jamel Jang HDL NORMAL > or = 60 mg/dl - LO W CARDIOVASCULAR RISK <40 mg/dl - HIGH CARDIOVASCULAR RISK Normal [facility] Comment on above: Performed By: #### T SH, LIPID, CMP, FT3 #### [facility] [address] [address] [address] Jamel Jang LDL CALC NORMAL SEE BELOW Normal [facility] Comment on above: Result Comment: <100 mg/dl OPTIMAL 100 - 129 mg/dl NEAR OR ABOVE OPTIMAL 130 - 159 mg/dl BORDERLINE HIGH 160 - 189 mg/dl HIGH >190 mg/dl VERY HIGH Performed By: #### T SH, LIPID, CMP, FT3 #### [facility] [address] [address] [address] Jamel Jang Triglyceride [Mass/Vol] 74 mg/dL Normal <=150 [facility] Comment on above: Performed By: #### T SH, LIPID, CMP, FT3 #### [facility] [address] [address] [address] Jamel Jang VLDL CALC 14.8 mg/dL Normal [facility] Comment on above: Performed By: #### T SH, LIPID, CMP, FT3 #### [facility] [address] [address] [address] Jamel Jang PROF 14(COMP METB)on 023 Albumin [Mass/Vol] 3.5 g/dL Normal 3.4-5.0 [facility] Comment on above: Performed By: #### T SH, LIPID, CMP, FT3 #### [facility] [address] [address] [address] Jamel Jang Albumin/Globulin [Mass ratio] 1.0 {ratio} Normal [facility] Comment on above: Performed By: #### T SH, LIPID, CMP, FT3 #### [facility] [address] [address] [address] Jamel Jang ALP [Catalytic activity/Vol] 85 U/L Normal 46-116 [facility] Comment on above: Performed By: #### T SH, LIPID, CMP, FT3 #### [facility] [address] [place] [address] Dr. Jamel Jang ALT [Catalytic activity/Vol] 37 U/L Normal 14-59 [facility] Comment on above: Performed By: #### T SH, LIPID, CMP, FT3 #### [facility] [address] [address] [address] Jamel Jang Anion gap [Moles/Vol] 12.4 mmol/L Normal [facility] Comment on above: Performed By: #### T SH, LIPID, CMP, FT3 #### [facility] [address] [address] [address] Jamel Jang AST [Catalytic activity/Vol] 20 U/L Normal 15-37 [facility] Comment on above: Performed By: #### T SH, LIPID, CMP, FT3 #### [facility] [address] [place] [address] Dr. Jamel Jang Bilirubin [Mass/Vol] 0.4 mg/dL Normal 0.2-1.0 [facility] Comment on above: Performed By: #### T SH, LIPID, CMP, FT3 #### [facility] [address] [place] [address] Dr. Jamel Jang Calcium [Mass/Vol] 9.2 mg/dL Normal 8.5-10.1 [facility] Comment on above: Performed By: #### T SH, LIPID, CMP, FT3 #### [facility] [address] [place] [address] Dr. Jamel Jang Chloride [Moles/Vol] 105 mmol/L Normal 98-107 [facility] Comment on above: Performed By: #### T SH, LIPID, CMP, FT3 #### [facility] [address] [place] [address] Dr. Jamel Jang CO2 [Moles/Vol] 28.0 mmol/L Normal 21.0-32.0 [facility] Comment on above: Performed By: #### T SH, LIPID, CMP, FT3 #### [facility] [address] [place] [address] Dr. Jamel Jang Creatinine [Mass/Vol] 0.56 mg/dL Normal 0.55-1.02 [facility] Comment on above: Performed By: #### T SH, LIPID, CMP, FT3 #### [facility] [address] [address] [address] Jamel Jang EGFR-AF [place] >60 Normal >=60 [facility] Comment on above: Performed By: #### T SH, LIPID, CMP, FT3 #### [facility] [address] [address] [address] Jamel Jang EGFR-NON AF CITIZEN [place] >60 Normal >=60 [facility] Comment on above: Performed By: #### T SH, LIPID, CMP, FT3 #### [facility] [address] [address] [address] Jamel Jang Globulin (S) [Mass/Vol] 3.5 g/dL Normal [facility] Comment on above: Performed By: #### T SH, LIPID, CMP, FT3 #### [facility] [address] [address] [address] Jamel Jang Glucose [Mass/Vol] 114 mg/dL Critically high 74-106 [facility] Comment on above: Performed By: #### T SH, LIPID, CMP, FT3 #### [facility] [address] [address] [address] Jamel Jang Potassium [Moles/Vol] 3.4 mmol/L Critically low 3.5-5.1 [facility] Comment on above: Performed By: #### T SH, LIPID, CMP, FT3 #### [facility] [address] [address] [address] Jamel Jang Protein [Mass/Vol] 7.0 g/dL Normal 6.4-8.2 [facility] Comment on above: Performed By: #### T SH, LIPID, CMP, FT3 #### [facility] [address] [place] [address] Dr. Jamel Jang Sodium [Moles/Vol] 142 mmol/L Normal 136-145 [facility] Comment on above: Performed By: #### T SH, LIPID, CMP, FT3 #### [facility] [address] [address] [address] Jamel Jang Urea nitrogen [Mass/Vol] 23.0 mg/dL Critically high 7.0-18.0 [facility] Comment on above: Performed By: #### T SH, LIPID, CMP, FT3 #### [facility] [address] [place] [address] Dr. Jamel Jang Urea nitrogen/Creatinine [Mass ratio] 41.1 mg/mg Normal [facility] Comment on above: Performed By: #### T SH, LIPID, CMP, FT3 #### [facility] [address] [place] [address] Dr. Jamel Jang TSHon 11-24-2022 TSH Qn m[IU]/L Critically low 0.358-3.740 [facility] Comment on above: Performed By: #### T SH, LIPID, CMP, FT3 #### [facility] [address] [place] [address] Dr. Jamel Jang VITAMIN B12on 11-24-2022 Cobalamin (Vitamin B12) [Mass/Vol] 132.0 pg/mL Critically low 193.0-986.0 [facility] Comment on above: Performed By: #### F T4 #### [facility] [address] [place] [address] Dr. Jamel Jang FREE T4on 02-22-2022 Free T4 [Mass/Vol] 1.14 ng/dL Normal 0.76-1.46 [facility] Comment on above: Performed By: #### F T4 #### [facility] [address] [place] [address] Dr. Jamel Jang GLYCOHEMOGLOBIN A1Con 2021 ADA RECOMMENDATION SEE BELOW Normal [facility] Comment on above: Result Comment: ADA RECOMMENDED LIMIT 4.0 - 6.0 ADA THERAPEUTIC TARGET < 7.0 ACTION SUGGESTED > 7.0 Performed By: #### F T4 #### [facility] [address] [place] [address] Dr. Jamel Jang Glucose [Mass/Vol] 120 mg/dL Normal [facility] Comment on above: Performed By: #### F T4 #### [facility] [address] [place] [address] Dr. Jamel Jang HbA1c (Bld) [Mass fraction] 5.8 % Normal 4.5-6.2 [facility] Comment on above: Performed By: #### F T4 #### [facility] [address] [place] [address] Dr. Jamel Jang PROF CHEM 8 (BAS METB)on Anion gap [Moles/Vol] 10.8 mmol/L Normal [facility] Comment on above: Performed By: #### F T4 #### [facility] [address] [place] [address] Dr. Jamel Jang Calcium [Mass/Vol] 9.3 mg/dL Normal 8.5-10.1 [facility] Comment on above: Performed By: #### F T4 #### [facility] [address] [place] [address] Dr. Jamel Jang Chloride [Moles/Vol] 106 mmol/L Normal 98-107 [facility] Comment on above: Performed By: #### F T4 #### [facility] [address] [place] [address] Dr. Jamel Jang CO2 [Moles/Vol] 30.3 mmol/L Normal 21.0-32.0 [facility] Comment on above: Performed By: #### F T4 #### [facility] [address] [place] [address] Dr. Jamel Jang Creatinine [Mass/Vol] 0.77 mg/dL Normal 0.55-1.02 [facility] Comment on above: Performed By: #### F T4 #### [facility] [address] [place] [address] Dr. Jamel Jang EGFR-AF CITIZ[place] >60 Normal >=60 [facility] Comment on above: Performed By: #### F T4 #### [facility] [address] [place] [address] Dr. Jamel Jang EGFR-NON AF CITIZEN OF [place] >60 Normal >=60 [facility] Comment on above: Performed By: #### F T4 #### [facility] [address] [place] [address] Dr. Jamel Jang Glucose [Mass/Vol] 119 mg/dL Critically high 74-106 [facility] Comment on above: Performed By: #### F T4 #### [facility] [address] [address] [address] Jamel Jang Potassium [Moles/Vol] 4.1 mmol/L Normal 3.5-5.1 [facility] Comment on above: Performed By: #### F T4 #### [facility] [address] [address] [address] Jamel Jang Sodium [Moles/Vol] 143 mmol/L Normal 136-145 [facility] Comment on above: Performed By: #### F T4 #### [facility] [address] [place] [address] Dr. Jamel Jang Urea nitrogen [Mass/Vol] 19.0 mg/dL Critically high 7.0-18.0 [facility] Comment on above: Performed By: #### F T4 #### [facility] [address] [place] [address] Dr. Jamel Jang Urea nitrogen/Creatinine [Mass ratio] 24.7 mg/mg Normal [facility] Comment on above: Performed By: #### F T4 #### [facility] [address] [place] [address] Dr. Jamel Jang TSHon 02-22-2022 TSH 1.391 uIU/mL Normal 0.358-3.740 [facility] Comment on above: Performed By: #### F T4 #### [facility] [address] [place] [address] Dr. Jamel Jang MRI Shoulder w/o Lefton [...] by Kendall Smith on 01/19/2022 1129 Normal [facility] MRI Elbow w/o Righton 2020 MRI [...] by Kendall Smith on 08/02/2021 1338 Normal [facility] Vital Signs Date Time Vital Sign Value Performing Clinician Facility 04-21-2025 08:53-0400 Body height 156.39 cm Rojelio Loya MD Work Phone: [facility] 04-21-2025 08:53-0400 Body mass index (BMI) [Ratio] 34.4 kg/m2 Rojelio Loya MD Work Phone: [facility] 04-21-2025 08:53-0400 Body weight 84.1 kg Rojelio Loya MD Work Phone: [facility] 04-21-2025 08:53-0400 Diastolic blood pressure 80 mm[Hg] Rojelio Loya MD Work Phone: [facility] 04-21-2025 08:53-0400 Heart rate 74 /min Rojelio Loya MD Work Phone: [facility] 04-21-2025 08:53-0400 Respiratory rate 18 /min Rojelio Loya MD Work Phone: [facility] 04-21-2025 08:53-0400 SaO2% (BldA) [Mass fraction] 100 % Rojelio Loya MD Work Phone: [facility] 04-21-2025 08:53-0400 Systolic blood pressure 129 mm[Hg] Rojelio Loya MD Work Phone: [facility] 03-30-2025 08:39-0400 Body height 156.39 cm Rojelio Loya MD Work Phone: [facility] 03-30-2025 08:39-0400 Body mass index (BMI) [Ratio] 34.9 kg/m2 Rojelio Loya MD Work Phone: [facility] 03-30-2025 08:39-0400 Body weight 85.3 kg Rojelio Loya MD Work Phone: [facility] 03-06-2025 09:12-0400 Body height 157.5 cm Shameka Blum MD Work Phone: [facility] [facility] 03-06-2025 09:12-0400 Body mass index (BMI) [Ratio] 40.06 kg/m2 Shameka Blum MD Work Phone: [facility] 03-06-2025 09:12-0400 Body weight 99.34 kg Shameka Blum MD Work Phone: [facility] 03-06-2025 09:12-0400 Diastolic blood pressure 86 mm[Hg] Shameka Blum MD Work Phone: [facility] 03-06-2025 09:12-0400 Heart rate 63 /min Shameka Blum MD Work Phone: [facility] 03-06-2025 09:12-0400 Systolic blood pressure 147 mm[Hg] Shameka Blum MD Work Phone: [facility] 02-23-2025 09:40-0400 Body height 156.21 cm Rojelio Loya MD Work Phone: [facility] 02-23-2025 09:40-0400 Body mass index (BMI) [Ratio] 35.9 kg/m2 Rojelio Loya MD Work Phone: [facility] 02-23-2025 09:40-0400 Body weight 87.6 kg Rojelio Loya MD Work Phone: [facility] 02-23-2025 09:40-0400 Diastolic blood pressure 82 mm[Hg] Rojelio Loya MD Work Phone: [facility] 02-23-2025 09:40-0400 Heart rate 68 /min Rojelio Loya MD Work Phone: [facility] 02-23-2025 09:40-0400 Respiratory rate 18 /min Rojelio Loya MD Work Phone: [facility] 02-23-2025 09:40-0400 SaO2% (BldA) [Mass fraction] 98 % Rojelio Loya MD Work Phone: [facility] 02-23-2025 09:40-0400 Systolic blood pressure 131 mm[Hg] Rojelio Loya MD Work Phone: [facility] 01-06-2025 14:34-0400 Body height 156.21 cm Rojelio Loya MD Work Phone: [facility] 01-06-2025 14:34-0400 Body mass index (BMI) [Ratio] 37.3 kg/m2 Rojelio Loya MD Work Phone: [facility] 01-06-2025 14:34-0400 Body weight 91.2 kg Rojelio Loya MD Work Phone: [facility] 01-06-2025 14:34-0400 Diastolic blood pressure 85 mm[Hg] Rojelio Loya MD Work Phone: [facility] 01-06-2025 14:34-0400 Heart rate 71 /min Rojelio Loya MD Work Phone: [facility] 01-06-2025 14:34-0400 Respiratory rate 18 /min Rojelio Loya MD Work Phone: [facility] 01-06-2025 14:34-0400 SaO2% (BldA) [Mass fraction] 95 % Rojelio Loya MD Work Phone: [facility] 01-06-2025 14:34-0400 Systolic blood pressure 125 mm[Hg] Rojelio Loya MD Work Phone: [facility] 12-02-2024 10:25-0400 Body height 157.5 cm Shameka Blum MD Work Phone: [facility] 12-02-2024 10:25-0400 Body mass index (BMI) [Ratio] 40.06 kg/m2 Shameka Blum MD Work Phone: [facility] 12-02-2024 10:25-0400 Body weight 99.34 kg Shameka Blum MD Work Phone: [facility] 12-02-2024 10:25-0400 Diastolic blood pressure 84 mm[Hg] Shameka Blum MD Work Phone: [facility] 12-02-2024 10:25-0400 Heart rate 67 /min Shameka Blum MD Work Phone: [facility] 12-02-2024 10:25-0400 Systolic blood pressure 160 mm[Hg] Shameka Blum MD Work Phone: [facility] 11-24-2024 13:02-0400 Body height 156.21 cm [facility] 11-24-2024 13:02-0400 Body mass index (BMI) [Ratio] 40.2 kg/m2 [facility] 11-24-2024 13:02-0400 Body weight 98.15 kg [facility] 11-24-2024 13:02-0400 Diastolic blood pressure 92 mm[Hg] [facility] 11-24-2024 13:02-0400 Heart rate 95 /min [facility] 11-24-2024 13:02-0400 Respiratory rate 18 /min [facility] 11-24-2024 13:02-0400 SaO2% (BldA) [Mass fraction] 97 % [facility] 11-24-2024 13:02-0400 Systolic blood pressure 154 mm[Hg] [facility] 11-14-2024 09:55-0400 Body height 157.5 cm Shameka Blum MD Work Phone: [facility] 11-14-2024 09:55-0400 Body mass index (BMI) [Ratio] 40.06 kg/m2 Shameka Blum MD Work Phone: [facility] 11-14-2024 09:55-0400 Body weight 99.34 kg Shameka Blum MD Work Phone: [facility] 11-14-2024 09:55-0400 Diastolic blood pressure 81 mm[Hg] Shameka Blum MD Work Phone: [facility] 11-14-2024 09:55-0400 Heart rate 61 /min Shameka Blum MD Work Phone: [facility] 11-14-2024 09:55-0400 Systolic blood pressure 136 mm[Hg] Shameka Blum MD Work Phone: [facility] 09-01-2024 11:31-0500 Body height 157.48 cm Rojelio Loya MD Work Phone: [facility] 09-01-2024 11:31-0500 Body mass index (BMI) [Ratio] 39.4 kg/m2 Rojelio Loya MD Work Phone: [facility] 09-01-2024 11:31-0500 Body weight 97.97 kg Rojelio Loya MD Work Phone: [facility] 09-01-2024 11:31-0500 Diastolic blood pressure 77 mm[Hg] Rojelio Loya MD Work Phone: [facility] 09-01-2024 11:31-0500 Heart rate 64 /min Rojelio Loya MD Work Phone: [facility] 09-01-2024 11:31-0500 Systolic blood pressure 112 mm[Hg] Rojelio Loya MD Work Phone: [facility] 07-23-2024 14:43-0500 Body height 157.5 cm Shameka Blum MD Work Phone: [facility] 07-23-2024 14:43-0500 Body mass index (BMI) [Ratio] 39.14 kg/m2 Shameka Blum MD Work Phone: [facility] 07-23-2024 14:43-0500 Body weight 97.07 kg Shameka Blum MD Work Phone: [facility] 07-23-2024 14:43-0500 Diastolic blood pressure 82 mm[Hg] Shameka Blum MD Work Phone: [facility] 07-23-2024 14:43-0500 Systolic blood pressure 124 mm[Hg] Shameka Blum MD Work Phone: [facility] 07-08-2024 14:08-0500 Body height 157.5 cm Shameka Blum MD Work Phone: [facility] 07-08-2024 14:08-0500 Body mass index (BMI) [Ratio] 39.14 kg/m2 Shameka Blum MD Work Phone: [facility] 07-08-2024 14:08-0500 Body weight 97.07 kg Shameka Blum MD Work Phone: [facility] 07-08-2024 14:08-0500 Diastolic blood pressure 79 mm[Hg] Shameka Blum MD Work Phone: [facility] 07-08-2024 14:08-0500 Systolic blood pressure 141 mm[Hg] Shameka Blum MD Work Phone: [facility] 08-21-2023 11:00-0500 Body height 157.48 cm Rojelio Loya Other [employer] [facility] [employer] Other 08-21-2023 11:00-0500 Body mass index (BMI) [Ratio] 37.49 kg/m2 Rojelio Loya Other [employer] Other 08-21-2023 11:00-0500 Body weight 92.99 kg Rojelio Lyoa Other [employer] Other 08-21-2023 11:00-0500 Diastolic blood pressure 93 mm[Hg] Rojelio Loya Other [employer] Other 08-21-2023 11:00-0500 Systolic blood pressure 146 mm[Hg] Rojelio Loya Other [employer] Other 07-17-2023 12:17-0500 Diastolic blood pressure 75 mm[Hg] MD Rojelio Loya Work Phone: [facility] 07-17-2023 12:17-0500 Heart rate 80 /min MD Rojelio Loya Work Phone: [facility] 07-17-2023 12:17-0500 Respiratory rate 16 /min MD Rojelio Loya Work Phone: [facility] 07-17-2023 12:17-0500 SaO2% (BldA) [Mass fraction] 97 % MD Rojelio Loya Work Phone: [facility] 07-17-2023 12:17-0500 Systolic blood pressure 127 mm[Hg] MD Rojelio Loya Work Phone: [facility] 07-17-2023 09:52-0500 Body height 157.48 cm MD Rojelio Loya Work Phone: [facility] 07-17-2023 09:52-0500 Body weight 90.71 kg MD Rojelio Loya Work Phone: [facility] 06-11-2023 13:00-0400 Body height 157.48 cm Imad Asaad Other [facility] [employer] Other 06-11-2023 13:00-0400 Body mass index (BMI) [Ratio] 36.76 kg/m2 Imad Asaad Other [employer] Other 06-11-2023 13:00-0400 Body weight 91.17 kg Imad Asaad Other [employer] Other 06-11-2023 13:00-0400 Diastolic blood pressure 78 mm[Hg] Imad Asaad Other [employer] Other 06-11-2023 13:00-0400 Systolic blood pressure 123 mm[Hg] Imad Asaad Other [employer] Other 04-26-2023 11:10-0400 Heart rate 51 /min Shameka Timmis [facility] 04-26-2023 11:10-0400 SaO2% (BldA) [Mass fraction] 96 % Shameka Timmis [facility] 04-26-2023 11:10-0400 Diastolic blood pressure 81 mm[Hg] Shameka Timmis [facility] 04-26-2023 11:10-0400 Mean blood pressure 95 mm[Hg] Shameka Timmis [facility] 04-26-2023 11:10-0400 Systolic blood pressure 123 mm[Hg] Shameka Timmis [facility] 04-26-2023 11:10-0400 Body temperature 97.52 [degF] Shameka Timmis [facility] 04-26-2023 10:24-0400 Heart rate 48 /min Shameka Timmis [facility] 04-26-2023 10:24-0400 SaO2% (BldA) [Mass fraction] 98 % Shameka Timmis [facility] 04-26-2023 10:23-0400 Diastolic blood pressure 80 mm[Hg] Shameka Timmis [facility] 04-26-2023 10:23-0400 Mean blood pressure 98 mm[Hg] Shameka Timmis [facility] 04-26-2023 10:23-0400 Systolic blood pressure 132 mm[Hg] Shameka Timmis [facility] 04-26-2023 10:21-0400 Body temperature 97.34 [degF] Shameka Timmis [facility] 04-26-2023 10:15-0400 Body temperature 97.52 [degF] Shameka Timmis [facility] 04-26-2023 10:15-0400 Diastolic blood pressure 71 mm[Hg] Shameka Timmis [facility] 04-26-2023 10:15-0400 Heart rate 56 /min Shameka Timmis [facility] 04-26-2023 10:15-0400 Mean blood pressure 84 mm[Hg] Shameka Timmis [facility] 04-26-2023 10:15-0400 Respiratory rate 16 /min Shameka Timmis [facility] 04-26-2023 10:15-0400 SaO2% (BldA) [Mass fraction] 96 % Shameka Timmis [facility] 04-26-2023 10:15-0400 Systolic blood pressure 111 mm[Hg] Shameka Timmis [facility] 04-26-2023 10:05-0400 Mean blood pressure 83 mm[Hg] Shameka Timmis [facility] 04-26-2023 10:05-0400 Respiratory rate 12 /min Shameka Timmis [facility] 04-26-2023 10:00-0400 Mean blood pressure 88 mm[Hg] Shameka Timmis [facility] 04-26-2023 10:00-0400 Respiratory rate 11 /min Shameka Timmis [facility] 04-26-2023 09:50-0400 Body temperature 98.06 [degF] Shameka Timmis [facility] 04-26-2023 09:45-0400 Respiratory rate 13 /min Shameka Timmis [facility] 04-26-2023 09:40-0400 Respiratory rate 13 /min Shameka Timmis [facility] 04-26-2023 09:35-0400 Respiratory rate 13 /min Shameka Timmis [facility] 04-26-2023 07:45-0400 Blood Pressure Location Shameka Timmis [facility] 04-26-2023 07:45-0400 Mean blood pressure 103 mm[Hg] Shameka Timmis [facility] 04-26-2023 07:43-0400 Blood Pressure Location Shameka Timmis [facility] 04-19-2023 14:39-0400 Diastolic blood pressure 88 mm[Hg] Shameka Timmis [facility] 04-19-2023 14:39-0400 Heart rate 73 /min Shameka Timmis [facility] 04-19-2023 14:39-0400 Mean blood pressure 109 mm[Hg] Shameka Timmis [facility] 04-19-2023 14:39-0400 Systolic blood pressure 152 mm[Hg] Shameka Timmis [facility] 04-19-2023 14:39-0400 Heart rate 71 /min Shameka Timmis [facility] 04-19-2023 14:39-0400 SaO2% (BldA) [Mass fraction] 98 % Shameka Timmis [facility] 04-19-2023 14:39-0400 Diastolic blood pressure 97 mm[Hg] Shameka Timmis [facility] 04-19-2023 14:39-0400 Mean blood pressure 112 mm[Hg] Shameka Timmis [facility] 04-19-2023 14:39-0400 Systolic blood pressure 141 mm[Hg] Shameka Timmis [facility] 04-19-2023 14:39-0400 Body temperature 97.88 [degF] Shameka Timmis [facility] 04-19-2023 14:39-0400 Respiratory rate 15 /min Shameka Blum [facility] 04-10-2023 14:15-0400 Body height 157.48 cm Rojelio Loya Other [employer] Other 04-10-2023 14:15-0400 Body mass index (BMI) [Ratio] 35.66 kg/m2 Rojelio Loya Other [employer] Other 04-10-2023 14:15-0400 Body weight 88.45 kg Rojelio Loya Other [employer] Other 04-10-2023 14:15-0400 Diastolic blood pressure 88 mm[Hg] Rojelio Loya Other [employer] Other 04-10-2023 14:15-0400 Systolic blood pressure 124 mm[Hg] Rojelio Loya Other [employer] Other 02-12-2023 09:45-0400 Body height 157.48 cm Rojelio Loya Other [employer] Other 02-12-2023 09:45-0400 Body mass index (BMI) [Ratio] 16.83 kg/m2 Rojelio oLya Other [employer] Other 02-12-2023 09:45-0400 Body weight 41.73 kg Rojelio Loya Other [employer] Other 02-12-2023 09:45-0400 Diastolic blood pressure 90 mm[Hg] Rojelio Loya Other [employer] Other 02-12-2023 09:45-0400 Systolic blood pressure 131 mm[Hg] Rojelio Loya Other [employer] Other 11-23-2022 10:45-0400 Body height 157.48 cm Rojelio Loya Other [employer] Other 11-23-2022 10:45-0400 Body mass index (BMI) [Ratio] 34.93 kg/m2 Rojelio Loya Other [employer] Other 11-23-2022 10:45-0400 Body weight 86.64 kg Rojelio Loya Other [employer] Other 11-23-2022 10:45-0400 Diastolic blood pressure 88 mm[Hg] Rojelio Loya Other [employer] Other 11-23-2022 10:45-0400 SaO2% (BldA) [Mass fraction] 99 % Rojelio Loya Other [employer] Other 11-23-2022 10:45-0400 Systolic blood pressure 142 mm[Hg] Rojelio Loya Other [employer] Other 10-06-2022 11:15-0500 Body height 157.48 cm Amina Martha Other [employer] Other 10-06-2022 11:15-0500 Body mass index (BMI) [Ratio] 36.58 kg/m2 Amina Martha Other [employer] Other 10-06-2022 11:15-0500 Body temperature 97.3 [degF] Amina Martha Other [employer] Other 10-06-2022 11:15-0500 Body weight 90.72 kg Amina Martha Other [employer] Other 10-06-2022 11:15-0500 Respiratory rate 18 /min Amina Thomas Other [employer] Other 10-06-2022 11:15-0500 SaO2% (BldA) [Mass fraction] 99 % Amina Thomas Other [employer] Other Encounters Encounter Date Encounter Type Care Provider Facility Start: 04-21-2025 End: 04-21-2025 ambulatory Rojelio Loya MD Work Phone: [facility] Work Phone: Start: 04-21-2025 End: 04-21-2025 Patient encounter procedure Rene Lazcano MD -[facility] Work Phone: Start: 03-30-2025 End: 03-30-2025 ambulatory Rojelio Loya MD Work Phone: [facility] Work Phone: Start: 03-30-2025 End: 03-30-2025 Patient encounter procedure Markel Trey -[facility] Work Phone: Start: 03-06-2025 End: 03-06-2025 Bamboo flowsheet [facility] Start: 03-06-2025 End: 03-06-2025 Bamboo flowsheet [facility]ame[facility] Bl[facility] Start: 03-06-2025 End: 03-06-2025 Office outpatient visit 15 minutes Shameka Blum MD Work Phone: [facility] Comment on above: ETD (Eustachian tube dysfunction), bilateral (Primary Dx); Chronic myringitis, left Start: 03-06-2025 End: 03-06-2025 ambulatory SHAMEKA BLUM Not Available Start: 02-23-2025 End: 02-23-2025 ambulatory Rojelio Loya MD Work Phone: [facility] Work Phone: Start: 02-23-2025 End: 02-23-2025 Patient encounter procedure Rene Lazcano MD [facility] Work Phone: Start: 01-06-2025 End: 01-06-2025 Patient encounter procedure Rene Lazcano MD [facility] Work Phone: Start: 12-09-2024 End: 12-09-2024 ambulatory [facility] Work Phone: Start: 12-09-2024 End: 12-09-2024 Patient encounter procedure [facility] Work Phone: Start: 12-04-2024 Non-patient / Non-visit [facility] Work Phone: Start: 12-02-2024 End: 12-02-2024 Bamboo flowscheyenne Blum MD Work Phone: [facility] Start: 12-02-2024 End: 12-02-2024 Kylie Blum MD Work Phone: [facility] Start: 12-02-2024 End: 12-02-2024 Office outpatient visit 10 minutes Shameka Blum MD Work Phone: [facility] Comment on above: ETD (Eustachian tube dysfunction), bilateral (Primary Dx); Chronic otorrhea of right ear Start: 12-02-2024 End: 12-02-2024 ambulatory SHAMEKA BLUM Not Available Start: 11-24-2024 End: 11-24-2024 ambulatory [facility] Work Phone: Start: 11-24-2024 End: 11-24-2024 Patient encounter procedure [facility] Work Phone: Start: 11-14-2024 End: 11-14-2024 Kylie Blum MD Work Phone: [facility] Start: 11-14-2024 End: 11-14-2024 Bamboo flowsheet Shameka Blum MD Work Phone: [facility] Start: 11-14-2024 End: 11-14-2024 Office outpatient visit 25 minutes Shameka Blum MD [facility] Comment on above: Chronic otorrhea of right ear (Primary Dx) Start: 11-14-2024 End: 11-14-2024 ambulatory SHAMEKA BLUM Not Available Start: 11-12-2024 End: 11-12-2024 ambulatory [facility] Work Phone: Start: 11-12-2024 End: 11-12-2024 Patient encounter procedure [facility] Work Phone: Start: 10-20-2024 Non-patient / Non-visit [facility] Work Phone: Start: 09-02-2024 Non-patient / Non-visit [facility] Work Phone: Start: 09-01-2024 Patient encounter status Rojelio Loya MD Work Phone: [facility] Start: 09-01-2024 End: 09-01-2024 ambulatory Rojelio Loya MD Work Phone: [facility] Work Phone: Start: 09-01-2024 End: 09-01-2024 Encounter for general adult medical examination without abnormal findings Rojelio Loya MD Work Phone: [facility] Start: 09-01-2024 End: 09-01-2024 Patient encounter procedure Rojelio Loya MD Work Phone: [facility] Work Phone: Start: 07-23-2024 End: 07-23-2024 Office outpatient visit 15 minutes Shameka Blum MD Work Phone: [facility] Comment on above: ETD (Eustachian tube dysfunction), bilateral (Primary Dx) Start: 07-23-2024 End: 07-23-2024 ambulatory SHAMEKA NORTHMIS Not Available Start: 07-23-2024 End: 07-23-2024 Bambogonzalo Blum MD Work Phone: [facility] Start: 07-23-2024 End: 07-23-2024 Bamboo eduardo Blum MD Work Phone: [facility] Start: 07-08-2024 End: 07-08-2024 Office outpatient visit 15 minutes Shameka Blum MD Work Phone: [facility] Comment on above: ETD (Eustachian tube dysfunction), bilateral (Primary Dx) Start: 07-08-2024 End: 07-08-2024 ambulatory SHAMEKA H TIMMIS Not Available Start: 07-08-2024 End: 07-08-2024 Bamboo flowscheyenne Blum MD Work Phone: [facility] Start: 07-08-2024 End: 07-08-2024 Bamboo eduardo Blum MD Work Phone: [facility] Start: 06-06-2024 End: 06-06-2024 Patient encounter procedure MD Rojelio Loya Work Phone: [facility] Work Phone: Start: 06-06-2024 End: 06-06-2024 ambulatory MD Rojelio Loya Work Phone: [facility] Work Phone: Start: 08-21-2023 End: 08-21-2023 ambulatory Rojelio Loya Other [employer] Other Start: 08-21-2023 Encounter for genera l adult medical examination without abnormal findings Rojelio Loya [facility] Start: 08-21-2023 Office outpatient vi sit 15 minutes Rojelio Loya [facility] Start: 07-17-2023 End: 07-17-2023 Admission to same day surgery center MD Rojelio Loya Work Phone: [facility] Work Phone: Start: 07-17-2023 End: 07-17-2023 ambulatory MD Rojelio Loya Work Phone: [facility] Work Phone: Start: 06-12-2023 End: 06-12-2023 ambulatory Imad Asaad Other [employer] Other Start: 06-12-2023 Telephone encounter Imad Asaad [facility] [employer] Start: 06-11-2023 End: 06-11-2023 ambulatory Imad Asaad Other [employer] Other Start: 06-11-2023 Office outpatient ne w 45 minutes Imad Asaad [facility] Start: 05-07-2023 End: 05-07-2023 ambulatory Rojelio Loya Other [employer] Other Start: 05-07-2023 Telephone encounter Rojelio Loya [facility] Start: 05-02-2023 End: 05-02-2023 ambulatory Imad Asaad Other [employer] Other Start: 05-02-2023 Telephone encounter Imad Asaad [facility] [employer] Start: 04-26-2023 End: 04-26-2023 ambulatory Shameka Mendez Timmis Facility:[facility] Start: 04-26-2023 End: 04-26-2023 Admission to same day surgery center Shameka Blum [facility] Start: 04-19-2023 End: 04-20-2023 ambulatory Shameka Mendez Timmis Facility:[facility] Start: 04-19-2023 End: 04-19-2023 Patient encounter procedure Shameka Blum [facility] Start: 04-18-2023 End: 04-20-2023 Pre-admission assessment Shameka Blum [facility] Start: 04-10-2023 End: 04-10-2023 ambulatory Rojelio Loya Other [employer] Other Start: 04-10-2023 Office outpatient vi sit 15 minutes Rojelio Loya [facility] Start: 03-26-2023 End: 03-26-2023 ambulatory Rojelio Loya Other [employer] Other Start: 03-26-2023 Telephone encounter Rojelio Loya [facility] Start: 02-22-2023 End: 02-22-2023 ambulatory Rojelio Loya Other [employer] Other Start: 02-22-2023 Telephone encounter Rojelio Loya [facility] Start: 02-15-2023 End: 02-15-2023 ambulatory Rojelio Loya Other [employer] Other Start: 02-15-2023 Telephone encounter Rojelio Loya [facility] Start: 02-12-2023 End: 02-12-2023 ambulatory Rojelio Loya Other [employer] Other Start: 02-12-2023 Office outpatient vi sit 15 minutes Rojelio Loya [facility] Start: 02-08-2023 End: 02-08-2023 ambulatory Rojelio Loya Other [employer] Other Start: 02-08-2023 Telephone encounter Rojelio Loya [facility] Start: 01-09-2023 End: 01-09-[address] ROJELIO LOYA Facility: Start: 12-03-2022 Encounter for genera l adult medical examination without abnormal findings DR ROJELIO LOYA [facility] Start: 11-28-2022 End: 11-28-2022 ambulatory Rojelio Loya Other [employer] Other Start: 11-28-2022 Telephone encounter Rojelio Loya [facility] Start: 11-27-2022 End: 11-27-2022 ambulatory Rojelio Loya Other [place] [employer] Other Start: 11-27-2022 Telephone encounter Rojelio Loya [facility] Start: 11-24-2022 End: 11-25-[address] ROJELIO LOYA Facility:[facility] Start: 11-24-2022 End: 11-25-2022 Encounter for general adult medical examination without abnormal findings DR ROJELIO LOYA Facility:[facility] Start: 11-23-2022 End: 11-23-2022 ambulatory Rojelio Loya Other [employer] Other Start: 11-23-2022 Encounter for genera l adult medical examination without abnormal findings Rojelio Loya [facility] Start: 11-23-2022 Periodic preventive med est patient 40-64yrs Rojelio Loya [facility] Start: 11-21-2022 End: 11-21-2022 ambulatory MD Rojelio Loya Work Phone: [facility] Work Phone: Start: 11-21-2022 End: 11-21-2022 Patient encounter procedure MD Rojelio Loya Work Phone: [facility] Work Phone: Start: 10-06-2022 End: 10-06-2022 ambulatory Amina Thomas Other [employer] Other Start: 10-06-2022 Office outpatient vi sit 15 minutes Amina Thomas [facility] Start: 09-27-2022 End: 09-27-2022 ambulatory Rojelio Loya Other [employer] Other Start: 09-27-2022 Telephone encounter Rojelio Loya [facility] Start: 02-28-2022 Gynecological examination normal Rojelio Loya Other [employer] Other Start: 02-22-2022 End: 02-23-[address] ROJELIO LOYA Facility: Start: 11-30-2021 Adult health examination Rojelio Loya Other [place] Other Procedures Date Procedure Procedure Detail Performing [...] Treatment Date Care Activity Detail Author Start: 04-20-2025 Influenza vaccination Influ[facility] in[facility] Start: 03-06-2025 End: 03-06-2025 Patient encounter procedure 03/06/2025 9:00 AM EDT Office Visit [facility] [address] [place] [address] Shameka Blum MD [address] [place] [address] Arrived [facility] Comment on above: Arrived Start: 12-02-2024 End: 12-02-2024 Patient encounter procedure [facility] Comment on above: Arrived Start: 11-14-2024 End: 11-14-2024 Patient encounter procedure 11/14/2024 10:00 AM EDT Office Visit [facility] [address] [place] [id number] Shameka Blum MD [address] [place] [address] Arrived [facility] Comment on above: Arrived Start: 07-23-2024 End: 07-23-2024 Patient encounter procedure [facility] Comment on above: Arrived Start: 07-08-2024 End: 07-08-2024 Patient encounter procedure 07/08/2024 2:20 PM EST Office Visit [facility] [address] [place] [address] Shameka Blum MD [address] [place] [address] Arrived [facility] Comment on above: Arrived Start: 04-20-2024 Influenza vaccination Influenza Vacc ine (#1) [facility] Start: 11-22-2023 Screening for malign ant neoplasm of breast Mammogram [facility] Start: 07-17-2023 [facility] Start: 2000 Screening for malign ant neoplasm of cervix [facility] Start: 1991 Screening for malign ant neoplasm of cervix Pap Smear [facility] Start: 1970 Screening for malign ant neoplasm of colon [facility] Comprehensive metabo lic 2000 panel - Serum or Plasma [facility] Immunizations Immunization Date Immunization Notes Care Provider Fa cility 07-22-2024 influenza virus vaccine, unspecified formulation Shameka Blum MD Work Phone: [facility] 06-22-2023 influenza virus vaccine, unspecified formulation Shameka Blum MD Work Phone: [facility] 11-25-2020 COVID-19 mRNA, Comirnatroosevelt (Pfizer) MD Rojelio Loya Work Phone: [facility] 11-04-2020 COVID-19 mRNA, Comirnaty (Pfizer) MD Rojelio Loya Work Phone: [facility] 05-31-2020 influenza virus vaccine, unspecified formulation Shameka Blum [facility] 06-03-2018 influenza virus vaccine, split virus (incl. purified surface antigen) Rojelio Loya Other [facility] [employer] Other 06-03-2018 influenza virus vaccine, unspecified formulation MD Rojelio Loya Work Phone: [facility] 06-05-2017 influenza virus vaccine, split virus (incl. purified surface antigen) Rojelio Loya Other [facility] [employer] Other 06-05-2017 influenza virus vaccine, unspecified formulation MD Rojelio Loya Work Phone: [facility] 06-18-2014 influenza, injectabl e, quadrivalent, contains preservative Rojelio Loya Other [facility] [employer] Other 06-18-2014 influenza, injectabl e, quadrivalent, preservative free MD Rojelio Loya Work Phone: [facility] 05-20-2012 influenza virus vaccine, unspecified formulation MD Rojelio Loya Work Phone: [facility] 05-20-2012 influenza virus vaccine, split virus (incl. purified surface antigen) Rojelio Loya Other [facility] [employer] Other 06-10-1999 pneumococcal polysaccharide vaccine, 23 valent Shameka Blum MD Work Phone: [facility] Work Phone: Payers Date Payer Category Payer Managed Care HMO (unspecified) [id number] 2024 Private Health Insurance [id number] 2023 Self-pay [id number] 1970 Unknown [id number] [id number]. 2.593 1970 Unknown [id number] [id number]. 2.593 1970 Unknown [id number] [id number]. 2.593 1970 Unknown [id number] [id number]. 2.727 1970 Unknown [id number] [id number]. 2.727 1970 Unknown [id number] 2.16.840.1.455767.3.579. 2.1259 1970 Unknown [id number] 2.16.840.1.317868.3.579. 2.1259 1970 Unknown [id number] [id number]. 2.1259 1970 Unknown [id number] [id number]. 2.1259 1970 Unknown [id number] [id number]. 2.1259 1959 Unknown [id number] [facility] Health Insurance [facility] [employer] [id number] Unknown [id number] [id number]. 2.531 Unknown [id number]. 2.531 Social History Date Type Detail Facility Start: 09-17-2023 End: 03-06-2025 Sex Assigned At [facility] Start: 1970 Sex Assigned At Female [facility] Start: 05-12-2021 End: 11-24-2024 Tobacco smoking status Never smoked tobacco (finding) [facility] Start: 03-26-2023 Tobacco use and exposure Smokeless tobacco non-user [facility] Start: 09-17-2023 End: 03-06-2025 Alcoholic beverage intake Ex-drinker (finding) [facility] Start: 09-17-2023 End: 03-06-2025 History of Social function [facility] Start: 01-04-2023 Alcohol Comment Caffeine intak e: 1-2 cups per day [facility] Start: 05-29-2023 Gender identity Identifies as female gender (finding) [facility] Start: 05-29-2023 Sexual orientation Heterosexual (fin ding) [facility] Start: 09-01-2024 End: 12-10-2024 Sex Female (finding) [facility] NEGATED: Highlighted row [facility] Medical Equipment Procedure Code Equipment Code Equipment Origin al Text Equipment Identifier Dates Blood Sugar Diagnostic (Accu-Chek Guide Test Strips) strip Start: 12-12-2024 Blood Sugar Diagnostic (Accu-Chek Guide Test Strips) strip Start: 12-12-2024 Blood Sugar Diagnostic (Accu-Chek Guide Test Strips) strip Start: 12-12-2024 Goals Date Patient Goal Desired Activity /State Functional Status Date Assessment Result Facility 04-19-2023 Functional Status No [facility] Clinical Notes 05-20-2013 to 03-06-2025 Shameka Blum MD - 03/06/2025 9:00 AM EDT Note Date & Type Note Facility 03-06-2025 History of Presen t illness Narrative Subjective Patient ID: Milana Miller is a 54 y.o. female who presents for Ear Problem (Possible infection) Left ear pain and drainage one week. Started ciprodex 5 days ago Family History Problem Relation Name Age of Onset COPD Mother Prostate cancer Father Kaz Echeverria Hypertension Father Kaz Torma Cancer Father Kaz Echeverria Asthma Sibling Stroke Maternal Grandfather Tom Dankovich [...] uterine bleeding 11/14/2024 Arthralgia 11/14/2024 Benign hypertension 11/14/2024 Chronic instability of right knee 11/14/2024 Elbow pain 11/14/2024 Hyperglycemia 11/14/2024 Hypothyroidism 11/14/2024 Thyroid nodule 11/14/2024 Resolved Ambulatory Problems Diagnosis Date Noted No Resolved Ambulatory Problems Past Medical History: Diagnosis Date Allergic rhinitis Childhood Arthritis 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 Objective Last Recorded Vitals Vitals: 03/06/25 0912 BP: 147/86 Pulse: 63 ENT Physical Exam Constitutional Appearance: patient appears well-developed, well-nourished and well-groomed, Communication/Voice: communication appropriate for developmental age; vocal quality normal; Ear Ear comments: Sammy TIP&P. RT dry. Left mois Assessment/Plan Diagnoses and all orders for this visit: ETD (Eustachian tube dysfunction), bilateral Chronic myringitis, left Continue ciprodex 5 more days documented in this encounter [facility] 02-23-2025 Evaluation note Authored February 23, 2025 10:21am Highest weight: 217.0 lbs. d own 23.9 lbs. Start weight: 216.3 lbs. She is down 22.9 lbs. today with a weight of 193.1 lbs she is down 7.9 lbs since last visit on 01/06/2025. Starting Date: 11-24-2024. GLP-1 start date. Mounjaro start weight 216.3 pounds.She is down 22.9 lbs. 1. Abnormal weight gain-she denies other people having significant weight problems in the family even her paternal grandfather who had type 2 diabetes. 2. Obesity-improved Mounjaro 5 mg with minimal GI side effects of controlled constipation and mild nausea. Mounhankro is covered by her insurance for her type 2 diabetes. She has already starting to eat healthier and make more of her own food, started walking before starting our program. Her now has a new diagnosis of type 2 diabetes and they are trying to get healthy together. She has home strength and cardio and equipment and is now getting regular exercise including water aerobics. She will continue to work closely with our entry level receptionist. We cannot consider Qsymia as she had kidney stones on this medicine in the past. She had previous issues with frequently eating out, boredom eating and increased few thoughts. She was a part of our program until 11/25/2020, 4 years ago. She had lost 37.8 pounds with our program and her weight was down to 160 pounds with taking Qsymia unfortunately she developed to kidney stones and the medicine was stopped. She was prediabetic at that time her A1c dropped from 6.1-5.8. She tried to do it on her own but was unable after about a year to keep the weight off. She notes that she has had a tough last couple years. She notes she has had some serious issues . She notes her dad was diagnosed with colon cancer and lost a lot of weight she has been visiting him frequently, he lives about 2 hours away and trying to Faten him up. She notes she would often eat the same foods. She was recently diagnosed by her PCP as having type 2 diabetes she had an A1c up to 6.8 and recent fasting blood sugars of 141 and 152. She has her has type 2 diabetes and he will be starting Ozempic she would also like to try a GLP-1 agonist now. She has no contraindications. Her is going to try to follow a healthier lifestyle also. He is here today with his . Just recently started to try to cook more at home and started to walk 30 minutes 3 times a week to try to get back on track. She is recently diagnosed with obstructive sleep apnea and she is using her CPAP now and feels better. She also hypertension has been incompletely controlled lately with her systolic blood pressure running in the 140s and 150s despite her blood pressure medication. She also had somewhat incompletely replaced hypothyroidism which her dose has been increased. She takes her thyroid properly. Her LDL cholesterol is not at goal for diabetic with her last LDL at 105. She also now has fatty liver with her ALT of 62. Her mood seems good with her PHQ-9 of 6 with starting the program. The patient has a number of weight related health issues insulin resistance/ pre diabetes/ dysmetabolic syndrome, high blood pressure, kidney stones, loud snorer, daytime fatigue, ALMAZ/ CPAP, thyroid disorder, arthritis of knee, Diabetes Type 2. Behavioral: The patient's previous eating habits prior to starting our program fair. Before starting the program the biggest reasons for weight struggles include increased appetite, stress eating, poor meal/ snack planning, lack of exercise, lack of activity, health issues, medication I am/or have taken, poor sleep, boredom eater, constant food thoughts/ cravings, unhealthy snacks, eat most lunches out, eat most dinners out. Exercise before starting the program: yes, walk 30 minutes 3 x weekly just started recently. The patient will treat with long-term lifestyle changes of improved nutrition, increased exercise and activity, stress reduction, adequate sleep and behavioral modification versus short-term dieting. 3. Type 2 diabetes mellitus based on A1c of 6.8 and elevated fasting blood [id number]-[id number]-[id number] treatment with long-term healthy lifestyle change, decreased simple sweets and refined starches, increased exercise and activity and long-term weight loss. Consider metformin. We continue her GLP-1 agonist. She needs close long-term follow-up for this condition to prevent diabetes. 4. Obstructive sleep apnea-now compliant with CPAP with improved symptoms. Treat also with healthy lifestyle changes and weight loss. 5. Hypertension-incompletely controlled on amlodipine and losartan. She may need a third agent. She will treat with a low-salt diet, decreased processed and restaurant foods, healthy lifestyle changes and achieve long-term weight loss. Monitor closely outside the office healthy lifestyle change. 6. Hypothyroidism-on replacement from her PCP. 7. History of kidney stones in the past on Qsymia-will avoid Topamax and continue to drink lots of water. 8. Fatty liver with ALT of 62. Treat with healthy lifestyle changes and hopefully greater than a 10% weight loss. She does have significant abdominal obesity. 9. Metabolic syndrome-treat with long-term healthy lifestyle changes, behavioral changes, healthy nutritional changes, increased activity and exercise and achieve long-term weight loss. The patient understands the metabolic syndrome increases the risk of diabetes and heart disease. Follow up with me in 6-8 weeks. New labs needed: Up-to-date. She needs every 3-month monitoring of A1c. Recommend full blood work in 6 months/May after following our program. Author Rene Lazcano [facility] Authored January 06, 2025 3:05p m Highest weight: 217.0 lbs. d own 16.0 lbs. Start weight: 216.3 lbs. She is down 15.3 lbs today with a weight of 201.0 lbs last visit on 11/24/2024. Starting Date: 11-24-2024. GLP-1 start date. Mounjaro start weight 216.3 pounds.She is down 15.3 lbs. 1. Abnormal weight gain-she denies other people having significant weight problems in the family even her paternal grandfather who had type 2 diabetes. 2. Obesity-improved Mounjaro 5 mg to treat her type 2 diabetes since he can also help with obstructive sleep apnea. Mounjaro is covered by her insurance for her type 2 diabetes. She was already starting to eat healthier and make more of her own food, started walking before starting our program. Her now has a new diagnosis of type 2 diabetes and they are trying to get healthy together. She has home strength and cardio equipment but does not tend to use them. She would like to start with her tool machinist in the future. She we will continue to work closely with our entry level receptionist. We cannot consider Qsymia as she had kidney stones on this medicine in the past. She had previous issues with frequently eating out, boredom eating and increased few thoughts. She was a part of our program until 11/25/2020, 4 years ago. She had lost 37.8 pounds with our program and her weight was down to 160 pounds with taking Qsymia unfortunately she developed to kidney stones and the medicine was stopped. She was prediabetic at that time her A1c dropped from 6.1-5.8. She tried to do it on her own but was unable after about a year to keep the weight off. She notes that she has had a tough last couple years. She notes she has had some serious issues . She notes her dad was diagnosed with colon cancer and lost a lot of weight she has been visiting him frequently, he lives about 2 hours away and trying to Faten him up. She notes she would often eat the same foods. She was recently diagnosed by her PCP as having type 2 diabetes she had an A1c up to 6.8 and recent fasting blood sugars of 141 and 152. She has her has type 2 diabetes and he will be starting Ozempic she would also like to try a GLP-1 agonist now. She has no contraindications. Her is going to try to follow a healthier lifestyle also. He is here today with his . Just recently started to try to cook more at home and started to walk 30 minutes 3 times a week to try to get back on track. She is recently diagnosed with obstructive sleep apnea and she is using her CPAP now and feels better. She also hypertension has been incompletely controlled lately with her systolic blood pressure running in the 140s and 150s despite her blood pressure medication. She also had somewhat incompletely replaced hypothyroidism which her dose has been increased. She takes her thyroid properly. Her LDL cholesterol is not at goal for diabetic with her last LDL at 105. She also now has fatty liver with her ALT of 62. Her mood seems good with her PHQ-9 of 6 with starting the program. The patient has a number of weight related health issues insulin resistance/ pre diabetes/ dysmetabolic syndrome, high blood pressure, kidney stones, loud snorer, daytime fatigue, ALMAZ/ CPAP, thyroid disorder, arthritis of knee, Diabetes Type 2. Behavioral: The patient's previous eating habits prior to starting our program fair. Before starting the program the biggest reasons for weight struggles include increased appetite, stress eating, poor meal/ snack planning, lack of exercise, lack of activity, health issues, medication I am/or have taken, poor sleep, boredom eater, constant food thoughts/ cravings, unhealthy snacks, eat most lunches out, eat most dinners out. Exercise before starting the program: yes, walk 30 minutes 3 x weekly just started recently. The patient will treat with long-term lifestyle changes of improved nutrition, increased exercise and activity, stress reduction, adequate sleep and behavioral modification versus short-term dieting. 3. Type 2 diabetes mellitus based on A1c of 6.8 and elevated fasting blood [id number] treatment with long-term healthy lifestyle change, decreased simple sweets and refined starches, increased exercise and activity and long-term weight loss. Consider metformin. We will start GLP-1 agonist. She needs close long-term follow-up for this condition to prevent diabetes. 4. Obstructive sleep apnea-now compliant with CPAP with improved symptoms. Treat also with healthy lifestyle changes and weight loss. 5. Hypertension-incompletely controlled on amlodipine and losartan. She may need a third agent. She will treat with a low-salt diet, decreased processed and restaurant foods, healthy lifestyle changes and achieve long-term weight loss. Monitor closely outside the office healthy lifestyle change. 6. Hypothyroidism-on replacement from her PCP. 7. History of kidney stones in the past on Qsymia-will avoid Topamax and continue to drink lots of water. 8. Fatty liver with ALT of 62. Treat with healthy lifestyle changes and hopefully greater than a 10% weight loss. She does have significant abdominal obesity. 9. Metabolic syndrome-treat with long-term healthy lifestyle changes, behavioral changes, healthy nutritional changes, increased activity and exercise and achieve long-term weight loss. The patient understands the metabolic syndrome increases the risk of diabetes and heart disease. Follow up with me in 6 weeks. New labs needed: Up-to-date. Needs every 3-month monitoring of A1c. Recommend full blood work in 6 months/May after following our program. [facility] Work Phone: 1([phone]) 258-760107-07-2025 Evaluation note* Author Rene Lazcano [facility] Authored February 23, 2025 10:21 am Highest weight: 217.0 lbs. d own 23.9 lbs. Start weight: 216.3 lbs. She is down 22.9 lbs. today with a weight of 193.1 lbs she is down 7.9 lbs since last visit on 01/06/2025. Starting Date: 11-24-2024. GLP-1 start . Mounjaro start weight 216.3 pounds.She is down 22.9 lbs. 1. Abnormal weight gain-she denies other people having significant weight problems in the family even her paternal grandfather who had type 2 diabetes. 2. Obesity-improved Mounjaro 5 mg with minimal GI side effects of controlled constipation and mild nausea. Mounjaro is covered by her insurance for her type 2 diabetes. She has already starting to eat healthier and make more of her own food, started walking before starting our program. Her now has a new diagnosis of type 2 diabetes and they are trying to get healthy together. She has home strength and cardio and equipment and is now getting regular exercise including water aerobics. She will continue to work closely with our entry level receptionist. We cannot consider Qsymia as she had kidney stones on this medicine in the past. She had previous issues with frequently eating out, boredom eating and increased few thoughts. She was a part of our program until 11/25/2020, 4 years ago. She had lost 37.8 pounds with our program and her weight was down to 160 pounds with taking Qsymia unfortunately she developed to kidney stones and the medicine was stopped. She was prediabetic at that time her A1c dropped from 6.1-5.8. She tried to do it on her own but was unable after about a year to keep the weight off. She notes that she has had a tough last couple years. She notes she has had some serious issues . She notes her dad was diagnosed with colon cancer and lost a lot of weight she has been visiting him frequently, he lives about 2 hours away and trying to Faten him up. She notes she would often eat the same foods. She was recently diagnosed by her PCP as having type 2 diabetes she had an A1c up to 6.8 and recent fasting blood sugars of 141 and 152. She has her has type 2 diabetes and he will be starting Ozempic she would also like to try a GLP-1 agonist now. She has no contraindications. Her is going to try to follow a healthier lifestyle also. He is here today with his . Just recently started to try to cook more at home and started to walk 30 minutes 3 times a week to try to get back on track. She is recently diagnosed with obstructive sleep apnea and she is using her CPAP now and feels better. She also hypertension has been incompletely controlled lately with her systolic blood pressure running in the 140s and 150s despite her blood pressure medication. She also had somewhat incompletely replaced hypothyroidism which her dose has been increased. She takes her thyroid properly. Her LDL cholesterol is not at goal for diabetic with her last LDL at 105. She also now has fatty liver with her ALT of 62. Her mood seems good with her PHQ-9 of 6 with starting the program. The patient has a number of weight related health issues insulin resistance/ pre diabetes/ dysmetabolic syndrome, high blood pressure, kidney stones, loud snorer, daytime fatigue, ALMAZ/ CPAP, thyroid disorder, arthritis of knee, Diabetes Type 2. Behavioral: The patient's previous eating habits prior to starting our program fair. Before starting the program the biggest reasons for weight struggles include increased appetite, stress eating, poor meal/ snack planning, lack of exercise, lack of activity, health issues, medication I am/or have taken, poor sleep, boredom eater, constant food thoughts/ cravings, unhealthy snacks, eat most lunches out, eat most dinners out. Exercise before starting the program: yes, walk 30 minutes 3 x weekly just started recently. The patient will treat with long-term lifestyle changes of improved nutrition, increased exercise and activity, stress reduction, adequate sleep and behavioral modification versus short-term dieting. 3. Type 2 diabetes mellitus based on A1c of 6.8 and elevated fasting blood pufisk-mckkw-[id number] treatment with long-term healthy lifestyle change, decreased simple sweets and refined starches, increased exercise and activity and long-term weight loss. Consider metformin. We continue her GLP-1 agonist. She needs close long-term follow-up for this condition to prevent diabetes. 4. Obstructive sleep apnea-now compliant with CPAP with improved symptoms. Treat also with healthy lifestyle changes and weight loss. 5. Hypertension-incompletely controlled on amlodipine and losartan. She may need a third agent. She will treat with a low-salt diet, decreased processed and restaurant foods, healthy lifestyle changes and achieve long-term weight loss. Monitor closely outside the office healthy lifestyle change. 6. Hypothyroidism-on replacement from her PCP. 7. History of kidney stones in the past on Qsymia-will avoid Topamax and continue to drink lots of water. 8. Fatty liver with ALT of 62. Treat with healthy lifestyle changes and hopefully greater than a 10% weight loss. She does have significant abdominal obesity. 9. Metabolic syndrome-treat with long-term healthy lifestyle changes, behavioral changes, healthy nutritional changes, increased activity and exercise and achieve long-term weight loss. The patient understands the metabolic syndrome increases the risk of diabetes and heart disease. Follow up with me in 6-8 weeks. New labs needed: Up-to-date. She needs every 3-month monitoring of A1c. Recommend full blood work in 6 months/May after following our program. Author Rene [facility] Authored April 21, 2025 9:32am Highest weight: 217.0 lbs. d own 31.6 lbs. Start weight: 216.3 lbs. She is down 30.9 lbs. today with a weight of 185.4 lbs she is down 7.7 lbs since last visit on 02/23/2025. Starting Date: 11-24-2024. GLP-1 start . Mounjaro start weight 216.3 pounds.She is down 30.9 lbs. 1. Abnormal weight gain-she denies other people having significant weight problems in the family even her paternal grandfather who had type 2 diabetes. 2. Obesity-improved Mounjaro 7.5 mg with great appetite control/food control and no side effects. She would like to stay at this dose at this time. Asifunjaro is covered by her insurance for her type 2 diabetes that was recently diagnosed with an A1c of 6.8. She has already starting to eat healthier and make more of her own food, started walking before starting our program. Her now has a new diagnosis of type 2 diabetes and they are trying to get healthy together. She has home strength and cardio and equipment and currently doing walking and weights. She will continue to work closely with our entry level receptionist. We cannot consider Qsymia as she had kidney stones on this medicine in the past. She had previous issues with frequently eating out, boredom eating and increased few thoughts. She was a part of our program until 11/25/2020, 4 years ago. She had lost 37.8 pounds with our program and her weight was down to 160 pounds with taking Qsymia unfortunately she developed to kidney stones and the medicine was stopped. She was prediabetic at that time her A1c dropped from 6.1-5.8. She tried to do it on her own but was unable after about a year to keep the weight off. She had been off track with a bad couple years with her dad's cardona with colon cancer. She was recently diagnosed by her PCP as having type 2 diabetes she had an A1c up to 6.8 and recent fasting blood sugars of 141 and 152. She has her has type 2 diabetes and he will be starting Ozempic she would also like to try a GLP-1 agonist now. She has no contraindications. Her is going to try to follow a healthier lifestyle also. He is here today with his . Just recently started to try to cook more at home and started to walk 30 minutes 3 times a week to try to get back on track. She is recently diagnosed with obstructive sleep apnea and she is using her CPAP now and feels better. She also hypertension has been incompletely controlled lately with her systolic blood pressure running in the 140s and 150s despite her blood pressure medication. She also had somewhat incompletely replaced hypothyroidism which her dose has been increased. She takes her thyroid properly. Her LDL cholesterol is not at goal for diabetic with her last LDL at 105. She also now has fatty liver with her ALT of 62. Her mood seems good with her PHQ-9 of 6 with starting the program. The patient has a number of weight related health issues insulin resistance/ pre diabetes/ dysmetabolic syndrome, high blood pressure, kidney stones, loud snorer, daytime fatigue, ALMAZ/ CPAP, thyroid disorder, arthritis of knee, Diabetes Type 2. Behavioral: The patient's previous eating habits prior to starting our program fair. Before starting the program the biggest reasons for weight struggles include increased appetite, stress eating, poor meal/ snack planning, lack of exercise, lack of activity, health issues, medication I am/or have taken, poor sleep, boredom eater, constant food thoughts/ cravings, unhealthy snacks, eat most lunches out, eat most dinners out. Exercise before starting the program: yes, walk 30 minutes 3 x weekly just started recently. The patient will treat with long-term lifestyle changes of improved nutrition, increased exercise and activity, stress reduction, adequate sleep and behavioral modification versus short-term dieting. 3. Type 2 diabetes mellitus based on A1c of 6.8 and elevated fasting blood [id number] treatment with long-term healthy lifestyle change, decreased simple sweets and refined starches, increased exercise and activity and long-term weight loss. Consider metformin. We continue her GLP-1 agonist. She needs close long-term follow-up for this condition to prevent diabetes. 4. Obstructive sleep apnea-now compliant with CPAP with improved symptoms. Treat also with healthy lifestyle changes and weight loss. 5. Hypertension-incompletely controlled on amlodipine and losartan. She may need a third agent. She will treat with a low-salt diet, decreased processed and restaurant foods, healthy lifestyle changes and achieve long-term weight loss. Monitor closely outside the office healthy lifestyle change. 6. Hypothyroidism-on replacement from her PCP. 7. History of kidney stones in the past on Qsymia-will avoid Topamax and continue to drink lots of water. 8. Fatty liver with ALT of 62. She will continue to treat with healthy lifestyle changes and hopefully greater than a 10% weight loss. She does have significant abdominal obesity. 9. Metabolic syndrome-treat with long-term healthy lifestyle changes, behavioral changes, healthy nutritional changes, increased activity and exercise and achieve long-term weight loss. The patient understands the metabolic syndrome increases the risk of diabetes and heart disease. Follow up with me in 6-8 weeks. New labs needed: Up-to-date. She needs every 3-month monitoring of A1c. Recommend full blood work in 6 months/May after following our program. Edward. [facility] Work Phone: 1(242) 993-528905-20-2025 Evaluation note* Author Kaelyn [facility] Authored February 23, 2025 9:54a m Highest weight: 217.0 lbs. d own 23.9 lbs. Start weight: 216.3 lbs. She is down 22.9 lbs. today with a weight of 193.1 lbs she is down 7.9 lbs since last visit on 01/06/2025. Starting Date: 11-24-2024. GLP-1 start date. Mounjaro start weight 216.3 pounds.She is down 22.9 lbs. 1. Abnormal weight gain-she denies other people having significant weight problems in the family even her paternal grandfather who had type 2 diabetes. 2. Obesity-improved Mounjaro 5 mg to treat her type 2 diabetes since he can also help with obstructive sleep apnea. Mounjaro is covered by her insurance for her type 2 diabetes. She was already starting to eat healthier and make more of her own food, started walking before starting our program. Her now has a new diagnosis of type 2 diabetes and they are trying to get healthy together. She has home strength and cardio equipment but does not tend to use them. She would like to start with her tool machinist in the future. She we will continue to work closely with our entry level receptionist. We cannot consider Qsymia as she had kidney stones on this medicine in the past. She had previous issues with frequently eating out, boredom eating and increased few thoughts. She was a part of our program until 11/25/2020, 4 years ago. She had lost 37.8 pounds with our program and her weight was down to 160 pounds with taking Qsymia unfortunately she developed to kidney stones and the medicine was stopped. She was prediabetic at that time her A1c dropped from 6.1-5.8. She tried to do it on her own but was unable after about a year to keep the weight off. She notes that she has had a tough last couple years. She notes she has had some serious issues . She notes her dad was diagnosed with colon cancer and lost a lot of weight she has been visiting him frequently, he lives about 2 hours away and trying to Faten him up. She notes she would often eat the same foods. She was recently diagnosed by her PCP as having type 2 diabetes she had an A1c up to 6.8 and recent fasting blood sugars of 141 and 152. She has her has type 2 diabetes and he will be starting Ozempic she would also like to try a GLP-1 agonist now. She has no contraindications. Her is going to try to follow a healthier lifestyle also. He is here today with his . Just recently started to try to cook more at home and started to walk 30 minutes 3 times a week to try to get back on track. She is recently diagnosed with obstructive sleep apnea and she is using her CPAP now and feels better. She also hypertension has been incompletely controlled lately with her systolic blood pressure running in the 140s and 150s despite her blood pressure medication. She also had somewhat incompletely replaced hypothyroidism which her dose has been increased. She takes her thyroid properly. Her LDL cholesterol is not at goal for diabetic with her last LDL at 105. She also now has fatty liver with her ALT of 62. Her mood seems good with her PHQ-9 of 6 with starting the program. The patient has a number of weight related health issues insulin resistance/ pre diabetes/ dysmetabolic syndrome, high blood pressure, kidney stones, loud snorer, daytime fatigue, ALMAZ/ CPAP, thyroid disorder, arthritis of knee, Diabetes Type 2. Behavioral: The patient's previous eating habits prior to starting our program fair. Before starting the program the biggest reasons for weight struggles include increased appetite, stress eating, poor meal/ snack planning, lack of exercise, lack of activity, health issues, medication I am/or have taken, poor sleep, boredom eater, constant food thoughts/ cravings, unhealthy snacks, eat most lunches out, eat most dinners out. Exercise before starting the program: yes, walk 30 minutes 3 x weekly just started recently. The patient will treat with long-term lifestyle changes of improved nutrition, increased exercise and activity, stress reduction, adequate sleep and behavioral modification versus short-term dieting. 3. Type 2 diabetes mellitus based on A1c of 6.8 and elevated fasting blood [id number] treatment with long-term healthy lifestyle change, decreased simple sweets and refined starches, increased exercise and activity and long-term weight loss. Consider metformin. We will start GLP-1 agonist. She needs close long-term follow-up for this condition to prevent diabetes. 4. Obstructive sleep apnea-now compliant with CPAP with improved symptoms. Treat also with healthy lifestyle changes and weight loss. 5. Hypertension-incompletely controlled on amlodipine and losartan. She may need a third agent. She will treat with a low-salt diet, decreased processed and restaurant foods, healthy lifestyle changes and achieve long-term weight loss. Monitor closely outside the office healthy lifestyle change. 6. Hypothyroidism-on replacement from her PCP. 7. History of kidney stones in the past on Qsymia-will avoid Topamax and continue to drink lots of water. 8. Fatty liver with ALT of 62. Treat with healthy lifestyle changes and hopefully greater than a 10% weight loss. She does have significant abdominal obesity. 9. Metabolic syndrome-treat with long-term healthy lifestyle changes, behavioral changes, healthy nutritional changes, increased activity and exercise and achieve long-term weight loss. The patient understands the metabolic syndrome increases the risk of diabetes and heart disease. Follow up with me in 6 weeks. New labs needed: Up-to-date. Needs every 3-month monitoring of A1c. Recommend full blood work in 6 months/May after following our program. Author Rene [facility] Authored January 06, 2025 3:05p m Highest weight: 217.0 lbs. d own 16.0 lbs. Start weight: 216.3 lbs. She is down 15.3 lbs today with a weight of 201.0 lbs last visit on 11/24/2024. Starting Date: 11-24-2024. GLP-1 start . Eric start weight 216.3 pounds.She is down 15.3 lbs. 1. Abnormal weight gain-she denies other people having significant weight problems in the family even her paternal grandfather who had type 2 diabetes. 2. Obesity-improved Eric 5 mg to treat her type 2 diabetes since he can also help with obstructive sleep apnea. Eric is covered by her insurance for her type 2 diabetes. She was already starting to eat healthier and make more of her own food, started walking before starting our program. Her now has a new diagnosis of type 2 diabetes and they are trying to get healthy together. She has home strength and cardio equipment but does not tend to use them. She would like to start with her tool machinist in the future. She we will continue to work closely with our entry level receptionist. We cannot consider Qsymia as she had kidney stones on this medicine in the past. She had previous issues with frequently eating out, boredom eating and increased few thoughts. She was a part of our program until 11/25/2020, 4 years ago. She had lost 37.8 pounds with our program and her weight was down to 160 pounds with taking Qsymia unfortunately she developed to kidney stones and the medicine was stopped. She was prediabetic at that time her A1c dropped from 6.1-5.8. She tried to do it on her own but was unable after about a year to keep the weight off. She notes that she has had a tough last couple years. She notes she has had some serious issues . She notes her dad was diagnosed with colon cancer and lost a lot of weight she has been visiting him frequently, he lives about 2 hours away and trying to Faten him up. She notes she would often eat the same foods. She was recently diagnosed by her PCP as having type 2 diabetes she had an A1c up to 6.8 and recent fasting blood sugars of 141 and 152. She has her has type 2 diabetes and he will be starting Ozempic she would also like to try a GLP-1 agonist now. She has no contraindications. Her is going to try to follow a healthier lifestyle also. He is here today with his . Just recently started to try to cook more at home and started to walk 30 minutes 3 times a week to try to get back on track. She is recently diagnosed with obstructive sleep apnea and she is using her CPAP now and feels better. She also hypertension has been incompletely controlled lately with her systolic blood pressure running in the 140s and 150s despite her blood pressure medication. She also had somewhat incompletely replaced hypothyroidism which her dose has been increased. She takes her thyroid properly. Her LDL cholesterol is not at goal for diabetic with her last LDL at 105. She also now has fatty liver with her ALT of 62. Her mood seems good with her PHQ-9 of 6 with starting the program. The patient has a number of weight related health issues insulin resistance/ pre diabetes/ dysmetabolic syndrome, high blood pressure, kidney stones, loud snorer, daytime fatigue, ALMAZ/ CPAP, thyroid disorder, arthritis of knee, Diabetes Type 2. Behavioral: The patient's previous eating habits prior to starting our program fair. Before starting the program the biggest reasons for weight struggles include increased appetite, stress eating, poor meal/ snack planning, lack of exercise, lack of activity, health issues, medication I am/or have taken, poor sleep, boredom eater, constant food thoughts/ cravings, unhealthy snacks, eat most lunches out, eat most dinners out. Exercise before starting the program: yes, walk 30 minutes 3 x weekly just started recently. The patient will treat with long-term lifestyle changes of improved nutrition, increased exercise and activity, stress reduction, adequate sleep and behavioral modification versus short-term dieting. 3. Type 2 diabetes mellitus based on A1c of 6.8 and elevated fasting blood [id number] treatment with long-term healthy lifestyle change, decreased simple sweets and refined starches, increased exercise and activity and long-term weight loss. Consider metformin. We will start GLP-1 agonist. She needs close long-term follow-up for this condition to prevent diabetes. 4. Obstructive sleep apnea-now compliant with CPAP with improved symptoms. Treat also with healthy lifestyle changes and weight loss. 5. Hypertension-incompletely controlled on amlodipine and losartan. She may need a third agent. She will treat with a low-salt diet, decreased processed and restaurant foods, healthy lifestyle changes and achieve long-term weight loss. Monitor closely outside the office healthy lifestyle change. 6. Hypothyroidism-on replacement from her PCP. 7. History of kidney stones in the past on Qsymia-will avoid Topamax and continue to drink lots of water. 8. Fatty liver with ALT of 62. Treat with healthy lifestyle changes and hopefully greater than a 10% weight loss. She does have significant abdominal obesity. 9. Metabolic syndrome-treat with long-term healthy lifestyle changes, behavioral changes, healthy nutritional changes, increased activity and exercise and achieve long-term weight loss. The patient understands the metabolic syndrome increases the risk of diabetes and heart disease. Follow up with me in 6 weeks. New labs needed: Up-to-date. Needs every 3-month monitoring of A1c. Recommend full blood work in 6 months/May after following our program. 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 Tubes look good documented in this encounterJohn J. Pershing [facility] [id number] Evaluation note* Author Rene [facility] Authored November 24, 2024 3:49 pm Assessment: Highest weight: 217.0 lbs Start weight: 216.3 lbs. Starting Date: 11-24-2024. GLP-1 start . GLP-1 start weight 216.3 pounds. 1. Abnormal weight gain-she denies other people having significant weight problems in the family even her paternal grandfather who had type 2 diabetes. 2. Obesity-we are going to try Mounjaro to treat her type 2 diabetes since he can also help with obstructive sleep apnea. If Mounjaro not covered she would like to try Ozempic. She is already started to eat healthier and make more of her own food, started walking and her is also trying to get healthier to. She has home strength and cardio equipment but does not tend to use them. She would like to start with her tool machinist in the future. She would like to work with our entry level receptionist. We cannot consider Qsymia as she had kidney stones on this medicine in the past. She had previous issues with frequently eating out, boredom eating and increased few thoughts. She was a part of our program until 11/25/2020, 4 years ago. She had lost 37.8 pounds with our program and her weight was down to 160 pounds with taking Qsymia unfortunately she developed to kidney stones and the medicine was stopped. She was prediabetic at that time her A1c dropped from 6.1-5.8. She tried to do it on her own but was unable after about a year to keep the weight off. She notes that she has had a tough last couple years. She notes she has had some serious issues . She notes her dad was diagnosed with colon cancer and lost a lot of weight she has been visiting him frequently, he lives about 2 hours away and trying to Faten him up. She notes she would often eat the same foods. She was recently diagnosed by her PCP as having type 2 diabetes she had an A1c up to 6.8 and recent fasting blood sugars of 141 and 152. She has her has type 2 diabetes and he will be starting Ozempic she would also like to try a GLP-1 agonist now. She has no contraindications. Her is going to try to follow a healthier lifestyle also. He is here today with his . Just recently started to try to cook more at home and started to walk 30 minutes 3 times a week to try to get back on track. She is recently diagnosed with obstructive sleep apnea and she is using her CPAP now and feels better. She also hypertension has been incompletely controlled lately with her systolic blood pressure running in the 140s and 150s despite her blood pressure medication. She also had somewhat incompletely replaced hypothyroidism which her dose has been increased. She takes her thyroid properly. Her LDL cholesterol is not at goal for diabetic with her last LDL at 105. She also now has fatty liver with her ALT of 62. Her mood seems good with her PHQ-9 of 6 with starting the program. The patient has a number of weight related health issues insulin resistance/ pre diabetes/ dysmetabolic syndrome, high blood pressure, kidney stones, loud snorer, daytime fatigue, ALMAZ/ CPAP, thyroid disorder, arthritis of knee, Diabetes Type 2. Behavioral: The patient's previous eating habits prior to starting our program fair. Before starting the program the biggest reasons for weight struggles include increased appetite, stress eating, poor meal/ snack planning, lack of exercise, lack of activity, health issues, medication I am/or have taken, poor sleep, boredom eater, constant food thoughts/ cravings, unhealthy snacks, eat most lunches out, eat most dinners out. Exercise before starting the program: yes, walk 30 minutes 3 x weekly just started recently. The patient will treat with long-term lifestyle changes of improved nutrition, increased exercise and activity, stress reduction, adequate sleep and behavioral modification versus short-term dieting. The patient will begin Mounjaro to help with both glycemic control and satiety. The risks, benefits and side effects were discussed; including but not limited to the risk of nausea, vomiting, increased heartburn, abdominal discomfort, constipation diarrhea and risk of hypoglycemia. The patient was also counseled on the slight increase risk of acute pancreatitis and symptomatic choledocholithiasis. The patient was counseled on the risk of medullary thyroid cancer seen in rat models of GLP-1 agonists. The patient denies any previous history of pancreatitis, pancreatic cancer, gallbladder disease or personal or family history of medullary thyroid cancer or MEN syndrome. -Begin 2.5 mg Mounjaro every week using the starter kit and if in 4 weeks no side effects increase to 5 mg weekly. The patient will stop Mounjaro and call any significant nausea, vomiting, abdominal pain or other side effects. The patient was instructed on proper use of the pen and brochure given. 3. Type 2 diabetes mellitus based on A1c of 6.8 and elevated fasting blood [id number] treatment with long-term healthy lifestyle change, decreased simple sweets and refined starches, increased exercise and activity and long-term weight loss. Consider metformin. We will start GLP-1 agonist. She needs close long-term follow-up for this condition to prevent diabetes. 4. Obstructive sleep apnea-now compliant with CPAP with improved symptoms. Treat also with healthy lifestyle changes and weight loss. 5. Hypertension-incompletely controlled on amlodipine and losartan. She may need a third agent. She will treat with a low-salt diet, decreased processed and restaurant foods, healthy lifestyle changes and achieve long-term weight loss. Monitor closely outside the office healthy lifestyle change. 6. Hypothyroidism-on replacement from her PCP. 7. History of kidney stones in the past on Qsymia-will avoid Topamax and continue to drink lots of water. 8. Fatty liver with ALT of 62. Treat with healthy lifestyle changes and hopefully greater than a 10% weight loss. She does have significant abdominal obesity. 9. Metabolic syndrome-treat with long-term healthy lifestyle changes, behavioral changes, healthy nutritional changes, increased activity and exercise and achieve long-term weight loss. The patient understands the metabolic syndrome increases the risk of diabetes and heart disease. Follow up with me in 6 weeks. New labs needed: Up-to-date. Needs 3-month monitoring of A1c. Recommend full blood work in 6 months/May after following our program. The patient was instructed to consider logging [...] Our exercise program was recommended with our tool machinist/obesity exercise group. Handout given. Our free weekly [...] and benefits of prescribed meds discussed. Initial frfw-cu-ffhf interview/evaluation. The patient was counseled in detail on the options for weight loss in an individual setting. 71 minutes was spent caring for the patient, counseling/educating patient on the options for the treatment of obesity and related healthcare issues. The program's treatment goals were reviewed with the patient. Each aspect of the program was discussed with the patient. [facility] Work Phone: 1(212) 459-716504-07-2025 Evaluation note* Author Berenice Garcia [facility] Authored November 24, 2024 1:42 pm Assessment: [...] Our exercise program was recommended with our tool machinist/obesity exercise group. Handout given. Our free weekly [...] and benefits of prescribed meds discussed. Initial igqj-qd-pmmy interview/evaluation. The patient was counseled in detail on the options for weight loss in an individual setting. [ ] minutes was spent caring for the patient, counseling/educating patient on the options for the treatment of obesity and related healthcare issues. The program's treatment goals were reviewed with the patient. Each aspect of the program was discussed with the patient. [facility] Work Phone: 1(631) 452-753903-28-2025 History of Present illness Narrative* Shameka Blum MD - 11/14/2024 10:00 AM EDT Subjective Patient ID: Milana Miller is a 54 y.o. female who presents for Ear Problem (Ear pain/drainage ) RT otorrhea since flying Family History Problem Relation Name Age of Onset COPD Mother Prostate cancer Father Kaz Torma Hypertension Father Kaz Torma Asthma Sibling Stroke Maternal Grandfather Tom Raulkovich Throat cancer Paternal Grandfather Active Ambulatory Problems [...] 5 mg by mouth in the morning. Oiayhfy-Ocngtlcon-Zbscfip D (CALCIUM 1200+D3 PO) Take 1 tablet [...] with levaquin and ciprodex. documented in this encounterJohn J. Pershing VA Medical [id number] Evaluation note* Diagnosis Onset Date Resolution Status Admit Date Class 2 obesity with body ma ss index (BMI) of 39.0 to 39.9 in adult acute September 01 11:22am Essential (primary) hypertension acu te September 01, 2024 11:22am Hyperlipidemia acute September 012024 11:22am Hypothyroidism acute September 012024 11:22am Snoring acute September 01, 2024 11:22am Wellness examination acute Herson noriega 2024 11:22am [facility] Work Phone: 1(772) 448-446712-04-2024 History of Present illness Narrative* Shameka Blum MD - 07/23/2024 2:40 PM EST Subjective Patient ID: Milana Miller is a 54 y.o. female who presents for Ear Problem (Ear debridement) Family History Problem Relation Name Age of Onset COPD Mother Prostate cancer Father Kaz Echeverria Hypertension Father Kaz Echeverria Asthma Sibling Stroke Maternal Grandfather Tom Gonzaloich Throat cancer Paternal Grandfather Active Ambulatory Problems [...] 5 mg by mouth in the morning. Xjoaubw-Khkxjozai-Khpcizl D (CALCIUM 1200+D3 PO) Take 1 tablet [...] debrided and look good documented in this encounterJohn J. Pershing VA Medical [id number] History of Present illness Narrative* Shameka Blum MD - 07/08/2024 2:20 PM EST Subjective Patient ID: Milana Miller is a 54 y.o. female who presents for Ear Problem (1 year tube check. BMT04/26/23) Pt notes some crakling in ears Family History Problem Relation Name Age of Onset COPD Mother Prostate cancer Father Kaz Torgael Hypertension Father Kaz Torma Asthma Sibling Stroke Maternal Grandfather Tom Delgado [...] ear Chronic myringitis of left ear Diabetes ([facility]) Disease of thyroid gland ([facility]) 2015 Hypertension ([facility]) Kidney stone Nosebleed Obesity Past Surgical History: [...] 5 mg by mouth in the morning. Jvmvgim-Pgfkjqous-Wvjloej D (CALCIUM 1200+D3 PO) Take 1 tablet [...] and F/U to debride documented in this encounterJohn J. Pershing VA Medical [id number] Evaluation note* Encounter Date Diagnosis Assessment Notes Treatment Notes Treatment Clinical Notes Aug, Encounter for wellness examination (ICD-10 - Z00.00) Today was not a wellness, but she needs labs for paperwork for her insurance. Aug, Hypertension (ICD-10 - I10) Continue losartan, add norvasc. Call w bp readings 2-3 weeks. [facility] 11-28-2023 [facility] Evaluation [facility]* Encounter Date Diagnosis Assessment Notes Treatment Notes Treatment Clinical Notes May, Celiac disease (ICD-10 - K90.0) Patient is to have an EGD to test for celiac disease scheduled today, prep instructions given today, Risks and benefits of procedure explained to patient; patient verbalizes understanding. May, Screening for colon cancer (ICD-10 - Z12.11) [facility] 09-18-2023 Evaluation note* Encounter Date Diagnosis Assessment Notes Treatment Notes Treatment Clinical Notes Apr, Hypothyroid (ICD-10 - E03.9) [facility] 09-07-2023 Hospital Discharge instructions Patient Education [...] Follow these instructions at home: Medicines Take tlrx-fbf-oorgkxr and prescription medicines only as told by [...] is common to have ear pain. Take jiru-xyr-ywqjkbx and prescription medicines only as told by [...] provider. Document Revised: 04/03/2022 Document Reviewed: 04/03/2022 [employer] Patient Education 2022 [employer]. 04/26/2023 10:35:29 Post Op Patient Instructions - FT(CUSTOM) Follow Up Care 04/18/2023 09:29:44 With:Shameka Blum Address:Unknown When: Unknown Comments:One month [facility]09-01-2023 Note [id number]:127[facility] 04-10-2023 Evaluation note* Encounter Date Diagnosis Assessment Notes Treatment Notes Treatment Clinical Notes Mar, Generalized abdominal pain (ICD-10 - R10.84) Reviewed notes from her meat trimmer. She would like to be tested further for celiac. Had intial Ig's checked earlier this year. Referral placed. Mar, Screening for colon cancer (ICD-10 - Z12.11) [facility] 08-07-2023 Evaluation note* Encounter Date Diagnosis Assessment Notes Treatment Notes Treatment Clinical Notes Mar, Thyroiditis (ICD-10 - E06.9) [facility] 07-06-2023 Evaluation note* Encounter Date Diagnosis Assessment Notes Treatment Notes Treatment Clinical Notes Feb, Hypothyroid (ICD-10 - E03.9) [facility] 06-26-2023 Evaluation note* Encounter Date Diagnosis Assessment Notes Treatment Notes Treatment Clinical Notes Jan, Hypothyroid (ICD-10 - E03.9) Decrease dose. Discussed symptoms of hyperthyroidism. Call if no improvment in sx and repeat labs in 6-8 weeks. [facility] 04-06-2023 Evaluation note* Encounter Date Diagnosis [...] in past - will check CBC presently. [facility] 02-17-2023 Evaluation note* Encounter Date Diagnosis [...] as needed for aches pains or fevers. [facility] 10-01-2013 History general Narrative - Reported* Type Description Date Medical History Chickenpox Medical History Mammogram 05/2013 Medical History Pap/Pelvic exam summer w ith Medical History Hypothyroidism Medical History hypertension Medical History kidney stones Surgical History 6-[address] aced in bilateral ears over the years Surgical History ear surgery Hospitalization History see above [facility] 10-01-2013 History general Narrative - Reported* Type Description Date Medical History Chickenpox Medical History Mammogram 05/2013 Medical History Pap/Pelvic exam summer w ith Medical History Hypothyroidism Medical History hypertension Medical History kidney stones Surgical History 6-[address] aced in bilateral ears over the years Surgical History ear surgery Surgical History COLONOSCOPY 2006 Hospitalization History see above [facility] 10-01-2013 History general Narrative - Reported* [...] & 12 2022 Hospitalization History see above [facility] [employer] Other Evaluation + Plan note Future Appointments Appointment Date:04/26/2023 01:30:00 PM Scheduled Provider: [facility] noteNo [facility]Barn[facility] [employer] Other Evaluation noteNo assessment information available [facility] Work Phone: Evaluation note* Diagnosis ETD (Eustachian tube dysfunction), bilateral- Primary [facility] Diagnosis ETD (Eustachian tube dysfunction), bilateral- Primary [facility]* Diagnosis Onset Date Resolution Status Admit Date Essential (primary) hypertension acu te September 01, 2024 11:22am Hyperlipidemia acute September 012024 11:22am Hypothyroidism acute September 012024 11:22am Wellness examination acute Herson hari2024 11:22am [facility] Work Phone: Evaluation note* Diagnosis Chronic otorrhea of right ear- Primary [facility] Diagnosis ETD (Eustachian tube dysfunction), bilateral- Primary Chronic otorrhea of right ear [facility]* Diagnosis ETD (Eustachian tube dysfunction), bilateral- Primary Chronic myringitis, left documented in this encounter [facility] Author Johnathan More [facility] July 17, 2023 11:17am Note Date/Time July 17, 2023 11:17am [facility] [address] [place] [address] Gastroenterology H&P Signed Patient: Milana Miller MR#: [id number] : 1970 Acct:[id number] Age/Sex: 53 / F Adm Date: 3 Loc: Room: Type: [facility] Attending Dr: Johnathan More MD Copies to: [...] <Electronically signed by Johnathan More MD> 07/17/23 111 [facility] Work Phone: Hospital course Narrative No data available for this section [facility] Discharge instructions No data available for this section [facility] Discharge instructions Additional Instructions DISCHARGE INSTRUCTIONS [...] NOT operate machinery such as power tools, Refurrln mowers, snow blowers, sewing machines, etc. for [...] the office as scheduled - Office number [phone]. [facility] Work Phone: Progress note No data available for this section [facility]Reason for referral (narrative)No reason for referral information availableC[facility] Work Phone: Summary Purpose Family History Relationship Condition Age [...] Unk nown sister Asthma Unknown Advance Directives Advance Directive Response Recorded Date/ [...] examination September 01, 2024 11:22am Reason for Visit Admit Date HTN (hypertension) November 24, 2024 12:4 1pm Hyperlipidemia November 24, 2024 12:4 1pm Hypothyroidism November 24, 2024 12:4 1pm ALMAZ on CPAP November 24, 2024 12:4 1pm Type 2 diabetes mellitus with hyperglyce [facility] November 24, 2024 12:41pm Chief Complaint Admit Date January 06, 2025 1:54p m 6-8 week February 23, 2025 9:14a m Reason for Visit Admit Date HTN (hypertension) January 06, 2025 1:54p m Hyperlipidemia January 06, 2025 1:54p m Hypothyroidism January 06, 2025 1:54p m ALMAZ on CPAP January 06, 2025 1:54p m Type 2 diabetes mellitus with hyperglyce [place] January 06, 2025 1:54pm Chief Complaint Admit Date week January 06, 2025 1:54p m 6-8 week February 23, 2025 9:14a m [facility] March 30, 2025 8: 25am Reason for Visit Admit Date HTN (hypertension) January 06, 2025 1:54p m Hyperlipidemia January 06, 2025 1:54p m Hypothyroidism January 06, 2025 1:54p m ALMAZ on CPAP January 06, 2025 1:54p m Type 2 diabetes mellitus with hyperglyce [place] January 06, 2025 1:54pm HTN (hypertension) February 23, 2025 9:14a m Hyperlipidemia February 23, 2025 9:14a m Obesity, Class II, BMI 35-39.9 February 23, 2025 9:14am ALMAZ on CPAP February 23, 2025 9:14a m Type 2 diabetes mellitus with hyperglyce [place] February 23, 2025 9:14am Chief Complaint Admit Date 6-8 week February 23, 2025 9:14a m [facility] March 30, 2025 8: 25am 6-8 week April 21, 2025 8:51am Reason for Visit Admit Date HTN (hypertension) February 23, 2025 9:14a m Hyperlipidemia February 23, 2025 9:14a m Obesity, Class II, BMI 35-39.9 February 23, 2025 9:14am ALMAZ on CPAP February 23, 2025 9:14a m Type 2 diabetes mellitus with hyperglyce [place] February 23, 2025 9:14am Essential (primary) hypertension Septemb 2024 8:51am Fatty liver April 21, 2025 8:51am Hyperlipidemia April 21, 2025 8:51am Obesity (BMI 30.0-34.9) April 21, 8:51am ALMAZ on CPAP April 21, 2025 8:51am Type 2 diabetes mellitus with hyperglyce [place] April 21, 2025 8:51am Reason for Referral Reason ?celiac disease. has never had a colonoscopy for screening. Diagnosis 1 Generalized abdomina l pain (R10.84) Referral Organization [facility] Referring Provider First Name Rojelio Referring Provider Last Name Shalini Referring Provider Specialty Family [facility] Referred Organization [facility] Gastroenterolo gy Referred Address [address],[address] Referred Provider Specialty Gastroentero logy Referral Priority Routine Additional Source Comments INFORMATION SOURCE (unrecogn ized section and content) DATE CREATED AUTHOR 01/20/2022 [facility] d[facility] Specialist DATE CREATED AUTHOR AUTHOR'S ORGANIZ ATION 01/26/2023 [facility] DATE CREATED AUTHOR AUTHOR'S ORGANIZ ATION 05/02/2023 [facility] DATE CREATED AUTHOR AUTHOR'S ORGANIZ ATION 06/12/2024 [facility] DATE CREATED AUTHOR AUTHOR'S ORGANIZ ATION 03/09/2025 [facility] d[facility] Specialists EPIC REASON FOR VISIT (unrecogniz ed section and content) Reason Comments Ear Problem 1 year tube check. B MT 04/26/23 Reason Comments Ear Problem Ear debridement Reason Comments Ear Problem Ear pain/drainage Reason Comments Ear Problem 2 week check ears Reason Comments Ear Problem Possible infection Care Teams (unrecognized sec tion and content) Team Status: Active Member Role Status Dates Rojelio Loya MD Primary Care Provider Active Team Status: Inactive Member Role Status Dates Rojelio Loya MD Primary Care Provider Active Start: January 06, 2025 End: January 06, 2025 Rene Lazcano MD Attending Provider Active Start: January 06, 2025 End: January 06, 2025 Team Status: Inactive Member Role Status Dates Rojelio Loya MD Primary Care Provider Active Start: February 23, 2025 End: February 23, 2025 Rene Lazcano MD Attending Provider Active Start: February 23, 2025 End: February 23, 2025 Team Status: Inactive Member Role Status Dates Rojelio Loya MD Primary Care Provider Active Start: March 30, 2025 End: March 30, 2025 TOMASA Liriano Attending Provider Active S tart: March 30, 2025 End: March 30, 2025 Team Status: Active Member Role Status Dates Rojelio Loya MD Primary Care Provide r, Attending Provider Active Start: October 20, 2024 Team Status: Inactive Member Role Status Dates Rojelio Loya MD Primary Care Provider Active Start: November 12, 2024 End: November 12, 2024 Elva Alvarado RN Attending Provider Active Start: November 12, 2024 End: November 12, 2024 Team Status: Inactive Member Role Status Dates Rojelio Loya MD Primary Care Provider Active Start: November 24, 2024 End: November 24, 2024 Rene Lazcano MD Attending Provider Active Start: November 24, 2024 End: November 24, 2024 Team Status: Active Member Role Status Dates Rojelio Loya MD Primary Care Provide r, Attending Provider Active Start: December 04, 2024 Team Status: Inactive Member Role Status Dates Rojelio Loya MD Primary Care Provider Active Start: December 09, 2024 End: December 09, [address] Attending Provider Active S tart: December 09, 2024 End: December 09, 2024 Team Status: Inactive Member Role Status [...] Referral Self Attending Provider Active Start: O ct2023 End: June 06, 2024 Excellence Manager Relationship Specialty Start Date End Date Rojelio Loya MD [address] [facility] [place] [phone] PCP - General Family Medicine 01/09/23 Excellence Manager Relationship Specialty Start Date End Date Rojelio Loya MD [address] [facility] [place] [phone] PCP - General Family Medicine 01/09/23 Excellence Manager Relationship Specialty Start Date End Date Rojelio Loya MD [address] [facility] [place] [phone] PCP - General Family Medicine 01/09/23 Excellence Manager Relationship Specialty Start Date End Date Rojelio Loya MD [address] [facility] [place] [phone] PCP - General Family Medicine 01/09/23 Team Status: Inactive Member Role Status Dates Rojelio Loya MD Primary Care Provide r, Attending Provider Active Start: September 01, 2024 End: September 01, 2024 Team Status: Active Member Role Status Dates Rojelio Loya MD Primary Care Provide r, Attending Provider Active Start: September 02, 2024 Excellence Manager Relationship Specialty Start Date End Date Rojelio Loya MD [address] [facility] [place] [phone] PCP - General Family Medicine 01/09/23 Excellence Manager Relationship Specialty Start Date End Date Rojelio Loya MD [address] [facility] [place] [phone] PCP - General Family Medicine 12/02/24 Excellence Manager Relationship Specialty Start Date End Date Rojelio Loya MD [address] [facility] [place] [address] PCP - General Family Medicine 12/02/24 Team Status: Active Member Role Status Dates Rojelio Loya MD Primary Care Provider Active Start: December 04, 2024 Rojelio Loya MD Attending Provider Active St art: December 04, 2024 Team Status: Inactive Member Role Status Dates Rojelio Loya MD Primary Care Provider Active Start: December 09, 2024 End: December 09, 2024 TOMASA Al Attending Provider Active Start: December 09, 2024 End: December 09, 2024 Excellence Manager Relationship Specialty Start Date End Date Rojelio Loya MD [address] [facility] [place] [phone] PCP - General Family Medicine 12/02/24 Excellence Manager Relationship Specialty Start Date End Date Rojelio Loya MD [address] [facility] [place] [address] PCP - General Family Medicine 12/02/24 Team Status: Inactive Member Role Status Dates Rojelio Loya MD Primary Care Provider Active Start: April 21, 2025 End: April 21, 2025 Rene Lazcano MD Attending Provider Active Start: April 21, 2025 End: April 21, 2025 Goals (unrecognized section and content) Goals may [...] BE BASED ON THE PRIMARY CLINICAL RECORDS. [facility] [employer] [facility]. provides no warranty or guarantee of the accuracy or completeness of information in this document.
[2025-04-22 13:34] LABS: Alanine Aminotransferase 38 U/L (14-59); Albumin Globulin Ratio 1.1; Albumin Level 4.0 g/dL (3.4-5.0); Alkaline Phosphatase 84 U/L (46-116); Anion Gap 9.1; Aspartate Amino Transferase 14 U/L (15-37); Blood Urea Nitrogen 16.0 mg/dL (7.0-18.0); Calcium 9.2 mg/dL (8.5-10.1); Carbon Dioxide 30.7 mmol/L (21.0-32.0); Chloride 106 mmol/L (98-107); Cholesterol 188 mg/dL (<=200); Estimated GFR (African America >60 (>=60 mL/min/1.73m^2); Estimated GFR (Non-African Ame >60 (>=60 mL/min/1.73m^2); Globulin 3.7 g/dL; Glucose 107 mg/dL (74-106); HDL Cholesterol 62 mg/dL (40-60); Potassium 3.8 mmol/L (3.5-5.1); Sodium 142 mmol/L (136-145); TSH W/ REFLEX FT4 1.346 uIU/mL (0.358-3.740); Total Protein 7.7 g/dL (6.4-8.2); Triglycerides 73 mg/dL (<=150); VLDL CHOLESTEROL 14.6 mg/dL
== END 2025-04-22 08:46 | disposition home or self-care (01) ==
PROVIDERS: PCP Family Medicine; Visit Provider Internal Medicine
DX: Z00.00 Encounter for general adult medical examination without abnormal findings (principal); E11.65 Type 2 diabetes mellitus with hyperglycemia; I10 Essential (primary) hypertension; E78.5 Hyperlipidemia, unspecified; E06.3 Autoimmune thyroiditis
CPT/HCPCS: 36415; 80053; 80061; 83036; 84443